=== PATIENT | female | born 1970 | race African-American/Black ===

== ENCOUNTER 2018-07-16 10:35 | Inpatient (IN) | payer BC, OTHER ==
--- NOTE | 2018-07-16 11:25 | PDOC ---
History of Present Illness - History of Present Illness Initial Comments: 07/16/18 12:31 The patient is a 48 year old female, with a significant past medical history of hypothyroidism, hypertension, hyperlipidemia, DM, asthma, neuropathy, Charcot foot, chronic cellulitis/rt diabetic foot ulcer/wound, venous stasis, sent in by Dr Olvera for evaluation of right lower extremity wound. The patient states she was evaluated at the wound care clinic today with Dr Olvera for the RLE wound /ulcer prior to arrival and advised to come to the emergency department for admission and consultations. The patient states she has had drainage from the RLE and loss of sensation at baseline, previously evaluated at [facility] and clinics and advised for amputation but pt has declined and looking for second opinions.. The patient had a prior rt foot wound culture which was positive for strep agalactiae. Of note, the patient had a previous admission 2017 for similar presentation, for rt foot wound/cellulitis. Denies fever, chills, chest pain, SOB, palpitation, dizziness, weakness, N, V, D , abdominal pain, bladder and bowel problems, Allergies: piperacillin sodium, tazobactam sodium Past Medical History: hypothyroidism, hypertension, hyperlipidemia, DM, asthma, neuropathy, chronic cellulitis/rt diabetic foot ulcer/wound, venous stasis Social history: No smoking. No alcohol. No illicit drugs. Surgical history: 2 prior right lower extremity wound surgeries. PMD: Dr Bledsoe Podiatry: Dr Olvera <Edinson Guerrero - Last Filed: 07/16/18 12:33> - General History Source: Patient Exam Limitations: No Limitations <Laila Moralez - Last Filed: 07/16/18 15:49> - General Chief Complaint: Wound Stated Complaint: WOUND CARE Time Seen by Provider: 07/16/18 11:06 Past History <Edinson Guerrero - Last Filed: 07/16/18 12:33> - Past Medical History Anemia: No Asthma: Yes Cardiac Disorders: No CVA: No COPD: No CHF: No Dementia: No Diabetes: Yes GI Disorders: No Disorders: No HTN: Yes Hypercholesterolemia: No (PT RECEIVING LIPITOR FOR PREVENTATIVE MEASURES) Liver Disease: No Seizures: No Thyroid Disease: Yes (HYPOTHYROIDISM) - Immunization History Immunization Up to Date: No - Suicide/Smoking/Psychosocial Hx Smoking History: Never smoked Have you smoked in the past 12 months: No Information on smoking cessation initiated: No Hx Alcohol Use: No Drug/Substance Use Hx: No Substance Use Type: None Hx Substance Use Treatment: No <Laila Moralez - Last Filed: 07/16/18 15:49> - Past Medical History Allergies/Adverse Reactions: Allergies Allergy/AdvReac Type Severity Reaction Status Date / Time piperacillin sodium AdvReac Verified 10/22/17 21:24 [From Zosyn] tazobactam sodium AdvReac Verified 10/22/17 21:24 [From Zosyn] Home Medications: Ambulatory Orders Furosemide 40 mg PO DAILY 04/03/16 metFORMIN HCL [Metformin ER Osmotic] 1,000 mg PO BID 04/03/16 Insulin (Novolog) [Novolog -] See Protocol SQ ACHS 10/23/17 Lantus 14 units SQ ASDIR 10/23/17 Atorvastatin Ca [Lipitor] 10 mg PO HS 07/16/18 Gabapentin 100 mg PO TID 07/16/18 Glipizide [Glucotrol] 10 mg PO DAILY 07/16/18 Insulin Detemir [Levemir Flextouch] 100 unit SQ ASDIR 07/16/18 Lisinopril 20 mg PO DAILY 07/16/18 Pantoprazole Sodium [Protonix] 40 mg PO DAILY 07/16/18 Pregabalin [Lyrica] 25 mg PO DAILY 07/16/18 Review of Systems - Review of Systems Comments:: 07/16/18 12:32 Constitutional: no fevers or chills. HEENT: no headache or dizziness. CVS: no cp or syncope. Resp: no sob. No cough. Gastrointestinal: no abdominal pain, nausea or vomiting. Genitourinary: no urinary sx, hematuria. MUSCULOSKELETAL: No joint pain and swelling. No neck or back pain. SKIN: (+) Right lower extremity wound. +purulence/drainage, +foot pain. no malodor Hematologic: no easy bruising/bleeding. No anemia. NEUROLOGIC: No headache, dizziness, LOC or altered mental status. No weakness, + chronic numbness to feet Allergic/Immunologic: drug allergy to pcn (rash) All other systems reviewed and negative, or as documented in HPI. <Edinson Guerrero - Last Filed: 07/16/18 12:33> *Physical Exam - Vital Signs Last Vital Signs Temp Pulse Resp BP Pulse Ox 98.0 F 84 16 118/70 98 07/16/18 10:49 07/16/18 10:49 07/16/18 10:49 07/16/18 10:49 07/16/18 10:49 - Physical Exam Comments: 07/16/18 12:32 General: Well appearing, awake and alert, NAD. HEENT: NCAT, PERRL, EOMI, clear conjunctiva, anicteric, moist mucus membranes, clear oropharynx, no oral lesions.. Neck: neck supple, FROM Resp: CTAB, normal and even respirations, no respiratory distress CVS: RRR, no murmurs, 2+ peripheral pulses throughout, +Right peripheral edema Abdomen: soft, NTND, no peritoneal signs. +obese Back: nontender, normal inspection and ROM MSK: (+) Pitting edema of the right lower extremity involving the foot and ankle. SHELL x4, ROM intact. No clubbing or cyanosis. normal bulk and tone. Neuro: alert, no focal neuro deficits. +sensation diminished to bilateral plantar feet. Skin: (+) Large plantar ulcer to rt foot, (+) 4.3cm x 4.0cm x 1.5cm deep. (+) Mild warmth to palpation, worse in RLE and herzog.. No active drainage, or malodor , packing in place. (+) Venous stasis changes to the right lower extremity. 2+ DP pulses on left versus 1+ DP pulse on right, limited due to profound swelling. (+) Diminished sensation on plantar surface of right lower extremity. <Edinson Guerrero - Last Filed: 07/16/18 12:33> - Vital Signs Last Vital Signs Temp Pulse Resp BP Pulse Ox 98.0 F 84 16 118/70 98 07/16/18 10:49 07/16/18 10:49 07/16/18 10:49 07/16/18 10:49 07/16/18 10:49 <Laila Moralez - Last Filed: 07/16/18 15:49> Heart Score/ECG Review #1 ECG reviewed & interpreted by me at: 11:20 General ECG Interpretation: Sinus Rhythm, Normal Rate 07/16/18 11:33 EKG normal sinus rhythm 85 bpm, no interval abnormalities, narrow QRS, ST and T wave segments and morphology normal. Nonspecific T wave abnormalities <Laila Moralez - Last Filed: 07/16/18 15:49> ED Treatment Course - LABORATORY CBC & Chemistry Diagram: 07/16/18 11:56 07/16/18 11:56 - ADDITIONAL ORDERS Additional order review: 07/16/18 11:56 RBC 3.85 MCV 80.7 MCHC 32.6 RDW 17.6 H MPV 7.1 L D Neutrophils % 81.7 D Lymphocytes % 10.7 D Monocytes % 5.6 Eosinophils % 1.0 Basophils % 1.0 - Medications Given in the ED: ED Medications Discontinued Medications Generic Name Dose Route Start Last Admin Trade Name Freq PRN Reason Stop Dose Admin Cefepime HCl 1 gm in 50 mls @ 100 mls/hr 07/16/18 11:34 07/16/18 12:05 Maxipime 1 Gm Premix Ivpb IVPB 07/16/18 12:03 100 mls/hr ONCE ONE Administration Cefepime HCl 1 gm/ Dextrose 100 mls @ 200 mls/hr 07/16/18 12:00 07/16/18 12: 08 IVPB 07/16/18 12:29 Not Given ONCE ONE <Edinson Guerrero - Last Filed: 07/16/18 12:33> - LABORATORY CBC & Chemistry Diagram: 07/16/18 11:56 07/16/18 11:56 <Laila Moralez - Last Filed: 07/16/18 15:49> Medical Decision Making - Medical Decision Making 07/16/18 11:30 I, Laila Moralez MD, attest that this document has been prepared under my direction and personally reviewed by me in its entirety. I further attest, that it accurately reflects all work, treatment, procedures and medical decision -making performed by me. See HPI for details Vital signs reviewed, wnl. no fever ddx cellulitis, foot wound, abscess, osteomyelitis, electrolyte derangements, bacteremia. Prior notes reviewed, including admissions, discharges and consultations. laboratory results and imaging reviewed, basic labs and lytes wnl, notable for + leukocytosis. blood cultures pending. wound cultures by podiatry earlier, pending. EKG normal sinus rhythm 85 bpm, no interval abnormalities, narrow QRS, ST and T wave segments and morphology normal. Nonspecific T wave abnormalities duplex to eval for DVT, negative Xray eval for osteomyelitis, ED course - IV abx - based on prior, pcn allergy, give broad spec cefepime and vancomycin IV (prior strep agalactiae), has tolerated cephalosporins previously Admit for acute on chronic rt foot wound/ulcer requiring abx, med/surg management. Discussed results and management plan with pt and family member at bedside, agree with impression and plan admit to Dr Aranda ID and podiatry/vascular consultants inpatient. 07/16/18 13:09 07/16/18 15:49 <Laila Moralez - Last Filed: 07/16/18 15:49> *DC/Admit/Observation/Transfer - Attestations Scribe Attestion: 07/16/18 12:33 Documentation prepared by Edinson Guerrero, acting as medical records director for Laila Moralez MD. <Edinson Guerrero - Last Filed: 07/16/18 12:33> - Discharge Dispostion Decision to Admit order: Yes Decision to Admit order Date/Time: 07/16/18 13:09 Decision to Admit Order Category Date Time Status Decision to Admit to Hospital Routine Admission 07/16/18 12:41 Active <Laila Moralez - Last Filed: 07/16/18 15:49> Diagnosis at time of Disposition: Diabetes mellitus Qualifiers: Diabetes mellitus type: type 2 Diabetes mellitus exterminator helper termite insulin use: with exterminator helper termite use Diabetes mellitus complication status: with unspecified complications Qualified Code(s): E11.8 - Type 2 diabetes mellitus with unspecified complications Foot ulcer, right Qualifiers: Non-pressure ulcer stage: unspecified non-pressure ulcer stage Qualified Code(s ): L97.519 - Non-pressure chronic ulcer of other part of right foot with unspecified severity - Discharge Dispostion Condition at time of disposition: Stable
[2018-07-16] MEDS ORDERED: CEFEPIME HCL/D5W 1 GM/50 ML BAG IVPB ONE (11:34)
[2018-07-16] MEDS ORDERED: VANCOMYCIN 2,000 MG in DEXTROSE 5%-WATER - 250 ML IVPB ONE ×2 (11:34→11:38)
[2018-07-16] MEDS ORDERED: VANCOMYCIN 2,000 MG in DEXTROSE 5%-WATER - 500 ML IVPB ONE (11:40)
[2018-07-16] MEDS ORDERED: CEFEPIME 1 GM in DEXTROSE 5%-WATER 100 ML IVPB ONE (12:00)
[2018-07-16] MEDS ORDERED: CEFEPIME 1 GM/100 ML BAG IVPB ONE (12:03)
[2018-07-16 12:17] LABS: HEMATOCRIT 31.1 % (32.4-45.2); HEMOGLOBIN 10.1 GM/dL (10.7-15.3); LYMPH % 10.7 % (8-40); MCH 26.3 pg (25.7-33.7); MCHC 32.6 g/dl (32.0-36.0); MEAN CELL VOLUME 80.7 fl (80-96); MEAN PLT VOLUME 7.1 fl (7.5-11.1); MONO % 5.6 % (3.8-10.2); NEUT % 81.7 % (42.8-82.8); PLATELET COUNT 585 K/MM3 (134-434); RBC 3.85 M/mm3 (3.60-5.2); RDW 17.6 % (11.6-15.6); WHITE BLOOD COUNT 13.8 K/mm3 (4.0-10.0)
[2018-07-16 13:20] LABS: ALBUMIN 2.9 g/dl (3.4-5.0); ALK PHOS 81 U/L (45-117); ANION GAP 8 MMOL/L (8-16); BILIRUBIN,TOTAL 0.2 mg/dL (0.2-1); BLOOD UREA NITROGEN 12 mg/dL (7-18); CHLORIDE 99 mmol/L (98-107); CO2 28 mmol/L (21-32); CREATININE 0.8 mg/dL (0.55-1.3); GLUCOSE,RANDOM 173 mg/dL (74-106); POTASSIUM 3.9 mmol/L (3.5-5.1); SGOT/AST 9 U/L (15-37); SGPT/ALT 13 U/L (13-61); SODIUM 135 mmol/L (136-145)
[2018-07-16 13:23] LABS: ERYTHROCYTE SEDIMENTATION RATE 107 mm/hr (0-30)
--- NOTE | 2018-07-16 14:04 | HP ---
Admitting History and Physical - Primary Care Physician PCP: Harvinder Bledsoe - Admission Chief Complaint: chronic foot ulcer History of Present Illness: long history of right foot ulcer, was treated with 6 weeks iv abx at [facility] from January to March 2018, while in [place] wound became worse with foul discharge and was readmitted and again treated with multiple iv abx for MRSA finished iv treatment at the end of May, has had wound vac and debridement twice and was recommended amputation she thought second opinion and came to see dr Olvera for the first time today , she was sent to er for eval and treatment of presumptive osteomyelitis long history of poorly controlled DM History Source: Patient Limitations to Obtaining History: No Limitations - Past Medical History Cardiovascular: Yes: HTN, Hyperlipdemia Endocrine: Yes: Diabetes Mellitus (uncontrolled), Hypothyroidism, Other (Obesity ) Dermatology: Yes: Cellulitis - Smoking History Smoking history: Never smoked Have you smoked in the past 12 months: No - Alcohol/Substance Use Hx Alcohol Use: No - Social History ADL: Independent History of Recent Travel: No Home Medications - Allergies Allergies/Adverse Reactions: Allergies Allergy/AdvReac Type Severity Reaction Status Date / Time piperacillin sodium AdvReac Verified 10/22/17 21:24 [From Zosyn] tazobactam sodium AdvReac Verified 10/22/17 21:24 [From Zosyn] - Home Medications Home Medications: Ambulatory Orders Furosemide 40 mg PO DAILY 04/03/16 Insulin Glargine,Hum.rec.anlog [Lantus Solostar PEN -] 14 units SQ HS 04/03/16 metFORMIN HCL [Metformin ER Osmotic] 1,000 mg PO BID 04/03/16 Insulin (Novolog) [Novolog -] See Protocol SQ ACHS 10/23/17 Lantus 14 units SQ HS 10/23/17 Lisinopril [Prinivil] 10 mg PO HS 10/23/17 Pregabalin [Lyrica -] 75 mg PO BID #60 capsule MDD 2 10/27/17 Family Disease History - Family Disease History Family Disease History: Diabetes: Father (CVA), Mother, Other: Father Review of Systems - Review of Systems Constitutional: reports: No Symptoms Neck: reports: No Symptoms Cardiovascular: reports: No Symptoms Respiratory: reports: No Symptoms Gastrointestinal: reports: No Symptoms Genitourinary: reports: No Symptoms Musculoskeletal: reports: No Symptoms Integumentary: reports: Other (leg wound as noted) Neurological: reports: No Symptoms Endocrine: reports: Other (uncontrolled sugars) Physical Examination Vital Signs: Vital Signs Temperature 98.0 F 07/16/18 10:49 Pulse Rate 84 07/16/18 10:49 Respiratory Rate 16 07/16/18 10:49 Blood Pressure 118/70 07/16/18 10:49 O2 Sat by Pulse Oximetry (%) 98 07/16/18 10:49 Constitutional: Yes: Well Nourished, No Distress, Obese Eyes: Yes: Conjunctiva Clear HENT: Yes: Atraumatic, Normocephalic Neck: Yes: Trachea Midline Cardiovascular: Yes: Regular Rate and Rhythm Respiratory: Yes: CTA Bilaterally Gastrointestinal: Yes: Normal Bowel Sounds, Soft, Abdomen, Obese Extremities: Yes: WNL Edema: Yes Edema: LLE: 1+, RLE: 2+ Peripheral Pulses WNL: Yes Integumentary: Yes: Other (center of plantar surface of right foot witd dependent swelling and bloody discharge from ~3x4 cm opening) Neurological: Yes: WNL ...Motor Strength: WNL Psychiatric: Yes: WNL Labs: CBC, BMP 07/16/18 11:56 07/16/18 11:56 ESR 107 Imaging - Results Ultrasound: Pending (negative for DVT) Problem List - Problems (1) Osteomyelitis Code(s): M86.9 - OSTEOMYELITIS, UNSPECIFIED Qualifiers: Osteomyelitis location: foot Laterality: right (2) Diabetes mellitus Code(s): E11.9 - TYPE 2 DIABETES MELLITUS WITHOUT COMPLICATIONS Qualifiers: Diabetes mellitus type: type 2 Diabetes mellitus prison insulin use: with superintendent container terminal use Diabetes mellitus complication status: with unspecified complications Qualified Code(s): E11.8 - Type 2 diabetes mellitus with unspecified complications; Z79.4 - shelter (current) use of insulin (3) Foot ulcer, right Code(s): L97.519 - NON-PRS CHRONIC ULCER OTH PRT RIGHT FOOT W UNSP SEVERITY Qualifiers: Non-pressure ulcer stage: unspecified non-pressure ulcer stage Qualified Code(s): L97.519 - Non-pressure chronic ulcer of other part of right foot with unspecified severity (4) Asthma Code(s): J45.909 - UNSPECIFIED ASTHMA, UNCOMPLICATED Qualifiers: Asthma severity: mild Asthma persistence: intermittent (5) Hypertension Code(s): I10 - ESSENTIAL (PRIMARY) HYPERTENSION Qualifiers: Hypertension type: essential hypertension Qualified Code(s): I10 - Essential (primary) hypertension (6) Hypothyroidism Code(s): E03.9 - HYPOTHYROIDISM, UNSPECIFIED Qualifiers: Hypothyroidism type: unspecified Qualified Code(s): E03.9 - Hypothyroidism , unspecified (7) Morbid obesity Code(s): E66.01 - MORBID (SEVERE) OBESITY DUE TO EXCESS CALORIES Assessment/Plan presumptive osteo based on clinical presentation podiatry f/up MRI right foot ID requested for abx choice sugar control continue other medications
--- NOTE | 2018-07-16 14:14 | EKG ---
Test Reason : Blood Pressure : / mmHG Vent. Rate : 085 BPM Atrial Rate : 085 BPM P-R Int : 144 ms QRS Dur : 100 ms QT Int : 368 ms P-R-T Axes : 057 023 030 degrees QTc Int : 437 ms NORMAL SINUS RHYTHM NONSPECIFIC ST ABNORMALITY ABNORMAL ECG WHEN COMPARED WITH ECG OF 23-OCT-2017 06:57, NO SIGNIFICANT CHANGE WAS FOUND Confirmed by GILA BULLOCK MD ([id number]) on 07/16/2018 2:14:06 PM Referred By: DR OJEDA Confirmed By:GILA BULLOCK MD
--- NOTE | 2018-07-16 16:00 | CONSULT ---
Consult Consult Specialty:: Endocrinology Referred by:: Dr Lee Reason for Consultation:: Hyperglycemia - History of Present Illness Chief Complaint: Rt foot infection History of Present Illness: This is a 48 year old female, with h/o hypothyroidism, hypertension, hyperlipidemia, T2DM on Insulin, asthma, neuropathy, Charcot foot, chronic cellulitis/rt diabetic foot ulcer/wound, venous stasis, sent in by Dr Olvera for evaluation of right lower extremity wound. . The patient states she has had drainage from the RLE and loss of sensation at baseline, previously evaluated at [facility] and clinics and advised for amputation but pt has declined and looking for second opinions.. The patient had a prior rt foot wound culture which was positive for strep agalactiae. Of note, the patient had a previous admission 2017 for similar presentation, for rt foot wound/cellulitis. Pt saw Endo a [facility] recently who decreased her Lantus to 14 BID and Novlog SS. FS at home has been in the 200s and the last A1c is in the 7s as per pt. - History Source History Provided By: Patient, Medical Record - Past Medical History Cardio/Vascular: Yes: HTN, Hyperlipdemia Endocrine: Yes: Diabetes Mellitus (uncontrolled), Hypothyroidism, Other (Obesity ) Dermatology: Yes: Cellulitis - Alcohol/Substance Use Hx Alcohol Use: No - Smoking History Smoking history: Never smoked Have you smoked in the past 12 months: No - Social History ADL: Independent History of Recent Travel: No Home Medications - Allergies Allergies/Adverse Reactions: Allergies Allergy/AdvReac Type Severity Reaction Status Date / Time piperacillin sodium AdvReac Verified 10/22/17 21:24 [From Zosyn] tazobactam sodium AdvReac Verified 10/22/17 21:24 [From Zosyn] - Home Medications Home Medications: Ambulatory Orders Furosemide 40 mg PO DAILY 04/03/16 metFORMIN HCL [Metformin ER Osmotic] 1,000 mg PO BID 04/03/16 Insulin (Novolog) [Novolog -] See Protocol SQ ACHS 10/23/17 Lantus 14 units SQ ASDIR 10/23/17 Atorvastatin Ca [Lipitor] 10 mg PO HS 07/16/18 Gabapentin 100 mg PO TID 07/16/18 Glipizide [Glucotrol] 10 mg PO DAILY 07/16/18 Insulin Detemir [Levemir Flextouch] 100 unit SQ ASDIR 07/16/18 Lisinopril 20 mg PO DAILY 07/16/18 Pantoprazole Sodium [Protonix] 40 mg PO DAILY 07/16/18 Pregabalin [Lyrica] 25 mg PO DAILY 07/16/18 Family Disease History - Family Disease History Family Disease History: Diabetes: Father (CVA), Mother, Other: Father Review of Systems - Review of Systems Constitutional: reports: No Symptoms Eyes: reports: No Symptoms HENT: reports: No Symptoms Neck: reports: No Symptoms Cardiovascular: reports: No Symptoms Respiratory: reports: No Symptoms Gastrointestinal: reports: No Symptoms Genitourinary: reports: No Symptoms Endocrine: reports: No Symptoms Physical Exam Vital Signs: Vital Signs Temperature 98.0 F 07/16/18 10:49 Pulse Rate 84 07/16/18 10:49 Respiratory Rate 16 07/16/18 10:49 Blood Pressure 118/70 07/16/18 10:49 O2 Sat by Pulse Oximetry (%) 98 07/16/18 10:49 Constitutional: Yes: No Distress, Calm Eyes: Yes: Conjunctiva Clear, EOM Intact HENT: Yes: Atraumatic, Normocephalic Neck: Yes: Supple, Trachea Midline Cardiovascular: Yes: Regular Rate and Rhythm Respiratory: Yes: Regular, CTA Bilaterally Gastrointestinal: Yes: Normal Bowel Sounds, Soft Musculoskeletal: Yes: WNL Extremities: Yes: Other (Dressing Rt foot) Edema: Yes Edema: RLE: 2+ Neurological: Yes: Alert, Oriented Labs: CBC, BMP 07/16/18 11:56 07/16/18 11:56 Problem List - Problems (1) Diabetes mellitus Code(s): E11.9 - TYPE 2 DIABETES MELLITUS WITHOUT COMPLICATIONS Qualifiers: Diabetes mellitus type: type 2 Diabetes mellitus termite exterminator helper insulin use: with group home use Diabetes mellitus complication status: with unspecified complications Qualified Code(s): E11.8 - Type 2 diabetes mellitus with unspecified complications; Z79.4 - longterm (current) use of insulin (2) Foot ulcer, right Code(s): L97.519 - NON-PRS CHRONIC ULCER OTH PRT RIGHT FOOT W UNSP SEVERITY Qualifiers: Non-pressure ulcer stage: unspecified non-pressure ulcer stage Qualified Code(s): L97.519 - Non-pressure chronic ulcer of other part of right foot with unspecified severity (3) Hypertension Code(s): I10 - ESSENTIAL (PRIMARY) HYPERTENSION Qualifiers: Hypertension type: essential hypertension Qualified Code(s): I10 - Essential (primary) hypertension Assessment/Plan AP: Rt foot Infection T2DM HLD HTN Hypothyroidism Levemir 14 units BID Novolog SS coverage Start LT4 50mcg QD Diet discussed NUtrition consult Abx as per ID Local wound care Check TSH Will F/U
--- NOTE | 2018-07-16 16:16 | PN ---
Progress Note (short form) - Note Progress Note: ID consult dictated imp/reccd 48 yo female with diabetes since age 30 has had chronic infection of the right foot since January she has had a chronic plantar ulcer that has been debrided multiple times and has been on iv antibiotics twice for snf treatment of osteomyelitis she reports vancomycin for the whole time and rocephin/flagyl during her second course of treatment she finally came home June 17 and went back for f/u June 26 was offered amputation and came to Wound care today for a second opinion no fevers or chills suspect chronic osteo complicating diabetic foot/charcot joint suspect this is a chronic process she reports leg has been darkened since 2017 received vanco/cefepime in the ED would hold further antibiotics await xrays and MRI ?bone biopsy history of MRSA-contact isolation d/w patient d/w podiatry Problem List - Problems (1) Diabetic foot ulcer Code(s): E11.621 - TYPE 2 DIABETES MELLITUS WITH FOOT ULCER; L97.509 - NON- PRESSURE CHRONIC ULCER OTH PRT UNSP FOOT W UNSP SEVERITY (2) Osteomyelitis Code(s): M86.9 - OSTEOMYELITIS, UNSPECIFIED Qualifiers: Osteomyelitis location: foot Laterality: right (3) Charcot foot due to diabetes mellitus Code(s): E11.610 - TYPE 2 DIABETES MELLITUS W DIABETIC NEUROPATHIC ARTHROPATHY (4) Morbid obesity Code(s): E66.01 - MORBID (SEVERE) OBESITY DUE TO EXCESS CALORIES (5) MRSA (methicillin resistant staph aureus) culture positive Code(s): Z22.322 - CARRIER OR SUSPECTED CARRIER OF METHICILLIN RESIS STAPH
[2018-07-16] MEDS ORDERED: metFORMIN HCL 500 MG TABLET (FP) ONE (16:54)
[2018-07-16] MEDS ORDERED: glipiZIDE 5 MG TABLET (FP) ONE (16:54)
[2018-07-16] MEDS ORDERED: INSULIN (NOVOLOG) ASPART 100 UNITS/ML 10ML VIAL ONE ×3 (16:55→21:22)
[2018-07-16] MEDS: glipiZIDE 5 MG TABLET (FP) PO SCH (16:56)
[2018-07-16] MEDS: INSULIN (NOVOLOG) ASPART 100 UNITS/ML 10ML VIAL SQ SCH ×2 (16:56→16:59)
--- NOTE | 2018-07-16 19:52 | CONS ---
DATE OF CONSULTATION: 07/16/2018 DATE OF DICTATION: 07/16/2018 INFECTIOUS DISEASE CONSULTATION REQUESTING PHYSICIAN: Uma Lopez M.D. CONSULTING PHYSICIAN: Anup Kauffman M.D. HISTORY OF PRESENT ILLNESS: This is a 48-year-old woman with a history of longstanding diabetes since her early 30s. She most recently in January developed an ulcer on her right foot. She was seen at [facility], where the ulcer was debrided. She was then sent to a intermediate on IV antibiotics. She reports she was treated with vancomycin. She was readmitted from that intermediate back to [facility], and she underwent more debridement. She was then sent to a different intermediate, where she was treated she says with vancomycin, ceftriaxone and oral Flagyl. She was then discharged home and she says from January it was not until June 17 that she got home. She is currently not taking any antibiotics. She followed up in mid June with her surgeon, who recommended amputation, and she came today to the wound center for a 2nd opinion. She was admitted by the manager information to the hospital. She denies any fevers or chills. She notes she has had discoloration of the right lower leg since 2017. PAST MEDICAL HISTORY: Notable for hypertension, hyperlipidemia, diabetes, hypothyroidism, obesity, and she has had cellulitis in the past. She notes she had an ulcer that healed in 2015 on the same foot. SOCIAL HISTORY: She is independent. There is no history of any cigarette or substance use. ALLERGIES: She is allergic to PIPERACILLIN, TAZOBACTAM, but tolerates cephalosporins. MEDICATION: At home include Lasix, insulin, metformin, Prinivil, and Lyrica. FAMILY HISTORY: Notable for diabetes and CVA. REVIEW OF SYSTEMS: Unremarkable. PHYSICAL EXAMINATION: GENERAL: She is awake and alert. VITAL SIGNS: Temperature 98, pulse 89, blood pressure 105/58, respiratory rate 18, she weighs 123 kg, she is saturating 99% on room air. HEENT: Normocephalic. Eyes are anicteric. NECK: Supple. LUNGS: Clear to auscultation. HEART: Regular rate and rhythm. ABDOMEN: Soft, nontender. EXTREMITIES: Notable for some discoloration of the leg. She has an open ulcer on the plantar surface that is quite clean. White count is 13.8, hemoglobin 10.1, platelets of 585, sedimentation rate is 107, BUN and creatinine are 12 and 0.8, CRP is 15.4. IMPRESSION: In summary, this is a 48-year-old woman with diabetes who has probable chronic osteo complicating a diabetic foot with a Charcot joint. I suspect this is a chronic process. She has no signs to suggest an acute infection. She received vancomycin and cefepime in the emergency room. I would hold further antibiotics and await x-rays and an MRI with the possible need for bone biopsy, given the fact that she has had multiple prior courses of antibiotics. History of methicillin- resistant Staphylococcus aureus, she will require contact isolation. Patient's case discussed with the patient as well as podiatry and the primary care doctor. ANUP KAUFFMAN M.D. [id number] MTDD
[2018-07-16] MEDS: INSULIN SLIDING SCALE (NOVOLOG) 1 VIAL SQ SCH (21:52)
[2018-07-16] MEDS: INSULIN (LEVEMIR) 100 UNITS/ML UNITS SQ SCH (21:54)
[2018-07-16 22:13] VITALS: BMI 43.2
[2018-07-17] MEDS: ACETAMINOPHEN 325 MG TABLET (FP) PO PRN ×3 (01:19→22:06)
[2018-07-17] MEDS: glipiZIDE 5 MG TABLET (FP) PO SCH ×2 (06:28→16:15)
[2018-07-17] MEDS: INSULIN (LEVEMIR) 100 UNITS/ML UNITS SQ SCH ×2 (06:29→21:24)
[2018-07-17] MEDS ORDERED: INSULIN SLIDING SCALE (NOVOLOG) 1 VIAL SQ SCH (07:00)
--- NOTE | 2018-07-17 09:02 | PN ---
Progress Note (short form) - Note Progress Note: no new events Vital Signs Period Temp Pulse Resp BP Sys/Arthur Pulse Ox Last 24 Hr 98.0 F-98.7 F 81-96 16-18 105-131/55-77 98-100 s1s2 rrr lungs cta right lower extr non pitting edema up to knee, slightly warmer than left marked edema over entire foot dressing soaked with serosanguinous material since early am-pt is sitting at bedside wound is approx 2 cm deep, no significant ganulation, necrotic skin edges,no odour Diabetic foot ulcer, possibly chronic osteo non-controlled IDDM Obesity HTN high cholesterol consults greatly appreciated awaiting MRI and culture results podiatry f/up for possible bone biopsy Problem List - Problems (1) Osteomyelitis Code(s): M86.9 - OSTEOMYELITIS, UNSPECIFIED Qualifiers: Osteomyelitis location: foot Laterality: right (2) Diabetes mellitus Code(s): E11.9 - TYPE 2 DIABETES MELLITUS WITHOUT COMPLICATIONS Qualifiers: Diabetes mellitus type: type 2 Diabetes mellitus termite technician insulin use: with retirement use Diabetes mellitus complication status: with unspecified complications Qualified Code(s): E11.8 - Type 2 diabetes mellitus with unspecified complications; Z79.4 - truck terminal manager (current) use of insulin (3) Foot ulcer, right Code(s): L97.519 - NON-PRS CHRONIC ULCER OTH PRT RIGHT FOOT W UNSP SEVERITY Qualifiers: Non-pressure ulcer stage: unspecified non-pressure ulcer stage Qualified Code(s): L97.519 - Non-pressure chronic ulcer of other part of right foot with unspecified severity (4) Asthma Code(s): J45.909 - UNSPECIFIED ASTHMA, UNCOMPLICATED Qualifiers: Asthma severity: mild Asthma persistence: intermittent (5) Hypertension Code(s): I10 - ESSENTIAL (PRIMARY) HYPERTENSION Qualifiers: Hypertension type: essential hypertension Qualified Code(s): I10 - Essential (primary) hypertension (6) Hypothyroidism Code(s): E03.9 - HYPOTHYROIDISM, UNSPECIFIED Qualifiers: Hypothyroidism type: unspecified Qualified Code(s): E03.9 - Hypothyroidism , unspecified (7) Morbid obesity Code(s): E66.01 - MORBID (SEVERE) OBESITY DUE TO EXCESS CALORIES
--- NOTE | 2018-07-17 09:22 | PN ---
Progress Note (short form) - Note Progress Note: Awaiting bone biopsy at bedside FS 70 last night Vital Signs Period Temp Pulse Resp BP Sys/Arthur Pulse Ox Last 24 Hr 98.0 F-98.7 F 81-96 16-18 105-131/55-77 98-100 PE: AOx3 Neck Supple HEENT: PEERLEOMI Lungs: CTA CVS: S1S2 Abd: Benign Ext: Rt foot deep plantar ulcer Neuro: No focal deficit Current Medications Generic Name Dose Route Start Last Admin Trade Name Freq PRN Reason Stop Dose Admin Acetaminophen 650 mg 07/16/18 13:56 07/17/18 01:19 Tylenol - PO 650 mg Q6H PRN Administration PAIN OR FEVER Enoxaparin Sodium 40 mg 07/17/18 10:00 Lovenox - SQ DAILY [facility] Furosemide 40 mg 07/17/18 10:00 Lasix - PO DAILY [facility] Glipizide 5 mg 07/16/18 16:30 07/17/18 06:28 Glucotrol - PO 5 mg BID@0700,1630 [facility] Administration Insulin Aspart 1 vial 07/17/18 07:00 07/17/18 06:28 Novolog Vial Sliding Scale - SQ Not Given TIDAC [facility] Protocol Insulin Aspart 1 vial 07/16/18 22:00 07/16/18 21:52 Novolog Vial Sliding Scale - SQ Not Given HS [facility] Protocol Insulin Detemir 14 units 07/16/18 22:00 07/17/18 06:29 Levemir Vial SQ 14 units BID@0700,2200 [facility] Administration Lisinopril 20 mg 07/17/18 10:00 Prinivil PO DAILY [facility] Metformin HCl 1,000 mg 07/16/18 16:30 07/17/18 06:29 Glucophage Xr - PO 1,000 mg BIDAC [facility] Administration CMP Sodium 135 mmol/L (136-145) L 07/16/18 11:56 Potassium 3.9 mmol/L (3.5-5.1) 07/16/18 11:56 Chloride 99 mmol/L (98-107) 07/16/18 11:56 Carbon Dioxide 28 mmol/L (21-32) 07/16/18 11:56 Anion Gap 8 MMOL/L (8-16) 07/16/18 11:56 BUN 12 mg/dL (7-18) 07/16/18 11:56 Creatinine 0.8 mg/dL (0.55-1.3) 07/16/18 11:56 Creat Clearance w eGFR 75.93 (>60) 07/16/18 11:56 POC Glucometer 146 UNITS (80-120) 07/17/18 06:13 Random Glucose 173 mg/dL (74-106) H 07/16/18 11:56 Hemoglobin A1c % 8.9 % (4.2-6.3) H 07/17/18 06:30 Calcium 9.0 mg/dL (8.5-10.1) 07/16/18 11:56 Total Bilirubin 0.2 mg/dL (0.2-1) 07/16/18 11:56 AST 9 U/L (15-37) L 07/16/18 11:56 ALT 13 U/L (13-61) 07/16/18 11:56 Alkaline Phosphatase 81 U/L (45-117) 07/16/18 11:56 C-Reactive Protein 15.4 MG/DL (0.00-0.3) H 07/16/18 11:56 Total Protein 8.0 g/dl (6.4-8.2) 07/16/18 11:56 Albumin 2.9 g/dl (3.4-5.0) L 07/16/18 11:56 AP: Rt foot Infection T2DM HTN HLD HYpothyroidism Levemir 14 units BID Decrease Novolog SS coverage LT4 50mcg QD Diet discussed NUtrition consult Abx as per ID Local wound care Will F/U Problem List - Problems (1) Diabetes mellitus Code(s): E11.9 - TYPE 2 DIABETES MELLITUS WITHOUT COMPLICATIONS Qualifiers: Diabetes mellitus type: type 2 Diabetes mellitus detention insulin use: with detention use Diabetes mellitus complication status: with unspecified complications Qualified Code(s): E11.8 - Type 2 diabetes mellitus with unspecified complications; Z79.4 - terminal gauger supervisor (current) use of insulin (2) Foot ulcer, right Code(s): L97.519 - NON-PRS CHRONIC ULCER OTH PRT RIGHT FOOT W UNSP SEVERITY Qualifiers: Non-pressure ulcer stage: unspecified non-pressure ulcer stage Qualified Code(s): L97.519 - Non-pressure chronic ulcer of other part of right foot with unspecified severity (3) Hypertension Code(s): I10 - ESSENTIAL (PRIMARY) HYPERTENSION Qualifiers: Hypertension type: essential hypertension Qualified Code(s): I10 - Essential (primary) hypertension
--- NOTE | 2018-07-17 09:47 | OP ---
Operative Note - Note: Operative Date: 07/17/18 Pre-Operative Diagnosis: osteomyelitis Operation: bedside bone biopsy right foot under sterile technique Findings: bone Post-Operative Diagnosis: Same as Pre-op Surgeon: Sylvia Olvera Steward/Stewardess Smoke Room: Vasiliy Burns Estimated Blood Loss (mls): 5 Instrument used (Debridements only): rehman bone marrow aspiration kit Operative Report Dictated: No
--- NOTE | 2018-07-17 09:57 | CONSULT ---
Consult Consult Specialty:: Podiatry Reason for Consultation:: Chronic wound right foot since 01/16/18 - History of Present Illness History of Present Illness: Multiple admisions and procedures on right foot. - History Source History Provided By: Patient - Past Medical History Cardio/Vascular: Yes: HTN, Hyperlipdemia ...LMP: 06/13/18 ...: No Endocrine: Yes: Diabetes Mellitus (uncontrolled), Hypothyroidism, Other (Obesity ) Dermatology: Yes: Cellulitis - Alcohol/Substance Use Hx Alcohol Use: No - Smoking History Smoking history: Never smoked Have you smoked in the past 12 months: No - Social History ADL: Independent History of Recent Travel: No Home Medications - Allergies Allergies/Adverse Reactions: Allergies Allergy/AdvReac Type Severity Reaction Status Date / Time piperacillin sodium AdvReac Verified 10/22/17 21:24 [From Zosyn] tazobactam sodium AdvReac Verified 10/22/17 21:24 [From Zosyn] - Home Medications Home Medications: Ambulatory Orders Furosemide 40 mg PO DAILY 04/03/16 metFORMIN HCL [Metformin ER Osmotic] 1,000 mg PO BID 04/03/16 Insulin (Novolog) [Novolog -] See Protocol SQ ACHS 10/23/17 Lantus 14 units SQ ASDIR 10/23/17 Atorvastatin Ca [Lipitor] 10 mg PO HS 07/16/18 Gabapentin 100 mg PO TID 07/16/18 Glipizide [Glucotrol] 10 mg PO DAILY 07/16/18 Insulin Detemir [Levemir Flextouch] 100 unit SQ ASDIR 07/16/18 Lisinopril 20 mg PO DAILY 07/16/18 Pantoprazole Sodium [Protonix] 40 mg PO DAILY 07/16/18 Pregabalin [Lyrica] 25 mg PO DAILY 07/16/18 Family Disease History - Family Disease History Family Disease History: Diabetes: Father (CVA), Mother, Other: Father Physical Exam Vital Signs: Vital Signs Temperature 98.5 F 07/17/18 05:55 Pulse Rate 81 07/17/18 05:55 Respiratory Rate 18 07/17/18 05:55 Blood Pressure 131/69 07/17/18 05:55 O2 Sat by Pulse Oximetry (%) 100 07/16/18 21:00 Extremities: Yes: Other (vsgi, +completely neuropathic ankle down right, + charcot changes, +grade 3-4 wound right foot with tunneling, -drainage, -odor,) Labs: CBC, BMP 07/16/18 11:56 07/16/18 11:56 Imaging - Results X-ray: Other (ordered) MRI: Pending Assessment/Plan om charcot grade 3-4 wound right Discussed with ID, Dr. Borrero. Recommends no abx until biopsy of bone done. Patient to have biopsy today bedside under sterile technique. MRI done. Xray oredered. Patient consented to bone biopsy and was witnessed by Nursing. Will try to salvage limb. Vascular consult ordered. Will decide on further treatment once MRI read and xray available to review. No guarantees were given to patient due to chronicity of wound and previous treatment. HBO consult to be done. Betadine dressing change daily.
--- NOTE | 2018-07-17 11:47 | PN ---
Progress Note (short form) - Note Progress Note: s/p bone biopsy at bedside by podiatry this am Vital Signs Period Temp Pulse Resp BP Sys/Arthur Pulse Ox Last 24 Hr 98.2 F-98.7 F 81-96 18-18 105-131/55-77 99-100 cor-rrr lungs clear abd soft,nt ext dressing left foot, +swelling LLE with darkening of skin CBC, BMP 07/16/18 11:56 07/16/18 11:56 Laboratory Tests 07/17/18 06:30 Hemoglobin A1c % 8.9 H a/p s/p bone biopsy suspect this is a chronic process she reports leg has been darkened since 2017 f/u MRI and xrays f/u bone biopsy resume vancomycin and cefepime poorly controlled dm -hgbaic 8.9 history of MRSA-contact isolation d/w patient d/w podiatry
[2018-07-17] MEDS: ENOXAPARIN NA (PORCINE) 40 MG/0.4 ML DISP.SYRIN SQ SCH (12:01)
[2018-07-17] MEDS: LISINOPRIL 20 MG TABLET (FP) PO SCH (12:01)
[2018-07-17] MEDS: FUROSEMIDE 40 MG TABLET (FP) PO SCH (12:01)
[2018-07-17] MEDS: INSULIN SLIDING SCALE (NOVOLOG) 1 VIAL SQ SCH ×3 (12:04→21:23)
[2018-07-17] MEDS ORDERED: DEXTROSE 5%-WATER 100 ML IVPB ONE ×2 (13:03→16:08)
[2018-07-17] MEDS ORDERED: CEFEPIME HCL 2 GM VIAL (RESTRICTED TO ID) ONE ×2 (13:03→16:08)
[2018-07-17] MEDS: CEFEPIME 2 GM in DEXTROSE 5%-WATER 100 ML IVPB SCH ×2 (13:30→19:02)
[2018-07-17] MEDS ORDERED: PT OWN MED DRAWER 7, Y5N ONE (16:07)
[2018-07-17] MEDS: VANCOMYCIN HCL 1,500 MG in DEXTROSE 5%-WATER - 500 ML IVPB SCH (16:11)
--- NOTE | 2018-07-17 16:23 | PN ---
Progress Note (short form) - Note Progress Note: 48yo F h/o Right diabetic foot wound and charcot foot. Pt was biopsied this AM by Dr. Olvera. Pt states that she has seen a Vascular surgeon at [facility] who ablated some veins in her Rt leg. Pt denies any history of arterial disease. Last Vital Signs Temp Pulse Resp BP Pulse Ox 97.4 F L 77 18 138/69 100 07/17/18 13:31 07/17/18 13:31 07/17/18 13:31 07/17/18 13:31 07/16/18 21:00 CBC, BMP 07/16/18 11:56 07/16/18 11:56 PE: Gen: A&O x3 Resp: breathing comfortably RLE: +2 pedal and PT pulses, wound is approx 2 cm deep, no significant ganulation, necrotic skin edges,no odour, serous drainage. +2 edema LLE: +2 pulses Problem List - Problems (1) Foot ulcer, right Assessment/Plan: Plan -No vascular surgical intervention need at this time -wound care as per Podiatry Please contact if any changes to vascular exam, case discussed with Rodney who agrees with plan Code(s): L97.519 - NON-PRS CHRONIC ULCER OTH PRT RIGHT FOOT W UNSP SEVERITY Qualifiers: Non-pressure ulcer stage: unspecified non-pressure ulcer stage Qualified Code(s): L97.519 - Non-pressure chronic ulcer of other part of right foot with unspecified severity
--- NOTE | 2018-07-17 16:46 | PN ---
Progress Note (short form) - Note Progress Note: Vascular Surgery Pt seen and examined. Extensive story of her treatment at [facility]. She has been treated with a picc line in a rehab setting. DRessing changed, - wound with palpable bone. Bone biopsy done today by podiatry. Pt has palpable pulses. Will await bone biopsy results. Pt should heal wound if the foot is offloaded via cast therapy. Pt also will benefit from HBO, and pt claims she was going to do it at [facility]. Santyl daily to wound. Might also benefit from VAC therapy. However with her charcot foot, best therapy is to offload the foot. Will cont to follow Grover Stevens DO
[2018-07-18] MEDS ORDERED: DEXTROSE 5%-WATER 100 ML IVPB ONE ×3 (01:19→16:41)
[2018-07-18] MEDS ORDERED: CEFEPIME HCL 2 GM VIAL (RESTRICTED TO ID) ONE ×3 (01:19→16:42)
[2018-07-18] MEDS ORDERED: PT OWN MED DRAWER 7, Y5N ONE (01:20)
[2018-07-18] MEDS: CEFEPIME 2 GM in DEXTROSE 5%-WATER 100 ML IVPB SCH ×3 (01:27→17:09)
[2018-07-18] MEDS: VANCOMYCIN HCL 1,500 MG in DEXTROSE 5%-WATER - 500 ML IVPB SCH ×2 (02:12→12:20)
[2018-07-18] MEDS: LEVOTHYROXINE NA 50 MCG TABLET (FP) PO SCH (06:17)
[2018-07-18] MEDS: glipiZIDE 5 MG TABLET (FP) PO SCH ×2 (06:17→17:09)
[2018-07-18] MEDS: INSULIN SLIDING SCALE (NOVOLOG) 1 VIAL SQ SCH ×4 (06:17→22:10)
[2018-07-18] MEDS: INSULIN (LEVEMIR) 100 UNITS/ML UNITS SQ SCH ×2 (06:17→22:09)
[2018-07-18 07:39] LABS: BASO % 0.7 % (0-2.0); EOS % 3.6 % (0-4.5); HEMATOCRIT 28.5 % (32.4-45.2); HEMOGLOBIN 9.3 GM/dL (10.7-15.3); LYMPH % 17.8 % (8-40); MCH 26.3 pg (25.7-33.7); MCHC 32.7 g/dl (32.0-36.0); MEAN CELL VOLUME 80.7 fl (80-96); MEAN PLT VOLUME 7.2 fl (7.5-11.1); NEUT % 70.9 % (42.8-82.8); PLATELET COUNT 592 K/MM3 (134-434); RBC 3.54 M/mm3 (3.60-5.2); RDW 17.6 % (11.6-15.6); WHITE BLOOD COUNT 7.2 K/mm3 (4.0-10.0)
[2018-07-18 08:00] LABS: ALBUMIN 2.2 g/dl (3.4-5.0); ALK PHOS 68 U/L (45-117); ANION GAP 7 MMOL/L (8-16); BILIRUBIN,TOTAL 0.1 mg/dL (0.2-1); BLOOD UREA NITROGEN 12 mg/dL (7-18); CALCIUM 8.3 mg/dL (8.5-10.1); CHLORIDE 100 mmol/L (98-107); CO2 28 mmol/L (21-32); CREATININE 0.8 mg/dL (0.55-1.3); GLUCOSE,RANDOM 234 mg/dL (74-106); POTASSIUM 4.7 mmol/L (3.5-5.1); SGOT/AST 5 U/L (15-37); SGPT/ALT 16 U/L (13-61); SODIUM 135 mmol/L (136-145); TOT PROT 6.5 g/dl (6.4-8.2)
--- NOTE | 2018-07-18 08:45 | PN ---
Progress Note (short form) - Note Progress Note: no new events CBC, BMP 07/18/18 05:00 07/18/18 05:00 Vital Signs Period Temp Pulse Resp BP Sys/Arthur Pulse Ox Last 24 Hr 97.4 F-98.1 F 69-81 18-18 108-139/67-77 100-100 s1s2 rrr lungs cta right lower extr non pitting edema up to knee, slightly warmer than left marked edema over entire foot dressing clean Diabetic foot ulcer, possibly chronic osteo non-controlled IDDM Obesity HTN high cholesterol consults greatly appreciated awaiting MRI and culture results bedside bone biopsy done cont iv abx sugars are better Problem List - Problems (1) Osteomyelitis Code(s): M86.9 - OSTEOMYELITIS, UNSPECIFIED Qualifiers: Osteomyelitis location: foot Laterality: right (2) Diabetes mellitus Code(s): E11.9 - TYPE 2 DIABETES MELLITUS WITHOUT COMPLICATIONS Qualifiers: Diabetes mellitus type: type 2 Diabetes mellitus alf insulin use: with alf use Diabetes mellitus complication status: with unspecified complications Qualified Code(s): E11.8 - Type 2 diabetes mellitus with unspecified complications; Z79.4 - alf (current) use of insulin (3) Foot ulcer, right Code(s): L97.519 - NON-PRS CHRONIC ULCER OTH PRT RIGHT FOOT W UNSP SEVERITY Qualifiers: Non-pressure ulcer stage: unspecified non-pressure ulcer stage Qualified Code(s): L97.519 - Non-pressure chronic ulcer of other part of right foot with unspecified severity (4) Asthma Code(s): J45.909 - UNSPECIFIED ASTHMA, UNCOMPLICATED Qualifiers: Asthma severity: mild Asthma persistence: intermittent (5) Hypertension Code(s): I10 - ESSENTIAL (PRIMARY) HYPERTENSION Qualifiers: Hypertension type: essential hypertension Qualified Code(s): I10 - Essential (primary) hypertension (6) Hypothyroidism Code(s): E03.9 - HYPOTHYROIDISM, UNSPECIFIED Qualifiers: Hypothyroidism type: unspecified Qualified Code(s): E03.9 - Hypothyroidism , unspecified (7) Morbid obesity Code(s): E66.01 - MORBID (SEVERE) OBESITY DUE TO EXCESS CALORIES
--- NOTE | 2018-07-18 08:54 | PN ---
Progress Note, Physician Chief Complaint: right foot wound History of Present Illness: Multiple admisions and procedures on right foot. - Current Medication List Current Medications: Active Medications Acetaminophen (Tylenol -) 650 mg PO Q6H PRN PRN Reason: PAIN OR FEVER Last Admin: 07/17/18 22:06 Dose: 650 mg Enoxaparin Sodium (Lovenox -) 40 mg SQ DAILY [facility] Last Admin: 07/17/18 12:01 Dose: 40 mg Furosemide (Lasix -) 40 mg PO DAILY [facility] Last Admin: 07/17/18 12:01 Dose: 40 mg Glipizide (Glucotrol -) 5 mg PO BID@0700,1630 [facility] Last Admin: 07/18/18 06:17 Dose: 5 mg Cefepime HCl 2 gm/ Dextrose 100 mls @ 200 mls/hr IVPB Q8H-IV [facility]; Protocol Last Admin: 07/18/18 01:27 Dose: 200 mls/hr Vancomycin HCl 1,500 mg/ (Dextrose) 500 mls @ 250 mls/hr IVPB Q12H [facility]; Protocol Last Admin: 07/18/18 02:12 Dose: 250 mls/hr Insulin Aspart (Novolog Vial Sliding Scale -) 1 vial SQ HS [facility]; Protocol Last Admin: 07/17/18 21:23 Dose: Not Given Insulin Aspart (Novolog Vial Sliding Scale -) 1 vial SQ TIDAC [facility]; Protocol Last Admin: 07/18/18 06:17 Dose: 8 units Insulin Detemir (Levemir Vial) 14 units SQ BID@0700,2200 [facility] Last Admin: 07/18/18 06:17 Dose: 14 units Levothyroxine Sodium (Synthroid -) 50 mcg PO DAILY@0700 [facility] Last Admin: 07/18/18 06:17 Dose: 50 mcg Lisinopril (Prinivil) 20 mg PO DAILY [facility] Last Admin: 07/17/18 12:01 Dose: 20 mg Magnesium Hydroxide (Milk Of Magnesia -) 30 ml PO DAILY PRN PRN Reason: CONSTIPATION Metformin HCl (Glucophage Xr -) 1,000 mg PO BIDAC [facility] Last Admin: 07/18/18 06:17 Dose: 1,000 mg Polyethylene Glycol (Miralax (For Daily Use) -) 17 gm PO DAILY PRN PRN Reason: CONSTIPATION - Objective Vital Signs: Vital Signs Temperature 98.1 F 07/18/18 06:00 Pulse Rate 69 07/18/18 06:00 Respiratory Rate 18 07/18/18 06:00 Blood Pressure 130/75 07/18/18 06:00 O2 Sat by Pulse Oximetry (%) 100 07/17/18 21:00 Labs: CBC, BMP 07/18/18 05:00 07/18/18 05:00 Assessment/Plan om charcot grade 3-4 wound right xray reviewed. mri report read. dressing intact. waiting for culture results from bone and path results from bone. once again no guarantees were given to patient due to chronicity of wound and previous treatment. Pt wants to do all that is possible to save foot and leg. Read and appreciated vascular note. HBO consult to be done. Betadine dressing change daily. Will follow.
[2018-07-18] MEDS ORDERED: POLYETHYLENE GLYCOL 3350 119 GM BTL PO PRN (10:00)
[2018-07-18] MEDS ORDERED: INSULIN (NOVOLOG) ASPART 100 UNITS/ML 10ML VIAL ONE (10:55)
[2018-07-18] MEDS: ENOXAPARIN NA (PORCINE) 40 MG/0.4 ML DISP.SYRIN SQ SCH (11:16)
[2018-07-18] MEDS: FUROSEMIDE 40 MG TABLET (FP) PO SCH (11:16)
[2018-07-18] MEDS: MAGNESIUM HYDROX 2400MG/30ML ORAL SUSPENSION 30 ML CUP PO PRN (11:16)
[2018-07-18] MEDS: LISINOPRIL 20 MG TABLET (FP) PO SCH (11:16)
--- NOTE | 2018-07-18 17:43 | PN ---
Progress Note (short form) - Note Progress Note: Denies any complaints Vital Signs Period Temp Pulse Resp BP Sys/Arthur Pulse Ox Last 24 Hr 98 F-98.6 F 69-86 18-20 108-130/67-85 100-100 PE: AOx3 Neck Supple HEENT: PEERLEOMI Lungs: CTA CVS: S1S2 Abd: Benign Ext: Rt foot dressing +Rt leg edema Neuro: No focal deficit CMP Sodium 135 mmol/L (136-145) L 07/18/18 05:00 Potassium 4.7 mmol/L (3.5-5.1) 07/18/18 05:00 Chloride 100 mmol/L (98-107) 07/18/18 05:00 Carbon Dioxide 28 mmol/L (21-32) 07/18/18 05:00 Anion Gap 7 MMOL/L (8-16) L 07/18/18 05:00 BUN 12 mg/dL (7-18) 07/18/18 05:00 Creatinine 0.8 mg/dL (0.55-1.3) 07/18/18 05:00 Creat Clearance w eGFR 75.93 (>60) 07/18/18 05:00 POC Glucometer 140 UNITS (80-120) 07/18/18 17:06 Random Glucose 234 mg/dL (74-106) H 07/18/18 05:00 Hemoglobin A1c % 8.9 % (4.2-6.3) H 07/17/18 06:30 Calcium 8.3 mg/dL (8.5-10.1) L 07/18/18 05:00 Total Bilirubin 0.1 mg/dL (0.2-1) L 07/18/18 05:00 AST 5 U/L (15-37) L 07/18/18 05:00 ALT 16 U/L (13-61) 07/18/18 05:00 Alkaline Phosphatase 68 U/L (45-117) 07/18/18 05:00 C-Reactive Protein 15.4 MG/DL (0.00-0.3) H 07/16/18 11:56 Total Protein 6.5 g/dl (6.4-8.2) 07/18/18 05:00 Albumin 2.2 g/dl (3.4-5.0) L 07/18/18 05:00 Current Medications Generic Name Dose Route Start Last Admin Trade Name Freq PRN Reason Stop Dose Admin Acetaminophen 650 mg 07/16/18 13:56 07/17/18 22:06 Tylenol - PO 650 mg Q6H PRN Administration PAIN OR FEVER Enoxaparin Sodium 40 mg 07/17/18 10:00 07/18/18 11:16 Lovenox - SQ 40 mg DAILY [facility] Administration Furosemide 40 mg 07/17/18 10:00 07/18/18 11:16 Lasix - PO 40 mg DAILY [facility] Administration Glipizide 5 mg 07/16/18 16:30 07/18/18 17:09 Glucotrol - PO 5 mg BID@0700,1630 [facility] Administration Cefepime HCl 2 gm/ Dextrose 100 mls @ 200 mls/hr 07/17/18 12:15 07/18/18 17: 09 IVPB 200 mls/hr Q8H-IV [facility] Administration Protocol Vancomycin HCl 1,500 mg/ 500 mls @ 250 mls/hr 07/17/18 13:00 07/18/18 12:20 Dextrose IVPB 250 mls/hr Q12H [facility] Administration Protocol Insulin Aspart 1 vial 07/16/18 22:00 07/17/18 21:23 Novolog Vial Sliding Scale - SQ Not Given HS [facility] Protocol Insulin Aspart 1 vial 07/17/18 09:22 07/18/18 17:08 Novolog Vial Sliding Scale - SQ Not Given TIDAC [facility] Protocol Insulin Detemir 14 units 07/16/18 22:00 07/18/18 06:17 Levemir Vial SQ 14 units BID@0700,2200 [facility] Administration Levothyroxine Sodium 50 mcg 07/18/18 07:00 07/18/18 06:17 Synthroid - PO 50 mcg DAILY@0700 [facility] Administration Lisinopril 20 mg 07/17/18 10:00 07/18/18 11:16 Prinivil PO 20 mg DAILY [facility] Administration Magnesium Hydroxide 30 ml 07/18/18 08:45 07/18/18 11:16 Milk Of Magnesia - PO 30 ml DAILY PRN Administration CONSTIPATION Metformin HCl 1,000 mg 07/16/18 16:30 07/18/18 17:09 Glucophage Xr - PO 1,000 mg BIDAC [facility] Administration Polyethylene Glycol 17 gm 07/18/18 10:00 Miralax (For Daily Use) - PO DAILY PRN CONSTIPATION AP: Rt foot Infection T2DM HTN HLD Hypothyroidism Increase Levemir 16 units BID Novolog SS coverage LT4 50mcg QD Pt says she was not getting LT4 in the snf and was not taking it at home from early June. Check TSH Diet discussed NUtrition consult Abx as per ID Local wound care Will F/U Problem List - Problems (1) Diabetes mellitus Code(s): E11.9 - TYPE 2 DIABETES MELLITUS WITHOUT COMPLICATIONS Qualifiers: Diabetes mellitus type: type 2 Diabetes mellitus half-way insulin use: with termite control representative use Diabetes mellitus complication status: with unspecified complications Qualified Code(s): E11.8 - Type 2 diabetes mellitus with unspecified complications; Z79.4 - retirement (current) use of insulin (2) Foot ulcer, right Code(s): L97.519 - NON-PRS CHRONIC ULCER OTH PRT RIGHT FOOT W UNSP SEVERITY Qualifiers: Non-pressure ulcer stage: unspecified non-pressure ulcer stage Qualified Code(s): L97.519 - Non-pressure chronic ulcer of other part of right foot with unspecified severity (3) Hypertension Code(s): I10 - ESSENTIAL (PRIMARY) HYPERTENSION Qualifiers: Hypertension type: essential hypertension Qualified Code(s): I10 - Essential (primary) hypertension
[2018-07-19] MEDS ORDERED: DEXTROSE 5%-WATER 100 ML IVPB ONE ×4 (01:25→21:23)
[2018-07-19] MEDS ORDERED: CEFEPIME HCL 2 GM VIAL (RESTRICTED TO ID) ONE ×4 (01:25→21:24)
[2018-07-19] MEDS: CEFEPIME 2 GM in DEXTROSE 5%-WATER 100 ML IVPB SCH ×3 (01:28→17:19)
[2018-07-19] MEDS: VANCOMYCIN HCL 1,500 MG in DEXTROSE 5%-WATER - 500 ML IVPB SCH (01:31)
[2018-07-19] MEDS: LEVOTHYROXINE NA 50 MCG TABLET (FP) PO SCH (06:02)
[2018-07-19] MEDS: glipiZIDE 5 MG TABLET (FP) PO SCH ×2 (06:02→16:44)
[2018-07-19] MEDS: INSULIN (LEVEMIR) 100 UNITS/ML UNITS SQ SCH ×2 (06:02→21:34)
[2018-07-19] MEDS: INSULIN SLIDING SCALE (NOVOLOG) 1 VIAL SQ SCH ×4 (06:07→21:44)
--- NOTE | 2018-07-19 09:57 | PN ---
Progress Note (short form) - Note Progress Note: no new events Vital Signs Period Temp Pulse Resp BP Sys/Arthur Pulse Ox Last 24 Hr 97.8 F-98.9 F 74-86 18-20 107-122/52-85 100 s1s2 rrr lungs cta right lower extr decrease in non pitting edema up to knee, slightly warmer than left dressing soaked with seriosanginous discharge Diabetic foot ulcer, possibly chronic osteo non-controlled IDDM Obesity HTN high cholesterol consults greatly appreciated culture staph coag pos, +another organism bedside bone biopsy done cont iv abx sugars are better add lyrica Problem List - Problems (1) Osteomyelitis Code(s): M86.9 - OSTEOMYELITIS, UNSPECIFIED Qualifiers: Osteomyelitis location: foot Laterality: right (2) Diabetes mellitus Code(s): E11.9 - TYPE 2 DIABETES MELLITUS WITHOUT COMPLICATIONS Qualifiers: Diabetes mellitus type: type 2 Diabetes mellitus intermodal dispatcher insulin use: with fdc use Diabetes mellitus complication status: with unspecified complications Qualified Code(s): E11.8 - Type 2 diabetes mellitus with unspecified complications; Z79.4 - intermediate frame tender (current) use of insulin (3) Foot ulcer, right Code(s): L97.519 - NON-PRS CHRONIC ULCER OTH PRT RIGHT FOOT W UNSP SEVERITY Qualifiers: Non-pressure ulcer stage: unspecified non-pressure ulcer stage Qualified Code(s): L97.519 - Non-pressure chronic ulcer of other part of right foot with unspecified severity (4) Asthma Code(s): J45.909 - UNSPECIFIED ASTHMA, UNCOMPLICATED Qualifiers: Asthma severity: mild Asthma persistence: intermittent (5) Hypertension Code(s): I10 - ESSENTIAL (PRIMARY) HYPERTENSION Qualifiers: Hypertension type: essential hypertension Qualified Code(s): I10 - Essential (primary) hypertension (6) Hypothyroidism Code(s): E03.9 - HYPOTHYROIDISM, UNSPECIFIED Qualifiers: Hypothyroidism type: unspecified Qualified Code(s): E03.9 - Hypothyroidism , unspecified (7) Morbid obesity Code(s): E66.01 - MORBID (SEVERE) OBESITY DUE TO EXCESS CALORIES
[2018-07-19] MEDS ORDERED: INSULIN (NOVOLOG) ASPART 100 UNITS/ML 10ML VIAL ONE (10:47)
[2018-07-19] MEDS: LISINOPRIL 20 MG TABLET (FP) PO SCH (11:01)
[2018-07-19] MEDS: ENOXAPARIN NA (PORCINE) 40 MG/0.4 ML DISP.SYRIN SQ SCH (11:01)
[2018-07-19] MEDS: PREGABALIN 50 MG CAPSULE PO SCH ×2 (11:01→21:34)
[2018-07-19] MEDS: FUROSEMIDE 40 MG TABLET (FP) PO SCH (11:01)
[2018-07-19] MEDS: ACETAMINOPHEN 325 MG TABLET (FP) PO PRN (21:34)
[2018-07-20] MEDS: CEFEPIME 2 GM in DEXTROSE 5%-WATER 100 ML IVPB SCH ×2 (01:26→10:00)
[2018-07-20] MEDS: LEVOTHYROXINE NA 50 MCG TABLET (FP) PO SCH (06:09)
[2018-07-20] MEDS: INSULIN (LEVEMIR) 100 UNITS/ML UNITS SQ SCH ×2 (06:10→22:30)
[2018-07-20] MEDS: INSULIN SLIDING SCALE (NOVOLOG) 1 VIAL SQ SCH ×4 (06:10→22:33)
[2018-07-20] MEDS: glipiZIDE 5 MG TABLET (FP) PO SCH ×2 (06:10→16:48)
[2018-07-20 06:55] LABS: EOS % 2.9 % (0-4.5); HEMATOCRIT 33.8 % (32.4-45.2); LYMPH % 16.8 % (8-40); MCH 26.3 pg (25.7-33.7); MCHC 32.6 g/dl (32.0-36.0); MEAN CELL VOLUME 80.8 fl (80-96); MONO % 4.3 % (3.8-10.2); PLATELET COUNT 618 K/MM3 (134-434); RBC 4.19 M/mm3 (3.60-5.2); RDW 17.4 % (11.6-15.6); WHITE BLOOD COUNT 9.2 K/mm3 (4.0-10.0)
[2018-07-20 07:33] LABS: ALBUMIN 2.8 g/dl (3.4-5.0); ALK PHOS 83 U/L (45-117); ANION GAP 7 MMOL/L (8-16); BILIRUBIN,TOTAL 0.1 mg/dL (0.2-1); BLOOD UREA NITROGEN 15 mg/dL (7-18); CALCIUM 8.9 mg/dL (8.5-10.1); CHLORIDE 100 mmol/L (98-107); CO2 28 mmol/L (21-32); CREATININE 0.8 mg/dL (0.55-1.3); GLUCOSE,RANDOM 157 mg/dL (74-106); SGOT/AST 11 U/L (15-37); SGPT/ALT 15 U/L (13-61); SODIUM 135 mmol/L (136-145); TOT PROT 7.8 g/dl (6.4-8.2)
--- NOTE | 2018-07-20 08:50 | PN ---
Progress Note, Physician Chief Complaint: right foot wound History of Present Illness: Multiple admisions and procedures on right foot. - Current Medication List Current Medications: Active Medications Acetaminophen (Tylenol -) 650 mg PO Q6H PRN PRN Reason: PAIN OR FEVER Last Admin: 07/19/18 21:34 Dose: 650 mg Enoxaparin Sodium (Lovenox -) 40 mg SQ DAILY [facility] Last Admin: 07/19/18 11:01 Dose: 40 mg Furosemide (Lasix -) 40 mg PO DAILY [facility] Last Admin: 07/19/18 11:01 Dose: 40 mg Glipizide (Glucotrol -) 5 mg PO BID@0700,1630 [facility] Last Admin: 07/20/18 06:10 Dose: 5 mg Cefepime HCl 2 gm/ Dextrose 100 mls @ 200 mls/hr IVPB Q8H-IV [facility]; Protocol Last Admin: 07/20/18 01:26 Dose: 200 mls/hr Insulin Aspart (Novolog Vial Sliding Scale -) 1 vial SQ HS [facility]; Protocol Last Admin: 07/19/18 21:44 Dose: Not Given Insulin Aspart (Novolog Vial Sliding Scale -) 1 vial SQ TIDAC [facility]; Protocol Last Admin: 07/20/18 06:10 Dose: 6 units Insulin Detemir (Levemir Vial) 16 units SQ BID@0700,2200 [facility] Last Admin: 07/20/18 06:10 Dose: 16 units Levothyroxine Sodium (Synthroid -) 50 mcg PO DAILY@0700 [facility] Last Admin: 07/20/18 06:09 Dose: 50 mcg Lisinopril (Prinivil) 20 mg PO DAILY [facility] Last Admin: 07/19/18 11:01 Dose: 20 mg Magnesium Hydroxide (Milk Of Magnesia -) 30 ml PO DAILY PRN PRN Reason: CONSTIPATION Last Admin: 07/18/18 11:16 Dose: 30 ml Metformin HCl (Glucophage Xr -) 1,000 mg PO BIDAC [facility] Last Admin: 07/20/18 06:10 Dose: 1,000 mg Polyethylene Glycol (Miralax (For Daily Use) -) 17 gm PO DAILY PRN PRN Reason: CONSTIPATION Pregabalin (Lyrica -) 50 mg PO BID [facility] Last Admin: 07/19/18 21:34 Dose: 50 mg - Objective Vital Signs: Vital Signs Temperature 97.6 F 07/20/18 05:49 Pulse Rate 77 07/20/18 05:49 Respiratory Rate 20 07/20/18 05:49 Blood Pressure 107/64 07/20/18 05:49 O2 Sat by Pulse Oximetry (%) 100 07/19/18 21:00 Extremities: Yes: Other (chronic wound right foot, +growth on bine culture, + granulation of wound) Labs: CBC, BMP 07/20/18 05:10 07/20/18 05:10 Assessment/Plan om grade 3 wound Discussed with ID will tx with vancomycin. Wound vac ordered. Will follow. No surgery at this time. HBO consult.
--- NOTE | 2018-07-20 09:12 | PN ---
Progress Note (short form) - Note Progress Note: no new events CBC, BMP 07/20/18 05:10 07/20/18 05:10 Vital Signs Period Temp Pulse Resp BP Sys/Arthur Pulse Ox Last 24 Hr 97.5 F-98.4 F 74-80 18-20 107-132/64-78 100-100 Microbiology 07/17/18 09:30 Foot - Right Lateral Gram Stain - Final 07/17/18 09:30 Foot - Right Lateral Wound Culture - Preliminary S Aureus Corynebacterium Minutissumum Pending Organism 07/16/18 11:56 Blood - Peripheral Venous Blood Culture - Preliminary NO GROWTH OBTAINED AFTER 72 HOURS, INCUBATION TO CONTINUE FOR 2 DAYS. 07/16/18 11:30 Blood - Peripheral Venous Blood Culture - Preliminary NO GROWTH OBTAINED AFTER 72 HOURS, INCUBATION TO CONTINUE FOR 2 DAYS. s1s2 rrr lungs cta right lower extr decrease in non pitting edema wound with necrotis edges, deep with exposed bone, serosanguinous discharge Diabetic foot ulcer, chronic osteomyelitis non-controlled IDDM Obesity HTN high cholesterol consults greatly appreciated awaiting wound vac cont iv abx sugars are better dc planning on wound vac, bariatric O2 and iv abx Problem List - Problems (1) Osteomyelitis Code(s): M86.9 - OSTEOMYELITIS, UNSPECIFIED Qualifiers: Osteomyelitis location: foot Laterality: right (2) Diabetes mellitus Code(s): E11.9 - TYPE 2 DIABETES MELLITUS WITHOUT COMPLICATIONS Qualifiers: Diabetes mellitus type: type 2 Diabetes mellitus custodial insulin use: with intermediate manager use Diabetes mellitus complication status: with unspecified complications Qualified Code(s): E11.8 - Type 2 diabetes mellitus with unspecified complications; Z79.4 - terminal operator (current) use of insulin (3) Foot ulcer, right Code(s): L97.519 - NON-PRS CHRONIC ULCER OTH PRT RIGHT FOOT W UNSP SEVERITY Qualifiers: Non-pressure ulcer stage: unspecified non-pressure ulcer stage Qualified Code(s): L97.519 - Non-pressure chronic ulcer of other part of right foot with unspecified severity (4) Asthma Code(s): J45.909 - UNSPECIFIED ASTHMA, UNCOMPLICATED Qualifiers: Asthma severity: mild Asthma persistence: intermittent (5) Hypertension Code(s): I10 - ESSENTIAL (PRIMARY) HYPERTENSION Qualifiers: Hypertension type: essential hypertension Qualified Code(s): I10 - Essential (primary) hypertension (6) Hypothyroidism Code(s): E03.9 - HYPOTHYROIDISM, UNSPECIFIED Qualifiers: Hypothyroidism type: unspecified Qualified Code(s): E03.9 - Hypothyroidism , unspecified (7) Morbid obesity Code(s): E66.01 - MORBID (SEVERE) OBESITY DUE TO EXCESS CALORIES
[2018-07-20] MEDS ORDERED: CEFEPIME HCL 2 GM VIAL (RESTRICTED TO ID) ONE (09:32)
[2018-07-20] MEDS ORDERED: DEXTROSE 5%-WATER 100 ML IVPB ONE (09:32)
[2018-07-20] MEDS: FUROSEMIDE 40 MG TABLET (FP) PO SCH (10:00)
[2018-07-20] MEDS: LISINOPRIL 20 MG TABLET (FP) PO SCH (10:00)
[2018-07-20] MEDS: ENOXAPARIN NA (PORCINE) 40 MG/0.4 ML DISP.SYRIN SQ SCH (10:00)
[2018-07-20] MEDS: PREGABALIN 50 MG CAPSULE PO SCH ×2 (10:00→22:33)
--- NOTE | 2018-07-20 13:55 | PN ---
Progress Note (short form) - Note Progress Note: s/p bone biopsy no complaints Vital Signs Period Temp Pulse Resp BP Sys/Arthur Pulse Ox Last 24 Hr 97.5 F-98.3 F 74-79 20-20 107-132/64-78 100 cor-rrr lungs clear abd soft,nt ext dressing intact RLE CBC, BMP 07/20/18 05:10 07/20/18 05:10 07/17/18 06:30 Hemoglobin A1c % 8.9 H Microbiology 07/16/18 11:56 Blood - Peripheral Venous Blood Culture - Preliminary NO GROWTH OBTAINED AFTER 96 HOURS, INCUBATION TO CONTINUE FOR 1 DAYS. 07/16/18 11:30 Blood - Peripheral Venous Blood Culture - Preliminary NO GROWTH OBTAINED AFTER 96 HOURS, INCUBATION TO CONTINUE FOR 1 DAYS. 07/17/18 09:30 Foot - Right Lateral Gram Stain - Final 07/17/18 09:30 Foot - Right Lateral Wound Culture - Preliminary Mr S Aureus Corynebacterium Minutissumum Strep Agalactiae Group B a/p s/p bone biopsy -chronic osteomyelitis-MRSA resume vancomycin-can do picc line for skilled nursing iv antibiotics check pathology poorly controlled dm -hgbaic 8.9 history of MRSA-contact isolation d/w patient d/w podiatry
[2018-07-20] MEDS: VANCOMYCIN HCL 1,500 MG in DEXTROSE 5%-WATER - 500 ML IVPB SCH (15:18)
--- NOTE | 2018-07-20 15:26 | PATH ---
Surgical Pathology Report Patient Name: CHEN BARKSDALE Med. Rec. #: [id number] /Age/Gender: 1970 (Age: 48) / F Account: [id number] Location: [facility] Taken: 07/17/2018 Received: 07/17/2018 Reported: 07/20/2018 Physicians: Sylvia Olvera DPM PHYSICIAN EMERGENCY DEPT Specimen(s) Received BONE BIOPSY Clinical History Bone biopsy rule out osteomyelitis recurrent Final Diagnosis BONE, LATERAL FOOT, RIGHT, BIOPSY: MODERATE ACUTE AND CHRONIC OSTEOMYELITIS (CHRONIC FLORID/ACTIVE OSTEOMYELITIS). Comment: Suggest clinical, radiologic, and microbiology studies correlation. Electronically Signed Jeana Saldana M.D. Gross Description Received in formalin labeled "right lateral foot bone," is a 0.6 cm in length x 0.1 cm in diameter de la torre, cylindrical portion of bone. The specimen is submitted in toto in one cassette, following decalcification. /07/17/2018 . lbade07/17/2018
[2018-07-21] MEDS: glipiZIDE 5 MG TABLET (FP) PO SCH ×2 (06:21→16:42)
[2018-07-21] MEDS: LEVOTHYROXINE NA 50 MCG TABLET (FP) PO SCH (06:21)
[2018-07-21] MEDS: INSULIN SLIDING SCALE (NOVOLOG) 1 VIAL SQ SCH ×4 (06:22→21:49)
[2018-07-21] MEDS: INSULIN (LEVEMIR) 100 UNITS/ML UNITS SQ SCH ×2 (06:22→21:47)
[2018-07-21] MEDS ORDERED: INSULIN (LEVEMIR) 100 UNITS/ML UNITS SQ ONE (06:31)
[2018-07-21] MEDS ORDERED: INSULIN (NOVOLOG) ASPART 100 UNITS/ML 10ML VIAL ONE ×3 (06:31→17:08)
--- NOTE | 2018-07-21 09:29 | PN ---
Progress Note (short form) - Note Progress Note: Blood suagar 76 last night Vital Signs Period Temp Pulse Resp BP Sys/Arthur Pulse Ox Last 24 Hr 97.3 F-98.4 F 76-96 20-20 100-147/65-78 96 PE: AOx3 Neck Supple HEENT: PEERLEOMI Lungs: CTA CVS: S1S2 Abd: Benign Ext: Rt foot vac dressing +Rt leg edema Neuro: No focal deficit CMP Sodium 135 mmol/L (136-145) L 07/20/18 05:10 Potassium 4.0 mmol/L (3.5-5.1) 07/20/18 05:10 Chloride 100 mmol/L (98-107) 07/20/18 05:10 Carbon Dioxide 28 mmol/L (21-32) 07/20/18 05:10 Anion Gap 7 MMOL/L (8-16) L 07/20/18 05:10 BUN 15 mg/dL (7-18) 07/20/18 05:10 Creatinine 0.8 mg/dL (0.55-1.3) 07/20/18 05:10 Creat Clearance w eGFR 75.93 (>60) 07/20/18 05:10 POC Glucometer 145 UNITS (80-120) 07/21/18 06:20 Random Glucose 157 mg/dL (74-106) H 07/20/18 05:10 Hemoglobin A1c % 8.9 % (4.2-6.3) H 07/17/18 06:30 Calcium 8.9 mg/dL (8.5-10.1) 07/20/18 05:10 Total Bilirubin 0.1 mg/dL (0.2-1) L 07/20/18 05:10 AST 11 U/L (15-37) L 07/20/18 05:10 ALT 15 U/L (13-61) 07/20/18 05:10 Alkaline Phosphatase 83 U/L (45-117) 07/20/18 05:10 C-Reactive Protein 15.4 MG/DL (0.00-0.3) H 07/16/18 11:56 Total Protein 7.8 g/dl (6.4-8.2) 07/20/18 05:10 Albumin 2.8 g/dl (3.4-5.0) L 07/20/18 05:10 TSH 4.87 uIU/ml (0.358-3.74) H 07/19/18 06:10 Current Medications Generic Name Dose Route Start Last Admin Trade Name Rosa PRN Reason Stop Dose Admin Acetaminophen 650 mg 07/16/18 13:56 07/19/18 21:34 Tylenol - PO 650 mg Q6H PRN Administration PAIN OR FEVER Enoxaparin Sodium 40 mg 07/17/18 10:00 07/20/18 10:00 Lovenox - SQ 40 mg DAILY [facility] Administration Furosemide 40 mg 07/17/18 10:00 07/20/18 10:00 Lasix - PO 40 mg DAILY [facility] Administration Glipizide 5 mg 07/16/18 16:30 07/21/18 06:21 Glucotrol - PO 5 mg BID@0700,1630 [facility] Administration Vancomycin HCl 1,500 mg/ 500 mls @ 250 mls/hr 07/20/18 14:15 07/20/18 15:18 Dextrose IVPB 250 mls/hr Q24H [facility] Administration Protocol Insulin Aspart 1 vial 07/16/18 22:00 07/20/18 22:33 Novolog Vial Sliding Scale - SQ Not Given HS [facility] Protocol Insulin Aspart 1 vial 07/17/18 09:22 07/21/18 06:22 Novolog Vial Sliding Scale - SQ Not Given TIDAC [facility] Protocol Insulin Detemir 16 units 07/18/18 22:00 07/21/18 06:22 Levemir Vial SQ 16 units BID@0700,2200 [facility] Administration Levothyroxine Sodium 50 mcg 07/18/18 07:00 07/21/18 06:21 Synthroid - PO 50 mcg DAILY@0700 [facility] Administration Lisinopril 20 mg 07/17/18 10:00 07/20/18 10:00 Prinivil PO 20 mg DAILY [facility] Administration Magnesium Hydroxide 30 ml 07/18/18 08:45 07/18/18 11:16 Milk Of Magnesia - PO 30 ml DAILY PRN Administration CONSTIPATION Metformin HCl 1,000 mg 07/16/18 16:30 07/21/18 06:21 Glucophage Xr - PO 1,000 mg BIDAC [facility] Administration Polyethylene Glycol 17 gm 07/18/18 10:00 Miralax (For Daily Use) - PO DAILY PRN CONSTIPATION Pregabalin 50 mg 07/19/18 10:00 07/20/18 22:33 Lyrica - PO 50 mg BID [facility] Administration AP: Rt foot Infection: with vac dressing T2DM HTN HLD Hypothyroidism Levemir 16 units BID Decrease Novolog SS coverage LT4 50mcg QD Pt says she was not getting LT4 in the senior care and was not taking it at home from early June. TSH 4.87. Will Rpt TFT in 3 weeks. Diet discussed NUtrition consult Abx as per ID Local wound care Will F/U Problem List - Problems (1) Diabetes mellitus Code(s): E11.9 - TYPE 2 DIABETES MELLITUS WITHOUT COMPLICATIONS Qualifiers: Diabetes mellitus type: type 2 Diabetes mellitus custodial insulin use: with custodial use Diabetes mellitus complication status: with unspecified complications Qualified Code(s): E11.8 - Type 2 diabetes mellitus with unspecified complications; Z79.4 - correction (current) use of insulin (2) Foot ulcer, right Code(s): L97.519 - NON-PRS CHRONIC ULCER OTH PRT RIGHT FOOT W UNSP SEVERITY Qualifiers: Non-pressure ulcer stage: unspecified non-pressure ulcer stage Qualified Code(s): L97.519 - Non-pressure chronic ulcer of other part of right foot with unspecified severity (3) Hypertension Code(s): I10 - ESSENTIAL (PRIMARY) HYPERTENSION Qualifiers: Hypertension type: essential hypertension Qualified Code(s): I10 - Essential (primary) hypertension
--- NOTE | 2018-07-21 09:52 | PN ---
Progress Note (short form) - Note Progress Note: no new events Vital Signs Period Temp Pulse Resp BP Sys/Arthur Pulse Ox Last 24 Hr 97.3 F-98.4 F 76-96 20-20 100-147/65-78 96 07/17/18 09:30 Foot - Right Lateral Gram Stain - Final 07/17/18 09:30 Foot - Right Lateral Wound Culture - Preliminary S Aureus Corynebacterium Minutissumum Pending Organism 07/16/18 11:56 Blood - Peripheral Venous Blood Culture - Preliminary NO GROWTH OBTAINED AFTER 72 HOURS, INCUBATION TO CONTINUE FOR 2 DAYS. 07/16/18 11:30 Blood - Peripheral Venous Blood Culture - Preliminary NO GROWTH OBTAINED AFTER 72 HOURS, INCUBATION TO CONTINUE FOR 2 DAYS. s1s2 rrr lungs cta right lower extr decrease in non pitting edema, wound vac in place Diabetic foot ulcer, chronic osteomyelitis non-controlled IDDM Obesity HTN high cholesterol consults greatly appreciated wound vac cont iv abx sugars are better dc planning on wound vac, bariatric O2 and iv abx with PICC in am Problem List - Problems (1) Osteomyelitis Code(s): M86.9 - OSTEOMYELITIS, UNSPECIFIED Qualifiers: Osteomyelitis location: foot Laterality: right (2) Diabetes mellitus Code(s): E11.9 - TYPE 2 DIABETES MELLITUS WITHOUT COMPLICATIONS Qualifiers: Diabetes mellitus type: type 2 Diabetes mellitus [facility] insulin use: with [facility] use Diabetes mellitus complication status: with unspecified complications Qualified Code(s): E11.8 - Type 2 diabetes mellitus with unspecified complications; Z79.4 - [facility] (current) use of insulin (3) Foot ulcer, right Code(s): L97.519 - NON-PRS CHRONIC ULCER OTH PRT RIGHT FOOT W UNSP SEVERITY Qualifiers: Non-pressure ulcer stage: unspecified non-pressure ulcer stage Qualified Code(s): L97.519 - Non-pressure chronic ulcer of other part of right foot with unspecified severity (4) Asthma Code(s): J45.909 - UNSPECIFIED ASTHMA, UNCOMPLICATED Qualifiers: Asthma severity: mild Asthma persistence: intermittent (5) Hypertension Code(s): I10 - ESSENTIAL (PRIMARY) HYPERTENSION Qualifiers: Hypertension type: essential hypertension Qualified Code(s): I10 - Essential (primary) hypertension (6) Hypothyroidism Code(s): E03.9 - HYPOTHYROIDISM, UNSPECIFIED Qualifiers: Hypothyroidism type: unspecified Qualified Code(s): E03.9 - Hypothyroidism , unspecified (7) Morbid obesity Code(s): E66.01 - MORBID (SEVERE) OBESITY DUE TO EXCESS CALORIES
[2018-07-21] MEDS: FUROSEMIDE 40 MG TABLET (FP) PO SCH (10:40)
[2018-07-21] MEDS: LISINOPRIL 20 MG TABLET (FP) PO SCH (10:40)
[2018-07-21] MEDS: ENOXAPARIN NA (PORCINE) 40 MG/0.4 ML DISP.SYRIN SQ SCH (10:41)
[2018-07-21] MEDS: PREGABALIN 50 MG CAPSULE PO SCH ×2 (10:41→21:49)
[2018-07-21] MEDS: VANCOMYCIN HCL 1,500 MG in DEXTROSE 5%-WATER - 500 ML IVPB SCH (13:16)
[2018-07-21] MEDS ORDERED: MAG HYDROX/AL HYDROX/SIMETH 30 ML UNIT-DOSE CUP PO ONE (22:15)
[2018-07-22] MEDS: INSULIN (LEVEMIR) 100 UNITS/ML UNITS SQ SCH ×2 (06:26→21:44)
[2018-07-22] MEDS: glipiZIDE 5 MG TABLET (FP) PO SCH ×2 (06:27→16:42)
[2018-07-22] MEDS: INSULIN SLIDING SCALE (NOVOLOG) 1 VIAL SQ SCH ×4 (06:28→21:43)
[2018-07-22] MEDS: LEVOTHYROXINE NA 50 MCG TABLET (FP) PO SCH (06:28)
[2018-07-22] MEDS ORDERED: INSULIN (LEVEMIR) 100 UNITS/ML UNITS SQ ONE (06:51)
[2018-07-22 08:10] LABS: BASO % 0.5 % (0-2.0); EOS % 2.7 % (0-4.5); HEMATOCRIT 29.8 % (32.4-45.2); HEMOGLOBIN 9.7 GM/dL (10.7-15.3); LYMPH % 18.9 % (8-40); MCH 25.9 pg (25.7-33.7); MCHC 32.6 g/dl (32.0-36.0); MEAN CELL VOLUME 79.5 fl (80-96); MEAN PLT VOLUME 6.8 fl (7.5-11.1); MONO % 7.4 % (3.8-10.2); NEUT % 70.5 % (42.8-82.8); PLATELET COUNT 584 K/MM3 (134-434); RBC 3.74 M/mm3 (3.60-5.2); RDW 17.6 % (11.6-15.6); WHITE BLOOD COUNT 8.6 K/mm3 (4.0-10.0)
[2018-07-22 08:21] LABS: ACTIVATED PTT 36.9 SECONDS (25.2-36.5)
[2018-07-22 08:42] LABS: ALBUMIN 2.5 g/dl (3.4-5.0); ALK PHOS 78 U/L (45-117); ANION GAP 6 MMOL/L (8-16); BILIRUBIN,TOTAL 0.2 mg/dL (0.2-1); BLOOD UREA NITROGEN 20 mg/dL (7-18); CHLORIDE 100 mmol/L (98-107); CO2 27 mmol/L (21-32); CREATININE 0.7 mg/dL (0.55-1.3); GLUCOSE,RANDOM 109 mg/dL (74-106); POTASSIUM 4.4 mmol/L (3.5-5.1); SGOT/AST 11 U/L (15-37); SGPT/ALT 19 U/L (13-61); SODIUM 132 mmol/L (136-145); TOT PROT 6.9 g/dl (6.4-8.2)
--- NOTE | 2018-07-22 08:46 | PN ---
Progress Note (short form) - Note Progress Note: Feels good Denies any complaints Vital Signs Period Temp Pulse Resp BP Sys/Arthur Pulse Ox Last 24 Hr 97.5 F-98.7 F 77-94 18-20 107-149/48-71 96-96 PE: AOx3 Neck Supple HEENT: PEERLEOMI Lungs: CTA CVS: S1S2 Abd: Benign Ext: Rt foot vac dressing +Rt leg edema Neuro: No focal deficit CMP Sodium 132 mmol/L (136-145) L 07/22/18 07:00 Potassium 4.4 mmol/L (3.5-5.1) 07/22/18 07:00 Chloride 100 mmol/L (98-107) 07/22/18 07:00 Carbon Dioxide 27 mmol/L (21-32) 07/22/18 07:00 Anion Gap 6 MMOL/L (8-16) L 07/22/18 07:00 BUN 20 mg/dL (7-18) H 07/22/18 07:00 Creatinine 0.7 mg/dL (0.55-1.3) 07/22/18 07:00 Creat Clearance w eGFR 88.57 (>60) 07/22/18 07:00 POC Glucometer 130 UNITS (80-120) 07/22/18 06:25 Random Glucose 109 mg/dL (74-106) H 07/22/18 07:00 Hemoglobin A1c % 8.9 % (4.2-6.3) H 07/17/18 06:30 Calcium 9.0 mg/dL (8.5-10.1) 07/22/18 07:00 Total Bilirubin 0.2 mg/dL (0.2-1) 07/22/18 07:00 AST 11 U/L (15-37) L 07/22/18 07:00 ALT 19 U/L (13-61) 07/22/18 07:00 Alkaline Phosphatase 78 U/L (45-117) 07/22/18 07:00 C-Reactive Protein 15.4 MG/DL (0.00-0.3) H 07/16/18 11:56 Total Protein 6.9 g/dl (6.4-8.2) 07/22/18 07:00 Albumin 2.5 g/dl (3.4-5.0) L 07/22/18 07:00 TSH 4.87 uIU/ml (0.358-3.74) H 07/19/18 06:10 Current Medications Generic Name Dose Route Start Last Admin Trade Name Freloli PRN Reason Stop Dose Admin Acetaminophen 650 mg 07/16/18 13:56 07/19/18 21:34 Tylenol - PO 650 mg Q6H PRN Administration PAIN OR FEVER Enoxaparin Sodium 40 mg 07/17/18 10:00 07/21/18 10:41 Lovenox - SQ 40 mg DAILY [facility] Administration Furosemide 40 mg 07/17/18 10:00 07/21/18 10:40 Lasix - PO 40 mg DAILY [facility] Administration Glipizide 5 mg 07/16/18 16:30 07/22/18 06:27 Glucotrol - PO 5 mg BID@0700,1630 [facility] Administration Vancomycin HCl 1,500 mg/ 500 mls @ 250 mls/hr 07/20/18 14:15 07/21/18 13:16 Dextrose IVPB 250 mls/hr Q24H [facility] Administration Protocol Insulin Aspart 1 vial 07/16/18 22:00 07/21/18 21:49 Novolog Vial Sliding Scale - SQ Not Given HS [facility] Protocol Insulin Aspart 1 vial 07/21/18 09:28 07/22/18 06:28 Novolog Vial Sliding Scale - SQ Not Given TIDAC [facility] Protocol Insulin Detemir 16 units 07/18/18 22:00 07/22/18 06:26 Levemir Vial SQ 16 units BID@0700,2200 [facility] Administration Levothyroxine Sodium 50 mcg 07/18/18 07:00 07/22/18 06:28 Synthroid - PO 50 mcg DAILY@0700 [facility] Administration Lisinopril 20 mg 07/17/18 10:00 07/21/18 10:40 Prinivil PO 20 mg DAILY [facility] Administration Magnesium Hydroxide 30 ml 07/18/18 08:45 07/18/18 11:16 Milk Of Magnesia - PO 30 ml DAILY PRN Administration CONSTIPATION Metformin HCl 1,000 mg 07/16/18 16:30 07/22/18 06:27 Glucophage Xr - PO 1,000 mg BIDAC [facility] Administration Polyethylene Glycol 17 gm 07/18/18 10:00 Miralax (For Daily Use) - PO DAILY PRN CONSTIPATION Pregabalin 50 mg 07/19/18 10:00 07/21/18 21:49 Lyrica - PO 50 mg BID [facility] Administration AP: Rt foot Infection: with vac dressing T2DM HTN HLD Hypothyroidism Blood sugar acceptable on current Insulin regimen Levemir 16 units BID Decrease Novolog SS coverage LT4 50mcg QD Pt says she was not getting LT4 in the [facility] and was not taking it at home from early June. TSH 4.87. Will Rpt TFT in 3 weeks. Diet discussed NUtrition consult Abx as per ID Local wound care I will be away until August [address] Archer is covering. Problem List - Problems (1) Diabetes mellitus Code(s): E11.9 - TYPE 2 DIABETES MELLITUS WITHOUT COMPLICATIONS Qualifiers: Diabetes mellitus type: type 2 Diabetes mellitus extermination supervisor insulin use: with extermination supervisor use Diabetes mellitus complication status: with unspecified complications Qualified Code(s): E11.8 - Type 2 diabetes mellitus with unspecified complications; Z79.4 - alf (current) use of insulin (2) Foot ulcer, right Code(s): L97.519 - NON-PRS CHRONIC ULCER OTH PRT RIGHT FOOT W UNSP SEVERITY Qualifiers: Non-pressure ulcer stage: unspecified non-pressure ulcer stage Qualified Code(s): L97.519 - Non-pressure chronic ulcer of other part of right foot with unspecified severity (3) Hypertension Code(s): I10 - ESSENTIAL (PRIMARY) HYPERTENSION Qualifiers: Hypertension type: essential hypertension Qualified Code(s): I10 - Essential (primary) hypertension
--- NOTE | 2018-07-22 08:51 | PN ---
Progress Note (short form) - Note Progress Note: Patient seen in bed. vss, tmax 97.6 +wound vac in place with drainage in tube, om chronic wound charcot foot Continue vac. HBO would be beneficial. IVABX as per ID. will follow. Will tx outpatient with HBO and skin substitutes and wound care.
[2018-07-22 09:37] LABS: INR 1.05 (0.83-1.09); PROTHROMBIN TIME (PATIENT) 12.4 SEC (9.7-13.0)
[2018-07-22] MEDS: ENOXAPARIN NA (PORCINE) 40 MG/0.4 ML DISP.SYRIN SQ SCH (10:24)
[2018-07-22] MEDS: PREGABALIN 50 MG CAPSULE PO SCH ×2 (10:26→21:42)
[2018-07-22] MEDS: FUROSEMIDE 40 MG TABLET (FP) PO SCH (10:26)
[2018-07-22] MEDS: LISINOPRIL 20 MG TABLET (FP) PO SCH (10:26)
[2018-07-22] MEDS ORDERED: INSULIN (NOVOLOG) ASPART 100 UNITS/ML 10ML VIAL ONE ×2 (11:04→17:00)
[2018-07-22] MEDS: ACETAMINOPHEN 325 MG TABLET (FP) PO PRN ×2 (13:03→22:13)
--- NOTE | 2018-07-22 13:25 | PN ---
Progress Note (short form) - Note Progress Note: no new events Vital Signs Period Temp Pulse Resp BP Sys/Arthur Pulse Ox Last 24 Hr 97.6 F-98.7 F 77-94 18-20 107-149/48-67 96 Microbiology 07/17/18 09:30 Gram Stain - Final Foot - Right Lateral Wound Culture - Preliminary Mr Dulce Witt Corynebacterium Minutissumum Strep Agalactiae Group B 07/16/18 11:56 Blood Culture - Final Blood - Peripheral Venous NO GROWTH AFTER 5 DAYS INCUBATION 07/16/18 11:30 Blood Culture - Final Blood - Peripheral Venous NO GROWTH AFTER 5 DAYS INCUBATION s1s2 rrr lungs cta right lower extr decrease in non pitting edema, wound vac in place Diabetic foot ulcer, chronic osteomyelitis non-controlled IDDM Obesity HTN high cholesterol consults greatly appreciated wound vac with hyperbaric treatment cont iv abx for total of 6 weeks sugars are better dc planning on wound vac, bariatric O2 and iv abx with PICC in am Problem List - Problems (1) Osteomyelitis Code(s): M86.9 - OSTEOMYELITIS, UNSPECIFIED Qualifiers: Osteomyelitis location: foot Laterality: right (2) Diabetes mellitus Code(s): E11.9 - TYPE 2 DIABETES MELLITUS WITHOUT COMPLICATIONS Qualifiers: Diabetes mellitus type: type 2 Diabetes mellitus half-way insulin use: with half-way use Diabetes mellitus complication status: with unspecified complications Qualified Code(s): E11.8 - Type 2 diabetes mellitus with unspecified complications; Z79.4 - [facility] (current) use of insulin (3) Foot ulcer, right Code(s): L97.519 - NON-PRS CHRONIC ULCER OTH PRT RIGHT FOOT W UNSP SEVERITY Qualifiers: Non-pressure ulcer stage: unspecified non-pressure ulcer stage Qualified Code(s): L97.519 - Non-pressure chronic ulcer of other part of right foot with unspecified severity (4) Asthma Code(s): J45.909 - UNSPECIFIED ASTHMA, UNCOMPLICATED Qualifiers: Asthma severity: mild Asthma persistence: intermittent (5) Hypertension Code(s): I10 - ESSENTIAL (PRIMARY) HYPERTENSION Qualifiers: Hypertension type: essential hypertension Qualified Code(s): I10 - Essential (primary) hypertension (6) Hypothyroidism Code(s): E03.9 - HYPOTHYROIDISM, UNSPECIFIED Qualifiers: Hypothyroidism type: unspecified Qualified Code(s): E03.9 - Hypothyroidism , unspecified (7) Morbid obesity Code(s): E66.01 - MORBID (SEVERE) OBESITY DUE TO EXCESS CALORIES
[2018-07-22] MEDS ORDERED: PT OWN MED DRAWER 7, Y5N ONE (14:18)
[2018-07-22] MEDS: VANCOMYCIN HCL 1,500 MG in DEXTROSE 5%-WATER - 500 ML IVPB SCH (14:30)
[2018-07-23] MEDS: glipiZIDE 5 MG TABLET (FP) PO SCH ×2 (06:13→17:44)
[2018-07-23] MEDS: INSULIN (LEVEMIR) 100 UNITS/ML UNITS SQ SCH ×2 (06:13→21:25)
[2018-07-23] MEDS: LEVOTHYROXINE NA 50 MCG TABLET (FP) PO SCH (06:13)
[2018-07-23] MEDS ORDERED: INSULIN (LEVEMIR) 100 UNITS/ML UNITS SQ ONE (06:19)
[2018-07-23] MEDS ORDERED: INSULIN (NOVOLOG) ASPART 100 UNITS/ML 10ML VIAL ONE ×3 (06:19→17:50)
[2018-07-23] MEDS: INSULIN SLIDING SCALE (NOVOLOG) 1 VIAL SQ SCH ×4 (06:21→21:26)
--- NOTE | 2018-07-23 08:25 | DS ---
Physical Examination Vital Signs: Vital Signs Temperature 98.9 F 07/23/18 06:08 Pulse Rate 93 H 07/23/18 06:08 Respiratory Rate 20 07/23/18 06:08 Blood Pressure 103/64 07/23/18 06:08 O2 Sat by Pulse Oximetry (%) 97 07/22/18 21:00 Constitutional: Yes: Calm, Obese Eyes: Yes: EOM Intact HENT: Yes: Normocephalic Neck: Yes: Trachea Midline Cardiovascular: Yes: Regular Rate and Rhythm Respiratory: Yes: CTA Bilaterally Gastrointestinal: Yes: Normal Bowel Sounds, Soft, Abdomen, Obese Extremities: Yes: Other (right foot ankle swelling, non-pitting wound vac on right foot) Edema: Yes Edema: LLE: 1+ Peripheral Pulses WNL: Yes Integumentary: Yes: Other (as above) Neurological: Yes: WNL ...Motor Strength: WNL Labs: CBC, BMP 07/22/18 07:00 07/22/18 07:00 Discharge Summary Reason For Visit: DIABETES MELLITUS ULCER OF RIGHT FOOT Current Active Problems Diabetes mellitus (Acute) Foot ulcer, right (Acute) Osteomyelitis (Acute) Hospital Course: admitted for care of Diabetic foot ulcer, MRI showed acute on chronic osteomyelitis and Charcot's foot bedside bone biopsy taken, cultures show MRSA Microbiology 07/17/18 09:30 Foot - Right Lateral Gram Stain - Final 07/17/18 09:30 Foot - Right Lateral Wound Culture - Final Mr S Aureus Corynebacterium Minutissumum Strep Agalactiae Group B non-controlled IDDM Obesity HTN high cholesterol plan for wound vac with hyperbaric treatment cont iv vancomycin for total of 6 weeks until 08.29.18 sugars are better dc planning on wound vac, bariatric O2 and iv abx with PICC Condition: Stable - Instructions Diet, Activity, Other Instructions: diabetic diet wound vac and hyperbaric oxygen treatment as per podiatry iv vancomycin until 08.29.18 check cbc, cmp, vanco level in 1 week Disposition: HALF-WAY FACILITY - Home Medications Comprehensive Discharge Medication List: Ambulatory Orders Furosemide 40 mg PO DAILY 04/03/16 metFORMIN HCL [Metformin ER Osmotic] 1,000 mg PO BID 04/03/16 Atorvastatin Ca [Lipitor] 10 mg PO HS 07/16/18 Lisinopril 20 mg PO DAILY 07/16/18 Pantoprazole Sodium [Protonix] 40 mg PO DAILY 07/16/18 Acetaminophen [Tylenol .Regular Strength -] 650 mg PO Q6H PRN tablet 07/23/18 Enoxaparin [Lovenox -] 40 mg SQ DAILY disp.syrin 07/23/18 Glipizide [Glucotrol -] 5 mg PO BID@0700,1630 tablet 07/23/18 Insulin (Levemir) [Levemir Vial] 16 units SQ BID@0700,2200 units 07/23/18 Insulin Sliding Scale [Novolog Vial Sliding Scale -] 1 vial SQ TIDAC units 03/02 Levothyroxine [Synthroid -] 50 mcg PO DAILY@0700 tablet 07/23/18 Magnesium Hydrox 2400MG/30Ml [Milk of Magnesia -] 30 ml PO DAILY PRN cup Polyethylene Glycol 3350 [Miralax 119 gm Btl -] 17 gm PO DAILY PRN bottle 07/23 Pregabalin [Lyrica -] 50 mg PO BID capsule MDD 2 07/23/18 Vancomycin HCl 1,500 mg IVPB Q24H vial 07/23/18
--- NOTE | 2018-07-23 08:59 | PN ---
Progress Note (short form) - Note Progress Note: Poor appetite yesterday with chills had a fever 102 at night no respiratory/abd or urinary complaints Microbiology 07/17/18 09:30 Gram Stain - Final Foot - Right Lateral Wound Culture - Preliminary S Aureus Corynebacterium Minutissumum Strep Agalactiae Group B 07/16/18 11:56 Blood Culture - Final Blood - Peripheral Venous NO GROWTH AFTER 5 DAYS INCUBATION 07/16/18 11:30 Blood Culture - Final Blood - Peripheral Venous NO GROWTH AFTER 5 DAYS INCUBATION HEENT wnl neck supple, no jvd s1s2 rrr lungs cta abd soft non tender +bs right lower extr decrease in non pitting edema, wound vac in place iv site on hand infi;trated yesterday, + swelling, but not red, hot nor tender fever Diabetic foot ulcer, chronic osteomyelitis non-controlled IDDM Obesity HTN high cholesterol re-culture cancel picc for now cont vanco consults greatly appreciated wound vac with hyperbaric treatment cont iv abx for total of 6 weeks sugars are better Problem List - Problems (1) Osteomyelitis Code(s): M86.9 - OSTEOMYELITIS, UNSPECIFIED Qualifiers: Osteomyelitis location: foot Laterality: right (2) Diabetes mellitus Code(s): E11.9 - TYPE 2 DIABETES MELLITUS WITHOUT COMPLICATIONS Qualifiers: Diabetes mellitus type: type 2 Diabetes mellitus termination clerk insulin use: with fci use Diabetes mellitus complication status: with unspecified complications Qualified Code(s): E11.8 - Type 2 diabetes mellitus with unspecified complications; Z79.4 - [facility] (current) use of insulin (3) Foot ulcer, right Code(s): L97.519 - NON-PRS CHRONIC ULCER OTH PRT RIGHT FOOT W UNSP SEVERITY Qualifiers: Non-pressure ulcer stage: unspecified non-pressure ulcer stage Qualified Code(s): L97.519 - Non-pressure chronic ulcer of other part of right foot with unspecified severity (4) Asthma Code(s): J45.909 - UNSPECIFIED ASTHMA, UNCOMPLICATED Qualifiers: Asthma severity: mild Asthma persistence: intermittent (5) Hypertension Code(s): I10 - ESSENTIAL (PRIMARY) HYPERTENSION Qualifiers: Hypertension type: essential hypertension Qualified Code(s): I10 - Essential (primary) hypertension (6) Hypothyroidism Code(s): E03.9 - HYPOTHYROIDISM, UNSPECIFIED Qualifiers: Hypothyroidism type: unspecified Qualified Code(s): E03.9 - Hypothyroidism , unspecified (7) Morbid obesity Code(s): E66.01 - MORBID (SEVERE) OBESITY DUE TO EXCESS CALORIES
[2018-07-23] MEDS ORDERED: PT OWN MED DRAWER 7, Y5N ONE (09:31)
[2018-07-23] MEDS: PREGABALIN 50 MG CAPSULE PO SCH ×2 (09:48→21:25)
[2018-07-23] MEDS: ENOXAPARIN NA (PORCINE) 40 MG/0.4 ML DISP.SYRIN SQ SCH (09:48)
[2018-07-23] MEDS: FUROSEMIDE 40 MG TABLET (FP) PO SCH (09:49)
[2018-07-23] MEDS: LISINOPRIL 20 MG TABLET (FP) PO SCH (09:49)
--- NOTE | 2018-07-23 10:15 | PN ---
Progress Note (short form) - Note Progress Note: Patient seen in bed. vss, tmax 98.9 +wound vac in place with drainage in tube,wound vac removed, +maceration, + granulation om chronic wound charcot foot DC vac today. Betadine dressing. Re-apply in am. ID working up for FUO. HBO would be beneficial. IVABX as per ID. will follow. Will tx outpatient with HBO and skin substitutes and wound care.
[2018-07-23 10:56] LABS: BASO % 0.6 % (0-2.0); EOS % 1.4 % (0-4.5); HEMATOCRIT 29.7 % (32.4-45.2); HEMOGLOBIN 9.9 GM/dL (10.7-15.3); LYMPH % 9.2 % (8-40); MCH 26.7 pg (25.7-33.7); MCHC 33.4 g/dl (32.0-36.0); MEAN PLT VOLUME 7.2 fl (7.5-11.1); MONO % 4.7 % (3.8-10.2); NEUT % 84.1 % (42.8-82.8); PLATELET COUNT 501 K/MM3 (134-434); RBC 3.72 M/mm3 (3.60-5.2); RDW 17.2 % (11.6-15.6)
[2018-07-23 11:27] LABS: ALBUMIN 2.6 g/dl (3.4-5.0); ALK PHOS 86 U/L (45-117); ANION GAP 7 MMOL/L (8-16); BILIRUBIN,TOTAL 0.3 mg/dL (0.2-1); BLOOD UREA NITROGEN 21 mg/dL (7-18); CALCIUM 9.1 mg/dL (8.5-10.1); CHLORIDE 100 mmol/L (98-107); CO2 25 mmol/L (21-32); CREATININE 0.8 mg/dL (0.55-1.3); GLUCOSE,RANDOM 152 mg/dL (74-106); POTASSIUM 4.4 mmol/L (3.5-5.1); SGOT/AST 14 U/L (15-37); SGPT/ALT 19 U/L (13-61); SODIUM 131 mmol/L (136-145); TOT PROT 7.4 g/dl (6.4-8.2)
[2018-07-23] MEDS: VANCOMYCIN HCL 1,500 MG in DEXTROSE 5%-WATER - 500 ML IVPB SCH (15:03)
--- NOTE | 2018-07-23 17:11 | PN ---
Progress Note (short form) - Note Progress Note: chills and fever to 102 last night no cough, no diarrhea no abdominal pain Vital Signs Period Temp Pulse Resp BP Sys/Arthur Pulse Ox Last 24 Hr 97.6 F-102.2 F 84-112 18-20 99-131/62-70 97-97 cor-rrr lungs decreased bs at bases abd soft,nt ext no phleibitis foot wound is clean, no purulence CBC, BMP 07/23/18 10:20 07/23/18 10:20 Microbiology 07/17/18 09:30 Foot - Right Lateral Gram Stain - Final 07/17/18 09:30 Foot - Right Lateral Wound Culture - Final Mr S Aureus Corynebacterium Minutissumum Strep Agalactiae Group B 07/16/18 11:56 Blood - Peripheral Venous Blood Culture - Final NO GROWTH AFTER 5 DAYS INCUBATION 07/16/18 11:30 Blood - Peripheral Venous Blood Culture - Final NO GROWTH AFTER 5 DAYS INCUBATION a/p fever- cultures sent, no fever today s/p bone biopsy -chronic osteomyelitis-MRSA continue vancomycin-can do picc line for usp iv antibiotics check pathology poorly controlled dm -hgbaic 8.9 history of MRSA-contact isolation d/w patient d/w podiatry d/w PMD
[2018-07-23 19:55] LABS: URINE APPEARANCE Clear; URINE BILIRUBIN Negative (NEGATIVE); URINE COLOR Yellow; URINE GLUCOSE (UA) Negative (NEGATIVE); URINE KETONE Negative (NEGATIVE); URINE LEUK ESTERASE Trace (NEGATIVE); URINE NITRITE Negative (NEGATIVE); URINE PROTEIN Negative (NEGATIVE); URINE UROBILINOGEN 0.2 mg/dL (0.2-1.0)
[2018-07-23 20:33] LABS: URINE BACTERIA MODERATE /hpf (NEGATIVE); URINE RBC 0 /hpf (0-4); URINE WBC 0-3 /hpf (0-5)
[2018-07-23] MEDS: ACETAMINOPHEN 325 MG TABLET (FP) PO PRN (20:34)
[2018-07-24] MEDS: LEVOTHYROXINE NA 50 MCG TABLET (FP) PO SCH (06:10)
[2018-07-24] MEDS: glipiZIDE 5 MG TABLET (FP) PO SCH ×2 (06:10→17:17)
[2018-07-24] MEDS: INSULIN (LEVEMIR) 100 UNITS/ML UNITS SQ SCH ×2 (06:10→21:42)
[2018-07-24] MEDS: INSULIN SLIDING SCALE (NOVOLOG) 1 VIAL SQ SCH ×4 (06:10→21:43)
[2018-07-24 07:51] LABS: BASO % 0.7 % (0-2.0); EOS % 2.9 % (0-4.5); HEMATOCRIT 30.3 % (32.4-45.2); HEMOGLOBIN 9.8 GM/dL (10.7-15.3); MCH 25.8 pg (25.7-33.7); MCHC 32.4 g/dl (32.0-36.0); MEAN CELL VOLUME 79.5 fl (80-96); MEAN PLT VOLUME 6.9 fl (7.5-11.1); MONO % 12.6 % (3.8-10.2); NEUT % 61.8 % (42.8-82.8); PLATELET COUNT 476 K/MM3 (134-434); RBC 3.81 M/mm3 (3.60-5.2); RDW 17.2 % (11.6-15.6); WHITE BLOOD COUNT 6.5 K/mm3 (4.0-10.0)
[2018-07-24 08:14] LABS: ALBUMIN 2.7 g/dl (3.4-5.0); ALK PHOS 77 U/L (45-117); ANION GAP 6 MMOL/L (8-16); BILIRUBIN,TOTAL 0.5 mg/dL (0.2-1); BLOOD UREA NITROGEN 16 mg/dL (7-18); CALCIUM 8.9 mg/dL (8.5-10.1); CHLORIDE 101 mmol/L (98-107); CO2 29 mmol/L (21-32); CREATININE 0.8 mg/dL (0.55-1.3); GLUCOSE,RANDOM 112 mg/dL (74-106); POTASSIUM 4.7 mmol/L (3.5-5.1); SGOT/AST 11 U/L (15-37); SGPT/ALT 19 U/L (13-61); SODIUM 136 mmol/L (136-145); TOT PROT 7.4 g/dl (6.4-8.2)
--- NOTE | 2018-07-24 09:09 | PN ---
Progress Note (short form) - Note Progress Note: no further fever VAC was removed since pt had increased skin erosion with it offers no complaints CBC, BMP 07/24/18 07:00 07/24/18 07:00 Vital Signs Period Temp Pulse Resp BP Sys/Arthur Pulse Ox Last 24 Hr 97.4 F-99.8 F 18-112 18-20 97-139/61-67 97 HEENT wnl neck supple, no jvd s1s2 rrr lungs cta abd soft non tender +bs right lower extr decrease in non pitting edema, wound clean based, slight odour fever-resolved, white count is normal now again, ucx and cxr were normal Diabetic foot ulcer, chronic osteomyelitis non-controlled IDDM Obesity HTN high cholesterol will d/w IR to if she can get PICC today cont vanco consults greatly appreciated hyperbaric treatment cont iv abx for total of 6 weeks sugars are better Problem List - Problems (1) Osteomyelitis Code(s): M86.9 - OSTEOMYELITIS, UNSPECIFIED Qualifiers: Osteomyelitis location: foot Laterality: right (2) Diabetes mellitus Code(s): E11.9 - TYPE 2 DIABETES MELLITUS WITHOUT COMPLICATIONS Qualifiers: Diabetes mellitus type: type 2 Diabetes mellitus half-way insulin use: with half-way use Diabetes mellitus complication status: with unspecified complications Qualified Code(s): E11.8 - Type 2 diabetes mellitus with unspecified complications; Z79.4 - [facility] (current) use of insulin (3) Foot ulcer, right Code(s): L97.519 - NON-PRS CHRONIC ULCER OTH PRT RIGHT FOOT W UNSP SEVERITY Qualifiers: Non-pressure ulcer stage: unspecified non-pressure ulcer stage Qualified Code(s): L97.519 - Non-pressure chronic ulcer of other part of right foot with unspecified severity (4) Asthma Code(s): J45.909 - UNSPECIFIED ASTHMA, UNCOMPLICATED Qualifiers: Asthma severity: mild Asthma persistence: intermittent (5) Hypertension Code(s): I10 - ESSENTIAL (PRIMARY) HYPERTENSION Qualifiers: Hypertension type: essential hypertension Qualified Code(s): I10 - Essential (primary) hypertension (6) Hypothyroidism Code(s): E03.9 - HYPOTHYROIDISM, UNSPECIFIED Qualifiers: Hypothyroidism type: unspecified Qualified Code(s): E03.9 - Hypothyroidism , unspecified (7) Morbid obesity Code(s): E66.01 - MORBID (SEVERE) OBESITY DUE TO EXCESS CALORIES
[2018-07-24] MEDS: ENOXAPARIN NA (PORCINE) 40 MG/0.4 ML DISP.SYRIN SQ SCH (11:23)
[2018-07-24] MEDS: LISINOPRIL 20 MG TABLET (FP) PO SCH (11:24)
[2018-07-24] MEDS: FUROSEMIDE 40 MG TABLET (FP) PO SCH (11:24)
[2018-07-24] MEDS: PREGABALIN 50 MG CAPSULE PO SCH ×2 (11:24→21:42)
--- NOTE | 2018-07-24 14:37 | PN ---
Progress Note (short form) - Note Progress Note: Patient seen in bed. vss, tmax 97.9 +wound vac in place with drainage in tube om chronic wound charcot foot VAC re-applied. HBO would be beneficial. IVABX as per ID. will follow. Will tx outpatient with HBO and skin substitutes and wound care.
--- NOTE | 2018-07-24 15:18 | PN ---
Progress Note (short form) - Note Progress Note: feeling better temps down Vital Signs Period Temp Pulse Resp BP Sys/Arthur Pulse Ox Last 24 Hr 97.1 F-99.8 F 18-112 18-18 97-139/48-67 97 cor-rrr lungs decreased bs at bases abd soft,nt ext vac in place CBC, BMP 07/24/18 07:00 07/24/18 07:00 Microbiology 07/23/18 10:20 Blood - Peripheral Venous Blood Culture - Preliminary NO GROWTH OBTAINED AFTER 24 HOURS, INCUBATION TO CONTINUE FOR 4 DAYS. 07/23/18 10:40 Blood - Peripheral Venous Blood Culture - Preliminary NO GROWTH OBTAINED AFTER 24 HOURS, INCUBATION TO CONTINUE FOR 4 DAYS. 07/17/18 09:30 Foot - Right Lateral Gram Stain - Final 07/17/18 09:30 Foot - Right Lateral Wound Culture - Final Mr S Aureus Corynebacterium Minutissumum Strep Agalactiae Group B 07/16/18 11:56 Blood - Peripheral Venous Blood Culture - Final NO GROWTH AFTER 5 DAYS INCUBATION 07/16/18 11:30 Blood - Peripheral Venous Blood Culture - Final NO GROWTH AFTER 5 DAYS INCUBATION cxray alejandra; vanco trough pending a/p fever- cultures sent, picc line friday if possible s/p bone biopsy -chronic osteomyelitis-MRSA continue vancomycin- picc line for detention iv antibiotics check pathology poorly controlled dm -hgbaic 8.9 vancomycin trough pending history of MRSA-contact isolation d/w patient d/w podiatry d/w PMD
[2018-07-24] MEDS: VANCOMYCIN HCL 1,500 MG in DEXTROSE 5%-WATER - 500 ML IVPB SCH (18:48)
[2018-07-24] MEDS: VANCOMYCIN 1 GM PREMIX - 1 GM/200 ML BAG IVPB SCH (21:42)
[2018-07-25] MEDS: glipiZIDE 5 MG TABLET (FP) PO SCH ×2 (06:01→16:02)
[2018-07-25] MEDS: LEVOTHYROXINE NA 50 MCG TABLET (FP) PO SCH (06:01)
[2018-07-25] MEDS: INSULIN (LEVEMIR) 100 UNITS/ML UNITS SQ SCH ×2 (06:10→21:39)
[2018-07-25] MEDS: INSULIN SLIDING SCALE (NOVOLOG) 1 VIAL SQ SCH ×4 (06:10→21:40)
[2018-07-25] MEDS: VANCOMYCIN 1 GM PREMIX - 1 GM/200 ML BAG IVPB SCH ×2 (09:02→21:39)
[2018-07-25] MEDS: FUROSEMIDE 40 MG TABLET (FP) PO SCH (10:15)
[2018-07-25] MEDS: PREGABALIN 50 MG CAPSULE PO SCH ×2 (10:15→21:40)
[2018-07-25] MEDS: LISINOPRIL 20 MG TABLET (FP) PO SCH (10:15)
[2018-07-25] MEDS: ENOXAPARIN NA (PORCINE) 40 MG/0.4 ML DISP.SYRIN SQ SCH (10:15)
[2018-07-25] MEDS ORDERED: MAG HYDROX/AL HYDROX/SIMETH -MYLANTA- ORAL SUSPENSION PO ONE (19:45)
--- NOTE | 2018-07-25 23:06 | PN ---
Progress Note, Physician Chief Complaint: c/o heartburn and reflux - Current Medication List Current Medications: Active Medications Acetaminophen (Tylenol -) 650 mg PO Q6H PRN PRN Reason: PAIN OR FEVER Last Admin: 07/23/18 20:34 Dose: 650 mg Enoxaparin Sodium (Lovenox -) 40 mg SQ DAILY [facility] Last Admin: 07/25/18 10:15 Dose: 40 mg Furosemide (Lasix -) 40 mg PO DAILY [facility] Last Admin: 07/25/18 10:15 Dose: 40 mg Glipizide (Glucotrol -) 5 mg PO BID@0700,1630 [facility] Last Admin: 07/25/18 16:02 Dose: 5 mg Vancomycin HCl (Vancomycin 1 Gm Premix -) 1 gm in 200 mls @ 133.333 mls/hr IVPB BID@0900,2100 [facility] Last Admin: 07/25/18 21:39 Dose: 133.333 mls/hr Insulin Aspart (Novolog Vial Sliding Scale -) 1 vial SQ HS [facility]; Protocol Last Admin: 07/25/18 21:40 Dose: Not Given Insulin Aspart (Novolog Vial Sliding Scale -) 1 vial SQ TIDAC [facility]; Protocol Last Admin: 07/25/18 16:11 Dose: Not Given Insulin Detemir (Levemir Vial) 16 units SQ BID@0700,2200 [facility] Last Admin: 07/25/18 21:39 Dose: 16 units Levothyroxine Sodium (Synthroid -) 50 mcg PO DAILY@0700 [facility] Last Admin: 07/25/18 06:01 Dose: 50 mcg Lisinopril (Prinivil) 20 mg PO DAILY [facility] Last Admin: 07/25/18 10:15 Dose: 20 mg Magnesium Hydroxide (Milk Of Magnesia -) 30 ml PO DAILY PRN PRN Reason: CONSTIPATION Last Admin: 07/18/18 11:16 Dose: 30 ml Metformin HCl (Glucophage Xr -) 1,000 mg PO BIDAC [facility] Last Admin: 07/25/18 16:02 Dose: 1,000 mg Polyethylene Glycol (Miralax (For Daily Use) -) 17 gm PO DAILY PRN PRN Reason: CONSTIPATION Pregabalin (Lyrica -) 50 mg PO BID [facility] Last Admin: 07/25/18 21:40 Dose: 50 mg - Objective Vital Signs: Vital Signs Temperature 97.3 F L 07/25/18 14:50 Pulse Rate 97 H 07/25/18 14:50 Respiratory Rate 18 07/25/18 14:50 Blood Pressure 101/55 L 07/25/18 14:50 O2 Sat by Pulse Oximetry (%) 98 07/25/18 09:00 Constitutional: Yes: No Distress Neck: Yes: Supple Cardiovascular: Yes: Regular Rate and Rhythm, S1, S2 Respiratory: Yes: Regular, CTA Bilaterally Gastrointestinal: Yes: Normal Bowel Sounds, Soft Neurological: Yes: Alert, Oriented. No: Loss of Sensation ...Motor Strength: WNL Labs: CBC, BMP 07/24/18 07:00 07/24/18 07:00 INR, PTT INR 1.05 (0.83-1.09) 07/22/18 07:00 Problem List - Problems (1) Osteomyelitis Assessment/Plan: Vancomycin. Code(s): M86.9 - OSTEOMYELITIS, UNSPECIFIED Qualifiers: Osteomyelitis location: foot Laterality: right (2) GERD (gastroesophageal reflux disease) Assessment/Plan: Will start Protonix, Mylanta PRN Code(s): K21.9 - GASTRO-ESOPHAGEAL REFLUX DISEASE WITHOUT ESOPHAGITIS
[2018-07-25] MEDS ORDERED: MAG HYDROX/AL HYDROX/SIMETH -MYLANTA- ORAL SUSPENSION PO PRN (23:33)
[2018-07-25] MEDS ORDERED: MAG HYDROX/AL HYDROX/SIMETH 30 ML UNIT-DOSE CUP PO PRN (23:36)
[2018-07-26] MEDS: LEVOTHYROXINE NA 50 MCG TABLET (FP) PO SCH (06:14)
[2018-07-26] MEDS: INSULIN (LEVEMIR) 100 UNITS/ML UNITS SQ SCH ×2 (06:14→22:35)
[2018-07-26] MEDS: glipiZIDE 5 MG TABLET (FP) PO SCH ×2 (06:14→18:40)
[2018-07-26] MEDS: MAGNESIUM HYDROX 2400MG/30ML ORAL SUSPENSION 30 ML CUP PO PRN (06:14)
[2018-07-26] MEDS: INSULIN SLIDING SCALE (NOVOLOG) 1 VIAL SQ SCH ×4 (06:14→22:35)
--- NOTE | 2018-07-26 09:18 | PN ---
Progress Note (short form) - Note Progress Note: Patient seen in bed. vss, tmax 98.3 +wound vac in place with drainage in tube,wound vac removed, +maceration, + granulation, wbc=6.5 om chronic wound charcot foot DC vac today. Betadine dressing. Re-apply in am. IVABX as per ID. will follow. Will tx outpatient with HBO and skin substitutes and wound care. Anticipate dc tomorrow. esr & crp in am.
[2018-07-26] MEDS: ENOXAPARIN NA (PORCINE) 40 MG/0.4 ML DISP.SYRIN SQ SCH (11:13)
[2018-07-26] MEDS: PANTOPRAZOLE 40 MG TABLET (FP) PO SCH (11:17)
[2018-07-26] MEDS: LISINOPRIL 20 MG TABLET (FP) PO SCH (11:17)
[2018-07-26] MEDS: PREGABALIN 50 MG CAPSULE PO SCH ×2 (11:17→22:32)
[2018-07-26] MEDS: VANCOMYCIN 1 GM PREMIX - 1 GM/200 ML BAG IVPB SCH ×2 (11:17→20:32)
[2018-07-26] MEDS: FUROSEMIDE 40 MG TABLET (FP) PO SCH (11:17)
--- NOTE | 2018-07-26 12:26 | PN ---
Progress Note, Physician Chief Complaint: Dyspepsia resolved - Current Medication List Current Medications: Active Medications Acetaminophen (Tylenol -) 650 mg PO Q6H PRN PRN Reason: PAIN OR FEVER Last Admin: 07/23/18 20:34 Dose: 650 mg Al Hydroxide/Mg Hydroxide (Mylanta Oral Suspension -) 30 ml PO Q6HPO PRN PRN Reason: DYSPEPSIA Enoxaparin Sodium (Lovenox -) 40 mg SQ DAILY [facility] Last Admin: 07/26/18 11:13 Dose: 40 mg Furosemide (Lasix -) 40 mg PO DAILY [facility] Last Admin: 07/26/18 11:17 Dose: 40 mg Glipizide (Glucotrol -) 5 mg PO BID@0700,1630 [facility] Last Admin: 07/26/18 06:14 Dose: 5 mg Vancomycin HCl (Vancomycin 1 Gm Premix -) 1 gm in 200 mls @ 133.333 mls/hr IVPB BID@0900,2100 [facility] Last Admin: 07/26/18 11:17 Dose: 133.333 mls/hr Insulin Aspart (Novolog Vial Sliding Scale -) 1 vial SQ HS [facility]; Protocol Last Admin: 07/25/18 21:40 Dose: Not Given Insulin Aspart (Novolog Vial Sliding Scale -) 1 vial SQ TIDAC [facility]; Protocol Last Admin: 07/26/18 06:14 Dose: Not Given Insulin Detemir (Levemir Vial) 16 units SQ BID@0700,2200 [facility] Last Admin: 07/26/18 06:14 Dose: Not Given Levothyroxine Sodium (Synthroid -) 50 mcg PO DAILY@0700 [facility] Last Admin: 07/26/18 06:14 Dose: 50 mcg Lisinopril (Prinivil) 20 mg PO DAILY [facility] Last Admin: 07/26/18 11:17 Dose: 20 mg Magnesium Hydroxide (Milk Of Magnesia -) 30 ml PO DAILY PRN PRN Reason: CONSTIPATION Last Admin: 07/26/18 06:14 Dose: 30 ml Metformin HCl (Glucophage Xr -) 1,000 mg PO BIDAC [facility] Last Admin: 07/26/18 06:14 Dose: 1,000 mg Pantoprazole Sodium (Protonix -) 40 mg PO DAILY [facility] Last Admin: 07/26/18 11:17 Dose: 40 mg Polyethylene Glycol (Miralax (For Daily Use) -) 17 gm PO DAILY PRN PRN Reason: CONSTIPATION Pregabalin (Lyrica -) 50 mg PO BID [facility] Last Admin: 07/26/18 11:17 Dose: 50 mg - Objective Vital Signs: Vital Signs Temperature 98.3 F 07/26/18 06:00 Pulse Rate 87 07/26/18 06:00 Respiratory Rate 20 07/26/18 06:00 Blood Pressure 131/64 07/26/18 06:00 O2 Sat by Pulse Oximetry (%) 98 07/25/18 21:00 Constitutional: Yes: No Distress Neck: Yes: Supple Cardiovascular: Yes: Regular Rate and Rhythm, S1, S2 Respiratory: Yes: CTA Bilaterally Gastrointestinal: Yes: Normal Bowel Sounds, Soft Neurological: Yes: Alert, Oriented. No: Loss of Sensation Labs: CBC, BMP 07/24/18 07:00 07/24/18 07:00 INR, PTT INR 1.05 (0.83-1.09) 07/22/18 07:00 Problem List - Problems (1) Osteomyelitis Assessment/Plan: Vancomycin. Code(s): M86.9 - OSTEOMYELITIS, UNSPECIFIED Qualifiers: Osteomyelitis location: foot Laterality: right (2) GERD (gastroesophageal reflux disease) Assessment/Plan: Improved with Protonix Code(s): K21.9 - GASTRO-ESOPHAGEAL REFLUX DISEASE WITHOUT ESOPHAGITIS
[2018-07-26] MEDS ORDERED: PT OWN MED DRAWER 7, Y5N ONE (21:01)
[2018-07-26] MEDS ORDERED: INSULIN (NOVOLOG) ASPART 100 UNITS/ML 10ML VIAL ONE (21:02)
[2018-07-27] MEDS: glipiZIDE 5 MG TABLET (FP) PO SCH ×2 (06:33→18:00)
[2018-07-27] MEDS: LEVOTHYROXINE NA 50 MCG TABLET (FP) PO SCH (06:33)
[2018-07-27] MEDS: INSULIN (LEVEMIR) 100 UNITS/ML UNITS SQ SCH ×2 (06:34→22:07)
[2018-07-27] MEDS: INSULIN SLIDING SCALE (NOVOLOG) 1 VIAL SQ SCH ×4 (06:34→22:07)
--- NOTE | 2018-07-27 09:24 | DS ---
Physical Examination Vital Signs: Vital Signs Temperature 98.7 F 07/27/18 06:00 Pulse Rate 78 07/27/18 06:00 Respiratory Rate 20 07/27/18 06:00 Blood Pressure 115/67 07/27/18 06:00 O2 Sat by Pulse Oximetry (%) 98 07/25/18 21:00 Constitutional: Yes: No Distress, Calm, Obese Neck: Yes: Trachea Midline Cardiovascular: Yes: Regular Rate and Rhythm Respiratory: Yes: CTA Bilaterally Wound/Incision: Yes: Other (dressing with serous discharged, soaked through- keeps walking on foot) Neurological: Yes: WNL Labs: CBC, BMP 07/24/18 07:00 07/24/18 07:00 Discharge Summary Reason For Visit: DIABETES MELLITUS ULCER OF RIGHT FOOT Current Active Problems Diabetes mellitus (Acute) Foot ulcer, right (Acute) GERD (gastroesophageal reflux disease) (Acute) Osteomyelitis (Acute) Hospital Course: Hospital Course: admitted for care of Diabetic foot ulcer, MRI showed acute on chronic osteomyelitis and Charcot's foot bedside bone biopsy taken, cultures show MRSA Microbiology 07/17/18 09:30 Foot - Right Lateral Gram Stain - Final 07/17/18 09:30 Foot - Right Lateral Wound Culture - Final Mr S Aureus Corynebacterium Minutissumum Strep Agalactiae Group B non-controlled IDDM Obesity HTN high cholesterol dischegre was delayed due to fever-BCx x2 UA, Ucx and CXR were negative plan for wound vac with hyperbaric treatment cont iv vancomycin for total of 6 weeks until 08.29.18 sugars are better dc planning on wound vac, bariatric O2 and iv abx with PICC Condition: Stable - Instructions Diet, Activity, Other Instructions: diabetic diet wound vac and hyperbaric oxygen treatment as per podiatry iv vancomycin until 08.29.18 check cbc, cmp, vanco level in 1 week Disposition: [facility] - Home Medications Comprehensive Discharge Medication List: Ambulatory Orders Furosemide 40 mg PO DAILY 04/03/16 metFORMIN HCL [Metformin ER Osmotic] 1,000 mg PO BID 04/03/16 Atorvastatin Ca [Lipitor] 10 mg PO HS 07/16/18 Lisinopril 20 mg PO DAILY 07/16/18 Pantoprazole Sodium [Protonix] 40 mg PO DAILY 07/16/18 Acetaminophen [Tylenol .Regular Strength -] 650 mg PO Q6H PRN tablet 07/23/18 Enoxaparin [Lovenox -] 40 mg SQ DAILY disp.syrin 07/23/18 Glipizide [Glucotrol -] 5 mg PO BID@0700,1630 tablet 07/23/18 Insulin (Levemir) [Levemir Vial] 16 units SQ BID@0700,2200 units 07/23/18 Insulin Sliding Scale [Novolog Vial Sliding Scale -] 1 vial SQ TIDAC units 03/02 Levothyroxine [Synthroid -] 50 mcg PO DAILY@0700 tablet 07/23/18 Magnesium Hydrox 2400MG/30Ml [Milk of Magnesia -] 30 ml PO DAILY PRN cup Polyethylene Glycol 3350 [Miralax 119 gm Btl -] 17 gm PO DAILY PRN bottle 07/23 Pregabalin [Lyrica -] 50 mg PO BID capsule MDD 2 07/23/18 Vancomycin HCl 1,500 mg IVPB Q24H vial 07/23/18
[2018-07-27] MEDS: PREGABALIN 50 MG CAPSULE PO SCH ×2 (09:27→22:07)
[2018-07-27] MEDS: FUROSEMIDE 40 MG TABLET (FP) PO SCH (09:28)
[2018-07-27] MEDS: ENOXAPARIN NA (PORCINE) 40 MG/0.4 ML DISP.SYRIN SQ SCH (09:28)
[2018-07-27] MEDS: LISINOPRIL 20 MG TABLET (FP) PO SCH (09:28)
[2018-07-27] MEDS: PANTOPRAZOLE 40 MG TABLET (FP) PO SCH (09:28)
--- NOTE | 2018-07-27 11:20 | PN ---
Progress Note (short form) - Note Progress Note: feeling better vac removed by podiatry for picc linne today Vital Signs Period Temp Pulse Resp BP Sys/Arthur Pulse Ox Last 24 Hr 98.4 F-98.7 F 78-94 20-20 101-115/65-67 cor-rrr lungs clear abd soft,nt ext serous drainage from the right foot ulcer no erythema +charcot joint CBC, BMP 07/24/18 07:00 07/24/18 07:00 cxray normal Microbiology 07/23/18 10:20 Blood - Peripheral Venous Blood Culture - Preliminary NO GROWTH OBTAINED AFTER 96 HOURS, INCUBATION TO CONTINUE FOR 1 DAYS. 07/23/18 10:40 Blood - Peripheral Venous Blood Culture - Preliminary NO GROWTH OBTAINED AFTER 96 HOURS, INCUBATION TO CONTINUE FOR 1 DAYS. Laboratory Tests 07/16/18 07/17/18 07/25/18 11:56 06:30 05:45 ESR Hemoglobin A1c % 8.9 H C-Reactive Protein 15.4 H 9.5 H Vancomycin Pre-Dose 07/26/18 07/27/18 07/27/18 20:27 06:45 08:01 ESR 109 H Hemoglobin A1c % C-Reactive Protein 6.4 H Vancomycin Pre-Dose 14.4 L a/p fever- blood cultures negative for picc line today s/p bone biopsy -chronic osteomyelitis-MRSA continue vancomycin- picc line for [facility] iv antibiotics check pathology poorly controlled dm -hgbaic 8.9 history of MRSA-contact isolation d/w PMD
[2018-07-27] MEDS: VANCOMYCIN 1 GM PREMIX - 1 GM/200 ML BAG IVPB SCH (13:32)
[2018-07-27] MEDS ORDERED: INSULIN (NOVOLOG) ASPART 100 UNITS/ML 10ML VIAL ONE (20:56)
[2018-07-27] MEDS ORDERED: PT OWN MED DRAWER 7, Y5N ONE (20:57)
[2018-07-28] MEDS: VANCOMYCIN 1 GM PREMIX - 1 GM/200 ML BAG IVPB SCH ×2 (01:22→11:18)
[2018-07-28] MEDS: glipiZIDE 5 MG TABLET (FP) PO SCH (06:24)
[2018-07-28] MEDS: INSULIN SLIDING SCALE (NOVOLOG) 1 VIAL SQ SCH ×2 (06:24→12:46)
[2018-07-28] MEDS: LEVOTHYROXINE NA 50 MCG TABLET (FP) PO SCH (06:24)
[2018-07-28] MEDS: INSULIN (LEVEMIR) 100 UNITS/ML UNITS SQ SCH (06:25)
[2018-07-28] MEDS: PANTOPRAZOLE 40 MG TABLET (FP) PO SCH (11:17)
[2018-07-28] MEDS: LISINOPRIL 20 MG TABLET (FP) PO SCH (11:17)
[2018-07-28] MEDS: FUROSEMIDE 40 MG TABLET (FP) PO SCH (11:17)
[2018-07-28] MEDS: PREGABALIN 50 MG CAPSULE PO SCH (11:17)
[2018-07-28] MEDS: ENOXAPARIN NA (PORCINE) 40 MG/0.4 ML DISP.SYRIN SQ SCH (11:18)
[2018-07-28 12:32] VITALS: BP 121/58; PULSE 91; TEMP 98
--- NOTE | 2018-07-28 14:06 | PN ---
Progress Note (short form) - Note Progress Note: Patient seen in bed. Leaving for alf today. vss, tmax 98.0 +granulation, -mal odor, -drainage om chronic wound charcot foot Betadine dressing. Genadyne Vac ordered in alf. IVABX as per ID. will follow. Will tx outpatient with HBO and skin substitutes and wound care.
== END 2018-07-28 15:19 | DRG 638 ==
LOC: JER 10:35 → JERBED 12:41 → J7W 20:59
PROVIDERS: ADMIT Internal Medicine; ATTEND Internal Medicine
PROC: 0SBF0ZX Excision of Right Ankle Joint, Open Approach, Diagnostic (ICD-10-PCS; principal; 2018-07-17)
PROC: 02HV33Z Insertion of Infusion Device into Superior Vena Cava, Percutaneous Approach (ICD-10-PCS; 2018-07-27)
DX: E11.69 Type 2 diabetes mellitus with other specified complication (principal); M86.171 Other acute osteomyelitis, right ankle and foot; M86.671 Other chronic osteomyelitis, right ankle and foot; Z68.41 Body mass index [BMI] 40.0-44.9, adult; E11.621 Type 2 diabetes mellitus with foot ulcer; K21.9 Gastro-esophageal reflux disease without esophagitis; I10 Essential (primary) hypertension; J45.909 Unspecified asthma, uncomplicated; E03.9 Hypothyroidism, unspecified; E66.01 Morbid (severe) obesity due to excess calories; E11.65 Type 2 diabetes mellitus with hyperglycemia
CPT/HCPCS: 36415; 36569; 71046-TC-FY; 73630-TC-RT-FY; 73721-RT-TC; 77001-TC-FY; 80053; 81003; 82962; 83036; 84443; 85025; 85610; 85651; 85730; 86140; 86850; 86900; 86901; 87040; 87070; 87077; 87086; 87186; 87205; 88305-TC; 88311-TC; 93005; 93010; 93971-TC; 97116-GP; 97161-GP; 99284-25; C1751; G0463-25; G0480

== ENCOUNTER → 2018-08-17 | Day surgery (SDC) | payer BC, OTHER | END | disposition home or self-care (01) | LOC: JRADIR 11:56 | PROVIDERS: ATTEND Internal Medicine Geriatric Medicine | PROC: 05HB33Z Insertion of Infusion Device into Right Basilic Vein, Percutaneous Approach (ICD-10-PCS; principal; 2018-08-17) | PROC: B54MZZA Ultrasonography of Right Upper Extremity Veins, Guidance (ICD-10-PCS; 2018-08-17) | DX: Z45.2 Encounter for adjustment and management of vascular access device (principal) | CPT/HCPCS: 36569; 82962; G0277 ==

== ENCOUNTER 2018-08-24 10:54 | Observation (INO) | payer BC, OTHER ==
[2018-08-24 13:00] LABS: PH,URINE 5.5 (5.0-8.0); URINE APPEARANCE CLEAR; URINE BILIRUBIN NEGATIVE (NEGATIVE); URINE COLOR YELLOW; URINE GLUCOSE (UA) NEGATIVE (NEGATIVE); URINE KETONE NEGATIVE (NEGATIVE); URINE LEUK ESTERASE NEGATIVE (NEGATIVE); URINE NITRITE NEGATIVE (NEGATIVE); URINE PROTEIN NEGATIVE (NEGATIVE); URINE UROBILINOGEN 0.2 mg/dL (0.2-1.0)
[2018-08-24 13:04] LABS: EOS % 2.4 % (0-4.5); HEMATOCRIT 31.9 % (32.4-45.2); HEMOGLOBIN 10.5 GM/dL (10.7-15.3); MCHC 32.8 g/dl (32.0-36.0); MEAN CELL VOLUME 79.2 fl (80-96); MEAN PLT VOLUME 7.2 fl (7.5-11.1); MONO % 4.3 % (3.8-10.2); NEUT % 73.3 % (42.8-82.8); PLATELET COUNT 385 K/MM3 (134-434); RBC 4.03 M/mm3 (3.60-5.2); RDW 18.2 % (11.6-15.6); WHITE BLOOD COUNT 8.7 K/mm3 (4.0-10.0)
[2018-08-24 13:26] LABS: ALBUMIN 3.3 g/dl (3.4-5.0); ALK PHOS 89 U/L (45-117); ANION GAP 7 MMOL/L (8-16); BILIRUBIN,TOTAL 0.2 mg/dL (0.2-1); BLOOD UREA NITROGEN 17 mg/dL (7-18); CALCIUM 9.2 mg/dL (8.5-10.1); CHLORIDE 100 mmol/L (98-107); CO2 27 mmol/L (21-32); CREATININE 0.8 mg/dL (0.55-1.3); GLUCOSE,RANDOM 153 mg/dL (74-106); POTASSIUM 3.9 mmol/L (3.5-5.1); SGOT/AST 10 U/L (15-37); SGPT/ALT 23 U/L (13-61); SODIUM 133 mmol/L (136-145); TOT PROT 7.8 g/dl (6.4-8.2)
--- NOTE | 2018-08-24 13:32 | PDOC ---
Documentation entered by Milana Mckeon SCRIBE, acting as scribe for Ta Lopez MD. Ta Lopez MD: This documentation has been prepared by the abrileMike Victoria, SCRIBE, under my direction and personally reviewed by me in its entirety. I confirm that the documentation accurately reflects all work, treatment, procedures, and medical decision making performed by me. History of Present Illness - General Chief Complaint: Lightheaded Stated Complaint: Lightheaded Time Seen by Provider: 08/24/18 11:06 History Source: Patient Exam Limitations: No Limitations - History of Present Illness Initial Comments: 08/24/18 15:12 The patient is a 48 year old female with hypertension, hyperlipidemia, diabetes , diabetic retinopathy, hypothyroidism, Charcots foot (right upper extremity PICC line, on Vancomycin) who presents with several month history of worsening blurry vision bilaterally. She reports this symptom is similar to an episode she had last year for her retinopathy that was treated with intraocular injections and laser. She also complains of new onset of vertigo for the past few days that occur while standing or moving her head. In the ED she is asymptomatic and denies any headache, focal neurological deficits, nausea, or vomiting. Denies any recent fevers or chills. PCP: Dr. Bledsoe Past History - Past Medical History Allergies/Adverse Reactions: Allergies Allergy/AdvReac Type Severity Reaction Status Date / Time piperacillin sodium AdvReac Verified 08/24/18 11:25 [From Zosyn] tazobactam sodium AdvReac Verified 08/24/18 11:25 [From Zosyn] Home Medications: Ambulatory Orders Furosemide 40 mg PO DAILY 04/03/16 metFORMIN HCL [Metformin ER Osmotic] 1,000 mg PO BID 04/03/16 Atorvastatin Ca [Lipitor] 10 mg PO HS 07/16/18 Lisinopril 20 mg PO DAILY 07/16/18 Pantoprazole Sodium [Protonix] 40 mg PO DAILY 07/16/18 Acetaminophen [Tylenol .Regular Strength -] 650 mg PO Q6H PRN tablet 07/23/18 Glipizide [Glucotrol -] 5 mg PO BID@0700,1630 tablet 07/23/18 Insulin Sliding Scale [Novolog Vial Sliding Scale -] 1 vial SQ TIDAC units 03/02 Levothyroxine [Synthroid -] 50 mcg PO DAILY@0700 tablet 07/23/18 Magnesium Hydrox 2400MG/30Ml [Milk of Magnesia -] 30 ml PO DAILY PRN cup Polyethylene Glycol 3350 [Miralax 119 gm Btl -] 17 gm PO DAILY PRN bottle 07/23 Pregabalin [Lyrica -] 50 mg PO BID capsule MDD 2 07/23/18 Ferrous Sulfate 325 mg PO DAILY 08/13/18 Heparin - 5,000 units SCJ DAILY 08/13/18 Insulin (Levemir) [Levemir Vial] 12 units SQ BID@0700,2200 08/13/18 Vancomycin HCl 2 gm IVPB Q24H 08/13/18 Vitamin C - 500 mg PO DAILY 08/13/18 Anemia: No Asthma: Yes Cardiac Disorders: No CVA: No COPD: No CHF: No Dementia: No Diabetes: Yes GI Disorders: No Disorders: No HTN: Yes Hypercholesterolemia: (PT RECEIVING LIPITOR FOR PREVENTATIVE MEASURES) Liver Disease: No Seizures: No Thyroid Disease: Yes (HYPOTHYROIDISM) - Immunization History Immunization Up to Date: No - Suicide/Smoking/Psychosocial Hx Smoking History: Never smoked Have you smoked in the past 12 months: No Information on smoking cessation initiated: No Hx Alcohol Use: No Drug/Substance Use Hx: No Substance Use Type: None Hx Substance Use Treatment: No *Physical Exam - Vital Signs Last Vital Signs Temp Pulse Resp BP Pulse Ox 97.7 F 70 17 108/77 100 08/24/18 11:22 08/24/18 11:22 08/24/18 11:22 08/24/18 11:22 08/24/18 11:22 - Physical Exam Comments: 08/24/18 15:03 GENERAL: Awake, alert, and fully oriented, in no acute distress HEAD: No signs of trauma EYES: PERRLA, EOMI, sclera anicteric, conjunctiva clear. No discharge or drainage or leakage. OD: 20/100 OS: 20/40 ENT: Auricles normal inspection, hearing grossly normal, nares patent, Moist mucosa NECK: Normal ROM, supple, LUNGS: Breath sounds equal, clear to auscultation bilaterally. No wheezes, and no crackles HEART: Regular rate and rhythm, normal S1 and S2, no murmurs, rubs or gallops ABDOMEN: Soft, nontender, No guarding, no rebound. No masses EXTREMITIES: Normal range of motion, no edema. No clubbing or cyanosis. No cords, erythema, or tenderness NEUROLOGICAL: Cranial nerves II through XII intact. Normal speech, 5/5 strength upper and lower extremities. Sensation intact throughout. No pronator drift. Finger to normal normal. Rapid alternating normal. Heel to herzog normal. SKIN: Warm, Dry, normal turgor, no rashes or lesions noted. Heart Score/ECG Review #1 ECG reviewed & interpreted by me at: 12:40 08/24/18 13:39 NSR 70, nonspecific ST and T wave abnormality, QTC 432 msec, normal axis, normal intervals ED Treatment Course - LABORATORY CBC & Chemistry Diagram: 08/24/18 12:54 08/24/18 12:54 Medical Decision Making - Medical Decision Making 08/24/18 13:38 A portion of this note was documented by scribe services under my direction. I have reviewed the details of the note, within reason, and agree with the documentation with the following case summary and management plan written by me. Patient treated in the ED. Nursing notes are reviewed and incorporated into the medical decision-making. Vital signs reviewed. Peripheral IV access obtained by the nurse, laboratory studies are drawn and sent, reviewed and interpreted by myself. Vital Signs Temp Pulse Resp BP Pulse Ox 97.7 F 70 17 108/77 100 08/24/18 11:22 08/24/18 11:22 08/24/18 11:22 08/24/18 11:22 08/24/18 11:22 48-year-old female history of asthma, diabetes, hypertension, diabetic retinopathy, hyperlipidemia, hypothyroidism, Charcot's foot with chronic infection currently with right upper extremity PICC line on vancomycin presents with 2 complaints. Patient reports for several months of bilateral blurry vision worsen the right left eye that has somewhat worsened over time. She reports that this is separate complaint from her vertiginous-like symptoms that she's been receiving for last several days. Patient reports that she has had blurry vision but does not wear contacts or glasses. Does not have any itchiness or discharge or redness of the eyes. States that one year ago which she had a procedure performed using lasers and injections for diabetic retinopathy. She states that if this feels like a similar situation. She also reports intermittent right sided vertiginous-like symptoms particularly when standing or moving her head. She denies any headache, or neck stiffness. Patient currently denies any symptoms now but wanted to get checked so came to the ER. The patient's neurological exam is completely normal. I suspect that this is likely vertiginous peripheral. At this time, patient declines any medications. We'll obtain a head CT or other labs and EKG to rule out other acute pathologies. I suspect the patient's blurry vision is secondary to diabetic retinopathy. I do not see any evidence of infection, conjunctivitis, other acute eye pathology at this time. I will refer patient to her recreation therapy aides teacher. 08/24/18 15:05 CBC, BMP 08/24/18 12:54 08/24/18 12:54 CMP Sodium 133 mmol/L (136-145) L 08/24/18 12:54 Potassium 3.9 mmol/L (3.5-5.1) 08/24/18 12:54 Chloride 100 mmol/L (98-107) 08/24/18 12:54 Carbon Dioxide 27 mmol/L (21-32) 08/24/18 12:54 Anion Gap 7 MMOL/L (8-16) L 08/24/18 12:54 BUN 17 mg/dL (7-18) 08/24/18 12:54 Creatinine 0.8 mg/dL (0.55-1.3) 08/24/18 12:54 Est GFR (CKD-EPI)AfAm 99.63 08/24/18 12:54 Est GFR (CKD-EPI)NonAf 85.96 08/24/18 12:54 Random Glucose 153 mg/dL (74-106) H 08/24/18 12:54 Calcium 9.2 mg/dL (8.5-10.1) 08/24/18 12:54 Magnesium 2.0 mg/dL (1.8-2.4) 08/24/18 12:54 Total Bilirubin 0.2 mg/dL (0.2-1) 08/24/18 12:54 AST 10 U/L (15-37) L 08/24/18 12:54 ALT 23 U/L (13-61) 08/24/18 12:54 Alkaline Phosphatase 89 U/L (45-117) 08/24/18 12:54 Creatine Kinase 39 U/L (26-192) 08/24/18 12:54 Troponin I < 0.02 ng/ml (0.00-0.05) 08/24/18 12:54 Total Protein 7.8 g/dl (6.4-8.2) 08/24/18 12:54 Albumin 3.3 g/dl (3.4-5.0) L 08/24/18 12:54 Urine Test Results Urine Color Yellow 08/24/18 12:54 Urine Appearance Clear 08/24/18 12:54 Urine pH 5.5 (5.0-8.0) 08/24/18 12:54 Ur Specific [place] 1.014 (1.010-1.035) 08/24/18 12:54 Urine Protein Negative (NEGATIVE) 08/24/18 12:54 Urine Glucose (UA) Negative (NEGATIVE) 08/24/18 12:54 Urine Ketones Negative (NEGATIVE) 08/24/18 12:54 Urine Blood Negative (NEGATIVE) 08/24/18 12:54 Urine Nitrite Negative (NEGATIVE) 08/24/18 12:54 Urine Bilirubin Negative (NEGATIVE) 08/24/18 12:54 Ur Leukocyte Esterase Negative (NEGATIVE) 08/24/18 12:54 08/24/18 15:[address] shows moderate ventriculomegaly. Annot rule out communicating hydrocephalus. Will consult neuro. 08/24/18 15:29 I have spoken to Dr. Rodney. Recommends MRI for further evaluation. He will consult on case. Will admit patient to the hospital. 08/24/18 16:03 Case discussed with hospitalist. Admit under Dr. Rakan Blanton 08/24/18 16:03 Pt also reports to me that she has an appointment with Dr. Oneal tomorrow. Will place a consult in. *DC/Admit/Observation/Transfer Diagnosis at time of Disposition: Dizziness - Discharge Dispostion Condition at time of disposition: Stable Decision to Admit order: Yes - Referrals Referrals: Harvinder Bledsoe MD [Primary Care Provider] - - Patient Instructions - Post Discharge Activity
[2018-08-24 14:49] LABS: ANISOCYTOSIS 0; MACROCYTOSIS 0; PLATELET ESTIMATE NORMAL
[2018-08-24] MEDS ORDERED: MAGNESIUM HYDROX 2400MG/30ML ORAL SUSPENSION 30 ML CUP PO PRN (17:11)
[2018-08-24] MEDS ORDERED: POLYETHYLENE GLYCOL 3350 119 GM BTL PO PRN (17:11)
[2018-08-24] MEDS ORDERED: ACETAMINOPHEN 325 MG TABLET (FP) PO PRN (17:11)
[2018-08-24] MEDS ORDERED: VANCOMYCIN HCL IVPB SCH (17:15)
--- NOTE | 2018-08-24 17:39 | HP ---
Admitting History and Physical - Primary Care Physician PCP: Harvinder Bledsoe - Admission Chief Complaint: Visual disturbance and dizziness History of Present Illness: 48 y/o F with h/o of HTN, T2DM, hypothyroidism, HLD, HTN, diabetic neuropathy asthma and 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, chronic MRSA with osteomyelitis on intermittent IV vanco over the last 1month presents to ED for evaluation of blurry vision and one episode of dizziness two days ago. Pt has no other complaints and endorses similar episode of visual disturbance 1 yr ago which was attributed to diabetic retinopathy and treated with intraocular injections and laser. With regards to her dizziness, she reports only one episode on 08/22, lasting approximately 1min, associated with right ear fullness and "feeling unbalanced" resulting in her favoring her right side. She denies LOC, speech impairment or loss of motor function. Of note: patient was initially diagnosed w/ Charcot foot in Jan [address] [facility] and was advised to have amputation done but declined and decided to seek a second opinion at [facility]. Workup in July 2018 included MRI which showed acute on chronic osteomyelitis and Charcot's foot and bedside bone biopsy taken, wound culture grew MRSA, Corynebacterium Minutissumum and strep Agalactiae Group B. Pt was referred for hyperbaric treatment and 6 weeks of IV vancomycin via PICC access. In ED: Vitals were: T 97.7, HR 70, RR 17, BP 108/77, O2 sat 100% EKG: NSR 70bpm without acute findings labs were unremarkable. Head CT: moderate ventriculomegaly. Cannot rule out communicating hydrocephalus. Neuro consulted and MRI brain recommended Decision made to admit for observation with plans to d/c with outpt follow up if no acute pathology noted. History Source: Patient, Medical Record Limitations to Obtaining History: No Limitations - Past Medical History Cardiovascular: Yes: HTN, Hyperlipdemia Reproductive: Yes: Postmenopausal ...LMP: 06/13/18 ...: No Endocrine: Yes: Diabetes Mellitus (uncontrolled), Hypothyroidism, Other (Obesity ) Dermatology: Yes: Cellulitis - Past Surgical History Additional Past Surgical History: Right foot abscess drainage Right foot biopsy right foot debridment and skin grafting - Advance Directives Advance Directives: Yes: Health Care Proxy (Cousin: Estela London [phone]) - Smoking History Smoking history: Never smoked Have you smoked in the past 12 months: No - Alcohol/Substance Use Hx Alcohol Use: No History of Substance Use: reports: None - Social History Usual Living Arrangement: Yes: Care Home ADL: Support Services History of Recent Travel: No Home Medications - Allergies Allergies/Adverse Reactions: Allergies Allergy/AdvReac Type Severity Reaction Status Date / Time piperacillin sodium AdvReac Verified 08/24/18 11:25 [From Zosyn] tazobactam sodium AdvReac Verified 08/24/18 11:25 [From Zosyn] - Home Medications Home Medications: Ambulatory Orders RX: Furosemide 40 mg PO DAILY 04/03/16 RX: metFORMIN HCL [Metformin ER Osmotic] 1,000 mg PO BID 04/03/16 RX: Atorvastatin Ca [Lipitor] 10 mg PO HS 07/16/18 RX: Lisinopril 20 mg PO DAILY 07/16/18 RX: Pantoprazole Sodium [Protonix] 40 mg PO DAILY 07/16/18 RX: Acetaminophen [Tylenol .Regular Strength -] 650 mg PO Q6H PRN tablet RX: Glipizide [Glucotrol -] 5 mg PO BID@0700,1630 tablet 07/23/18 RX: Insulin Sliding Scale [Novolog Vial Sliding Scale -] 1 vial SQ TIDAC units 07/23/18 RX: Levothyroxine [Synthroid -] 50 mcg PO DAILY@0700 tablet 07/23/18 RX: Magnesium Hydrox 2400MG/30Ml [Milk of Magnesia -] 30 ml PO DAILY PRN cup RX: Polyethylene Glycol 3350 [Miralax 119 gm Btl -] 17 gm PO DAILY PRN bottle 07/23/18 RX: Pregabalin [Lyrica -] 50 mg PO BID capsule MDD 2 07/23/18 Ferrous Sulfate 325 mg PO DAILY 08/13/18 RX: Insulin (Levemir) [Levemir Vial] 12 units SQ BID@0700,2200 08/13/18 Vitamin C - 500 mg PO DAILY 08/13/18 RX: Heparin - 5,000 unit SQ BID vial 08/25/18 RX: Meclizine HCl [Antivert -] 12.5 mg PO Q6H PRN tablet 08/25/18 Family Disease History - Family Disease History Family Disease History: Other: Father (alive (84) HTN, s/p CVA, s/p CABG, DMII) , Mother (alive (88) DMII, HTN, glaucoma), Brother (alive (52) DMII), Sister ( alive (50) DMII) Other Family History: Brother alive (62) DMII Review of Systems - Review of Systems Constitutional: reports: No Symptoms Eyes: reports: Blurred Vision HENT: reports: No Symptoms Neck: reports: No Symptoms Cardiovascular: reports: No Symptoms Respiratory: reports: No Symptoms Gastrointestinal: reports: No Symptoms Genitourinary: reports: No Symptoms Breasts: reports: No Symptoms Reported Musculoskeletal: reports: No Symptoms Integumentary: reports: Wound (right foot) Endocrine: reports: No Symptoms Hematology/Lymphatic: reports: No Symptoms Psychiatric: reports: No Symptoms Physical Examination Vital Signs: Vital Signs Temperature 97.7 F 08/24/18 11:22 Pulse Rate 70 08/24/18 11:22 Respiratory Rate 17 08/24/18 11:22 Blood Pressure 108/77 08/24/18 11:22 O2 Sat by Pulse Oximetry (%) 100 08/24/18 11:22 Constitutional: Yes: Well Nourished, No Distress, Calm, Obese Eyes: Yes: Conjunctiva Clear, PERRL HENT: Yes: Atraumatic, Normocephalic Neck: Yes: Supple Cardiovascular: Yes: Regular Rate and Rhythm Respiratory: Yes: Regular, CTA Bilaterally Gastrointestinal: Yes: Normal Bowel Sounds, Soft, Abdomen, Obese ...Rectal Exam: Yes: Deferred Musculoskeletal: Yes: WNL Extremities: Yes: Other (RLE trace edema, hyperpigmented extremity) Edema: Yes Edema: RLE: 1+ Peripheral Pulses: Left Radial: 2+, Right Radial: 2+, Left Doralis Pedis: 1+, Right Dorsalis Pedis: 1+ Integumentary: Yes: Venous Stasis Changes Wound/Incision: Yes: Clean/Dry, Other (covered with dry dsg, boot in place) Neurological: Yes: Alert, Oriented Labs: CBC, BMP 08/24/18 12:54 08/24/18 12:54 Imaging - Results Cat Scan: Report Reviewed (Head CT 08/24/2018 Impression: mild volume loss. Moderate ventriculomegaly that is more than expected for the degree of cortical atrophy. Cannot rule out communicating hydrocephalus. Correlate clinically and neurology consult is suggested. Read by Dr. Samantha Cook) MRI: Pending (MRI brain 08/24/2018 pending) Problem List - Problems (1) Diabetic neuropathy, type II diabetes mellitus Assessment/Plan: continue lyrica 50mg BID APAP PRN pain Code(s): E11.40 - TYPE 2 DIABETES MELLITUS WITH DIABETIC NEUROPATHY, UNSP (2) DM (diabetes mellitus) type II uncontrolled with eye manifestation Assessment/Plan: continue metformin and glipzide BID Levemir 12units BID Insulin SS Fingerstick ACHS Code(s): E11.39 - TYPE 2 DIABETES W OTH DIABETIC OPHTHALMIC COMPLICATION; E11.65 - TYPE 2 DIABETES MELLITUS WITH HYPERGLYCEMIA (3) Hypertension Assessment/Plan: Lisinopril 20mg daily lasix 40mg daily cardiac diet Code(s): I10 - ESSENTIAL (PRIMARY) HYPERTENSION Qualifiers: Hypertension type: essential hypertension Qualified Code(s): I10 - Essential (primary) hypertension (4) Hypothyroidism Assessment/Plan: synthroid 50mcg daily Code(s): E03.9 - HYPOTHYROIDISM, UNSPECIFIED Qualifiers: Hypothyroidism type: unspecified Qualified Code(s): E03.9 - Hypothyroidism , unspecified (5) Morbid obesity Assessment/Plan: weight loss encouraged lipitor 10mg daily Code(s): E66.01 - MORBID (SEVERE) OBESITY DUE TO EXCESS CALORIES (6) Osteomyelitis Assessment/Plan: pt followed by vasc and wound care clinic daily vitamin C and iron tabs continue IV vanco 2g daily ID consult Code(s): M86.9 - OSTEOMYELITIS, UNSPECIFIED Qualifiers: Osteomyelitis location: foot Laterality: right (7) Dizziness Assessment/Plan: MRI brain pending Neuro following, recs appreciated Meclizine PRN Code(s): R42 - DIZZINESS AND GIDDINESS Assessment/Plan DVT PPX: SC heparin Bowel regimen: miralax daily GI PPX: protonix daily Visit type - Emergency Visit Emergency Visit: Yes ED Registration Date: 08/24/18 Care time: The patient presented to the Emergency Department on the above date and was hospitalized for further evaluation of their emergent condition. - New Patient This patient is new to me today: Yes Date on this admission: 08/25/18 - Critical Care Critical Care patient: No
--- NOTE | 2018-08-24 18:03 | CON.NEURO ---
Consult - Past Medical History Cardio/Vascular: Yes: HTN, Hyperlipdemia ...LMP: 06/13/18 Endocrine: Yes: Diabetes Mellitus (uncontrolled), Hypothyroidism, Other (Obesity ) Dermatology: Yes: Cellulitis - Alcohol/Substance Use Hx Alcohol Use: No History of Substance Use: reports: None - Smoking History Smoking history: Never smoked Have you smoked in the past 12 months: No - Social History ADL: Independent History of Recent Travel: No Home Medications - Allergies Allergies/Adverse Reactions: Allergies Allergy/AdvReac Type Severity Reaction Status Date / Time piperacillin sodium AdvReac Verified 08/24/18 11:25 [From Zosyn] tazobactam sodium AdvReac Verified 08/24/18 11:25 [From Zosyn] - Home Medications Home Medications: Ambulatory Orders Furosemide 40 mg PO DAILY 04/03/16 metFORMIN HCL [Metformin ER Osmotic] 1,000 mg PO BID 04/03/16 Atorvastatin Ca [Lipitor] 10 mg PO HS 07/16/18 Lisinopril 20 mg PO DAILY 07/16/18 Pantoprazole Sodium [Protonix] 40 mg PO DAILY 07/16/18 Acetaminophen [Tylenol .Regular Strength -] 650 mg PO Q6H PRN tablet 07/23/18 Glipizide [Glucotrol -] 5 mg PO BID@0700,1630 tablet 07/23/18 Insulin Sliding Scale [Novolog Vial Sliding Scale -] 1 vial SQ TIDAC units 03/02 Levothyroxine [Synthroid -] 50 mcg PO DAILY@0700 tablet 07/23/18 Magnesium Hydrox 2400MG/30Ml [Milk of Magnesia -] 30 ml PO DAILY PRN cup Polyethylene Glycol 3350 [Miralax 119 gm Btl -] 17 gm PO DAILY PRN bottle 07/23 Pregabalin [Lyrica -] 50 mg PO BID capsule MDD 2 07/23/18 Ferrous Sulfate 325 mg PO DAILY 08/13/18 Heparin - 5,000 units SCJ DAILY 08/13/18 Insulin (Levemir) [Levemir Vial] 12 units SQ BID@0700,2200 08/13/18 Vancomycin HCl 2 gm IVPB Q24H 08/13/18 Vitamin C - 500 mg PO DAILY 08/13/18 Family Disease History - Family Disease History Family Disease History: Other: Father (alive (84) HTN, s/p CVA, s/p CABG, DMII) , Mother (alive (88) DMII, HTN, glaucoma), Brother (alive (52) DMII), Sister ( alive (50) DMII) Other Family History: Brother alive (62) DMII Physical Exam-Neuro Vital Signs: Vital Signs Temperature 97.7 F 08/24/18 11:22 Pulse Rate 70 08/24/18 11:22 Respiratory Rate 17 08/24/18 11:22 Blood Pressure 108/77 08/24/18 11:22 O2 Sat by Pulse Oximetry (%) 100 08/24/18 11:22 Labs: CBC, BMP 08/24/18 12:54 08/24/18 12:54 Assessment/Plan cc : Vertigo feeling for two days HPI 48 year old female history of htn,hld,dm,Diabetic Retinopathy, Hypothyroidism, Osteomyelitis of left foot on abx and PICC line. Patient has blurring of visoin for long time and was thought to be due to retinopathy. Patient has been complaining of spinning sensaiton and feeling of fullness of right ear and falling to right side. Patient has not been walking is in [place] due to her osteomyelitis of left foot and on abx . Patient has similar episode in past and it was self resolved. She denie sny other focal neurological syptoms, her ct head showed there is large ventricles. She denies any incontinence, cognitive difficulty or gait disturbance Allergies/Adverse Reactions: Allergies Allergy/AdvReac Type Severity Reaction Status Date / Time piperacillin sodium AdvReac Verified 08/24/18 11:25 [From Zosyn] tazobactam sodium AdvReac Verified 08/24/18 11:25 [From Zosyn] Home Medications: Furosemide 40 mg PO DAILY 04/03/16 metFORMIN HCL [Metformin ER Osmotic] 1,000 mg PO BID 04/03/16 Atorvastatin Ca [Lipitor] 10 mg PO HS 07/16/18 Lisinopril 20 mg PO DAILY 07/16/18 Pantoprazole Sodium [Protonix] 40 mg PO DAILY 07/16/18 Acetaminophen [Tylenol .Regular Strength -] 650 mg PO Q6H PRN tablet 07/23/18 Glipizide [Glucotrol -] 5 mg PO BID@0700,1630 tablet 07/23/18 Insulin Sliding Scale [Novolog Vial Sliding Scale -] 1 vial SQ TIDAC units 03/02 Levothyroxine [Synthroid -] 50 mcg PO DAILY@0700 tablet 07/23/18 Magnesium Hydrox 2400MG/30Ml [Milk of Magnesia -] 30 ml PO DAILY PRN cup Polyethylene Glycol 3350 [Miralax 119 gm Btl -] 17 gm PO DAILY PRN bottle 07/23 Pregabalin [Lyrica -] 50 mg PO BID capsule MDD 2 07/23/18 Ferrous Sulfate 325 mg PO DAILY 08/13/18 Heparin - 5,000 units SCJ DAILY 08/13/18 Insulin (Levemir) [Levemir Vial] 12 units SQ BID@0700,2200 08/13/18 Vancomycin HCl 2 gm IVPB Q24H 08/13/18 Vitamin C - 500 mg PO DAILY 08/13/18 PMH as above SH,ROS,FH reviewed in chart NEUROLOGICAL EXAMIANTION Alert oriented x 3, speech is normal and no neck stiffness CN all intact eomi and there is mild right sided nystagmus Motor 5/5 all ext FTH is noraml gait not tested sensation is normal reflex are generalized diminished ct head showed ?NPH Assessment 1. Most likley BPPV , with ear fullness and right sided nystagmus, suggest to try meclizine prn 2. Large ventricles could be incidental findings, suggest to do mri of brain and neurosurgery consult, in absence of cognitive difficulty, gait disturbance or incontinence, unlikley to be of any significance Thanking you so much Luigi Rodney MD
[2018-08-24] MEDS ORDERED: MECLIZINE HCL 12.5 MG TABLET PO PRN (18:05)
[2018-08-24 18:27] VITALS: BMI 41.9
[2018-08-24] MEDS ORDERED: VANCOMYCIN 2,000 MG in DEXTROSE 5%-WATER - 500 ML IVPB SCH (19:00)
[2018-08-24] MEDS: HEPARIN NA (PORCINE) 5,000 UNITS/ML 1ML VIAL SQ SCH (21:37)
[2018-08-24] MEDS: INSULIN (LEVEMIR) 100 UNITS/ML UNITS SQ SCH (21:37)
[2018-08-24] MEDS: PREGABALIN 50 MG CAPSULE PO SCH (21:37)
[2018-08-24] MEDS ORDERED: ATORVASTATIN CA 10 MG TABLET (FP) PO SCH (22:00)
[2018-08-24] MEDS ORDERED: PATIENT'S OWN MEDICATION (NON-FORMULARY) (Metformin Hcl [Metformin Er Osmotic] 1,000 MG) PO SCH (22:00)
[2018-08-25] MEDS: metFORMIN HCL 500 MG TABLET (FP) PO SCH ×2 (06:10→16:45)
[2018-08-25] MEDS: glipiZIDE 5 MG TABLET (FP) PO SCH ×2 (06:10→16:45)
[2018-08-25] MEDS: INSULIN (LEVEMIR) 100 UNITS/ML UNITS SQ SCH (06:11)
[2018-08-25] MEDS ORDERED: INSULIN (NOVOLOG) ASPART 100 UNITS/ML 10ML VIAL ONE ×2 (06:34→11:19)
[2018-08-25] MEDS: INSULIN SLIDING SCALE (NOVOLOG) 1 VIAL SQ SCH ×2 (06:35→11:49)
[2018-08-25] MEDS ORDERED: LEVOTHYROXINE NA 50 MCG TABLET (FP) PO SCH (07:00)
[2018-08-25] MEDS ORDERED: INSULIN (LEVEMIR) 100 UNITS/ML UNITS SQ ONE (07:20)
--- NOTE | 2018-08-25 08:49 | PN ---
Progress Note (short form) - Note Progress Note: NEUROSURGERY CONSULT DICTATED Pt examined History obtained H/o HTN, DM II, hypothyroidism, HLD, diabetic neuropathy/retinopathy, asthma and right foot charcot disease from diabetic foot cellulitis/ulcer/abscess, chronic R foot MRSA with osteomyelitis on 3 courses of IV vanco c/o blurry vision and one episode of dizziness 3 days ago, leaning to the right. Similar episode of visual disturbance 1 yr ago attributed to diabetic retinopathy and treated with intraocular injections and laser. No H/A, n/V, memory difficulty, B /B incontinence. H/o L ear infection, feels some R ear fullness recently. 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
[2018-08-25 09:18] LABS: BASO % 0.7 % (0-2.0); EOS % 3.4 % (0-4.5); HEMATOCRIT 31.2 % (32.4-45.2); LYMPH % 19.3 % (8-40); MCH 25.7 pg (25.7-33.7); MEAN CELL VOLUME 80.5 fl (80-96); MEAN PLT VOLUME 7.5 fl (7.5-11.1); MONO % 5.1 % (3.8-10.2); NEUT % 71.5 % (42.8-82.8); PLATELET COUNT 363 K/MM3 (134-434); RBC 3.88 M/mm3 (3.60-5.2); RDW 18.8 % (11.6-15.6); WHITE BLOOD COUNT 7.9 K/mm3 (4.0-10.0)
--- NOTE | 2018-08-25 09:34 | PN ---
Progress Note (short form) - Note Progress Note: 48 year old female history of htn,hld,dm,Diabetic Retinopathy, Hypothyroidism, Osteomyelitis of left foot on abx and PICC line. Patient has blurring of visoin for long time and was thought to be due to retinopathy. Patient has been complaining of spinning sensaiton and feeling of fullness of right ear and falling to right side. Patient has not been walking is in [place] due to her osteomyelitis of left foot and on abx . Patient has similar episode in past and it was self resolved. She denie sny other focal neurological syptoms, her ct head showed there is large ventricles. She denies any incontinence, cognitive difficulty or gait disturbance SHe is feeling much better and almost back to normal. Saw neurosurgery and had mri of brain done. NEUROLOGICAL EXAMIANTION Alert oriented x 3, speech is normal and no neck stiffness CN all intact eomi and there is mild right sided nystagmus Motor 5/5 all ext FTH is noraml gait not tested sensation is normal reflex are generalized diminished ct head showed ?NPH mri showed ventromegaly Neurosurgery note appreciated Assessment 1. Most likley BPPV , with ear fullness and right sided nystagmus, suggest to try meclizine prn. Her symptoms resolved. 2. Large ventricles could be incidental findings, mri of brain and neurosurgery consult appreciated. Concur with assessment, in absence of symptoms watch for now. Thanking you so much Luigi Rodney MD
[2018-08-25] MEDS ORDERED: LISINOPRIL 20 MG TABLET (FP) PO SCH (10:00)
[2018-08-25] MEDS ORDERED: FERROUS SO4 325 MG TABLET (FP) PO SCH (10:00)
[2018-08-25] MEDS ORDERED: FUROSEMIDE 40 MG TABLET (FP) PO SCH (10:00)
[2018-08-25] MEDS ORDERED: PANTOPRAZOLE 40 MG TABLET (FP) PO SCH (10:00)
[2018-08-25] MEDS ORDERED: ASCORBIC ACID 500 MG TABLET (FP) PO SCH (10:00)
[2018-08-25 10:05] LABS: BILIRUBIN,TOTAL 0.3 mg/dL (0.2-1); CREATININE 0.8 mg/dL (0.55-1.3); N-TERMINAL BNP 63.6 pg/ml (5-125); PHOSPHOROUS 3.7 mg/dL (2.5-4.9); TOT PROT 6.9 g/dl (6.4-8.2)
[2018-08-25] MEDS: PREGABALIN 50 MG CAPSULE PO SCH (10:14)
[2018-08-25] MEDS: HEPARIN NA (PORCINE) 5,000 UNITS/ML 1ML VIAL SQ SCH (10:15)
[2018-08-25 10:49] LABS: ERYTHROCYTE SEDIMENTATION RATE 89 mm/hr (0-30)
[2018-08-25 11:09] LABS: INR 1.03 (0.83-1.09); PROTHROMBIN TIME (PATIENT) 12.1 SEC (9.7-13.0)
[2018-08-25 11:11] LABS: ACTIVATED PTT 36.5 SECONDS (25.2-36.5)
--- NOTE | 2018-08-25 12:10 | EKG ---
Test Reason : Blood Pressure : / mmHG Vent. Rate : 070 BPM Atrial Rate : 070 BPM P-R Int : 150 ms QRS Dur : 104 ms QT Int : 400 ms P-R-T Axes : 021 022 021 degrees QTc Int : 432 ms NORMAL SINUS RHYTHM NONSPECIFIC ST AND T WAVE ABNORMALITY ABNORMAL ECG WHEN COMPARED WITH ECG OF 16-JUL-2018 11:19, NO SIGNIFICANT CHANGE WAS FOUND Confirmed by MD Kate Daniel ([id number]) on 08/25/2018 12:09:54 PM Referred By: Confirmed By:Ike Kate MD
--- NOTE | 2018-08-25 12:48 | DS ---
Physical Examination Vital Signs: Vital Signs Temperature 98.0 F 08/25/18 05:59 Pulse Rate 69 08/25/18 05:59 Respiratory Rate 18 08/25/18 05:59 Blood Pressure 115/67 08/25/18 05:59 O2 Sat by Pulse Oximetry (%) 100 08/24/18 11:22 Constitutional: Yes: Calm, Obese Eyes: Yes: EOM Intact HENT: Yes: Normocephalic Neck: Yes: Trachea Midline Cardiovascular: Yes: Regular Rate and Rhythm Respiratory: Yes: CTA Bilaterally Edema: Yes Peripheral Pulses WNL: Yes Integumentary: Yes: Other (left foot ulcer smaller but still deep, pedal edema without calf edema present minimal serous discharge present) ...Motor Strength: WNL Labs: CBC, BMP 08/25/18 07:10 08/25/18 07:10 Discharge Summary Reason For Visit: DIZZINESS Current Active Problems DM (diabetes mellitus) type II uncontrolled with eye manifestation (Acute) Diabetic neuropathy, type II diabetes mellitus (Acute) Dizziness (Acute) Dizziness (Acute) Hospital Course: admitted for observation for vertigo and poor vision,head CT noted incidental enlarged ventricles symptoms resolved spontaneously in the hospital, was seen and evaluated by neurology and neurosurgery. She is medically stable to discharge back to SNF to complete iv abx course for right foot osteomyelitis wound care and podiatry follow up is regular. Condition: Stable - Instructions Disposition: [facility] - Home Medications Comprehensive Discharge Medication List: Ambulatory Orders Furosemide 40 mg PO DAILY 04/03/16 metFORMIN HCL [Metformin ER Osmotic] 1,000 mg PO BID 04/03/16 Atorvastatin Ca [Lipitor] 10 mg PO HS 07/16/18 Lisinopril 20 mg PO DAILY 07/16/18 Pantoprazole Sodium [Protonix] 40 mg PO DAILY 07/16/18 Acetaminophen [Tylenol .Regular Strength -] 650 mg PO Q6H PRN tablet 07/23/18 Glipizide [Glucotrol -] 5 mg PO BID@0700,1630 tablet 07/23/18 Insulin Sliding Scale [Novolog Vial Sliding Scale -] 1 vial SQ TIDAC units 03/02 Levothyroxine [Synthroid -] 50 mcg PO DAILY@0700 tablet 07/23/18 Magnesium Hydrox 2400MG/30Ml [Milk of Magnesia -] 30 ml PO DAILY PRN cup Polyethylene Glycol 3350 [Miralax 119 gm Btl -] 17 gm PO DAILY PRN bottle 07/23 Pregabalin [Lyrica -] 50 mg PO BID capsule MDD 2 07/23/18 Ferrous Sulfate 325 mg PO DAILY 08/13/18 Insulin (Levemir) [Levemir Vial] 12 units SQ BID@0700,2200 08/13/18 Vancomycin HCl 2 gm IVPB Q24H 08/13/18 Vitamin C - 500 mg PO DAILY 08/13/18 Heparin - 5,000 unit SQ BID vial 08/25/18 Meclizine HCl [Antivert -] 12.5 mg PO Q6H PRN tablet 08/25/18
[2018-08-25 13:09] VITALS: BP 125/70; PULSE 83; TEMP 97.6
--- NOTE | 2018-08-25 14:35 | PN ---
Progress Note (short form) - Note Progress Note: ID CONSULT DICTATED D/C VANCOMYCIN CONTINUE LOCAL WOUND CARE F/U WOUND CARE CENTER DISCUSSED WITH PMD
--- NOTE | 2018-08-25 14:59 | CONS ---
INFECTIOUS DISEASE CONSULTATION DATE OF CONSULTATION: DATE OF DICTATION: 08/25/2018 HISTORY OF PRESENT ILLNESS: The patient is a 48-year-old female with long-standing history of diabetic foot infection, now seen in followup. She was admitted to [facility] in July of this year, from July 16 through July 28. She was evaluated for a non-healing plantar ulcer. At that time, a bone biopsy was performed and cultures of the bone biopsy grew MRSA and group B strep. A PICC line was inserted and she was transferred to a [facility] facility to complete a 6-week course of IV vancomycin. She is now readmitted with complaint of several-month history of blurry vision, as well as ataxia. She reports that the blurry vision is chronic in nature and had been present for several months. It was similar to symptoms she had last year secondary to diabetic retinopathy treated with injections and laser. The ataxia, however, is new and has been present for several days. She was admitted to the hospital. She was seen in consultation by Neurology and Neurosurgery. An MRI was performed and showed possible normal-pressure hydrocephalus. Her symptoms have now resolved. She denies any blurry vision. No complaints of dizziness or ataxia. She denies any tinnitus or hearing loss. She has been receiving vancomycin at the group home once a day. A vancomycin level was performed; however, was done at the wrong time. She received a dose at approximately 9 p.m. last evening, and a vancomycin trough was performed early this morning less than 12 hours later. PAST MEDICAL HISTORY: Positive for diabetes mellitus, hypertension, hyperlipidemia, chronic diabetic foot ulcer, hypothyroidism. ALLERGIES: ZOSYN. Patient has tolerated cephalosporins. LABORATORY DATA: White count 7.9, hematocrit 31.2, platelet count 363. Creatinine 0.8. PHYSICAL EXAMINATION: General: She is awake and alert. She is in no acute distress. No complaints of ataxia or blurry vision at the present time. Vital Signs: Afebrile. Eyes: Sclerae are anicteric. Heart: Heart sounds S1, S2. Lungs: Clear. Abdomen: Obese. Soft. Nontender. Examination of the foot: There is a plantar ulcer approximately 3 cm in diameter in the midportion of the foot plantar aspect. There is granulation tissue. There is no purulence or foul odor. No drainage is noted. IMPRESSION: 1. Chronic osteomyelitis/infected diabetic foot ulcer. 2. Positive bone culture, methicillin-resistant Staphylococcus aureus. 3. Status post blurry vision and ataxia. Etiology of patient's blurry vision and ataxia not clear. Cannot rule out a component of adverse reaction secondary to vancomycin. Her vancomycin trough is not reliable, as this was not done at the appropriate time, and is likely lower than the stated value. In any event, the patient is completing a 6-week course of vancomycin for osteomyelitis; would discontinue and observe off. Continue local wound care and followup at the wound care center. ISAIAS KOHLI M.D. [id number]
--- NOTE | 2018-08-25 15:11 | CONS ---
DATE OF CONSULTATION: 08/25/2018 REQUESTING PHYSICIAN: Luigi Rodney MD, Neurology CONSULTING: Juliocesar Pat MD, Neurosurgery CHIEF COMPLAINT: Abnormal head CT scan. HISTORY OF PRESENT ILLNESS: The patient is a 48-year-old right-handed female with history of diabetes with diabetic retinopathy and diabetic peripheral neuropathy, obesity, hypothyroidism, hypercholesterolemia, asthma, and right foot cellulitis/ulcer with MRSA, who comes in complaining of blurry vision and 1 episode of dizziness 3 days ago. She felt some right-sided ear fullness and was leaning towards the right when she walked. She denies any headache, nausea, vomiting, memory difficulties, bowel or bladder incontinence. She does have a history of left ear infection previously. She has no fever or chill or any recent infection by report other than her right foot problem. PAST MEDICAL HISTORY: Significant for diabetes, diabetic retinopathy and neuropathy, hypertension, hypercholesterolemia, asthma, right foot infection, hypothyroidism. CURRENT MEDICATIONS: Include vancomycin, Tylenol, Prinivil, subcutaneous heparin, Lyrica, Antivert, Glucophage, Milk of Magnesia, MiraLAX, Lipitor, insulin Levemir, Lasix, Protonix, Glucotrol, levothyroxine, vitamin C. ALLERGIES: PIPERACILLIN and ATAZOBACTAM. SOCIAL HISTORY: She does not smoke or drink. She lives at home, but had been in a long term for IV antibiotic for many months. She does not use recreational drugs. FAMILY HISTORY: Significant for diabetes. REVIEW OF SYSTEMS: Otherwise, negative for major constitutional, head and neck, cardiovascular, pulmonary, gastrointestinal, genitourinary, endocrinological, neurological or psychological problems except for the above. PHYSICAL EXAMINATION: Vital Signs: Temperature is 98. Blood pressure is 115/67 with pulse rate of 69. O2 saturation is 100% on room air. HEENT: Shows her to be normocephalic, atraumatic, anicteric. Neck: Supple with no carotid bruit. Coronary: Examination demonstrated a regular rhythm. Lungs: Clear bilaterally. Abdomen: Benign, but obese. Extremities: Examination shows right foot to be wrapped for a right foot wound. Her extremities are warm. There are no other signs of DVT except for trace right lower extremity edema. Neurologic: She is awake and alert and oriented x4. Cranial nerve examination is intact II through XII. Motor examination shows 5/5 strength except right foot which is 4/5 limited by right foot wound. Sensory examination shows decreased distal vibratory sensation in the lower extremity. Deep tendon reflexes are hyporeflexive throughout. Gait shows her to favor the left lower extremity as she has a right foot wound. LABORATORY EXAMINATION: Shows a white blood cell count of 7.9, hemoglobin of 10. The platelet count is 363,000. INR is 1.03. APTT is 36.5. BUN is 16 and creatinine . Sodium is 134. Potassium is 4.0. Vancomycin level is 24.7. A CT scan of the head demonstrated mild to moderate ventriculomegaly with mild cerebral atrophy. There is no significant ischemic disease or fracture or bleed. MRI of the brain demonstrated moderate ventricular dilatation of the 3rd and lateral ventricle. There is no transependymal CSF flow. There is likely a component of aqueductal stenosis. There are minimal temporal horns. IMPRESSION: 1. 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 2. There are no clinical signs or symptoms of hydrocephalus. 3. Type 2 diabetes with diabetic retinopathy and diabetic peripheral neuropathy. 4. Right foot methicillin-resistant Staphylococcus aureus wound infection. 5. Hypothyroidism. 6. Asthma. RECOMMENDATION: The patient presents with an episode of dizziness and right ear fullness with balance issues. Her symptoms have since improved. Presently, her neurological examination is nonfocal. CT scan and MRI of the brain demonstrated mild to moderate dilatation of the lateral and 3rd ventricle without transependymal CSF flow. 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 As the patient does not have clinical signs or symptoms of hydrocephalus, no neurosurgical intervention is indicated nor recommended. The patient is advised to observe for a clinical triad of urinary incontinence, gait difficulty, and memory difficulties. The patient does not have any of the above problems at this time. She was also asked to observe for any increasing headache or nausea and vomiting. She likely has labyrinthitis from her right inner ear which caused her balance problem a couple of days ago. All questions were answered. The above was also discussed with the patient's primary care physician, Dr. Uma Lopez. JULIOCESAR PAT M.D. [id number]
--- NOTE | 2018-08-25 15:30 | CONSULT ---
Consult - text type - Consultation Consultation Note: Podiatry Consultation: 48 year old diabetic female, well known to the wound healing center under service of Dr. Olvera, presented to hospital for admission with dizziness/ bluriness. Patient has history of Charcot deformity right foot for which she is managed in [facility] [place]. She denies F/V/N/C/SOB/CP. Currently afebrile. PMHx: HTN, T2DM, hypothyroidism, HLD, HTN, h/o MRSA, h/o osteomyelitis right foot Meds: noted ALL: zosyn PHI: R foot: pedal pulses 1/4, TG wnl, CFT brisk to all toes. There is a plantar midfoot diabetic Charcot ulcer with underlying fibrogranular base, hyperkeratotic borders, central area of ulcer probes to capsule, no purulence, no fluctuance, no soft tissue crepitus, no streaking cellulitis, no signs of active infection. Imp: 48 year old diabetic female with right foot Charcot diabetic ulcer 1. Continue with local wound care 2. DSD R foot 3. Patient is podiatric stable for discharge. She can return back to SNF. Patient is scheduled for vascular studies tomorrow 1[facility] She is to f/u with Dr. Olvera in 1 week. Yoan Oneal DPM
[2018-08-25] MEDS ORDERED: PT OWN MED DRAWER 7, Y5N ONE (16:34)
== END 2018-08-25 17:21 ==
LOC: JER 10:54 → JERBED 16:07 → J6S 17:42
PROVIDERS: ADMIT Internal Medicine; ATTEND Internal Medicine
PROC: 3E03329 Introduction of Other Anti-infective into Peripheral Vein, Percutaneous Approach (ICD-10-PCS; principal; 2018-08-24)
PROC: 3E013VG Introduction of Insulin into Subcutaneous Tissue, Percutaneous Approach (ICD-10-PCS; 2018-08-24)
DX: R42 Dizziness and giddiness (principal); E11.40 Type 2 diabetes mellitus with diabetic neuropathy, unspecified; E11.39 Type 2 diabetes mellitus with other diabetic ophthalmic complication; E11.65 Type 2 diabetes mellitus with hyperglycemia; E11.621 Type 2 diabetes mellitus with foot ulcer; L97.519 Non-pressure chronic ulcer of other part of right foot with unspecified severity; I10 Essential (primary) hypertension; E78.5 Hyperlipidemia, unspecified; E03.9 Hypothyroidism, unspecified; M14.671 Charcot's joint, right ankle and foot; J45.909 Unspecified asthma, uncomplicated; G93.89 Other specified disorders of brain; M86.171 Other acute osteomyelitis, right ankle and foot; B95.62 Methicillin resistant Staphylococcus aureus infection as the cause of diseases classified elsewhere; M86.671 Other chronic osteomyelitis, right ankle and foot; E66.01 Morbid (severe) obesity due to excess calories; Z68.41 Body mass index [BMI] 40.0-44.9, adult; Z95.9 Presence of cardiac and vascular implant and graft, unspecified; Z88.8 Allergy status to other drugs, medicaments and biological substances; Z79.84 Long term (current) use of oral hypoglycemic drugs; Z79.4 Long term (current) use of insulin
CPT/HCPCS: 36415; 70450-TC; 70551-TC; 80053; 81003; 82308; 82550; 82962; 83735; 83880; 84100; 84443; 84484; 85025; 85610; 85651; 85730; 87040; 87086; 93005; 93010; 97116-GP; 97161-GP; 99285-25; G0378; G0480; J1644

== ENCOUNTER 2019-01-07 04:58 | Day surgery (SDC) | payer BC, OTHER ==
[2019-01-06 09:09] VITALS: BMI 43.2
[2019-01-07] MEDS ORDERED: BUPIVACAINE HCL/PF 0.5% (5 MG/ML) 30 ML VIAL IJ ONE (08:43)
[2019-01-07] MEDS ORDERED: LIDOCAINE HCL 1%, 10 MG/ML (20ML VIAL) ONE (08:43)
[2019-01-07] MEDS ORDERED: SUCCINYLCHOLINE CHLORIDE 200 MG/10 ML SYRINGE ONE (09:29)
[2019-01-07] MEDS ORDERED: MIDAZOLAM HCL 2 MG/2 ML SINGLE DOSE VIAL ONE ×3 (09:29→09:53)
[2019-01-07] MEDS ORDERED: ceFAZolin SODIUM 1 GM VIAL IVPB ONE (09:40)
[2019-01-07] MEDS ORDERED: VANCOMYCIN 1,000 MG VIAL (RESTRICTED TO ID ONLY) ONE (09:43)
[2019-01-07] MEDS ORDERED: BUPIVACAINE HCL/PF 0.5% (5MG/ML) 10 ML VIAL IJ ONE (09:59)
[2019-01-07] MEDS ORDERED: LIDOCAINE HCL 1%, 10 MG/ML (20ML VIAL) PNB ONE (09:59)
[2019-01-07] MEDS ORDERED: BACITRACIN 50,000 UNITS VIAL TP ONE (10:34)
--- NOTE | 2019-01-07 10:50 | OP ---
Operative Note - Note: Operative Date: 01/07/19 Pre-Operative Diagnosis: chronic diabetic non/poorly healing wound right foot Operation: debridement bone and soft tissue right foot cuboid bone plantar surface. application of osteoset vancomycin beads. application of primatrix 8x8 graft. pulse lavage with bacitracin irrigation. Findings: hypertrophic bone, granulation tissue Implants: osteoset antibiotic beads, primatrix 8x8 graft Post-Operative Diagnosis: Same as Pre-op Surgeon: Sylvia Olvear Workforce Staffing Advisor: Vasiliy Burns Anesthesia: Local, MAC Specimens Removed: bone soft tissue Estimated Blood Loss (mls): 10 Instrument used (Debridements only): blade #15 Operative Report Dictated: No
[2019-01-07 12:43] VITALS: BP 124/67; PULSE 76; TEMP 97.5
--- NOTE | 2019-01-11 13:25 | PATH ---
Surgical Pathology Report Patient Name: CHEN BARKSDALE [facility]. Rec. #: [id number] /Age/Gender: 1970 (Age: 48) / F Account: [id number] Location: [facility] SURGICAL Taken: 01/07/2019 Received: 01/07/2019 Reported: 01/11/2019 Physicians: Sylvia Olvera DPM Specimen(s) Received BX RIGHT PLANTAR BONE Clinical History Right plantar foot ulcer Final Diagnosis RIGHT PLANTAR BONE, BIOPSY: FRAGMENTS OF BONE WITH REACTIVE CHANGE. ADJACENT FIBROCONNECTIVE TISSUE SHOWING CHRONIC INFLAMMATION, FIBRINOUS EXUDATE, HYPER VASCULARITY AND FIBROSIS. NO HISTOLOGIC EVIDENCE OF OSTEOMYELITIS. Electronically Signed Ang Campuzano M.D. Gross Description Received in formalin, labeled "right plantar bone biopsy" are multiple portions of bone measuring 0.9 x 0.8 x 0.2 cm in aggregate. Entirely submitted one cassette for decalcification. DEMARCO/01/07/2019 aly/01/07/2019
--- NOTE | 2019-02-22 17:16 | OP ---
DATE OF OPERATION: 01/07/2019 SURGEON: Sylvia Olvera DPM DATABASES SOFTWARE CONSULTANT: Vasiliy Burns DPM PREOPERATIVE DIAGNOSIS: Chronic diabetic wound, right foot with osteomyelitis and exostosis. POSTOPERATIVE DIAGNOSIS: same OPERATION: Debridement of bone and soft tissue, right foot, application of Osteoset vancomycin beads, application of PriMatrix 8 x 8 graft, bone biopsy/exostectomy , right foot. PROCEDURE: After noting all preoperative vital signs were within normal limits and surgical consent was signed and witnessed, the patient was brought to the OR and placed on a table in a supine position. Once the patient was on the table, a well-padded ankle tourniquet was applied to the right ankle of the patient's right leg. Once this was done, the patient's foot was then prepped and draped in the usual sterile fashion. Once this was done, the wound on the plantar aspect of the right foot was examined using sharp and blunt dissection the wound was deepened to the level of the prominence of bone. Once the bone was identified, utilizing a bone rongeur the bone was resected, and a specimen was sent to Pathology as well as Microbiology. The area was palpated. Any remaining hypertrophic bone was resected using a bone rongeur. All the neurovascular structures were retracted out of the surgical site. At this time, the area was smoothed using a bur. The wound was examined. There was noted to be a spatial defect. Utilizing Osteoset beads that had been impregnated with vancomycin antibiotic, the Osteoset beads were prepared. Once the Osteoset beads were prepared, they were put into place into the deepest area of the wound including over the bony prominence area. Once this was done, the wound was debrided aggressively to bleeding in the surrounding tissue. Once the bleeding was noted, the PriMatrix 8 x 8 graft was prepared. Once the graft was prepared, it was passed through a mesher. Once passed through the mesher, it was cut to size of the wound and sutured into place. A nonadhered dressing was applied over the PriMatrix graft. The patient tolerated the anesthesia and the procedure well. Patient returned to recovery room vital signs stable and vascular status intact. LUIS Zapata/[id number] [facility]
== END 2019-01-07 12:50 | disposition home or self-care (01) ==
LOC: JASU-SURG 04:58
PROVIDERS: ATTEND Podiatrist Foot Surgery
PROC: 0YHM0YZ Insertion of Other Device into Right Foot, Open Approach (ICD-10-PCS; 2019-01-07)
PROC: 0HRMXK3 Replacement of Right Foot Skin with Nonautologous Tissue Substitute, Full Thickness, External Approach (ICD-10-PCS; 2019-01-07)
PROC: 0HRMXK3 Replacement of Right Foot Skin with Nonautologous Tissue Substitute, Full Thickness, External Approach (ICD-10-PCS; 2019-01-07)
PROC: 0QBL0ZX Excision of Right Tarsal, Open Approach, Diagnostic (ICD-10-PCS; 2019-01-07)
PROC: 0QBL0ZZ Excision of Right Tarsal, Open Approach (ICD-10-PCS; principal; 2019-01-07 09:00)
DX: E11.621 Type 2 diabetes mellitus with foot ulcer (principal); L97.414 Non-pressure chronic ulcer of right heel and midfoot with necrosis of bone; I10 Essential (primary) hypertension; E78.5 Hyperlipidemia, unspecified; E11.42 Type 2 diabetes mellitus with diabetic polyneuropathy; Z79.4 Long term (current) use of insulin; Z79.84 Long term (current) use of oral hypoglycemic drugs
CPT/HCPCS: 73630-TC-RT-FY; 82962; 87070; 87075; 87077; 87186; 87205; 88305-TC

== ENCOUNTER → 2019-01-21 | Day surgery (SDC) | payer BC, OTHER | END | disposition home or self-care (01) | LOC: JRADIR 09:23 | PROVIDERS: ATTEND Internal Medicine | PROC: 02HV33Z Insertion of Infusion Device into Superior Vena Cava, Percutaneous Approach (ICD-10-PCS; principal; 2019-01-21) | PROC: B518ZZA Fluoroscopy of Superior Vena Cava, Guidance (ICD-10-PCS; 2019-01-21) | DX: M86.9 Osteomyelitis, unspecified (principal) | CPT/HCPCS: 36569; C1751 ==

== ENCOUNTER 2019-03-17 21:45 | Inpatient (IN) | payer BC, OTHER ==
[2019-03-17 22:04] VITALS: BMI 44.4
--- NOTE | 2019-03-17 22:23 | PDOC ---
Attending Attestation - Resident Resident Name: Edinson Garcia - ED Attending Attestation I have performed the following: I have examined & evaluated the patient, The case was reviewed & discussed with the resident, I agree w/resident's findings & plan - HPI HPI: 03/17/19 23:42 see resident hpi - Physicial Exam PE: 03/17/19 23:43 agree with resident exam - Medical Decision Making 03/17/19 23:43 49-year-old female with history of Charcot foot secondary to diabetes with nonhealing plantar ulcer currently undergoing wound care now with redness and swelling to the right leg Exam consistent with cellulitis Plan for sepsis evaluation and admission to medical service
--- NOTE | 2019-03-17 22:26 | PDOC ---
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 er because she has been experiencing 3 days of a fever, vomiting, diarrhea, and right leg pain, swelling and erythema. The patient tried taking aspirin at home without relief. She then tried taking tylenol which lowered her fever but she was still in a significant amount of leg pain and the swelling and erythema are getting worse. Of note: patient was initially diagnosed w/ Charcot foot in Jan 2018 at [facility] and was advised to have amputation done but declined and decided to seek a second opinion at [facility]. Workup in July 2018 included MRI which showed acute on chronic osteomyelitis and Charcot's foot and bedside bone biopsy taken, wound culture grew MRSA, Corynebacterium Minutissumum and strep Agalactiae Group B. Pt was referred for hyperbaric treatment and 6 weeks of IV vancomycin + cefepime via PICC access. PCP: Harvinder Bledsoe PSH: None reported Social Hx: Independent in her ADL. Denies smoking, drinking, or other substance usage Allergies: Piperacillin/tazobactam Past History - Past Medical History Allergies/Adverse Reactions: Allergies Allergy/AdvReac Type Severity Reaction Status Date / Time piperacillin sodium AdvReac "itchiness,rash Verified 01/06/19 09:10 [From Zosyn] on face" tazobactam sodium AdvReac "itchiness,rash Verified 01/06/19 09:10 [From Zosyn] on face" Home Medications: Ambulatory Orders Furosemide 40 mg PO DAILY 04/03/16 Atorvastatin Ca [Lipitor] 10 mg PO HS 07/16/18 Lisinopril 20 mg PO DAILY 07/16/18 Pantoprazole Sodium [Protonix] 40 mg PO DAILY 07/16/18 Levothyroxine [Synthroid -] 50 mcg PO DAILY@0700 tablet 07/23/18 Ascorbic Acid [Vitamin C] 500 mg PO BID 01/06/19 Glucatrol 10 mg PO BID 01/06/19 Insulin Glargine,Hum.rec.anlog [Lantus] 16 unit SQ BID 01/06/19 Insulin Sliding Scale [Novolog Vial Sliding Scale -] 0 units SQ TIDAC 01/06/19 Metformin HCl [Glucophage] 1,000 mg PO BID 01/06/19 Zinc 50 mg PO DAILY 01/06/19 Anemia: No Asthma: Yes Cancer: No Cardiac Disorders: No CVA: No COPD: No CHF: No Dementia: No Diabetes: Yes GI Disorders: No Disorders: No HTN: Yes Hypercholesterolemia: Yes Liver Disease: No Seizures: No Thyroid Disease: Yes (HYPOTHYROIDISM) Other medical history: osteomyelitis - Immunization History Immunization Up to Date: No - Psycho Social/Smoking Cessation Hx Smoking History: Never smoked Have you smoked in the past 12 months: No Hx Alcohol Use: No Drug/Substance Use Hx: No Substance Use Type: None Hx Substance Use Treatment: No Review of Systems - Review of Systems Able to Perform ROS?: Yes Comments:: CONSTITUTIONAL: Present: Fevers, chills, fatigue EYES: Absent: visual changes ENT: Absent: ear pain, no sore throat CARDIOVASCULAR: Absent: chest pain, no palpitations RESPIRATORY: Absent: cough, no SOB GI: Present: nausea, vomiting, diarrhea Absent: abdominal pain, no constipation GENITOURINARY: Absent: dysuria, no frequency, no hematuria MUSKULOSKELETAL: Absent: back pain, no arthralgia, no myalgia SKIN: Present: rash NEURO: Absent: headache *Physical Exam - Vital Signs Last Vital Signs Temp Pulse Resp BP Pulse Ox 98.9 F 132 H 19 173/72 H 97 03/17/19 21:58 03/17/19 21:58 03/17/19 21:58 03/17/19 21:58 03/17/19 21:58 - Physical Exam GENERAL: Well-appearing, well-nourished. No apparent distress. HEENT: Normocephalic, atraumatic. PERRL, EOM intact. CARDIOVASCULAR: Tachycardic rate. Normal S1, S2. Regular rhythm. PULMONARY: No evidence of respiratory distress. Lungs clear to auscultation bilaterally. No wheezing, rales or rhonchi. ABDOMEN: Soft, non-distended, non-tender. EXTREMITIES: Limited ROM in lower extremities. Right leg deformity. Right leg is swollen, erythematous, edematous, TTP. SKIN: Warm, dry. Right leg cellulitis NEUROLOGICAL: No focal neurological deficits. 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 er because she has been experiencing 3 days of a fever, vomiting, diarrhea, and right leg pain, swelling and erythema. The patient tried taking aspirin at home without relief. She then tried taking tylenol which lowered her fever but she was still in a significant amount of leg pain and the swelling and erythema are getting worse. Of note: patient was initially diagnosed w/ Charcot foot in Jan 2018 at [facility] and was advised to have amputation done but declined and decided to seek a second opinion at [facility]. Workup in July 2018 included MRI which showed acute on chronic osteomyelitis and Charcot's foot and bedside bone biopsy taken, wound culture grew MRSA, Corynebacterium Minutissumum and strep Agalactiae Group B. Pt was referred for hyperbaric treatment and 6 weeks of IV vancomycin + cefepime via PICC access. Vital Signs Temp Pulse Resp BP Pulse Ox 98.9 F 132 H 19 173/72 H 97 03/17/19 21:58 03/17/19 21:58 03/17/19 21:58 03/17/19 21:58 03/17/19 21:58 DDx IBNLT: Sepsis most likely from right leg, also possible for UTI, pylo, PNA, electrolyte/metabolic disturbance, anemia, DVT Extremely hard IV stick: IV access obtained by me using US guidance Plan: Labs, Urine, CXR, IV hydration, Duplex, Abx, ID consult, Admit Labs: Leukocytosis w left shift, MIRNA, mildly elevated trop, hyperglycemia Urine: bloody CXR: Unremarkable Dispo: Med/Surg for cellulitis Discharge - Discharge Information Problems reviewed: Yes Clinical Impression/Diagnosis: Cellulitis Qualifiers: Site of cellulitis: extremity Site of cellulitis of extremity: lower extremity Laterality: right Qualified Code(s): L03.115 - Cellulitis of right lower limb Sepsis Qualifiers: Sepsis type: sepsis due to unspecified organism Sepsis acute organ dysfunction status: unspecified Qualified Code(s): A41.9 - Sepsis, unspecified organism Condition: Stable - Admission Yes - Follow up/Referral - Patient Discharge Instructions - Post Discharge Activity
[2019-03-17] MEDS ORDERED: SODIUM CHLORIDE IV ONE (22:35)
[2019-03-17] MEDS ORDERED: CEFEPIME HCL/D5W 1 GM/50 ML BAG IVPB ONE (23:44)
[2019-03-17] MEDS ORDERED: VANCOMYCIN 1 GM in D5W (PRE-DOCKED) 1,000 MG/250 ML IVPB ONE (23:44)
[2019-03-17] MEDS ORDERED: CEFEPIME 1 GM in DEXTROSE 5%-WATER - 50 ML IVPB ONE (23:47)
[2019-03-18] LABS: BASO % 0.7 % (0-2.0); HEMATOCRIT 30.1 % (32.4-45.2); HEMOGLOBIN 9.6 GM/dL (10.7-15.3); LYMPH % 1.7 % (8-40); MCHC 31.8 g/dl (32.0-36.0); MEAN CELL VOLUME 72.2 fl (80-96); MEAN PLT VOLUME 7.8 fl (7.5-11.1); MONO % 2.7 % (3.8-10.2); NEUT % 94.9 % (42.8-82.8); PLATELET COUNT 273 K/MM3 (134-434); RBC 4.17 M/mm3 (3.60-5.2); RDW 19.1 % (11.6-15.6); WHITE BLOOD COUNT 20.8 K/mm3 (4.0-10.0)
[2019-03-18 00:35] LABS: INR 1.22 (0.83-1.09); PROTHROMBIN TIME (PATIENT) 14.4 SEC (9.7-13.0)
[2019-03-18 00:37] LABS: ACTIVATED PTT 33.2 SECONDS (25.2-36.5)
[2019-03-18] MEDS ORDERED: VANCOMYCIN 1 GRAM (PRE-DOCKED) 1,000 MG/250 ML BAG IVPB ONE ×2 (00:54→08:23)
[2019-03-18 01:03] LABS: ALK PHOS 83 U/L (45-117); ANION GAP 13 MMOL/L (8-16); BILIRUBIN,TOTAL 0.4 mg/dL (0.2-1); BLOOD UREA NITROGEN 13.7 mg/dL (7-18); CHLORIDE 99 mmol/L (98-107); CO2 22 mmol/L (21-32); CREATININE 1.4 mg/dL (0.55-1.3); GLUCOSE,RANDOM 367 mg/dL (74-106); POTASSIUM 3.8 mmol/L (3.5-5.1); SGOT/AST 22 U/L (15-37); SGPT/ALT 23 U/L (13-61); SODIUM 134 mmol/L (136-145); TOT PROT 7.9 g/dl (6.4-8.2)
[2019-03-18 02:29] LABS: EPI CELLS 10.9 /HPF (0-5/HPF); HYALINE CASTS 21 /lpf (0-8); PH,URINE 5.5 (5.0-8.0); URINE APPEARANCE CLOUDY; URINE BACTERIA 1.7 /hpf (NEGATIVE); URINE BILIRUBIN NEGATIVE (NEGATIVE); URINE COLOR YELLOW; URINE GLUCOSE (UA) 3+ (NEGATIVE); URINE KETONE 1+ (NEGATIVE); URINE LEUK ESTERASE NEGATIVE (NEGATIVE); URINE NITRITE NEGATIVE (NEGATIVE); URINE PROTEIN 3+ (NEGATIVE); URINE RBC 2 /hpf (0-4); URINE UROBILINOGEN 0.2 mg/dL (0.2-1.0)
--- NOTE | 2019-03-18 03:10 | HP ---
Admitting History and Physical - Primary Care Physician PCP: Dr. 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 Patient tired ASA without relief, took Tylenol which lowered her fever however still had worsening leg pain, swelling and erythema. Patient was initially diagnosed w/ Charcot foot in Jan 2018 at [facility] and was advised to have amputation done but declined and decided to seek a second opinion at [facility]. Workup in July 2018 included MRI which showed acute on chronic osteomyelitis and Charcot's foot and bedside bone biopsy taken, wound culture grew MRSA, Corynebacterium Minutissumum and strep Agalactiae Group B. Pt was referred for hyperbaric treatment and 6 weeks of IV vancomycin + cefepime via PICC access. History Source: Patient Limitations to Obtaining History: No Limitations - Past Medical History Cardiovascular: Yes: HTN, Hyperlipdemia Pulmonary: Yes: Asthma ...LMP: 01/26/19 Infectious Disease: Yes: Other (Right foot charcot disease c/b diabetic ulcer/ abscess, chronic MRSA with osteomyelitis) Musculoskeletal: Yes: Other Rheumatology: Yes: Other (right foot charcot disease) Endocrine: Yes: Diabetes Mellitus (uncontrolled), Hypothyroidism, Other (Obesity , DM neuropathy) Dermatology: Yes: Cellulitis - Past Surgical History Past Surgical History: Yes: None - Smoking History Smoking history: Never smoked Have you smoked in the past 12 months: No - Alcohol/Substance Use Hx Alcohol Use: No History of Substance Use: reports: None - Social History Usual Living Arrangement: Yes: Alone ADL: Independent 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 History of Recent Travel: No Home Medications - Allergies Allergies/Adverse Reactions: Allergies Allergy/AdvReac Type Severity Reaction Status Date / Time piperacillin sodium AdvReac "itchiness,rash Verified 01/06/19 09:10 [From Zosyn] on face" tazobactam sodium AdvReac "itchiness,rash Verified 01/06/19 09:10 [From Zosyn] on face" - Home Medications Home Medications: Ambulatory Orders Furosemide 40 mg PO DAILY 04/03/16 Atorvastatin Ca [Lipitor] 10 mg PO HS 07/16/18 Lisinopril 20 mg PO DAILY 07/16/18 Pantoprazole Sodium [Protonix] 40 mg PO DAILY 07/16/18 Levothyroxine [Synthroid -] 50 mcg PO DAILY@0700 tablet 07/23/18 Ascorbic Acid [Vitamin C] 500 mg PO BID 01/06/19 Glucatrol 10 mg PO BID 01/06/19 Insulin Glargine,Hum.rec.anlog [Lantus] 14 unit SQ BID 01/06/19 Insulin Sliding Scale [Novolog Vial Sliding Scale -] 0 units SQ TIDAC 01/06/19 Metformin HCl [Glucophage] 500 mg PO BID 01/06/19 Zinc 50 mg PO DAILY 01/06/19 Cefepime 2 gm Injection 2 gm IV Q12H 01/28/19 Vancomycin HCl in Water [Vancomycin 1,250 mg/12.5 ml Vl] 1,250 mg IV Q12H Family Medical History Family History: Denies Review of Systems - Review of Systems Constitutional: reports: Chills, Fever, Weakness Eyes: reports: No Symptoms HENT: reports: No Symptoms Neck: reports: No Symptoms Cardiovascular: reports: No Symptoms Respiratory: reports: No Symptoms Gastrointestinal: reports: Diarrhea, Nausea, Vomiting Genitourinary: reports: No Symptoms Musculoskeletal: reports: No Symptoms Integumentary: reports: Erythema, Rash (right lower leg) Neurological: reports: No Symptoms Endocrine: reports: No Symptoms Hematology/Lymphatic: reports: No Symptoms Psychiatric: reports: No Symptoms Physical Examination Vital Signs: Vital Signs Temperature 97.9 F 03/17/19 23:15 Pulse Rate 123 H 03/17/19 23:15 Respiratory Rate 16 03/17/19 23:15 Blood Pressure 158/74 03/17/19 23:15 O2 Sat by Pulse Oximetry (%) 97 03/17/19 23:15 Constitutional: Yes: No Distress, Obese Eyes: Yes: Conjunctiva Clear, EOM Intact HENT: Yes: Atraumatic, Normocephalic Neck: Yes: Supple, Trachea Midline Cardiovascular: Yes: Regular Rate and Rhythm Respiratory: Yes: Regular, CTA Bilaterally Gastrointestinal: Yes: Normal Bowel Sounds, Soft Musculoskeletal: Yes: Joint Stiffness (Limited ROM in lower extremities. Right leg deformity. Right leg is swollen, erythematous, edematous, TTP.), Joint Swelling Extremities: Yes: Erythema (Limited ROM in lower extremities. Right leg deformity. Right leg is swollen, erythematous, edematous, TTP.) Edema: Yes Edema: RUE: 2+ Peripheral Pulses WNL: Yes Wound/Incision: Yes: Dressing Dry and Intact Neurological: Yes: Alert, Oriented Labs: CBC, BMP 03/17/19 23:50 03/17/19 23:50 Imaging - Results Other: Report Reviewed (wbc: 20.8, lactic: 2.1) Problem List - Problems (1) Sepsis Code(s): A41.9 - SEPSIS, UNSPECIFIED ORGANISM Qualifiers: Sepsis type: sepsis due to unspecified organism Sepsis acute organ dysfunction status: unspecified Qualified Code(s): A41.9 - Sepsis, unspecified organism (2) Cellulitis Code(s): L03.90 - CELLULITIS, UNSPECIFIED Qualifiers: Site of cellulitis: extremity Site of cellulitis of extremity: lower extremity Laterality: right Qualified Code(s): L03.115 - Cellulitis of right lower limb (3) HLD (hyperlipidemia) Code(s): E78.5 - HYPERLIPIDEMIA, UNSPECIFIED (4) Charcot foot due to diabetes mellitus Code(s): E11.610 - TYPE 2 DIABETES MELLITUS W DIABETIC NEUROPATHIC ARTHROPATHY (5) Chronic osteomyelitis Code(s): M86.60 - OTHER CHRONIC OSTEOMYELITIS, UNSPECIFIED SITE (6) Chronic ulcer of plantar surface of right midfoot Code(s): L97.419 - NON-PRS CHR ULCER OF RIGHT HEEL AND MIDFOOT W UNSP SEVERT (7) Diabetes mellitus Code(s): E11.9 - TYPE 2 DIABETES MELLITUS WITHOUT COMPLICATIONS Qualifiers: Diabetes mellitus type: type 2 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 insulin use: with senior care use Diabetes mellitus complication status: with unspecified complications (8) GERD (gastroesophageal reflux disease) Code(s): K21.9 - GASTRO-ESOPHAGEAL REFLUX DISEASE WITHOUT ESOPHAGITIS (9) Hypertension Code(s): I10 - ESSENTIAL (PRIMARY) HYPERTENSION Qualifiers: Hypertension type: essential hypertension Qualified Code(s): I10 - Essential (primary) hypertension (10) Hypothyroidism Code(s): E03.9 - HYPOTHYROIDISM, UNSPECIFIED Qualifiers: Hypothyroidism type: unspecified Qualified Code(s): E03.9 - Hypothyroidism , unspecified (11) Morbid obesity Code(s): E66.01 - MORBID (SEVERE) OBESITY DUE TO EXCESS CALORIES (12) Anemia Code(s): D64.9 - ANEMIA, UNSPECIFIED (13) Elevated troponin Code(s): R79.89 - OTHER SPECIFIED ABNORMAL FINDINGS OF BLOOD CHEMISTRY (14) Elevated CK Code(s): R74.8 - ABNORMAL LEVELS OF OTHER SERUM ENZYMES Assessment/Plan 49 year old obese female with HTN, T2-IDDM, HLD, hypothyroidism, diabetic neuropathy, asthma, history of Charcot foot secondary to diabetes with nonhealing plantar ulcer currently undergoing wound care, recently finished course Vanco + cefepime, presents with redness and swelling to the right leg. # sepsis # Right lower leg cellulitis # Right foot charcot disease- diabetic ulcer # chronic MRSA with osteomyelitis -wbc: 20.8, lactic acid: 2.1 - CXR: no acute infiltrate - Doppler US: compressibility with phasic follow, no mass/lesion in popliteal fossa - given in ED: cefepime and vancomycin, 1L NS - trend labs, follow up ESR, CRP - continue with IV fluids - continue with Vancomycin BID - local wound - pain management - follow up podiatry, ID - consider MRI ? Osteo #Elevated trop likely due to demand # Elevated creatine kinase - denies CP/SOB - trop: 0.07, trend - CK: 699, trend - CK- MB <1.0 - if needed repeat EKG - in ED given 1 L NS, continue with IV fluids - follow up cardiology #MIRNA - in ED given 1 L NS - continue with IV fluids - monitor renal function - avoid nephro toxins #DM - Random glucose: 367 - UA: +3 protein/ glucose/ketones - Glucatrol 10 mg PO BID - Lantus 14 unit SQ BID - Insulin Sliding Scale Novolog SQ TIDAC - Follow up Endo - follow up hgbA1c # Anemia - hgb: 9.6 at baseline - monitor H/H #HTN/HLD -Furosemide 40 mg PO DAILY -Atorvastatin Ca 10 mg PO HS -Lisinopril 20 mg PO DAILY #Hypothyroidism -Levothyroxine 50 mcg PO DAILY - follow TSH # GERD -Pantoprazole Sodium 40 mg PO DAILY FEN: IV fluids, monitor lytes, WM/NCS diet VTE: heparin SQ DISPO: inpatient MED-surg Visit type - Emergency Visit Emergency Visit: Yes ED Registration Date: 03/18/19 Care time: The patient presented to the Emergency Department on the above date and was hospitalized for further evaluation of their emergent condition. - New Patient This patient is new to me today: Yes Date on this admission: 03/18/19 - Critical Care Critical Care patient: No
[2019-03-18] MEDS ORDERED: VANCOMYCIN 1,000 MG in DEXTROSE 5%-WATER - 250 ML IVPB SCH (04:15)
[2019-03-18 04:17] LABS: ANISOCYTOSIS 1+; MACROCYTOSIS 0; PLATELET ESTIMATE NORMAL
[2019-03-18] MEDS ORDERED: ACETAMINOPHEN 325 MG TABLET (FP) PO PRN (04:18)
[2019-03-18] MEDS: SODIUM CHLORIDE 1,000 ML IV SCH (04:43)
[2019-03-18 07:13] LABS: HEMATOCRIT 27.4 % (32.4-45.2); HEMOGLOBIN 8.7 GM/dL (10.7-15.3); MCH 23.1 pg (25.7-33.7); MCHC 31.9 g/dl (32.0-36.0); MEAN CELL VOLUME 72.3 fl (80-96); MEAN PLT VOLUME 8.2 fl (7.5-11.1); PLATELET COUNT 251 K/MM3 (134-434); RBC 3.79 M/mm3 (3.60-5.2); RDW 19.2 % (11.6-15.6); WHITE BLOOD COUNT 20.6 K/mm3 (4.0-10.0)
[2019-03-18] MEDS ORDERED: glipiZIDE 5 MG TABLET (FP) ONE (07:16)
[2019-03-18] MEDS ORDERED: LEVOTHYROXINE NA 25 MCG TABLET (FP) ONE (07:16)
[2019-03-18] MEDS: INSULIN SLIDING SCALE (NOVOLOG) 1 VIAL SQ SCH ×4 (07:20→22:48)
[2019-03-18] MEDS: glipiZIDE 10 MG TABLET (FP) PO SCH ×2 (07:21→21:28)
[2019-03-18] MEDS: LEVOTHYROXINE NA 50 MCG TABLET (FP) PO SCH (07:21)
[2019-03-18 07:43] LABS: BLOOD UREA NITROGEN 10.8 mg/dL (7-18); CALCIUM 8.4 mg/dL (8.5-10.1); CREATININE 1.3 mg/dL (0.55-1.3); POTASSIUM 3.9 mmol/L (3.5-5.1)
[2019-03-18] MEDS ORDERED: PANTOPRAZOLE 40 MG TABLET (FP) ONE (08:22)
[2019-03-18] MEDS ORDERED: LISINOPRIL 20 MG TABLET (FP) ONE (08:22)
[2019-03-18] MEDS ORDERED: FUROSEMIDE 40 MG TABLET (FP) ONE (08:22)
[2019-03-18] MEDS ORDERED: HEPARIN NA (PORCINE) 5,000 UNITS/ML 1ML VIAL ONE (08:23)
[2019-03-18] MEDS: FUROSEMIDE 40 MG TABLET (FP) PO SCH (09:11)
[2019-03-18] MEDS: HEPARIN NA (PORCINE) 5,000 UNITS/ML 1ML VIAL SQ SCH ×2 (09:11→22:07)
[2019-03-18] MEDS: LISINOPRIL 20 MG TABLET (FP) PO SCH (09:12)
[2019-03-18] MEDS: INSULIN (LEVEMIR) 100 UNITS/ML UNITS SQ SCH ×2 (09:12→22:07)
[2019-03-18] MEDS: PANTOPRAZOLE 40 MG TABLET (FP) PO SCH (09:12)
[2019-03-18] MEDS: ASCORBIC ACID 500 MG TABLET (FP) PO SCH ×2 (09:13→22:08)
[2019-03-18 09:34] LABS: URINE WBC 12 /hpf (0-5)
[2019-03-18 09:35] LABS: YEAST FEW (NEGATIVE)
[2019-03-18] MEDS ORDERED: [UNRECOGNIZED DRUG - OTHER] SQ SCH (10:00)
[2019-03-18] MEDS ORDERED: PATIENT'S OWN MEDICATION (NON-FORMULARY) (Zinc [Zinc] 50 MG) PO SCH (10:00)
[2019-03-18] MEDS ORDERED: INSULIN GLARGINE HUM REC ANLOG 14 UNIT SQ SCH (10:00)
[2019-03-18] MEDS ORDERED: GLIPIZIDE PO SCH (10:00)
[2019-03-18] MEDS ORDERED: PATIENT'S OWN MEDICATION (NON-FORMULARY) (Ascorbic Acid [Vitamin C] 500 MG) PO SCH (10:00)
[2019-03-18] MEDS ORDERED: VANCOMYCIN 1 GRAM (PRE-DOCKED) 1,000 MG/250 ML BAG IVPB SCH (10:00)
--- NOTE | 2019-03-18 10:15 | PN ---
Progress Note (short form) - Note Progress Note: 49 yo lady with morbid obesity, uncontrolled dm, h/o right footr osteomyelitis, non heeling wound for over 14 months came for fever, chills, malaise for 3 days, had diarrhea 3 days ago, no bm since finished 6 week course of iv cefepime and vanco 2 weeks ago denies cough, dyspnea, abd pain CBC, BMP 03/18/19 06:15 03/18/19 06:15 Vital Signs Period Temp Pulse Resp BP Sys/Arthur Pulse Ox Last 24 Hr 97.9 F-98.9 F 110-132 16-20 145-173/71-76 95-97 S1S2 RRR lungs cta abd soft non tender morbidly obese right leg erythema/ warmth almost entire lateral apect of herzog, foot is preserved base of right sole with beefy ulcer, no purulent discharge [id number] right leg cellulitis ? osteomyelitis of foot sepsis increased cardiac enzymes likely demand ischemia HTN IDDM morbid obesity cultures taken iv abx sugar control echo
--- NOTE | 2019-03-18 10:43 | EKG ---
Test Reason : Blood Pressure : / mmHG Vent. Rate : 121 BPM Atrial Rate : 121 BPM P-R Int : 142 ms QRS Dur : 094 ms QT Int : 274 ms P-R-T Axes : 058 062 068 degrees QTc Int : 389 ms SINUS TACHYCARDIA POSSIBLE LEFT ATRIAL ENLARGEMENT SEPTAL INFARCT , AGE UNDETERMINED ABNORMAL ECG WHEN COMPARED WITH ECG OF 24-AUG-2018 12:39, VENT. RATE HAS INCREASED BY 51 BPM SEPTAL INFARCT IS NOW PRESENT ST NO LONGER ELEVATED IN LATERAL LEADS T WAVE AMPLITUDE HAS DECREASED IN LATERAL LEADS Confirmed by GILA BULLOCK MD ([id number]) on 03/18/2019 10:42:48 AM Referred By: Confirmed By:GILA BULLOCK MD
--- NOTE | 2019-03-18 12:17 | ECHO ---
Name: BARKSDALE, CHEN Exam:Adult Echocardiogram Study Date: 03/18/2019 10:43 AM Age: 49 yrs Height: 67 in Weight: 284 lb BSA: 2.3 m2 MMode/2D Measurements & Calculations IVSd: 1.1 cm Ao root diam: 2.8 cm LVIDd: 3.9 cm LA dimension: 4.2 cm LVIDs: 2.6 cm LVPWd: 1.3 cm LVPWs: 1.4 cm EDV(Teich): 66.0 ml ESV(Teich): 24.7 ml LVOT diam: 1.9 cm Doppler Measurements & Calculations MV E max mook: 62.0 cm/sec Ao V2 max: 229.8 cm/sec MV A max mook: 80.2 cm/sec Ao max P.2 mmHg MV E/A: 0.77 MV dec time: 0.09 sec ALEK(V,D): 2.4 cm2 LV V1 max P.1 mmHg PA V2 max: 132.3 cm/sec LV V1 max: 194.4 cm/sec PA max P.0 mmHg Med Peak E' Mook: 9.3 cm/sec Med E/e': 6.6 Lat Peak E' Mook: 10.3 cm/sec Lat E/e': 6.0 Procedure A complete two-dimensional transthoracic echocardiogram was performed (2D, M-mode, Doppler and color flow Doppler). Left Ventricle The left ventricular size, thickness and function are normal. The left ventricular ejection fraction is normal. Ejection Fraction = 60-65%. The left ventricular wall motion is normal. Right Ventricle The right ventricle is normal in size and function. Atria Normal left and right atrial size and function. Mitral Valve There is no mitral regurgitation noted. Tricuspid Valve There is trace tricuspid regurgitation. There was insufficient TR detected to calculate RV systolic p ressure. Aortic Valve No hemodynamically significant valvular aortic stenosis. No aortic regurgitation is present. Pulmonic Valve There is no pulmonic valvular regurgitation. Great Vessels The aortic root is normal size. Pericardium/Pleura There is no pericardial effusion. Interpretation Summary The left ventricular size, thickness and function are normal The right ventricle is normal in size and function. There is trace tricuspid regurgitation. MD Chuy Damon 03/18/2019 12:16 PM
--- NOTE | 2019-03-18 13:24 | CONSULT ---
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 Patient was initially diagnosed w/ Charcot foot in Jan 2018 at [facility] and was advised to have amputation done but declined and decided to seek a second opinion at [facility]. Workup in July 2018 included MRI which showed acute on chronic osteomyelitis and Charcot's foot and bedside bone biopsy taken, wound culture grew MRSA, Corynebacterium Minutissumum and strep Agalactiae Group B. Pt was referred for hyperbaric treatment and 6 weeks of IV vancomycin + cefepime via PICC access. Pt referred for management of hyperglycemia. FS at home fluctuates depending on what she eats. No hypos. Says she has been taking [id number] BID and novolog SS coverage as prescribed. Didn't come for f/u in the office in January. - History Source History Provided By: Patient, Medical Record - Past Medical History Cardio/Vascular: Yes: HTN, Hyperlipdemia Pulmonary: Yes: Asthma ...LMP: 01/26/19 Infectious Disease: Yes: Other (Right foot charcot disease c/b diabetic ulcer/ abscess, chronic MRSA with osteomyelitis) Musculoskeletal: Yes: Other Rheumatology: Yes: Other (right foot charcot disease) Endocrine: Yes: Diabetes Mellitus (uncontrolled), Hypothyroidism, Other (Obesity , DM neuropathy) Dermatology: Yes: Cellulitis - Past Surgical History Past Surgical History: Yes: None - Alcohol/Substance Use Hx Alcohol Use: No History of Substance Use: reports: None - Smoking History Smoking history: Never smoked Have you smoked in the past 12 months: No - Social History Usual Living Arrangement: With Spouse ADL: Independent 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 History of Recent Travel: No Home Medications - Allergies Allergies/Adverse Reactions: Allergies Allergy/AdvReac Type Severity Reaction Status Date / Time piperacillin sodium AdvReac "itchiness,rash Verified 01/06/19 09:10 [From Zosyn] on face" tazobactam sodium AdvReac "itchiness,rash Verified 01/06/19 09:10 [From Zosyn] on face" - Home Medications Home Medications: Ambulatory Orders Furosemide 40 mg PO DAILY 04/03/16 Atorvastatin Ca [Lipitor] 10 mg PO HS 07/16/18 Lisinopril 20 mg PO DAILY 07/16/18 Pantoprazole Sodium [Protonix] 40 mg PO DAILY 07/16/18 Levothyroxine [Synthroid -] 50 mcg PO DAILY@0700 tablet 07/23/18 Ascorbic Acid [Vitamin C] 500 mg PO BID 01/06/19 Glucatrol 10 mg PO BID 01/06/19 Insulin Glargine,Hum.rec.anlog [Lantus] 16 unit SQ BID 01/06/19 Insulin Sliding Scale [Novolog Vial Sliding Scale -] 0 units SQ TIDAC 01/06/19 Metformin HCl [Glucophage] 1,000 mg PO BID 01/06/19 Zinc 50 mg PO DAILY 01/06/19 Review of Systems - Review of Systems Constitutional: reports: Fever, Malaise Eyes: reports: No Symptoms HENT: reports: No Symptoms Neck: reports: No Symptoms Cardiovascular: reports: No Symptoms Respiratory: reports: No Symptoms Gastrointestinal: reports: Diarrhea Genitourinary: reports: No Symptoms Neurological: reports: No Symptoms Endocrine: reports: No Symptoms Physical Exam Vital Signs: Vital Signs Temperature 98.8 F 03/18/19 13:13 Pulse Rate 110 H 03/18/19 13:13 Respiratory Rate 20 03/18/19 13:13 Blood Pressure 145/78 03/18/19 13:13 O2 Sat by Pulse Oximetry (%) 99 03/18/19 13:13 Constitutional: Yes: No Distress, Calm Eyes: Yes: Conjunctiva Clear, EOM Intact HENT: Yes: Atraumatic, Normocephalic Neck: Yes: Supple, Trachea Midline Cardiovascular: Yes: Regular Rate and Rhythm Respiratory: Yes: Regular, CTA Bilaterally Gastrointestinal: Yes: Normal Bowel Sounds, Soft Musculoskeletal: Yes: WNL Extremities: Yes: Other (Rt foot dressing) Edema: Yes Edema: RLE: 2+ Labs: CBC, BMP 03/18/19 06:15 03/18/19 06:15 Assessment/Plan AP: Rt foot infection/ulcer Rt leg cellulitis Diarrhoea T2DM: Last A1c 9.0 HLD: Hypothyroidism: LT4 50 mcg QD Retinopathy: s/p Laser RX left eye on 01/04/17, Injection to Rt eye on 12/10/16 HTN. Abx as per ID Local wound care Levemir 14 units BID Change Novolog SS coverage Glip 10 BID Nutrition consult Will f/u
--- NOTE | 2019-03-18 14:05 | CON.CARD ---
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 Presents to the [facility] ER with 3 days of a fever , vomiting, diarrhea, and right leg pain, swelling and erythema. In Jan 2018 at [facility] and was advised to have amputation done but declined. July 2018 MRI which showed acute on chronic osteomyelitis and Charcot's foot . There is no known ho CAD. She denies dyspnea or chest pain. ECG showes sinus tachycardia withot ST T changes. An echocardiogram today showed normal LV and RV systolic function without valvular pathology. - History Source History Provided By: Patient Limitations to Obtaining History: No Limitations - Past Medical History Cardio/Vascular: Yes: HTN, Hyperlipdemia Pulmonary: Yes: Asthma ...LMP: 01/26/19 Infectious Disease: Yes: Other (Right foot charcot disease c/b diabetic ulcer/ abscess, chronic MRSA with osteomyelitis) Musculoskeletal: Yes: Other Rheumatology: Yes: Other (right foot charcot disease) Endocrine: Yes: Diabetes Mellitus (uncontrolled), Hypothyroidism, Other (Obesity , DM neuropathy) Dermatology: Yes: Cellulitis - Past Surgical History Past Surgical History: Yes: None - Alcohol/Substance Use Hx Alcohol Use: No History of Substance Use: reports: None - Smoking History Smoking history: Never smoked Have you smoked in the past 12 months: No - Social History Usual Living Arrangement: With Spouse ADL: Independent 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 History of Recent Travel: No Home Medications - Allergies Allergies/Adverse Reactions: Allergies Allergy/AdvReac Type Severity Reaction Status Date / Time piperacillin sodium AdvReac "itchiness,rash Verified 01/06/19 09:10 [From Zosyn] on face" tazobactam sodium AdvReac "itchiness,rash Verified 01/06/19 09:10 [From Zosyn] on face" - Home Medications Home Medications: Ambulatory Orders Furosemide 40 mg PO DAILY 04/03/16 Atorvastatin Ca [Lipitor] 10 mg PO HS 07/16/18 Lisinopril 20 mg PO DAILY 07/16/18 Pantoprazole Sodium [Protonix] 40 mg PO DAILY 07/16/18 Levothyroxine [Synthroid -] 50 mcg PO DAILY@0700 tablet 07/23/18 Ascorbic Acid [Vitamin C] 500 mg PO BID 01/06/19 Glucatrol 10 mg PO BID 01/06/19 Insulin Glargine,Hum.rec.anlog [Lantus] 16 unit SQ BID 01/06/19 Insulin Sliding Scale [Novolog Vial Sliding Scale -] 0 units SQ TIDAC 01/06/19 Metformin HCl [Glucophage] 1,000 mg PO BID 01/06/19 Zinc 50 mg PO DAILY 01/06/19 Review of Systems - Review of Systems Constitutional: reports: No Symptoms Eyes: reports: No Symptoms HENT: reports: No Symptoms Neck: reports: No Symptoms Cardiovascular: denies: Chest Pain, Edema, Palpitations, Shortness of Breath Respiratory: denies: Cough, SOB, SOB on Exertion Gastrointestinal: denies: Abdominal Pain Genitourinary: reports: No Symptoms Integumentary: reports: No Symptoms Neurological: reports: No Symptoms Vital Signs: Vital Signs Temperature 98.8 F 03/18/19 13:13 Pulse Rate 110 H 03/18/19 13:13 Respiratory Rate 20 03/18/19 13:13 Blood Pressure 145/78 03/18/19 13:13 O2 Sat by Pulse Oximetry (%) 99 03/18/19 13:13 Constitutional: Yes: Well Nourished, No Distress Eyes: Yes: Conjunctiva Clear, EOM Intact HENT: Yes: Atraumatic, Normocephalic Neck: Yes: Supple, Trachea Midline Respiratory: Yes: Regular, CTA Bilaterally Gastrointestinal: Yes: Normal Bowel Sounds Renal/: Yes: WNL Cardiovascular: Yes: Regular Rate and Rhythm JVD: No Carotid Bruit: No PMI: Non-Displaced Heart Sounds: Yes: S1, S2 Murmur: No: Systolic Murmur, Diastolic Murmur Edema: Yes Edema: RLE: 1+ - Other Data Labs, Other Data: CBC, BMP 03/18/19 06:15 03/18/19 06:15 INR, PTT INR 1.22 (0.83-1.09) H 03/17/19 00:00 Troponin, BNP 03/17/19 03/18/19 23:50 06:15 Troponin I 0.07 H 0.16 H Troponin, BNP 12/04/19 12/05/19 23:50 06:15 Troponin I 0.07 H 0.16 H Sinus tachycardia. No ST T changes. 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 Presents to the [facility] ER with 3 days of a fever , vomiting, diarrhea, and right leg pain, swelling and erythema. There is no known ho CAD. She denies dyspnea or chest pain. ECG showes sinus tachycardia withot ST T changes. An echocardiogram today showed normal LV and RV systolic function without valvular pathology. LV function is preserved and there are no ischemic ECG changes. Given evidence for infection and possibly sepsis, demand mediated myocardial injury is likely. COntinue medical therapy for infection, IV hydration if needed and antibiotic therapy. Consider ASA and statin therapy. Please contact us with any questions We will see her as needed.
--- NOTE | 2019-03-18 16:33 | CONSULT ---
Consult Consult Specialty:: Podiatry Reason for Consultation:: chronic wound right - History of Present Illness History of Present Illness: chronic wound right with charcot foot - Past Medical History Cardio/Vascular: Yes: HTN, Hyperlipdemia Pulmonary: Yes: Asthma ...LMP: 01/26/19 Infectious Disease: Yes: Other (Right foot charcot disease c/b diabetic ulcer/ abscess, chronic MRSA with osteomyelitis) Musculoskeletal: Yes: Other Rheumatology: Yes: Other (right foot charcot disease) Endocrine: Yes: Diabetes Mellitus (uncontrolled), Hypothyroidism, Other (Obesity , DM neuropathy) Dermatology: Yes: Cellulitis - Past Surgical History Past Surgical History: Yes: None - Alcohol/Substance Use Hx Alcohol Use: No History of Substance Use: reports: None - Smoking History Smoking history: Never smoked Have you smoked in the past 12 months: No - Social History Usual Living Arrangement: With Spouse ADL: Independent 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 History of Recent Travel: No Home Medications - Allergies Allergies/Adverse Reactions: Allergies Allergy/AdvReac Type Severity Reaction Status Date / Time piperacillin sodium AdvReac "itchiness,rash Verified 01/06/19 09:10 [From Zosyn] on face" tazobactam sodium AdvReac "itchiness,rash Verified 01/06/19 09:10 [From Zosyn] on face" - Home Medications Home Medications: Ambulatory Orders Furosemide 40 mg PO DAILY 04/03/16 Atorvastatin Ca [Lipitor] 10 mg PO HS 07/16/18 Lisinopril 20 mg PO DAILY 07/16/18 Pantoprazole Sodium [Protonix] 40 mg PO DAILY 07/16/18 Levothyroxine [Synthroid -] 50 mcg PO DAILY@0700 tablet 07/23/18 Ascorbic Acid [Vitamin C] 500 mg PO BID 01/06/19 Glucatrol 10 mg PO BID 01/06/19 Insulin Glargine,Hum.rec.anlog [Lantus] 16 unit SQ BID 01/06/19 Insulin Sliding Scale [Novolog Vial Sliding Scale -] 0 units SQ TIDAC 01/06/19 Metformin HCl [Glucophage] 1,000 mg PO BID 01/06/19 Zinc 50 mg PO DAILY 01/06/19 Physical Exam Vital Signs: Vital Signs Temperature 100.9 F H 03/18/19 14:49 Pulse Rate 120 H 03/18/19 14:49 Respiratory Rate 26 H 12/05/19 14:49 Blood Pressure 144/55 L 03/18/19 14:49 O2 Sat by Pulse Oximetry (%) 98 03/18/19 14:49 Extremities: Yes: Other (+ascending cellulitis right leg from ankle to knee) Wound/Incision: Yes: Other (wound appears to be improving plantar right foot as depth has improved, -drainage, -mal odor) Labs: CBC, BMP 03/18/19 06:15 03/18/19 06:15 Assessment/Plan chronic wound right cellulitis Wound culture ordered. Santyl dressing after that daily. Offloading right foot. IVABX as per ID. Will follow.
--- NOTE | 2019-03-18 16:44 | PN ---
Progress Note (short form) - Note Progress Note: ID CONSULT DICTATED CELLULITIS R LE STREPTOCOCCAL BACTEREMIA, LIKELY SKIN SOURCE NON HEALING R PLANTAR ULCER ZOSYN ALLERGY MARKED LEUKOCYTOSIS PENDING C/S EMPIRIC VANCOMYCIN/ CEFEPIME
[2019-03-18] MEDS ORDERED: CEFEPIME HCL 1 GM VIAL (RESTRICTED TO ID) ONE ×2 (17:34→21:41)
[2019-03-18] MEDS ORDERED: DEXTROSE 5%-WATER - 50 ML IVPB ONE ×2 (17:34→21:42)
[2019-03-18] MEDS: COLLAGENASE CLOSTRIDIUM HIST. 30 GRAMS TUBE TP SCH (17:45)
[2019-03-18] MEDS: CEFEPIME 1 GM in DEXTROSE 5%-WATER - 50 ML IVPB SCH (17:50)
--- NOTE | 2019-03-18 18:04 | CONS ---
DATE OF CONSULTATION: 03/18/2019 HISTORY OF PRESENT ILLNESS: The patient is a 49-year-old diabetic female with a history of diabetic foot infections and osteomyelitis evaluated for cellulitis of the right lower extremity and for sepsis. The patient had recently completed a six-week course of IV vancomycin and cefepime for a chronically infected right plantar ulcer and osteomyelitis. She now presents with a three-day history of worsening right lower extremity erythema, swelling, fever, nausea and vomiting. She was evaluated at [facility] where she was noted to have a swollen and red right lower extremity. A Doppler exam was performed and was negative for DVT. The patient denies any traumatic injury. Her course has been complicated by high-grade fever and elevated white blood cell count. Blood cultures are now positive for gram-positive cocci in chains. PAST MEDICAL HISTORY: Positive for diabetes mellitus, history of diabetic foot infections and osteomyelitis, hypertension, hyperlipidemia, hypothyroidism, right foot Charcot joint. PAST SURGICAL HISTORY: Status post right total hip replacement. ALLERGIES: ZOSYN (rash). MEDICATIONS: Tylenol, Lipitor, Lasix, Glucotrol, insulin, lisinopril, Synthroid. SOCIAL HISTORY: She resides at home. 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 Nonsmoker, nondrinker. REVIEW OF SYSTEMS: Neurologic: No loss of consciousness, seizure activity, focal weakness. Cardiac: Negative for chest pain or palpitations. Respiratory: Negative for cough or sputum production. Gastrointestinal: Negative for vomiting or diarrhea. Genitourinary: Negative for urinary tract infections. LABORATORY DATA: White count 20.6 with a left shift, hematocrit 27.4, platelets 251, creatinine 1.3. Urinalysis showed 12 white cells. C-reactive protein 39.7, ESR 108. Blood cultures positive for gram-positive cocci in chains. PHYSICAL EXAMINATION: General: The patient is in no acute distress. Vital Signs: T-max is 103, blood pressure 142/65, pulse 112 and regular, respiratory rate 14 per minute. HEENT: Sclerae anicteric. Heart: Heart sounds S1, S2. Lungs: Clear. Abdomen: Obese, soft and nontender. Extremities: On examination of the right lower extremity, there is an approximately 3- to 4-cm plantar ulcer with serous drainage. The right lower extremity is diffusely swollen from the thigh to the foot with confluent erythema and warmth. There is no crepitus or fluctuance. IMPRESSION: 1. Cellulitis of the right lower extremity. 2. Staphylococcus bacteremia, likely skin source. 3. Non-healing right plantar ulcer. 4. ALLERGY TO ZOSYN. 5. Marked leukocytosis. PLAN: 1. Await cultures. 2. Empiric antibiotic coverage with vancomycin and cefepime. 3. Podiatry evaluation, local wound care. 4. Further recommendations pending cultures. Will follow. Thank you for the kind referral. ISAIAS KOHLI M.D. [id number]
[2019-03-18] MEDS: VANCOMYCIN 1 GRAM (PRE-DOCKED) 1,000 MG/250 ML BAG IVPB SCH (22:07)
[2019-03-18] MEDS: ATORVASTATIN CA 10 MG TABLET (FP) PO SCH (22:08)
[2019-03-19] MEDS: CEFEPIME 1 GM in DEXTROSE 5%-WATER - 50 ML IVPB SCH ×2 (02:00→09:24)
[2019-03-19] MEDS: SODIUM CHLORIDE 1,000 ML IV SCH (04:30)
[2019-03-19] MEDS: VANCOMYCIN 1 GRAM (PRE-DOCKED) 1,000 MG/250 ML BAG IVPB SCH (05:15)
[2019-03-19] MEDS: INSULIN SLIDING SCALE (NOVOLOG) 1 VIAL SQ SCH ×4 (06:26→22:00)
[2019-03-19] MEDS: LEVOTHYROXINE NA 50 MCG TABLET (FP) PO SCH (06:26)
[2019-03-19 06:59] LABS: BASO % 0.4 % (0-2.0); HEMATOCRIT 26.4 % (32.4-45.2); HEMOGLOBIN 8.5 GM/dL (10.7-15.3); LYMPH % 5.2 % (8-40); MCH 23.1 pg (25.7-33.7); MCHC 32.3 g/dl (32.0-36.0); MEAN CELL VOLUME 71.6 fl (80-96); MEAN PLT VOLUME 8.3 fl (7.5-11.1); MONO % 6.4 % (3.8-10.2); PLATELET COUNT 227 K/MM3 (134-434); RBC 3.69 M/mm3 (3.60-5.2); RDW 19.1 % (11.6-15.6); WHITE BLOOD COUNT 17.2 K/mm3 (4.0-10.0)
[2019-03-19 07:38] LABS: ALBUMIN 2.2 g/dl (3.4-5.0); BILIRUBIN,TOTAL 0.4 mg/dL (0.2-1); BLOOD UREA NITROGEN 13.9 mg/dL (7-18); CALCIUM 7.9 mg/dL (8.5-10.1); CREATININE 1.3 mg/dL (0.55-1.3); TOT PROT 6.2 g/dl (6.4-8.2)
[2019-03-19] MEDS ORDERED: CEFEPIME HCL 1 GM VIAL (RESTRICTED TO ID) ONE (08:38)
[2019-03-19] MEDS ORDERED: DEXTROSE 5%-WATER - 50 ML IVPB ONE (08:38)
--- NOTE | 2019-03-19 09:03 | PN ---
Progress Note (short form) - Note Progress Note: Feels better Still with diarrhoea Vital Signs Period Temp Pulse Resp BP Sys/Arthur Pulse Ox Last 24 Hr 98.8 F-103 F 98-120 14-26 98-149/55-78 98-99 PE: AOx3 Neck: Supple, No JVD HEENT: EOMI Lungs:CTA CVS: S1S2 Abd: Benign Ext: Rt foot dressing, Rt leg edema Neuro: No focal deficit CMP Sodium 135 mmol/L (136-145) L 03/19/19 05:45 Potassium 3.0 mmol/L (3.5-5.1) L 03/19/19 05:45 Chloride 103 mmol/L (98-107) 03/19/19 05:45 Carbon Dioxide 24 mmol/L (21-32) 03/19/19 05:45 Anion Gap 8 MMOL/L (8-16) 03/19/19 05:45 BUN 13.9 mg/dL (7-18) 03/19/19 05:45 Creatinine 1.3 mg/dL (0.55-1.3) 03/19/19 05:45 Est GFR (CKD-EPI)AfAm 55.01 03/19/19 05:45 Est GFR (CKD-EPI)NonAf 47.46 03/19/19 05:45 POC Glucometer 139 UNITS (80-120) 03/19/19 06:04 Random Glucose 133 mg/dL (74-106) H 03/19/19 05:45 Hemoglobin A1c % 9.6 % (4.2-6.3) H 03/19/19 05:45 Lactic Acid 1.8 mmol/L (0.4-2.0) 03/18/19 06:15 Calcium 7.9 mg/dL (8.5-10.1) L 03/19/19 05:45 Total Bilirubin 0.4 mg/dL (0.2-1) 03/19/19 05:45 AST 34 U/L (15-37) 03/19/19 05:45 ALT 25 U/L (13-61) 03/19/19 05:45 Alkaline Phosphatase 60 U/L (45-117) 03/19/19 05:45 Creatine Kinase > 1000 U/L (26-192) H 03/19/19 05:45 Creatine Kinase Index No Result Required. 03/19/19 05:45 CK-MB (CK-2) < 1.0 ng/mL (0.5-3.6) 03/19/19 05:45 Troponin I 0.07 ng/ml (0.00-0.05) H 03/19/19 05:45 C-Reactive Protein 39.7 MG/DL (0.00-0.3) H 03/18/19 06:15 Total Protein 6.2 g/dl (6.4-8.2) L 03/19/19 05:45 Albumin 2.2 g/dl (3.4-5.0) L 03/19/19 05:45 TSH 2.47 uIU/ml (0.358-3.74) 03/19/19 05:45 Current Medications Generic Name Dose Route Start Last Admin Trade Name Freq PRN Reason Stop Dose Admin Acetaminophen 650 mg 03/18/19 04:18 Tylenol - PO Q6H PRN PAIN LEVEL 1-5 Ascorbic Acid 500 mg 03/18/19 10:00 03/18/19 22:08 Vitamin C - PO 500 mg BID [facility] Administration Atorvastatin Calcium 10 mg 03/18/19 22:00 03/18/19 22:08 Lipitor - PO 10 mg HS [facility] Administration Collagenase 1 applic 03/18/19 16:45 03/18/19 17:45 Santyl - TP 1 applic DAILY [facility] Administration Protocol Furosemide 40 mg 03/18/19 10:00 03/18/19 09:11 Lasix - PO 40 mg DAILY [facility] Administration Glipizide 10 mg 03/18/19 07:00 03/18/19 21:28 Glucotrol - PO Not Given BIDAC [facility]MI Heparin Sodium (Porcine) 5,000 unit 03/18/19 10:00 03/18/19 22:07 Heparin - SQ 5,000 unit BID [facility] Administration Sodium Chloride 1,000 mls @ 75 mls/hr 03/18/19 04:30 03/19/19 04:30 Normal Saline - IV 75 mls/hr ASDIR [facility] Administration Vancomycin HCl 1,000 mg in 250 mls @ 166.667 mls/hr 03/18/19 17:15 03/19/19 05:15 Vancomycin (Pre-Docked) IVPB 166.667 mls/hr Q12H [facility] Administration Protocol Cefepime HCl 1 gm/ Dextrose 50 mls @ 100 mls/hr 03/18/19 18:00 03/19/19 02:00 IVPB 100 mls/hr Q8H-IV [facility] Administration Protocol Insulin Aspart 1 vial 03/18/19 17:14 03/19/19 06:26 Novolog Vial Sliding Scale - SQ Not Given TIDAC [facility] Protocol Insulin Aspart 1 vial 03/18/19 22:00 03/18/19 22:48 Novolog Vial Sliding Scale - SQ 4 units HS [facility] Administration Protocol Insulin Detemir 14 units 03/18/19 10:00 03/18/19 22:07 Levemir Vial SQ 14 unit BID [facility] Administration Levothyroxine Sodium 50 mcg 03/18/19 07:00 03/19/19 06:26 Synthroid - PO 50 mcg DAILY@0700 [facility] Administration Lisinopril 20 mg 03/18/19 10:00 03/18/19 09:12 Prinivil PO 20 mg DAILY [facility] Administration Pantoprazole Sodium 40 mg 03/18/19 10:00 03/18/19 09:12 Protonix - PO 40 mg DAILY [facility] Administration Potassium Chloride 40 meq 03/19/19 10:00 K-Dur - PO DAILY [facility] Zinc Sulfate 220 mg 03/19/19 10:00 Orazinc - PO DAILY [facility] AP: Rt foot infection/ulcer Rt leg cellulitis Sepsis Diarrhoea T2DM: Last A1c 9.0 in office, 9.6 now HLD: Hypothyroidism: LT4 50 mcg QD Retinopathy: s/p Laser RX left eye on 01/04/17, Injection to Rt eye on 12/10/16 HTN. Abx as per ID Local wound care Levemir 14 units BID Continue Novolog SS coverage Glip 10 BID Nutrition consult Will f/u
--- NOTE | 2019-03-19 09:21 | PN ---
Progress Note (short form) - Note Progress Note: 49 yo lady with morbid obesity, uncontrolled dm, h/o right footr osteomyelitis, non heeling wound for over 14 months 03/17/19 23:50 Blood - Peripheral Venous Blood Culture - Preliminary Streptococcus Pyogenes Grp A 03/17/19 00:00 Blood - Peripheral Venous Blood Culture - Preliminary NO GROWTH OBTAINED AFTER 24 HOURS, INCUBATION TO CONTINUE FOR 4 DAYS. Vital Signs Period Temp Pulse Resp BP Sys/Arthur Pulse Ox Last 24 Hr 98.8 F-103 F 98-120 14-26 98-149/55-78 98-99 Abnormal Lab Results 03/19/19 03/19/19 03/19/19 05:45 05:45 05:45 WBC 17.2 H Hgb 8.5 L Hct 26.4 L MCV 71.6 L MCH 23.1 L RDW 19.1 H Absolute Neuts (auto) 15.1 H Neutrophils % 88.0 H Lymphocytes % 5.2 L D Sodium 135 L Potassium 3.0 L Random Glucose 133 H Hemoglobin A1c % 9.6 H Calcium 7.9 L Creatine Kinase Troponin I Total Protein 6.2 L Albumin 2.2 L 03/19/19 05:45 WBC Hgb Hct MCV MCH RDW Absolute Neuts (auto) Neutrophils % Lymphocytes % Sodium Potassium Random Glucose Hemoglobin A1c % Calcium Creatine Kinase > 1000 H Troponin I 0.07 H Total Protein Albumin S1S2 RRR lungs cta abd soft non tender morbidly obese right leg erythema/ warmth almost entire lateral apect of herzog, foot is swollen , no necrosis noted base of right sole with beefy ulcer, no purulent discharge aaox3 echo ok no DVT on RLE US Strep.Pyogenes bacteremia right leg cellulitis ? osteomyelitis of foot sepsis increased cardiac enzymes likely demand ischemia HTN IDDM morbid obesity iv abx sugar control wound care follow up
[2019-03-19] MEDS: HEPARIN NA (PORCINE) 5,000 UNITS/ML 1ML VIAL SQ SCH ×2 (09:24→21:58)
[2019-03-19] MEDS: POTASSIUM CHLORIDE TABS 20 MEQ TABLET.ER (FP) PO SCH (09:24)
[2019-03-19] MEDS: ASCORBIC ACID 500 MG TABLET (FP) PO SCH ×2 (09:25→21:59)
[2019-03-19] MEDS: FUROSEMIDE 40 MG TABLET (FP) PO SCH (09:25)
[2019-03-19] MEDS: LISINOPRIL 20 MG TABLET (FP) PO SCH (09:25)
[2019-03-19] MEDS: PANTOPRAZOLE 40 MG TABLET (FP) PO SCH (09:25)
[2019-03-19] MEDS ORDERED: PT OWN MED DRAWER 7, Y5N ONE ×2 (09:28→17:01)
[2019-03-19] MEDS: glipiZIDE 10 MG TABLET (FP) PO SCH ×2 (09:28→17:01)
[2019-03-19] MEDS: INSULIN (LEVEMIR) 100 UNITS/ML UNITS SQ SCH ×2 (09:32→21:58)
[2019-03-19 10:08] LABS: ANISOCYTOSIS 1+; PLATELET ESTIMATE NORMAL
[2019-03-19] MEDS ORDERED: DEXTROSE 5%-WATER 100 ML IVPB ONE (10:25)
[2019-03-19] MEDS: CEFTRIAXONE 2 GM in DEXTROSE 5%-WATER 100 ML IVPB SCH (10:34)
[2019-03-19] MEDS: CLINDAMYCIN 900 MG PREMIX IVPB 900 MG/50 ML BAG IVPB SCH ×2 (10:35→17:01)
[2019-03-19] MEDS: COLLAGENASE CLOSTRIDIUM HIST. 30 GRAMS TUBE TP SCH (13:27)
[2019-03-19] MEDS: ZINC SULFATE 220 MG CAPSULE (FP) PO SCH (13:27)
--- NOTE | 2019-03-19 13:52 | PN ---
Progress Note, Physician History of Present Illness: chronic wound right with charcot foot - Current Medication List Current Medications: Active Medications Acetaminophen (Tylenol -) 650 mg PO Q6H PRN PRN Reason: PAIN LEVEL 1-5 Ascorbic Acid (Vitamin C -) 500 mg PO BID [facility] Last Admin: 03/19/19 09:25 Dose: 500 mg Atorvastatin Calcium (Lipitor -) 10 mg PO HS [facility] Last Admin: 03/18/19 22:08 Dose: 10 mg Collagenase (Santyl -) 1 applic TP DAILY [facility]; Protocol Last Admin: 03/19/19 13:27 Dose: 1 applic Furosemide (Lasix -) 40 mg PO DAILY [facility] Last Admin: 03/19/19 09:25 Dose: 40 mg Glipizide (Glucotrol -) 10 mg PO BIDAC [facility] Last Admin: 03/19/19 09:28 Dose: 10 mg Heparin Sodium (Porcine) (Heparin -) 5,000 unit SQ BID [facility] Last Admin: 03/19/19 09:24 Dose: 5,000 unit Sodium Chloride (Normal Saline -) 1,000 mls @ 75 mls/hr IV ASDIR [facility] Last Admin: 03/19/19 04:30 Dose: 75 mls/hr Ceftriaxone Sodium 2 gm/ (Dextrose) 100 mls @ 100 mls/hr IVPB DAILY [facility]; Protocol Last Admin: 03/19/19 10:34 Dose: 100 mls/hr Clindamycin Phosphate (Cleocin 900 Mg Premix Ivpb -) 900 mg in 50 mls @ 100 mls /hr IVPB Q8H-IV [facility]; Protocol Last Admin: 03/19/19 10:35 Dose: 100 mls/hr Insulin Aspart (Novolog Vial Sliding Scale -) 1 vial SQ TIDAC [facility]; Protocol Last Admin: 03/19/19 10:52 Dose: Not Given Insulin Aspart (Novolog Vial Sliding Scale -) 1 vial SQ HS [facility]; Protocol Last Admin: 03/18/19 22:48 Dose: 4 units Insulin Detemir (Levemir Vial) 14 units SQ BID [facility] Last Admin: 03/19/19 09:32 Dose: 14 unit Levothyroxine Sodium (Synthroid -) 50 mcg PO DAILY@0700 [facility] Last Admin: 03/19/19 06:26 Dose: 50 mcg Lisinopril (Prinivil) 20 mg PO DAILY [facility] Last Admin: 03/19/19 09:25 Dose: 20 mg Pantoprazole Sodium (Protonix -) 40 mg PO DAILY [facility] Last Admin: 03/19/19 09:25 Dose: 40 mg Potassium Chloride (K-Dur -) 40 meq PO DAILY [facility] Last Admin: 03/19/19 09:24 Dose: 40 meq Zinc Sulfate (Orazinc -) 220 mg PO DAILY [facility] Last Admin: 03/19/19 13:27 Dose: 220 mg - Objective Vital Signs: Vital Signs Temperature 98.8 F 03/19/19 11:00 Pulse Rate 90 03/19/19 11:00 Respiratory Rate 18 03/19/19 11:00 Blood Pressure 98/61 03/19/19 07:56 O2 Sat by Pulse Oximetry (%) 98 03/18/19 20:00 Extremities: Yes: Other (improved cellulitis right leg, +granulating wound right foot,) Labs: CBC, BMP 03/19/19 05:45 03/19/19 05:45 INR, PTT INR 1.22 (0.83-1.09) H 03/17/19 00:00 Assessment/Plan chronic wound right cellulitis Wound culture pending. Santyl dressing daily. Offloading right foot. IVABX as per ID. Will follow.
--- NOTE | 2019-03-19 16:00 | PN ---
Progress Note, Physician History of Present Illness: C/O GENERALIZED BODY PAIN, LOOSE BMS BLOOD C/S GRP A STREP - Current Medication List Current Medications: Active Medications Acetaminophen (Tylenol -) 650 mg PO Q6H PRN PRN Reason: PAIN LEVEL 1-5 Ascorbic Acid (Vitamin C -) 500 mg PO BID [facility] Last Admin: 03/19/19 09:25 Dose: 500 mg Atorvastatin Calcium (Lipitor -) 10 mg PO HS [facility] Last Admin: 03/18/19 22:08 Dose: 10 mg Collagenase (Santyl -) 1 applic TP DAILY [facility]; Protocol Last Admin: 03/19/19 13:27 Dose: 1 applic Furosemide (Lasix -) 40 mg PO DAILY [facility] Last Admin: 03/19/19 09:25 Dose: 40 mg Glipizide (Glucotrol -) 10 mg PO BIDAC [facility] Last Admin: 03/19/19 09:28 Dose: 10 mg Heparin Sodium (Porcine) (Heparin -) 5,000 unit SQ BID [facility] Last Admin: 03/19/19 09:24 Dose: 5,000 unit Sodium Chloride (Normal Saline -) 1,000 mls @ 75 mls/hr IV ASDIR [facility] Last Admin: 03/19/19 04:30 Dose: 75 mls/hr Ceftriaxone Sodium 2 gm/ (Dextrose) 100 mls @ 100 mls/hr IVPB DAILY [facility]; Protocol Last Admin: 03/19/19 10:34 Dose: 100 mls/hr Clindamycin Phosphate (Cleocin 900 Mg Premix Ivpb -) 900 mg in 50 mls @ 100 mls /hr IVPB Q8H-IV [facility]; Protocol Last Admin: 03/19/19 10:35 Dose: 100 mls/hr Insulin Aspart (Novolog Vial Sliding Scale -) 1 vial SQ TIDAC [facility]; Protocol Last Admin: 03/19/19 10:52 Dose: Not Given Insulin Aspart (Novolog Vial Sliding Scale -) 1 vial SQ HS [facility]; Protocol Last Admin: 03/18/19 22:48 Dose: 4 units Insulin Detemir (Levemir Vial) 14 units SQ BID [facility] Last Admin: 03/19/19 09:32 Dose: 14 unit Levothyroxine Sodium (Synthroid -) 50 mcg PO DAILY@0700 [facility] Last Admin: 03/19/19 06:26 Dose: 50 mcg Lisinopril (Prinivil) 20 mg PO DAILY [facility] Last Admin: 03/19/19 09:25 Dose: 20 mg Pantoprazole Sodium (Protonix -) 40 mg PO DAILY [facility] Last Admin: 03/19/19 09:25 Dose: 40 mg Potassium Chloride (K-Dur -) 40 meq PO DAILY [facility] Last Admin: 03/19/19 09:24 Dose: 40 meq Zinc Sulfate (Orazinc -) 220 mg PO DAILY [facility] Last Admin: 03/19/19 13:27 Dose: 220 mg - Objective Vital Signs: Vital Signs Temperature 98.8 F 03/19/19 11:00 Pulse Rate 90 03/19/19 11:00 Respiratory Rate 18 03/19/19 11:00 Blood Pressure 98/61 03/19/19 07:56 O2 Sat by Pulse Oximetry (%) 98 03/18/19 20:00 Constitutional: Yes: No Distress, Obese Cardiovascular: Yes: Regular Rate and Rhythm, S1, S2 Respiratory: Yes: Diminished Gastrointestinal: Yes: Normal Bowel Sounds, Soft. No: Tenderness Extremities: Yes: Other (SL DECREASE R LE ERYTHEMA/ SWELLING NO CREPITIS PLANTAR ULCER PACKED) Labs: CBC, BMP 03/19/19 05:45 03/19/19 05:45 INR, PTT INR 1.22 (0.83-1.09) H 03/17/19 00:00 Assessment/Plan GRP A STREP BACTEREMIA/ SEPSIS SECONDARY TO SKIN SOURCE CELLULITIS R LE NON HEALING PLANTAR ULCER ZOSYN ALLERGY CONTINUE CEFTRIAXONE/ CLINDAMYCIN
[2019-03-19] MEDS: ATORVASTATIN CA 10 MG TABLET (FP) PO SCH (21:59)
[2019-03-20] MEDS: CLINDAMYCIN 900 MG PREMIX IVPB 900 MG/50 ML BAG IVPB SCH ×3 (01:50→17:36)
[2019-03-20] MEDS ORDERED: PT OWN MED DRAWER 7, Y5N ONE ×2 (01:57→09:30)
[2019-03-20] MEDS: SODIUM CHLORIDE 1,000 ML IV SCH (06:50)
[2019-03-20] MEDS: LEVOTHYROXINE NA 50 MCG TABLET (FP) PO SCH (06:56)
[2019-03-20] MEDS: INSULIN SLIDING SCALE (NOVOLOG) 1 VIAL SQ SCH ×4 (06:56→21:40)
[2019-03-20] MEDS: glipiZIDE 10 MG TABLET (FP) PO SCH ×2 (06:57→17:36)
[2019-03-20] MEDS ORDERED: DEXTROSE 5%-WATER 100 ML IVPB ONE (09:30)
[2019-03-20] MEDS: POTASSIUM CHLORIDE TABS 20 MEQ TABLET.ER (FP) PO SCH (09:34)
[2019-03-20] MEDS: ZINC SULFATE 220 MG CAPSULE (FP) PO SCH (09:34)
[2019-03-20] MEDS: LISINOPRIL 20 MG TABLET (FP) PO SCH (09:34)
[2019-03-20] MEDS: ASCORBIC ACID 500 MG TABLET (FP) PO SCH ×2 (09:34→21:40)
[2019-03-20] MEDS: FUROSEMIDE 40 MG TABLET (FP) PO SCH (09:34)
[2019-03-20] MEDS: PANTOPRAZOLE 40 MG TABLET (FP) PO SCH (09:34)
[2019-03-20] MEDS: CEFTRIAXONE 2 GM in DEXTROSE 5%-WATER 100 ML IVPB SCH (09:34)
[2019-03-20] MEDS: COLLAGENASE CLOSTRIDIUM HIST. 30 GRAMS TUBE TP SCH (09:35)
[2019-03-20] MEDS: INSULIN (LEVEMIR) 100 UNITS/ML UNITS SQ SCH ×2 (09:35→21:39)
[2019-03-20] MEDS: HEPARIN NA (PORCINE) 5,000 UNITS/ML 1ML VIAL SQ SCH ×2 (09:36→21:39)
--- NOTE | 2019-03-20 10:37 | PN ---
Progress Note, Physician History of Present Illness: MORE AWAKE AND ALERT STILL C/O GENERALIZED BODY PAIN, NO LOOSE STOOL TODAY BLOOD C/S GRP A STREP URINE C/S GRP D STREP C/W CONTAMINATION - Current Medication List Current Medications: Active Medications Acetaminophen (Tylenol -) 650 mg PO Q6H PRN PRN Reason: PAIN LEVEL 1-5 Ascorbic Acid (Vitamin C -) 500 mg PO BID [facility] Last Admin: 03/20/19 09:34 Dose: 500 mg Atorvastatin Calcium (Lipitor -) 10 mg PO HS [facility] Last Admin: 03/19/19 21:59 Dose: 10 mg Collagenase (Santyl -) 1 applic TP DAILY [facility]; Protocol Last Admin: 03/20/19 09:35 Dose: 1 applic Furosemide (Lasix -) 40 mg PO DAILY [facility] Last Admin: 03/20/19 09:34 Dose: 40 mg Glipizide (Glucotrol -) 10 mg PO BIDAC [facility] Last Admin: 03/20/19 06:57 Dose: 10 mg Heparin Sodium (Porcine) (Heparin -) 5,000 unit SQ BID [facility] Last Admin: 03/20/19 09:36 Dose: 5,000 unit Sodium Chloride (Normal Saline -) 1,000 mls @ 75 mls/hr IV ASDIR [facility] Last Admin: 03/20/19 06:50 Dose: 75 mls/hr Ceftriaxone Sodium 2 gm/ (Dextrose) 100 mls @ 100 mls/hr IVPB DAILY [facility]; Protocol Last Admin: 03/20/19 09:34 Dose: 100 mls/hr Clindamycin Phosphate (Cleocin 900 Mg Premix Ivpb -) 900 mg in 50 mls @ 100 mls /hr IVPB Q8H-IV [facility]; Protocol Last Admin: 03/20/19 09:34 Dose: 100 mls/hr Insulin Aspart (Novolog Vial Sliding Scale -) 1 vial SQ TIDAC [facility]; Protocol Last Admin: 03/20/19 06:56 Dose: Not Given Insulin Aspart (Novolog Vial Sliding Scale -) 1 vial SQ HS [facility]; Protocol Last Admin: 03/19/19 22:00 Dose: Not Given Insulin Detemir (Levemir Vial) 14 units SQ BID [facility] Last Admin: 03/20/19 09:35 Dose: 14 unit Levothyroxine Sodium (Synthroid -) 50 mcg PO DAILY@0700 [facility] Last Admin: 03/20/19 06:56 Dose: 50 mcg Lisinopril (Prinivil) 20 mg PO DAILY [facility] Last Admin: 03/20/19 09:34 Dose: 20 mg Pantoprazole Sodium (Protonix -) 40 mg PO DAILY [facility] Last Admin: 03/20/19 09:34 Dose: 40 mg Potassium Chloride (K-Dur -) 40 meq PO DAILY [facility] Last Admin: 03/20/19 09:34 Dose: 40 meq Zinc Sulfate (Orazinc -) 220 mg PO DAILY [facility] Last Admin: 03/20/19 09:34 Dose: 220 mg - Objective Vital Signs: Vital Signs Temperature 99.4 F 03/20/19 02:00 Pulse Rate 96 H 03/20/19 09:49 Respiratory Rate 20 03/20/19 09:49 Blood Pressure 116/59 L 03/20/19 09:49 O2 Sat by Pulse Oximetry (%) 98 03/20/19 09:00 Constitutional: Yes: No Distress, Obese Eyes: Yes: Conjunctiva Clear Cardiovascular: Yes: Regular Rate and Rhythm, S1, S2 Respiratory: Yes: CTA Bilaterally Gastrointestinal: Yes: Normal Bowel Sounds, Soft. No: Tenderness Extremities: Yes: Other (DECREASED R LE EDEMA/ ERYTHEMA/ WARMTH + R FOOT PLANTAR ULCER NO DRAINAGE/ FOUL ODOR) Labs: CBC, BMP 03/19/19 05:45 03/19/19 05:45 INR, PTT INR 1.22 (0.83-1.09) H 03/17/19 00:00 Assessment/Plan GRP A STREP BACTEREMIA/ SEPSIS SECONDARY TO SKIN SOURCE CELLULITIS R LE IMPROVED NON HEALING PLANTAR ULCER ZOSYN ALLERGY CONTINUE CEFTRIAXONE/ CLINDAMYCIN
--- NOTE | 2019-03-20 12:53 | PN ---
Progress Note (short form) - Note Progress Note: 49 yo lady with morbid obesity, uncontrolled dm, h/o right footr osteomyelitis, non heeling wound for over 14 months Microbiology 03/19/19 00:00 Foot - Right Heel Gram Stain - Final 03/19/19 00:00 Foot - Right Heel Wound Culture - Preliminary 03/17/19 23:50 Blood - Peripheral Venous Blood Culture - Final Streptococcus Pyogenes Grp A 03/17/19 00:00 Blood - Peripheral Venous Blood Culture - Preliminary NO GROWTH OBTAINED AFTER 48 HOURS, INCUBATION TO CONTINUE FOR 3 DAYS. 03/18/19 02:15 Urine - Urine Clean Catch Urine Culture - Preliminary Group D Strep Or Entero Coccus Active Medications Acetaminophen (Tylenol -) 650 mg PO Q6H PRN PRN Reason: PAIN LEVEL 1-5 Ascorbic Acid (Vitamin C -) 500 mg PO BID [facility] Last Admin: 03/20/19 09:34 Dose: 500 mg Atorvastatin Calcium (Lipitor -) 10 mg PO HS [facility] Last Admin: 03/19/19 21:59 Dose: 10 mg Collagenase (Santyl -) 1 applic TP DAILY [facility]; Protocol Last Admin: 03/20/19 09:35 Dose: 1 applic Furosemide (Lasix -) 40 mg PO DAILY [facility] Last Admin: 03/20/19 09:34 Dose: 40 mg Glipizide (Glucotrol -) 10 mg PO BIDAC [facility] Last Admin: 03/20/19 06:57 Dose: 10 mg Heparin Sodium (Porcine) (Heparin -) 5,000 unit SQ BID [facility] Last Admin: 03/20/19 09:36 Dose: 5,000 unit Sodium Chloride (Normal Saline -) 1,000 mls @ 75 mls/hr IV ASDIR [facility] Last Admin: 03/20/19 06:50 Dose: 75 mls/hr Ceftriaxone Sodium 2 gm/ (Dextrose) 100 mls @ 100 mls/hr IVPB DAILY [facility]; Protocol Last Admin: 03/20/19 09:34 Dose: 100 mls/hr Clindamycin Phosphate (Cleocin 900 Mg Premix Ivpb -) 900 mg in 50 mls @ 100 mls /hr IVPB Q8H-IV [facility]; Protocol Last Admin: 03/20/19 09:34 Dose: 100 mls/hr Insulin Aspart (Novolog Vial Sliding Scale -) 1 vial SQ TIDAC [facility]; Protocol Last Admin: 03/20/19 11:51 Dose: Not Given Insulin Aspart (Novolog Vial Sliding Scale -) 1 vial SQ HS [facility]; Protocol Last Admin: 03/19/19 22:00 Dose: Not Given Insulin Detemir (Levemir Vial) 14 units SQ BID [facility] Last Admin: 03/20/19 09:35 Dose: 14 unit Levothyroxine Sodium (Synthroid -) 50 mcg PO DAILY@0700 [facility] Last Admin: 03/20/19 06:56 Dose: 50 mcg Lisinopril (Prinivil) 20 mg PO DAILY [facility] Last Admin: 03/20/19 09:34 Dose: 20 mg Pantoprazole Sodium (Protonix -) 40 mg PO DAILY [facility] Last Admin: 03/20/19 09:34 Dose: 40 mg Potassium Chloride (K-Dur -) 40 meq PO DAILY [facility] Last Admin: 03/20/19 09:34 Dose: 40 meq Zinc Sulfate (Orazinc -) 220 mg PO DAILY [facility] Last Admin: 03/20/19 09:34 Dose: 220 mg S1S2 RRR lungs cta abd soft non tender morbidly obese right leg erythema/ warmth better, foot is swollen, no necrosis noted base of right sole with beefy ulcer, no purulent discharge aaox3 echo ok no DVT on RLE US Strep.Pyogenes bacteremia right leg cellulitis ? osteomyelitis of foot sepsis increased cardiac enzymes likely demand ischemia HTN IDDM morbid obesity iv abx sugar control consults appreciated check labs can transfer to medical floor
[2019-03-20 13:43] LABS: BASO % 0.5 % (0-2.0); EOS % 1.1 % (0-4.5); HEMATOCRIT 24.1 % (32.4-45.2); HEMOGLOBIN 7.8 GM/dL (10.7-15.3); LYMPH % 6.5 % (8-40); MCH 22.9 pg (25.7-33.7); MCHC 32.2 g/dl (32.0-36.0); MEAN PLT VOLUME 8.1 fl (7.5-11.1); NEUT % 83.9 % (42.8-82.8); PLATELET COUNT 267 K/MM3 (134-434); RBC 3.39 M/mm3 (3.60-5.2); RDW 19.3 % (11.6-15.6); WHITE BLOOD COUNT 12.4 K/mm3 (4.0-10.0)
[2019-03-20 14:05] LABS: BILIRUBIN,TOTAL 0.2 mg/dL (0.2-1); CALCIUM 7.8 mg/dL (8.5-10.1); CREATININE 1.2 mg/dL (0.55-1.3); POTASSIUM 3.2 mmol/L (3.5-5.1); TOT PROT 6.2 g/dl (6.4-8.2)
--- NOTE | 2019-03-20 14:49 | PN ---
Progress Note (short form) - Note Progress Note: FUV right foot. vss +improved appearance of right leg, -drainage right foot, -mal odor, + granulating well, cellulitis improving Will follow, Santyl to wound on right foot. No tape on skin. IVABX as per ID.
[2019-03-20 16:01] LABS: ANISOCYTOSIS 1+; MACROCYTOSIS 0; PLATELET ESTIMATE NORMAL; TARGET CELLS 1+
--- NOTE | 2019-03-20 17:22 | PN ---
Progress Note (short form) - Note Progress Note: Feels better Vital Signs Period Temp Pulse Resp BP Sys/Arthur Pulse Ox Last 24 Hr 99.4 F 93-99 18-25 94-116/46-59 98-98 PE: AOx3 Neck: Supple, No JVD HEENT: EOMI Lungs:CTA CVS: S1S2 Abd: Benign Ext: Rt foot dressing, Rt leg edema Neuro: No focal deficit CMP Sodium 137 mmol/L (136-145) 03/20/19 13:00 Potassium 3.2 mmol/L (3.5-5.1) L 03/20/19 13:00 Chloride 104 mmol/L (98-107) 03/20/19 13:00 Carbon Dioxide 24 mmol/L (21-32) 03/20/19 13:00 Anion Gap 10 MMOL/L (8-16) 03/20/19 13:00 BUN 13.0 mg/dL (7-18) 03/20/19 13:00 Creatinine 1.2 mg/dL (0.55-1.3) 03/20/19 13:00 Est GFR (CKD-EPI)AfAm 60.60 03/20/19 13:00 Est GFR (CKD-EPI)NonAf 52.28 03/20/19 13:00 POC Glucometer 168 UNITS (80-120) 03/20/19 17:15 Random Glucose 144 mg/dL (74-106) H 03/20/19 13:00 Hemoglobin A1c % 9.6 % (4.2-6.3) H 03/19/19 05:45 Lactic Acid 1.8 mmol/L (0.4-2.0) 03/18/19 06:15 Calcium 7.8 mg/dL (8.5-10.1) L 03/20/19 13:00 Total Bilirubin 0.2 mg/dL (0.2-1) 03/20/19 13:00 AST 36 U/L (15-37) 03/20/19 13:00 ALT 30 U/L (13-61) 03/20/19 13:00 Alkaline Phosphatase 77 U/L (45-117) 03/20/19 13:00 Creatine Kinase > 1000 U/L (26-192) H 03/19/19 05:45 Creatine Kinase Index No Result Required. 03/19/19 05:45 CK-MB (CK-2) < 1.0 ng/mL (0.5-3.6) 03/19/19 05:45 Troponin I 0.07 ng/ml (0.00-0.05) H 03/19/19 05:45 C-Reactive Protein 39.7 MG/DL (0.00-0.3) H 03/18/19 06:15 Total Protein 6.2 g/dl (6.4-8.2) L 03/20/19 13:00 Albumin 2.0 g/dl (3.4-5.0) L 03/20/19 13:00 TSH 2.47 uIU/ml (0.358-3.74) 03/19/19 05:45 Current Medications Generic Name Dose Route Start Last Admin Trade Name Freq PRN Reason Stop Dose Admin Acetaminophen 650 mg 03/18/19 04:18 Tylenol - PO Q6H PRN PAIN LEVEL 1-5 Ascorbic Acid 500 mg 03/18/19 10:00 03/20/19 09:34 Vitamin C - PO 500 mg BID [facility] Administration Atorvastatin Calcium 10 mg 03/18/19 22:00 03/19/19 21:59 Lipitor - PO 10 mg HS [facility] Administration Collagenase 1 applic 03/18/19 16:45 03/20/19 09:35 Santyl - TP 1 applic DAILY [facility] Administration Protocol Furosemide 40 mg 03/18/19 10:00 03/20/19 09:34 Lasix - PO 40 mg DAILY [facility] Administration Glipizide 10 mg 03/18/19 07:00 03/20/19 06:57 Glucotrol - PO 10 mg BIDAC [facility] Administration Heparin Sodium (Porcine) 5,000 unit 03/18/19 10:00 03/20/19 09:36 Heparin - SQ 5,000 unit BID [facility] Administration Sodium Chloride 1,000 mls @ 75 mls/hr 03/18/19 04:30 03/20/19 06:50 Normal Saline - IV 75 mls/hr ASDIR [facility] Administration Ceftriaxone Sodium 2 gm/ 100 mls @ 100 mls/hr 03/19/19 11:00 03/20/19 09:34 Dextrose IVPB 100 mls/hr DAILY [facility] Administration Protocol Clindamycin Phosphate 900 mg in 50 mls @ 100 mls/hr 03/19/19 10:00 03/20/19 09:34 Cleocin 900 Mg Premix Ivpb - IVPB 100 mls/hr Q8H-IV [facility] Administration Protocol Insulin Aspart 1 vial 03/18/19 17:14 03/20/19 11:51 Novolog Vial Sliding Scale - SQ Not Given TIDAC [facility] Protocol Insulin Aspart 1 vial 03/18/19 22:00 03/19/19 22:00 Novolog Vial Sliding Scale - SQ Not Given HS [facility] Protocol Insulin Detemir 12 units 03/20/19 22:00 Levemir Vial SQ BID [facility] Levothyroxine Sodium 50 mcg 03/18/19 07:00 03/20/19 06:56 Synthroid - PO 50 mcg DAILY@0700 [facility] Administration Lisinopril 20 mg 03/18/19 10:00 03/20/19 09:34 Prinivil PO 20 mg DAILY [facility] Administration Pantoprazole Sodium 40 mg 03/18/19 10:00 03/20/19 09:34 Protonix - PO 40 mg DAILY [facility] Administration Potassium Chloride 40 meq 03/19/19 10:00 03/20/19 09:34 K-Dur - PO 40 meq DAILY [facility] Administration Zinc Sulfate 220 mg 03/19/19 10:00 03/20/19 09:34 Orazinc - PO 220 mg DAILY [facility] Administration AP: Rt foot infection/ulcer Rt leg cellulitis Sepsis Diarrhoea T2DM: Last A1c 9.0 in office, 9.6 now HLD: Hypothyroidism: LT4 50 mcg QD Retinopathy: s/p Laser RX left eye on 01/04/17, Injection to Rt eye on 12/10/16 HTN. Abx as per ID Local wound care Decrease Levemir 12 units BID Continue Novolog SS coverage Glip 10 BID Nutrition consult Will f/u
[2019-03-20] MEDS: ATORVASTATIN CA 10 MG TABLET (FP) PO SCH (21:40)
[2019-03-21] MEDS: CLINDAMYCIN 900 MG PREMIX IVPB 900 MG/50 ML BAG IVPB SCH ×3 (02:53→17:25)
[2019-03-21] MEDS ORDERED: PT OWN MED DRAWER 7, Y5N ONE (04:57)
[2019-03-21] MEDS: INSULIN SLIDING SCALE (NOVOLOG) 1 VIAL SQ SCH ×4 (06:29→21:03)
[2019-03-21] MEDS: INSULIN (LEVEMIR) 100 UNITS/ML UNITS SQ SCH ×2 (06:29→21:03)
[2019-03-21] MEDS: SODIUM CHLORIDE 1,000 ML IV SCH (06:30)
[2019-03-21] MEDS: LEVOTHYROXINE NA 50 MCG TABLET (FP) PO SCH (06:30)
[2019-03-21 07:11] LABS: HEMATOCRIT 21.2 % (32.4-45.2); MCH 23.3 pg (25.7-33.7); MCHC 32.8 g/dl (32.0-36.0); MEAN CELL VOLUME 70.9 fl (80-96); MEAN PLT VOLUME 8.1 fl (7.5-11.1); PLATELET COUNT 311 K/MM3 (134-434); RBC 2.99 M/mm3 (3.60-5.2); RDW 18.8 % (11.6-15.6); WHITE BLOOD COUNT 11.4 K/mm3 (4.0-10.0)
[2019-03-21 08:06] LABS: HEMOGLOBIN 6.9 GM/dL (10.7-15.3)
[2019-03-21 08:20] LABS: ALBUMIN 1.9 g/dl (3.4-5.0); BILIRUBIN,TOTAL 0.3 mg/dL (0.2-1); BLOOD UREA NITROGEN 13.9 mg/dL (7-18); CALCIUM 7.7 mg/dL (8.5-10.1); CREATININE 1.2 mg/dL (0.55-1.3); POTASSIUM 3.4 mmol/L (3.5-5.1)
[2019-03-21] MEDS ORDERED: DEXTROSE 5%-WATER 100 ML IVPB ONE (08:39)
[2019-03-21] MEDS: HEPARIN NA (PORCINE) 5,000 UNITS/ML 1ML VIAL SQ SCH ×2 (09:35→21:03)
[2019-03-21] MEDS: CEFTRIAXONE 2 GM in DEXTROSE 5%-WATER 100 ML IVPB SCH (09:35)
[2019-03-21] MEDS: POTASSIUM CHLORIDE TABS 20 MEQ TABLET.ER (FP) PO SCH (09:35)
[2019-03-21] MEDS: FUROSEMIDE 40 MG TABLET (FP) PO SCH (09:35)
[2019-03-21] MEDS: PANTOPRAZOLE 40 MG TABLET (FP) PO SCH (09:36)
[2019-03-21] MEDS: ASCORBIC ACID 500 MG TABLET (FP) PO SCH ×2 (09:36→21:03)
[2019-03-21] MEDS: LISINOPRIL 20 MG TABLET (FP) PO SCH (09:36)
--- NOTE | 2019-03-21 10:46 | PN ---
Progress Note (short form) - Note Progress Note: 49 yo lady with morbid obesity, uncontrolled dm, h/o right foot osteomyelitis, non heeling wound for over 14 months CBC, BMP 03/21/19 05:55 03/21/19 05:55 Vital Signs Period Temp Pulse Resp BP Sys/Arthur Pulse Ox Last 24 Hr 98.3 F-98.6 F 88-96 17-20 94-138/53-79 98 S1S2 RRR lungs cta abd soft non tender morbidly obese right leg erythema/ warmth better, foot is swollen, dressed aaox3 echo ok no DVT on RLE US Strep.Pyogenes bacteremia right leg cellulitis ? osteomyelitis of foot sepsis increased cardiac enzymes likely demand ischemia HTN IDDM morbid obesity anemia-likely, chr ds, iv fluids, abx related iv abx sugar control consults appreciated check labs can transfer to medical floor type+cross, repeat cbc in am, pt is reluctant to receive transfusion, has never had one, hemodinamically well, can reevaluate in am again
--- NOTE | 2019-03-21 12:06 | PN ---
Progress Note, Physician History of Present Illness: AWAKE AND ALERT IN BED LESS GENERALIZED BODY PAIN, NO LOOSE STOOL TODAY BLOOD C/S GRP A STREP URINE C/S VRE C/W CONTAMINATION TEMPS DOWN AFEBRILE WBC IMPROVED - Current Medication List Current Medications: Active Medications Acetaminophen (Tylenol -) 650 mg PO Q6H PRN PRN Reason: PAIN LEVEL 1-5 Ascorbic Acid (Vitamin C -) 500 mg PO BID [facility] Last Admin: 03/21/19 09:36 Dose: 500 mg Atorvastatin Calcium (Lipitor -) 10 mg PO HS [facility] Last Admin: 03/20/19 21:40 Dose: 10 mg Collagenase (Santyl -) 1 applic TP DAILY [facility]; Protocol Last Admin: 03/20/19 09:35 Dose: 1 applic Furosemide (Lasix -) 40 mg PO DAILY [facility] Last Admin: 03/21/19 09:35 Dose: 40 mg Glipizide (Glucotrol -) 10 mg PO BIDAC [facility] Last Admin: 03/20/19 17:36 Dose: 10 mg Heparin Sodium (Porcine) (Heparin -) 5,000 unit SQ BID [facility] Last Admin: 03/21/19 09:35 Dose: 5,000 unit Ceftriaxone Sodium 2 gm/ (Dextrose) 100 mls @ 100 mls/hr IVPB DAILY [facility]; Protocol Last Admin: 03/21/19 09:35 Dose: 100 mls/hr Clindamycin Phosphate (Cleocin 900 Mg Premix Ivpb -) 900 mg in 50 mls @ 100 mls /hr IVPB Q8H-IV [facility]; Protocol Last Admin: 03/21/19 09:35 Dose: 100 mls/hr Insulin Aspart (Novolog Vial Sliding Scale -) 1 vial SQ TIDAC [facility]; Protocol Last Admin: 03/21/19 06:29 Dose: 6 units Insulin Aspart (Novolog Vial Sliding Scale -) 1 vial SQ HS [facility]; Protocol Last Admin: 03/20/19 21:40 Dose: 4 units Insulin Detemir (Levemir Vial) 12 units SQ BID@0700,2200 [facility] Last Admin: 03/21/19 06:29 Dose: 12 units Levothyroxine Sodium (Synthroid -) 50 mcg PO DAILY@0700 [facility] Last Admin: 03/21/19 06:30 Dose: 50 mcg Lisinopril (Prinivil) 20 mg PO DAILY [facility] Last Admin: 03/21/19 09:36 Dose: 20 mg Pantoprazole Sodium (Protonix -) 40 mg PO DAILY [facility] Last Admin: 03/21/19 09:36 Dose: 40 mg Potassium Chloride (K-Dur -) 40 meq PO DAILY [facility] Last Admin: 03/21/19 09:35 Dose: 40 meq Zinc Sulfate (Orazinc -) 220 mg PO DAILY [facility] Last Admin: 03/20/19 09:34 Dose: 220 mg - Objective Vital Signs: Vital Signs Temperature 98.3 F 03/21/19 05:00 Pulse Rate 88 03/21/19 09:00 Respiratory Rate 18 03/21/19 09:00 Blood Pressure 138/66 03/21/19 09:00 O2 Sat by Pulse Oximetry (%) 93 L 03/21/19 09:00 Constitutional: Yes: No Distress Eyes: Yes: Conjunctiva Clear Cardiovascular: Yes: Regular Rate and Rhythm, S1, S2 Respiratory: Yes: CTA Bilaterally Gastrointestinal: Yes: Normal Bowel Sounds, Soft. No: Tenderness Extremities: Yes: Other (R LE SWELLING/ ERYTHEMA/ WARMTH IMPROVED. + R PLANTAR ULCER) Labs: CBC, BMP 03/21/19 05:55 03/21/19 05:55 INR, PTT INR 1.22 (0.83-1.09) H 03/17/19 00:00 Assessment/Plan GRP A STREP BACTEREMIA/ SEPSIS SECONDARY TO SKIN SOURCE CELLULITIS R LE IMPROVED NON HEALING PLANTAR ULCER ZOSYN ALLERGY CONTINUE CEFTRIAXONE/ CLINDAMYCIN
[2019-03-21] MEDS: ZINC SULFATE 220 MG CAPSULE (FP) PO SCH (12:30)
[2019-03-21] MEDS: glipiZIDE 10 MG TABLET (FP) PO SCH ×2 (12:30→17:24)
[2019-03-21] MEDS: COLLAGENASE CLOSTRIDIUM HIST. 30 GRAMS TUBE TP SCH (12:32)
[2019-03-21] MEDS ORDERED: ACETAMINOPHEN 325 MG TABLET (FP) PO PRN (14:54)
[2019-03-21] MEDS ORDERED: glipiZIDE 5 MG TABLET (FP) ONE (16:52)
[2019-03-21] MEDS: ATORVASTATIN CA 10 MG TABLET (FP) PO SCH (21:03)
[2019-03-22] MEDS ORDERED: POLYETHYLENE GLYCOL 3350 119 GM BTL PO ONE (00:38)
[2019-03-22] MEDS: CLINDAMYCIN 900 MG PREMIX IVPB 900 MG/50 ML BAG IVPB SCH ×3 (01:40→17:06)
[2019-03-22] MEDS ORDERED: glipiZIDE 5 MG TABLET (FP) ONE ×2 (06:36→16:31)
[2019-03-22] MEDS: INSULIN (LEVEMIR) 100 UNITS/ML UNITS SQ SCH ×2 (06:40→22:24)
[2019-03-22] MEDS: LEVOTHYROXINE NA 50 MCG TABLET (FP) PO SCH (06:40)
[2019-03-22] MEDS: glipiZIDE 10 MG TABLET (FP) PO SCH ×2 (06:40→17:06)
[2019-03-22] MEDS: INSULIN SLIDING SCALE (NOVOLOG) 1 VIAL SQ SCH ×4 (06:41→22:35)
[2019-03-22] MEDS ORDERED: DEXTROSE 5%-WATER 100 ML IVPB ONE (08:06)
[2019-03-22 08:23] LABS: BASO % 0.5 % (0-2.0); EOS % 1.6 % (0-4.5); HEMATOCRIT 24.4 % (32.4-45.2); HEMOGLOBIN 7.8 GM/dL (10.7-15.3); LYMPH % 10.5 % (8-40); MCH 23.2 pg (25.7-33.7); MCHC 31.8 g/dl (32.0-36.0); MEAN PLT VOLUME 8.6 fl (7.5-11.1); MONO % 7.2 % (3.8-10.2); NEUT % 80.2 % (42.8-82.8); PLATELET COUNT 424 K/MM3 (134-434); RBC 3.34 M/mm3 (3.60-5.2); RDW 19.6 % (11.6-15.6); WHITE BLOOD COUNT 15.3 K/mm3 (4.0-10.0)
--- NOTE | 2019-03-22 09:16 | PN ---
Progress Note (short form) - Note Progress Note: 49 yo lady with morbid obesity, uncontrolled dm, h/o right foot osteomyelitis, non heeling wound for over 14 months CBC, BMP 03/22/19 07:14 03/22/19 07:14 Vital Signs Period Temp Pulse Resp BP Sys/Arthur Pulse Ox Last 24 Hr 97.6 F-98.5 F 89-94 16-20 110-158/59-86 96-98 S1S2 RRR lungs cta abd soft non tender morbidly obese right leg erythema/ warmth better, foot is swollen, dressed aaox3 echo ok no DVT on RLE US Strep.Pyogenes bacteremia right leg cellulitis ? osteomyelitis of foot sepsis increased cardiac enzymes likely demand ischemia HTN IDDM morbid obesity anemia-likely, chr ds, iv fluids, abx related, better today, no need to transfuse iv abx sugar control consults appreciated check labs dc planning with PICC awaiting id and podiatry input regarding discharge physical therapy
[2019-03-22 10:36] LABS: ANISOCYTOSIS 1+; MACROCYTOSIS 0; PLATELET ESTIMATE NORMAL; TARGET CELLS 1+
[2019-03-22] MEDS: HEPARIN NA (PORCINE) 5,000 UNITS/ML 1ML VIAL SQ SCH ×2 (10:49→22:24)
[2019-03-22] MEDS: POTASSIUM CHLORIDE TABS 20 MEQ TABLET.ER (FP) PO SCH (10:49)
[2019-03-22] MEDS: PANTOPRAZOLE 40 MG TABLET (FP) PO SCH (10:50)
[2019-03-22] MEDS: ZINC SULFATE 220 MG CAPSULE (FP) PO SCH (10:50)
[2019-03-22] MEDS: CEFTRIAXONE 2 GM in DEXTROSE 5%-WATER 100 ML IVPB SCH (10:50)
[2019-03-22] MEDS: ASCORBIC ACID 500 MG TABLET (FP) PO SCH ×2 (10:50→22:26)
[2019-03-22] MEDS: FUROSEMIDE 40 MG TABLET (FP) PO SCH (10:50)
[2019-03-22] MEDS: COLLAGENASE CLOSTRIDIUM HIST. 30 GRAMS TUBE TP SCH (10:51)
[2019-03-22] MEDS: LISINOPRIL 20 MG TABLET (FP) PO SCH (10:56)
--- NOTE | 2019-03-22 11:09 | CONSULT ---
- Consultation REQUESTING PROVIDER: VASCULAR SURGERY - Grover Stevens CONSULT REQUEST: We have been asked to surgically evaluate this patient for vasc eval PCP: Harvinder Bledsoe Patient with Charcot foot. Being followed and managed by DPM. Afeb. AMANDA Olvera. INR 1.22 Gen: nad RLE: foot banadaged by Podiatry. Foot is warm. Dopplerable AT/DP/PT Problem List - Problems (1) Charcot foot due to diabetes mellitus Assessment/Plan: NO vascular surgery intervention or further imaging needed. Cont wound care as per Podiatry. Re-consult PRN Code(s): E11.610 - TYPE 2 DIABETES MELLITUS W DIABETIC NEUROPATHIC ARTHROPATHY (2) Anemia Code(s): D64.9 - ANEMIA, UNSPECIFIED (3) Asthma Code(s): J45.909 - UNSPECIFIED ASTHMA, UNCOMPLICATED Qualifiers: Asthma severity: mild Asthma persistence: intermittent (4) Foot ulcer, right Code(s): L97.519 - NON-PRS CHRONIC ULCER OTH PRT RIGHT FOOT W UNSP SEVERITY Qualifiers: Non-pressure ulcer stage: unspecified non-pressure ulcer stage Qualified Code(s): L97.519 - Non-pressure chronic ulcer of other part of right foot with unspecified severity (5) Hypertension Code(s): I10 - ESSENTIAL (PRIMARY) HYPERTENSION Qualifiers: Hypertension type: essential hypertension Qualified Code(s): I10 - Essential (primary) hypertension (6) Morbid obesity Code(s): E66.01 - MORBID (SEVERE) OBESITY DUE TO EXCESS CALORIES Visit type - Case Type Case Type: ED Admission - Emergency Emergency Visit: Yes ED Registration Date: 03/18/19 Care time: The patient presented to the Emergency Department on the above date and was hospitalized for further evaluation of their emergent condition. - New patient This patient is new to me today: Yes Date on this admission: 03/22/19
--- NOTE | 2019-03-22 13:03 | PN ---
Progress Note, Physician History of Present Illness: AWAKE, MORE ALERT APPEARING NO C/O BODY PAIN REPORTS FORMED STOOL BLOOD C/S GRP A STREP URINE C/S VRE C/W CONTAMINATION TEMPS DOWN AFEBRILE WBC SL ELEVATED - Current Medication List Current Medications: Active Medications Acetaminophen (Tylenol -) 650 mg PO Q6H PRN PRN Reason: PAIN LEVEL 1-5 Ascorbic Acid (Vitamin C -) 500 mg PO BID [facility] Last Admin: 03/22/19 10:50 Dose: 500 mg Atorvastatin Calcium (Lipitor -) 10 mg PO HS [facility] Last Admin: 03/21/19 21:03 Dose: 10 mg Collagenase (Santyl -) 1 applic TP DAILY [facility]; Protocol Last Admin: 03/22/19 10:51 Dose: 1 applic Furosemide (Lasix -) 40 mg PO DAILY [facility] Last Admin: 03/22/19 10:50 Dose: 40 mg Glipizide (Glucotrol -) 10 mg PO BIDAC [facility] Last Admin: 03/22/19 06:40 Dose: 10 mg Heparin Sodium (Porcine) (Heparin -) 5,000 unit SQ BID [facility] Last Admin: 03/22/19 10:49 Dose: 5,000 unit Ceftriaxone Sodium 2 gm/ (Dextrose) 100 mls @ 100 mls/hr IVPB DAILY [facility]; Protocol Last Admin: 03/22/19 10:50 Dose: 100 mls/hr Clindamycin Phosphate (Cleocin 900 Mg Premix Ivpb -) 900 mg in 50 mls @ 100 mls /hr IVPB Q8H-IV [facility]; Protocol Last Admin: 03/22/19 10:49 Dose: 100 mls/hr Insulin Aspart (Novolog Vial Sliding Scale -) 1 vial SQ TIDAC [facility]; Protocol Last Admin: 03/22/19 11:10 Dose: 10 units Insulin Aspart (Novolog Vial Sliding Scale -) 1 vial SQ HS [facility]; Protocol Last Admin: 03/21/19 21:03 Dose: 4 units Insulin Detemir (Levemir Vial) 12 units SQ BID@0700,2200 [facility] Last Admin: 03/22/19 06:40 Dose: 12 units Levothyroxine Sodium (Synthroid -) 50 mcg PO DAILY@0700 [facility] Last Admin: 03/22/19 06:40 Dose: 50 mcg Lisinopril (Prinivil) 20 mg PO DAILY [facility] Last Admin: 03/22/19 10:56 Dose: 20 mg Pantoprazole Sodium (Protonix -) 40 mg PO DAILY [facility] Last Admin: 03/22/19 10:50 Dose: 40 mg Potassium Chloride (K-Dur -) 40 meq PO DAILY [facility] Last Admin: 03/22/19 10:49 Dose: 40 meq Zinc Sulfate (Orazinc -) 220 mg PO DAILY [facility] Last Admin: 03/22/19 10:50 Dose: 220 mg - Objective Vital Signs: Vital Signs Temperature 97.6 F 03/22/19 05:00 Pulse Rate 94 H 03/22/19 05:00 Respiratory Rate 20 03/22/19 05:00 Blood Pressure 158/86 03/22/19 05:00 O2 Sat by Pulse Oximetry (%) 96 03/21/19 21:00 Constitutional: Yes: No Distress, Obese Cardiovascular: Yes: Regular Rate and Rhythm, S1, S2 Respiratory: Yes: CTA Bilaterally Gastrointestinal: Yes: Normal Bowel Sounds, Soft. No: Tenderness Extremities: Yes: Other (DECREASED R LE EDEMA. ERYTHEMA/ WARMTH RESOLVED. + PLANTAR ULCER) Labs: CBC, BMP 03/22/19 07:14 03/22/19 07:14 INR, PTT INR 1.22 (0.83-1.09) H 03/17/19 00:00 Assessment/Plan GRP A STREP BACTEREMIA/ SEPSIS SECONDARY TO SKIN SOURCE CELLULITIS R LE IMPROVED NON HEALING PLANTAR ULCER ZOSYN ALLERGY CONTINUE CEFTRIAXONE D/C CLINDAMYCIN PICC FOR OUTPATIENT ANTIBIOTIC THERAPY
--- NOTE | 2019-03-22 13:05 | PN ---
Progress Note (short form) - Note Progress Note: Blood sugar 200s No hypos Vital Signs Period Temp Pulse Resp BP Sys/Arthur Pulse Ox Last 24 Hr 97.6 F-98.5 F 89-94 16-20 110-158/59-86 96-98 PE: AOx3 Neck: Supple, No JVD HEENT: EOMI Lungs:CTA CVS: S1S2 Abd: Benign Ext: Rt foot dressing, Rt leg edema Neuro: No focal deficit CMP Sodium 137 mmol/L (136-145) 03/21/19 05:55 Potassium 3.4 mmol/L (3.5-5.1) L 03/21/19 05:55 Chloride 104 mmol/L (98-107) 03/21/19 05:55 Carbon Dioxide 25 mmol/L (21-32) 03/21/19 05:55 Anion Gap 9 MMOL/L (8-16) 03/21/19 05:55 BUN 13.9 mg/dL (7-18) 03/21/19 05:55 Creatinine 1.2 mg/dL (0.55-1.3) 03/21/19 05:55 Est GFR (CKD-EPI)AfAm 60.60 03/21/19 05:55 Est GFR (CKD-EPI)NonAf 52.28 03/21/19 05:55 POC Glucometer 276 UNITS (80-120) 03/22/19 11:05 Random Glucose 191 mg/dL (74-106) H 03/21/19 05:55 Hemoglobin A1c % 9.6 % (4.2-6.3) H 03/19/19 05:45 Lactic Acid 1.8 mmol/L (0.4-2.0) 03/18/19 06:15 Calcium 7.7 mg/dL (8.5-10.1) L 03/21/19 05:55 Iron Cancelled 03/22/19 07:14 Ferritin Cancelled 03/22/19 07:14 Total Bilirubin 0.3 mg/dL (0.2-1) 03/21/19 05:55 AST 30 U/L (15-37) 03/21/19 05:55 ALT 34 U/L (13-61) 03/21/19 05:55 Alkaline Phosphatase 82 U/L (45-117) 03/21/19 05:55 Creatine Kinase > 1000 U/L (26-192) H 03/19/19 05:45 Creatine Kinase Index No Result Required. 03/19/19 05:45 CK-MB (CK-2) < 1.0 ng/mL (0.5-3.6) 03/19/19 05:45 Troponin I 0.07 ng/ml (0.00-0.05) H 03/19/19 05:45 C-Reactive Protein 39.7 MG/DL (0.00-0.3) H 03/18/19 06:15 Total Protein 6.0 g/dl (6.4-8.2) L 03/21/19 05:55 Albumin 1.9 g/dl (3.4-5.0) L 03/21/19 05:55 TSH 2.47 uIU/ml (0.358-3.74) 03/19/19 05:45 Current Medications Generic Name Dose Route Start Last Admin Trade Name Freq PRN Reason Stop Dose Admin Acetaminophen 650 mg 03/21/19 14:54 Tylenol - PO Q6H PRN PAIN LEVEL 1-5 Ascorbic Acid 500 mg 03/21/19 22:00 03/22/19 10:50 Vitamin C - PO 500 mg BID SAMMI Administration Atorvastatin Calcium 10 mg 03/21/19 22:00 03/21/19 21:03 Lipitor - PO 10 mg HS SAMMI Administration Collagenase 1 applic 03/22/19 10:00 03/22/19 10:51 Santyl - TP 1 applic DAILY SAMMI Administration Protocol Furosemide 40 mg 03/22/19 10:00 03/22/19 10:50 Lasix - PO 40 mg DAILY SAMMI Administration Glipizide 10 mg 03/21/19 16:30 03/22/19 06:40 Glucotrol - PO 10 mg BIDAC SAMMI Administration Heparin Sodium (Porcine) 5,000 unit 03/21/19 22:00 03/22/19 10:49 Heparin - SQ 5,000 unit BID SAMMI Administration Ceftriaxone Sodium 2 gm/ 100 mls @ 100 mls/hr 03/22/19 10:00 03/22/19 10:50 Dextrose IVPB 100 mls/hr DAILY SAMMI Administration Protocol Clindamycin Phosphate 900 mg in 50 mls @ 100 mls/hr 03/21/19 18:00 03/22/19 10:49 Cleocin 900 Mg Premix Ivpb - IVPB 100 mls/hr Q8H-IV SAMMI Administration Protocol Insulin Aspart 1 vial 03/21/19 16:30 03/22/19 11:10 Novolog Vial Sliding Scale - SQ 10 units TIDAC SAMMI Administration Protocol Insulin Aspart 1 vial 03/21/19 22:00 03/21/19 21:03 Novolog Vial Sliding Scale - SQ 4 units HS SAMMI Administration Protocol Insulin Detemir 12 units 03/20/19 22:00 03/22/19 06:40 Levemir Vial SQ 12 units BID@0700,2200 SAMMI Administration Levothyroxine Sodium 50 mcg 03/22/19 07:00 03/22/19 06:40 Synthroid - PO 50 mcg DAILY@0700 SAMMI Administration Lisinopril 20 mg 03/22/19 10:00 03/22/19 10:56 Prinivil PO 20 mg DAILY SAMMI Administration Pantoprazole Sodium 40 mg 03/22/19 10:00 03/22/19 10:50 Protonix - PO 40 mg DAILY SAMMI Administration Potassium Chloride 40 meq 03/22/19 10:00 03/22/19 10:49 K-Dur - PO 40 meq DAILY SAMMI Administration Zinc Sulfate 220 mg 03/22/19 10:00 03/22/19 10:50 Orazinc - PO 220 mg DAILY SAMMI Administration AP: Rt foot infection/ulcer Rt leg cellulitis Sepsis Diarrhoea T2DM: Last A1c 9.0 in office, 9.6 now HLD: Hypothyroidism: LT4 50 mcg QD Retinopathy: s/p Laser RX left eye on 01/04/17, Injection to Rt eye on 12/10/16 HTN. Abx as per ID Local wound care Increase Levemir 15 units BID Increase Novolog SS coverage Glip 10 BID Nutrition consult Will f/u
--- NOTE | 2019-03-22 17:00 | PN ---
Progress Note (short form) - Note Progress Note: FUV right foot. vss +improved appearance of right leg, -drainage right foot, -mal odor, +macerated wound cellulitis improving Will follow. DC Santyl to wound on right foot. No tape on skin. Betadine dressing daily. IVABX as per ID.
[2019-03-22] MEDS ORDERED: INSULIN (NOVOLOG) ASPART 100 UNITS/ML 10ML VIAL ONE (20:51)
[2019-03-22] MEDS: ATORVASTATIN CA 10 MG TABLET (FP) PO SCH (22:26)
[2019-03-23] MEDS: CLINDAMYCIN 900 MG PREMIX IVPB 900 MG/50 ML BAG IVPB SCH ×2 (01:42→11:15)
[2019-03-23] MEDS ORDERED: glipiZIDE 5 MG TABLET (FP) ONE ×2 (06:46→16:34)
[2019-03-23] MEDS: LEVOTHYROXINE NA 50 MCG TABLET (FP) PO SCH (07:05)
[2019-03-23] MEDS: glipiZIDE 10 MG TABLET (FP) PO SCH ×2 (07:06→19:11)
[2019-03-23] MEDS: INSULIN (LEVEMIR) 100 UNITS/ML UNITS SQ SCH ×2 (07:07→22:02)
[2019-03-23] MEDS: INSULIN SLIDING SCALE (NOVOLOG) 1 VIAL SQ SCH ×4 (07:09→22:02)
[2019-03-23 07:28] LABS: BASO % 0.7 % (0-2.0); EOS % 2.1 % (0-4.5); HEMATOCRIT 23.9 % (32.4-45.2); HEMOGLOBIN 7.6 GM/dL (10.7-15.3); MCHC 31.9 g/dl (32.0-36.0); MEAN CELL VOLUME 71.9 fl (80-96); NEUT % 82.2 % (42.8-82.8); PLATELET COUNT 498 K/MM3 (134-434); RBC 3.32 M/mm3 (3.60-5.2); RDW 19.4 % (11.6-15.6); WHITE BLOOD COUNT 15.5 K/mm3 (4.0-10.0)
[2019-03-23 07:56] LABS: ALBUMIN 2.5 g/dl (3.4-5.0); BILIRUBIN,TOTAL 0.3 mg/dL (0.2-1); BLOOD UREA NITROGEN 14.6 mg/dL (7-18); CALCIUM 8.8 mg/dL (8.5-10.1); CREATININE 1.1 mg/dL (0.55-1.3); POTASSIUM 4.2 mmol/L (3.5-5.1); TOT PROT 7.6 g/dl (6.4-8.2)
--- NOTE | 2019-03-23 08:37 | PN ---
Progress Note (short form) - Note Progress Note: no complaints participating in PT CBC, BMP 03/23/19 07:00 03/23/19 07:00 Vital Signs Period Temp Pulse Resp BP Sys/Arthur Pulse Ox Last 24 Hr 97.6 F-99.1 F 84-94 18-20 119-1149/65-76 96-96 S1S2 RRR lungs cta abd soft non tender morbidly obese right leg erythema/ warmth better, foot is swollen, dressed aaox3 echo ok no DVT on RLE US Strep.Pyogenes bacteremia right leg cellulitis ? osteomyelitis of foot sepsis increased cardiac enzymes likely demand ischemia HTN IDDM morbid obesity anemia-likely, chr ds, iv fluids, abx related, better today, no need to transfuse iv abx sugar control consults appreciated leukocytosis increasing again-recheck blood culture dc planning with PICC awaiting id and podiatry input regarding discharge physical therapy
[2019-03-23] MEDS ORDERED: PT OWN MED DRAWER 7, Y5N ONE ×2 (09:00→19:49)
[2019-03-23 09:32] LABS: ANISOCYTOSIS 2+; MACROCYTOSIS 0; PLATELET ESTIMATE NORMAL; TARGET CELLS 2+
[2019-03-23] MEDS ORDERED: DEXTROSE 5%-WATER 100 ML IVPB ONE (10:07)
--- NOTE | 2019-03-23 10:38 | PN ---
Progress Note (short form) - Note Progress Note: Blood sugar 200s No hypos c/o Rt foot pain Vital Signs Period Temp Pulse Resp BP Sys/Arthur Pulse Ox Last 24 Hr 97.7 F-99.1 F 85-94 18-20 119-1149/65-73 96 PE: AOx3 Neck: Supple, No JVD HEENT: EOMI Lungs:CTA CVS: S1S2 Abd: Benign Ext: Rt foot dressing, Rt leg edema Neuro: No focal deficit CMP Sodium 137 mmol/L (136-145) 03/23/19 07:00 Potassium 4.2 mmol/L (3.5-5.1) 03/23/19 07:00 Chloride 102 mmol/L (98-107) 03/23/19 07:00 Carbon Dioxide 25 mmol/L (21-32) 03/23/19 07:00 Anion Gap 10 MMOL/L (8-16) 03/23/19 07:00 BUN 14.6 mg/dL (7-18) 03/23/19 07:00 Creatinine 1.1 mg/dL (0.55-1.3) 03/23/19 07:00 Est GFR (CKD-EPI)AfAm 67.32 03/23/19 07:00 Est GFR (CKD-EPI)NonAf 58.08 03/23/19 07:00 POC Glucometer 218 UNITS (80-120) 03/23/19 07:04 Random Glucose 220 mg/dL (74-106) H 03/23/19 07:00 Hemoglobin A1c % 9.6 % (4.2-6.3) H 03/19/19 05:45 Lactic Acid 1.8 mmol/L (0.4-2.0) 03/18/19 06:15 Calcium 8.8 mg/dL (8.5-10.1) 03/23/19 07:00 Iron Cancelled 03/22/19 07:14 Ferritin Cancelled 03/22/19 07:14 Total Bilirubin 0.3 mg/dL (0.2-1) 03/23/19 07:00 AST 23 U/L (15-37) 03/23/19 07:00 ALT 42 U/L (13-61) 03/23/19 07:00 Alkaline Phosphatase 103 U/L (45-117) 03/23/19 07:00 Creatine Kinase > 1000 U/L (26-192) H 03/19/19 05:45 Creatine Kinase Index No Result Required. 03/19/19 05:45 CK-MB (CK-2) < 1.0 ng/mL (0.5-3.6) 03/19/19 05:45 Troponin I 0.07 ng/ml (0.00-0.05) H 03/19/19 05:45 C-Reactive Protein 39.7 MG/DL (0.00-0.3) H 03/18/19 06:15 Total Protein 7.6 g/dl (6.4-8.2) 03/23/19 07:00 Albumin 2.5 g/dl (3.4-5.0) L 03/23/19 07:00 TSH 2.47 uIU/ml (0.358-3.74) 03/19/19 05:45 Current Medications Generic Name Dose Route Start Last Admin Trade Name Freq PRN Reason Stop Dose Admin Acetaminophen 650 mg 03/21/19 14:54 Tylenol - PO Q6H PRN PAIN LEVEL 1-5 Ascorbic Acid 500 mg 03/21/19 22:00 03/22/19 22:26 Vitamin C - PO 500 mg BID SAMMI Administration Atorvastatin Calcium 10 mg 03/21/19 22:00 03/22/19 22:26 Lipitor - PO 10 mg HS SAMMI Administration Collagenase 1 applic 03/22/19 10:00 03/22/19 10:51 Santyl - TP 1 applic DAILY SAMMI Administration Protocol Furosemide 40 mg 03/22/19 10:00 03/22/19 10:50 Lasix - PO 40 mg DAILY SAMMI Administration Glipizide 10 mg 03/21/19 16:30 03/23/19 07:06 Glucotrol - PO 10 mg BIDAC SAMMI Administration Heparin Sodium (Porcine) 5,000 unit 03/21/19 22:00 03/22/19 22:24 Heparin - SQ 5,000 unit BID SAMMI Administration Ceftriaxone Sodium 2 gm/ 100 mls @ 100 mls/hr 03/22/19 10:00 03/22/19 10:50 Dextrose IVPB 100 mls/hr DAILY SAMMI Administration Protocol Clindamycin Phosphate 900 mg in 50 mls @ 100 mls/hr 03/21/19 18:00 03/23/19 01:42 Cleocin 900 Mg Premix Ivpb - IVPB 100 mls/hr Q8H-IV SAMMI Administration Protocol Insulin Aspart 1 vial 03/21/19 22:00 03/22/19 22:35 Novolog Vial Sliding Scale - SQ 4 units HS SAMMI Administration Protocol Insulin Aspart 1 vial 03/22/19 16:30 03/23/19 07:09 Novolog Vial Sliding Scale - SQ 10 units TIDAC SAMMI Administration Protocol Insulin Detemir 15 units 03/22/19 22:00 03/23/19 07:07 Levemir Vial SQ 15 units BID@0700,2200 SAMMI Administration Levothyroxine Sodium 50 mcg 03/22/19 07:00 03/23/19 07:05 Synthroid - PO 50 mcg DAILY@0700 SAMMI Administration Lisinopril 20 mg 03/22/19 10:00 03/22/19 10:56 Prinivil PO 20 mg DAILY SAMMI Administration Pantoprazole Sodium 40 mg 03/22/19 10:00 03/22/19 10:50 Protonix - PO 40 mg DAILY SAMMI Administration Potassium Chloride 40 meq 03/22/19 10:00 03/22/19 10:49 K-Dur - PO 40 meq DAILY SAMMI Administration Zinc Sulfate 220 mg 03/22/19 10:00 03/22/19 10:50 Orazinc - PO 220 mg DAILY SAMMI Administration AP: Rt foot infection/ulcer Rt leg cellulitis Sepsis Diarrhoea T2DM: Last A1c 9.0 in office, 9.6 now HLD: Hypothyroidism: LT4 50 mcg QD Retinopathy: s/p Laser RX left eye on 01/04/17, Injection to Rt eye on 12/10/16 HTN. Abx as per ID Local wound care Increase Levemir 18 units BID Increase Novolog SS coverage Glip 10 BID Nutrition consult Will f/u
[2019-03-23] MEDS: PANTOPRAZOLE 40 MG TABLET (FP) PO SCH (11:15)
[2019-03-23] MEDS: ASCORBIC ACID 500 MG TABLET (FP) PO SCH ×2 (11:15→22:03)
[2019-03-23] MEDS: LISINOPRIL 20 MG TABLET (FP) PO SCH (11:15)
[2019-03-23] MEDS: ZINC SULFATE 220 MG CAPSULE (FP) PO SCH (11:15)
[2019-03-23] MEDS: HEPARIN NA (PORCINE) 5,000 UNITS/ML 1ML VIAL SQ SCH ×2 (11:15→22:02)
[2019-03-23] MEDS: POTASSIUM CHLORIDE TABS 20 MEQ TABLET.ER (FP) PO SCH (11:15)
[2019-03-23] MEDS: FUROSEMIDE 40 MG TABLET (FP) PO SCH (11:15)
[2019-03-23] MEDS: COLLAGENASE CLOSTRIDIUM HIST. 30 GRAMS TUBE TP SCH (14:36)
[2019-03-23] MEDS: CEFTRIAXONE 2 GM in DEXTROSE 5%-WATER 100 ML IVPB SCH (14:36)
[2019-03-23] MEDS ORDERED: INSULIN (NOVOLOG) ASPART 100 UNITS/ML 10ML VIAL ONE (19:12)
[2019-03-23] MEDS: ATORVASTATIN CA 10 MG TABLET (FP) PO SCH (22:03)
[2019-03-24] MEDS ORDERED: glipiZIDE 5 MG TABLET (FP) ONE ×2 (05:44→16:26)
[2019-03-24] MEDS: glipiZIDE 10 MG TABLET (FP) PO SCH ×2 (06:13→16:47)
[2019-03-24] MEDS: INSULIN SLIDING SCALE (NOVOLOG) 1 VIAL SQ SCH ×4 (06:14→21:38)
[2019-03-24] MEDS: INSULIN (LEVEMIR) 100 UNITS/ML UNITS SQ SCH ×2 (06:15→21:50)
[2019-03-24] MEDS: LEVOTHYROXINE NA 50 MCG TABLET (FP) PO SCH (06:15)
[2019-03-24] MEDS ORDERED: INSULIN (NOVOLOG) ASPART 100 UNITS/ML 10ML VIAL ONE (06:49)
[2019-03-24] MEDS ORDERED: PT OWN MED DRAWER 7, Y5N ONE (09:39)
[2019-03-24] MEDS ORDERED: DEXTROSE 5%-WATER 100 ML IVPB ONE (09:40)
[2019-03-24] MEDS: FUROSEMIDE 40 MG TABLET (FP) PO SCH (10:14)
[2019-03-24] MEDS: HEPARIN NA (PORCINE) 5,000 UNITS/ML 1ML VIAL SQ SCH ×2 (10:14→21:37)
[2019-03-24] MEDS: PANTOPRAZOLE 40 MG TABLET (FP) PO SCH (10:14)
[2019-03-24] MEDS: ZINC SULFATE 220 MG CAPSULE (FP) PO SCH (10:14)
[2019-03-24] MEDS: LISINOPRIL 20 MG TABLET (FP) PO SCH (10:14)
[2019-03-24] MEDS: ASCORBIC ACID 500 MG TABLET (FP) PO SCH ×2 (10:14→21:37)
[2019-03-24] MEDS: POTASSIUM CHLORIDE TABS 20 MEQ TABLET.ER (FP) PO SCH (10:14)
[2019-03-24] MEDS: CEFTRIAXONE 2 GM in DEXTROSE 5%-WATER 100 ML IVPB SCH (10:15)
[2019-03-24] MEDS: COLLAGENASE CLOSTRIDIUM HIST. 30 GRAMS TUBE TP SCH (10:15)
--- NOTE | 2019-03-24 10:20 | PN ---
Progress Note (short form) - Note Progress Note: Blood sugar 200s No hypos c/o Rt foot pain Vital Signs Period Temp Pulse Resp BP Sys/Arthur Pulse Ox Last 24 Hr 98.2 F-99 F 81-106 18-20 118-153/67-92 98 PE: AOx3 Neck: Supple, No JVD HEENT: EOMI Lungs:CTA CVS: S1S2 Abd: Benign Ext: Rt foot dressing, Rt leg edema Neuro: No focal deficit CMP Sodium 137 mmol/L (136-145) 03/23/19 07:00 Potassium 4.2 mmol/L (3.5-5.1) 03/23/19 07:00 Chloride 102 mmol/L (98-107) 03/23/19 07:00 Carbon Dioxide 25 mmol/L (21-32) 03/23/19 07:00 Anion Gap 10 MMOL/L (8-16) 03/23/19 07:00 BUN 14.6 mg/dL (7-18) 03/23/19 07:00 Creatinine 1.1 mg/dL (0.55-1.3) 03/23/19 07:00 Est GFR (CKD-EPI)AfAm 67.32 03/23/19 07:00 Est GFR (CKD-EPI)NonAf 58.08 03/23/19 07:00 POC Glucometer 243 UNITS (80-120) 03/24/19 06:10 Random Glucose 220 mg/dL (74-106) H 03/23/19 07:00 Hemoglobin A1c % 9.6 % (4.2-6.3) H 03/19/19 05:45 Lactic Acid 1.8 mmol/L (0.4-2.0) 03/18/19 06:15 Calcium 8.8 mg/dL (8.5-10.1) 03/23/19 07:00 Iron Cancelled 03/22/19 07:14 Ferritin Cancelled 03/22/19 07:14 Total Bilirubin 0.3 mg/dL (0.2-1) 03/23/19 07:00 AST 23 U/L (15-37) 03/23/19 07:00 ALT 42 U/L (13-61) 03/23/19 07:00 Alkaline Phosphatase 103 U/L (45-117) 03/23/19 07:00 Creatine Kinase > 1000 U/L (26-192) H 03/19/19 05:45 Creatine Kinase Index No Result Required. 03/19/19 05:45 CK-MB (CK-2) < 1.0 ng/mL (0.5-3.6) 03/19/19 05:45 Troponin I 0.07 ng/ml (0.00-0.05) H 03/19/19 05:45 C-Reactive Protein 39.7 MG/DL (0.00-0.3) H 03/18/19 06:15 Total Protein 7.6 g/dl (6.4-8.2) 03/23/19 07:00 Albumin 2.5 g/dl (3.4-5.0) L 03/23/19 07:00 TSH 2.47 uIU/ml (0.358-3.74) 03/19/19 05:45 Current Medications Generic Name Dose Route Start Last Admin Trade Name Freq PRN Reason Stop Dose Admin Acetaminophen 650 mg 03/21/19 14:54 Tylenol - PO Q6H PRN PAIN LEVEL 1-5 Ascorbic Acid 500 mg 03/21/19 22:00 03/24/19 10:14 Vitamin C - PO 500 mg BID SAMMI Administration Atorvastatin Calcium 10 mg 03/21/19 22:00 03/23/19 22:03 Lipitor - PO 10 mg HS SAMMI Administration Collagenase 1 applic 03/22/19 10:00 03/24/19 10:15 Santyl - TP Not Given DAILY SAMMI Protocol Furosemide 40 mg 03/22/19 10:00 03/24/19 10:14 Lasix - PO 40 mg DAILY SAMMI Administration Glipizide 10 mg 03/21/19 16:30 03/24/19 06:13 Glucotrol - PO 10 mg BIDAC SAMMI Administration Heparin Sodium (Porcine) 5,000 unit 03/21/19 22:00 03/24/19 10:14 Heparin - SQ 5,000 unit BID SAMMI Administration Ceftriaxone Sodium 2 gm/ 100 mls @ 100 mls/hr 03/22/19 10:00 03/24/19 10:15 Dextrose IVPB 100 mls/hr DAILY SAMMI Administration Protocol Insulin Aspart 1 vial 03/21/19 22:00 03/23/19 22:02 Novolog Vial Sliding Scale - SQ 6 units HS SAMMI Administration Protocol Insulin Aspart 1 vial 03/23/19 10:40 03/24/19 06:14 Novolog Vial Sliding Scale - SQ 12 units TIDAC SAMMI Administration Protocol Insulin Detemir 18 units 03/23/19 22:00 03/24/19 06:15 Levemir Vial SQ 18 units BID@0700,2200 SAMMI Administration Levothyroxine Sodium 50 mcg 03/22/19 07:00 03/24/19 06:15 Synthroid - PO 50 mcg DAILY@0700 SAMMI Administration Lisinopril 20 mg 03/22/19 10:00 03/24/19 10:14 Prinivil PO 20 mg DAILY SAMMI Administration Pantoprazole Sodium 40 mg 03/22/19 10:00 03/24/19 10:14 Protonix - PO 40 mg DAILY SAMMI Administration Potassium Chloride 40 meq 03/22/19 10:00 03/24/19 10:14 K-Dur - PO 40 meq DAILY SAMMI Administration Zinc Sulfate 220 mg 03/22/19 10:00 03/24/19 10:14 Orazinc - PO 220 mg DAILY SAMMI Administration AP: Rt foot infection/ulcer Rt leg cellulitis Sepsis Diarrhoea T2DM: Last A1c 9.0 in office, 9.6 now HLD: Hypothyroidism: LT4 50 mcg QD Retinopathy: s/p Laser RX left eye on 01/04/17, Injection to Rt eye on 12/10/16 HTN. Abx as per ID Local wound care Increase Levemir 22 units BID Increase Novolog SS coverage Glip 10 BID Nutrition consult Will f/u
--- NOTE | 2019-03-24 13:08 | PN ---
Progress Note (short form) - Note Progress Note: FUV right foot. vss +improved appearance of right leg, +warm, -drainage right foot, -mal odor, + granulating wound cellulitis improving Will follow. Betadine dressing daily. IVABX as per ID.
--- NOTE | 2019-03-24 13:32 | PN ---
Progress Note (short form) - Note Progress Note: no complaints participating in PT CBC, BMP 03/23/19 07:00 03/23/19 07:00 Vital Signs Period Temp Pulse Resp BP Sys/Arthur Pulse Ox Last 24 Hr 98.2 F-99 F 81-106 18-20 118-153/67-92 98 S1S2 RRR lungs cta abd soft non tender morbidly obese right leg erythema/ warmth better, foot is swollen, dressed aaox3 echo ok no DVT on RLE US Strep.Pyogenes bacteremia right leg cellulitis ? osteomyelitis of foot sepsis increased cardiac enzymes likely demand ischemia HTN IDDM morbid obesity anemia-likely, chr ds, iv fluids, abx related, better today, no need to transfuse iv abx sugar control consults appreciated dc planning with PICC in am awaiting id and podiatry input regarding discharge physical therapy
[2019-03-24] MEDS: ATORVASTATIN CA 10 MG TABLET (FP) PO SCH (21:38)
[2019-03-25] MEDS ORDERED: glipiZIDE 5 MG TABLET (FP) ONE (05:31)
[2019-03-25] MEDS: LEVOTHYROXINE NA 50 MCG TABLET (FP) PO SCH (06:04)
[2019-03-25] MEDS: glipiZIDE 10 MG TABLET (FP) PO SCH ×2 (06:04→17:36)
[2019-03-25] MEDS: INSULIN (LEVEMIR) 100 UNITS/ML UNITS SQ SCH (06:06)
[2019-03-25] MEDS: INSULIN SLIDING SCALE (NOVOLOG) 1 VIAL SQ SCH ×2 (06:13→12:49)
[2019-03-25 07:36] LABS: BASO % 0.6 % (0-2.0); EOS % 1.9 % (0-4.5); HEMATOCRIT 22.8 % (32.4-45.2); HEMOGLOBIN 7.6 GM/dL (10.7-15.3); LYMPH % 13.1 % (8-40); MCH 23.9 pg (25.7-33.7); MCHC 33.1 g/dl (32.0-36.0); MEAN CELL VOLUME 72.3 fl (80-96); MEAN PLT VOLUME 7.1 fl (7.5-11.1); MONO % 6.6 % (3.8-10.2); NEUT % 77.8 % (42.8-82.8); PLATELET COUNT 638 K/MM3 (134-434); RBC 3.16 M/mm3 (3.60-5.2); WHITE BLOOD COUNT 14.5 K/mm3 (4.0-10.0)
[2019-03-25 08:06] LABS: ALBUMIN 2.3 g/dl (3.4-5.0); BILIRUBIN,TOTAL 0.3 mg/dL (0.2-1); BLOOD UREA NITROGEN 14.7 mg/dL (7-18); CALCIUM 8.8 mg/dL (8.5-10.1); POTASSIUM 4.4 mmol/L (3.5-5.1); TOT PROT 7.1 g/dl (6.4-8.2)
[2019-03-25 08:58] LABS: ANISOCYTOSIS 2+; PLATELET ESTIMATE INCREASED
[2019-03-25] MEDS ORDERED: DEXTROSE 5%-WATER 100 ML IVPB ONE (09:20)
--- NOTE | 2019-03-25 09:25 | PN ---
Progress Note (short form) - Note Progress Note: no complaints CBC, BMP 03/25/19 06:40 03/25/19 06:40 Vital Signs Period Temp Pulse Resp BP Sys/Arthur Pulse Ox Last 24 Hr 98 F-98.4 F 88-102 18-20 120-163/64-89 96 repeat bcx are negative S1S2 RRR lungs cta abd soft non tender morbidly obese right leg erythema/ warmth better, foot is swollen, dressed aaox3 echo ok no DVT on RLE US Strep.Pyogenes bacteremia right leg cellulitis ? osteomyelitis of foot sepsis increased cardiac enzymes likely demand ischemia HTN IDDM morbid obesity anemia-likely, chr ds, iv fluids, abx related, better today, no need to transfuse iv abx sugar control consults appreciated dc planning with PICC for 4 more weeks of iv ceftriaxone? awaiting id and podiatry input regarding discharge physical therapy
[2019-03-25] MEDS: HEPARIN NA (PORCINE) 5,000 UNITS/ML 1ML VIAL SQ SCH (09:34)
[2019-03-25] MEDS: CEFTRIAXONE 2 GM in DEXTROSE 5%-WATER 100 ML IVPB SCH (09:35)
[2019-03-25] MEDS: FUROSEMIDE 40 MG TABLET (FP) PO SCH (09:35)
[2019-03-25] MEDS: LISINOPRIL 20 MG TABLET (FP) PO SCH (09:35)
[2019-03-25] MEDS: ASCORBIC ACID 500 MG TABLET (FP) PO SCH (09:35)
[2019-03-25] MEDS: PANTOPRAZOLE 40 MG TABLET (FP) PO SCH (09:35)
[2019-03-25] MEDS: POTASSIUM CHLORIDE TABS 20 MEQ TABLET.ER (FP) PO SCH (09:35)
[2019-03-25] MEDS: ZINC SULFATE 220 MG CAPSULE (FP) PO SCH (09:36)
[2019-03-25] MEDS: COLLAGENASE CLOSTRIDIUM HIST. 30 GRAMS TUBE TP SCH (09:55)
[2019-03-25 13:48] VITALS: BP 128/73; PULSE 92; TEMP 97.7
--- NOTE | 2019-03-25 14:42 | PN ---
Progress Note (short form) - Note Progress Note: Blood sugar 200s Feels better No hypos c/o Rt foot pain intermittent Vital Signs Period Temp Pulse Resp BP Sys/Arthur Pulse Ox Last 24 Hr 97.7 F-98.2 F 87-102 18-20 128-163/70-89 96-97 PE: AOx3 Neck: Supple, No JVD HEENT: EOMI Lungs:CTA CVS: S1S2 Abd: Benign Ext: Rt foot dressing, Rt leg edema Neuro: No focal deficit CMP Sodium 136 mmol/L (136-145) 03/25/19 06:40 Potassium 4.4 mmol/L (3.5-5.1) 03/25/19 06:40 Chloride 100 mmol/L (98-107) 03/25/19 06:40 Carbon Dioxide 28 mmol/L (21-32) 03/25/19 06:40 Anion Gap 8 MMOL/L (8-16) 03/25/19 06:40 BUN 14.7 mg/dL (7-18) 03/25/19 06:40 Creatinine 1.0 mg/dL (0.55-1.3) 03/25/19 06:40 Est GFR (CKD-EPI)AfAm 75.54 03/25/19 06:40 Est GFR (CKD-EPI)NonAf 65.18 03/25/19 06:40 POC Glucometer 205 UNITS (80-120) 03/25/19 12:46 Random Glucose 214 mg/dL (74-106) H 03/25/19 06:40 Hemoglobin A1c % 9.6 % (4.2-6.3) H 03/19/19 05:45 Lactic Acid 1.8 mmol/L (0.4-2.0) 03/18/19 06:15 Calcium 8.8 mg/dL (8.5-10.1) 03/25/19 06:40 Iron Cancelled 03/22/19 07:14 Ferritin Cancelled 03/22/19 07:14 Total Bilirubin 0.3 mg/dL (0.2-1) 03/25/19 06:40 AST 12 U/L (15-37) L 03/25/19 06:40 ALT 28 U/L (13-61) 03/25/19 06:40 Alkaline Phosphatase 94 U/L (45-117) 03/25/19 06:40 Creatine Kinase > 1000 U/L (26-192) H 03/19/19 05:45 Creatine Kinase Index No Result Required. 03/19/19 05:45 CK-MB (CK-2) < 1.0 ng/mL (0.5-3.6) 03/19/19 05:45 Troponin I 0.07 ng/ml (0.00-0.05) H 03/19/19 05:45 C-Reactive Protein 39.7 MG/DL (0.00-0.3) H 03/18/19 06:15 Total Protein 7.1 g/dl (6.4-8.2) 03/25/19 06:40 Albumin 2.3 g/dl (3.4-5.0) L 03/25/19 06:40 TSH 2.47 uIU/ml (0.358-3.74) 03/19/19 05:45 Current Medications Generic Name Dose Route Start Last Admin Trade Name Freq PRN Reason Stop Dose Admin Acetaminophen 650 mg 03/21/19 14:54 Tylenol - PO Q6H PRN PAIN LEVEL 1-5 Ascorbic Acid 500 mg 03/21/19 22:00 03/25/19 09:35 Vitamin C - PO 500 mg BID SAMMI Administration Atorvastatin Calcium 10 mg 03/21/19 22:00 03/24/19 21:38 Lipitor - PO 10 mg HS SAMMI Administration Collagenase 1 applic 03/22/19 10:00 03/25/19 09:55 Santyl - TP Not Given DAILY SAMMI Protocol Furosemide 40 mg 03/22/19 10:00 03/25/19 09:35 Lasix - PO 40 mg DAILY SAMMI Administration Glipizide 10 mg 03/21/19 16:30 03/25/19 06:04 Glucotrol - PO 10 mg BIDAC SAMMI Administration Heparin Sodium (Porcine) 5,000 unit 03/21/19 22:00 03/25/19 09:34 Heparin - SQ Not Given BID SAMMI Ceftriaxone Sodium 2 gm/ 100 mls @ 100 mls/hr 03/22/19 10:00 03/25/19 09:35 Dextrose IVPB 100 mls/hr DAILY SAMMI Administration Protocol Insulin Aspart 1 vial 03/21/19 22:00 03/24/19 21:38 Novolog Vial Sliding Scale - SQ 4 units HS SAMMI Administration Protocol Insulin Aspart 1 vial 03/25/19 14:40 Novolog Vial Sliding Scale - SQ TIDAC SAMMI Protocol Insulin Detemir 25 units 03/25/19 22:00 Levemir Vial SQ BID@0700,2200 SAMMI Levothyroxine Sodium 50 mcg 03/22/19 07:00 03/25/19 06:04 Synthroid - PO 50 mcg DAILY@0700 SAMMI Administration Lisinopril 20 mg 03/22/19 10:00 03/25/19 09:35 Prinivil PO 20 mg DAILY SAMMI Administration Pantoprazole Sodium 40 mg 03/22/19 10:00 03/25/19 09:35 Protonix - PO 40 mg DAILY SAMMI Administration Potassium Chloride 40 meq 03/22/19 10:00 03/25/19 09:35 K-Dur - PO 40 meq DAILY SAMMI Administration Zinc Sulfate 220 mg 03/22/19 10:00 03/25/19 09:36 Orazinc - PO 220 mg DAILY SAMMI Administration AP: Rt foot infection/ulcer Rt leg cellulitis Sepsis Diarrhoea T2DM: Last A1c 9.0 in office, 9.6 now HLD: Hypothyroidism: LT4 50 mcg QD Retinopathy: s/p Laser RX left eye on 01/04/17, Injection to Rt eye on 12/10/16 HTN. S/P PICC line insertion Abx as per ID Local wound care Increase Levemir 25 units BID Increase Novolog SS coverage Glip 10 BID Nutrition consult Will f/u
--- NOTE | 2019-03-25 15:10 | PN ---
Progress Note, Physician History of Present Illness: AWAKE, ALERT NO C/O LEG PAIN REPORTS FORMED STOOL BLOOD C/S GRP A STREP URINE C/S VRE C/W CONTAMINATION FOOT ULCER C/S POLYMICROBIAL LIKELY COLONIZATION AFEBRILE WBC SL ELEVATED - Current Medication List Current Medications: Active Medications Acetaminophen (Tylenol -) 650 mg PO Q6H PRN PRN Reason: PAIN LEVEL 1-5 Ascorbic Acid (Vitamin C -) 500 mg PO BID [facility] Last Admin: 03/25/19 09:35 Dose: 500 mg Atorvastatin Calcium (Lipitor -) 10 mg PO HS [facility] Last Admin: 03/24/19 21:38 Dose: 10 mg Collagenase (Santyl -) 1 applic TP DAILY [facility]; Protocol Last Admin: 03/25/19 09:55 Dose: Not Given Furosemide (Lasix -) 40 mg PO DAILY [facility] Last Admin: 03/25/19 09:35 Dose: 40 mg Glipizide (Glucotrol -) 10 mg PO BIDAC [facility] Last Admin: 03/25/19 06:04 Dose: 10 mg Heparin Sodium (Porcine) (Heparin -) 5,000 unit SQ BID [facility] Last Admin: 03/25/19 09:34 Dose: Not Given Ceftriaxone Sodium 2 gm/ (Dextrose) 100 mls @ 100 mls/hr IVPB DAILY [facility]; Protocol Last Admin: 03/25/19 09:35 Dose: 100 mls/hr Insulin Aspart (Novolog Vial Sliding Scale -) 1 vial SQ [facility]; Protocol Last Admin: 03/24/19 21:38 Dose: 4 units Insulin Aspart (Novolog Vial Sliding Scale -) 1 vial SQ TIDAC [facility]; Protocol Insulin Detemir (Levemir Vial) 25 units SQ BID@0700,2200 [facility] Levothyroxine Sodium (Synthroid -) 50 mcg PO DAILY@0700 [facility] Last Admin: 03/25/19 06:04 Dose: 50 mcg Lisinopril (Prinivil) 20 mg PO DAILY [facility] Last Admin: 03/25/19 09:35 Dose: 20 mg Pantoprazole Sodium (Protonix -) 40 mg PO DAILY [facility] Last Admin: 03/25/19 09:35 Dose: 40 mg Potassium Chloride (K-Dur -) 40 meq PO DAILY [facility] Last Admin: 03/25/19 09:35 Dose: 40 meq Zinc Sulfate (Orazinc -) 220 mg PO DAILY [facility] Last Admin: 03/25/19 09:36 Dose: 220 mg - Objective Vital Signs: Vital Signs Temperature 97.7 F 03/25/19 13:47 Pulse Rate 92 H 03/25/19 13:47 Respiratory Rate 20 03/25/19 13:47 Blood Pressure 128/73 03/25/19 13:47 O2 Sat by Pulse Oximetry (%) 97 03/25/19 09:00 Constitutional: Yes: No Distress, Obese Cardiovascular: Yes: Regular Rate and Rhythm, S1, S2 Respiratory: Yes: CTA Bilaterally Gastrointestinal: Yes: Normal Bowel Sounds, Soft, Abdomen, Obese. No: Tenderness Extremities: Yes: Other (+ R LE SWELLING/ WARMTH ERYTHEMA RESOLVED) Labs: CBC, BMP 03/25/19 06:40 03/25/19 06:40 INR, PTT INR 1.22 (0.83-1.09) H 03/17/19 00:00 Assessment/Plan GRP A STREP BACTEREMIA/ SEPSIS SECONDARY TO SKIN SOURCE CELLULITIS R LE IMPROVED NON HEALING PLANTAR ULCER ZOSYN ALLERGY CONTINUE CEFTRIAXONE 2GM QD PICC FOR OUTPATIENT ANTIBIOTIC THERAPY
--- NOTE | 2019-03-25 16:17 | DS ---
Physical Examination Vital Signs: Vital Signs Temperature 97.7 F 03/25/19 13:47 Pulse Rate 92 H 03/25/19 13:47 Respiratory Rate 20 03/25/19 13:47 Blood Pressure 128/73 03/25/19 13:47 O2 Sat by Pulse Oximetry (%) 97 03/25/19 09:00 Constitutional: Yes: No Distress, Obese Eyes: Yes: EOM Intact HENT: Yes: Normocephalic Neck: Yes: Trachea Midline Cardiovascular: Yes: Regular Rate and Rhythm Respiratory: Yes: CTA Bilaterally Gastrointestinal: Yes: Normal Bowel Sounds, Soft, Abdomen, Obese Musculoskeletal: Yes: WNL Edema: Yes Edema: RLE: 1+ Peripheral Pulses WNL: Yes Integumentary: Yes: Other (right foot plantar ulcer without discharge) Neurological: Yes: WNL ...Motor Strength: WNL Labs: CBC, BMP 03/25/19 06:40 03/25/19 06:40 Discharge Summary Problems reviewed: Yes Reason For Visit: CELLULITIS AND ABSCESS OF FOOT, SEPSIS Current Active Problems Anemia (Acute) Cellulitis (Acute) Elevated CK (Acute) Elevated troponin (Acute) HLD (hyperlipidemia) (Acute) Sepsis (Acute) Hospital Course: 49 yo lady with PMH of chronic plantar wound, h/o right foot osteomyelitis, Obesity, IDDM adnmitted for sepsis Strep.Pyogenes bacteremia right leg cellulitis increased cardiac enzymes likely demand ischemia HTN IDDM morbid obesity anemia-likely, chr ds cellulitis better on iv clindamycina and ceftriaxone, blood cultures cleared sugar control is better dc planning with PICC for 4 more weeks of iv ceftriaxoneneeds close follow up with wound care as oupt Condition: Stable - Instructions Diet, Activity, Other Instructions: follow up with wound care Betadine dressing daily to right foot wound avoid weight bearing on right foot follow up with within one week Referrals: Harvinder Bledsoe MD [Primary Care Provider] - Disposition: [facility]/HOME HEALTH CARE - Home Medications Comprehensive Discharge Medication List: Ambulatory Orders Furosemide 40 mg PO DAILY 04/03/16 Atorvastatin Ca [Lipitor] 10 mg PO HS 07/16/18 Lisinopril 20 mg PO DAILY 07/16/18 Pantoprazole Sodium [Protonix] 40 mg PO DAILY 07/16/18 Levothyroxine [Synthroid -] 50 mcg PO DAILY@0700 tablet 07/23/18 Ascorbic Acid [Vitamin C] 500 mg PO BID 01/06/19 Insulin Glargine,Hum.rec.anlog [Lantus] 16 unit SQ BID 01/06/19 Insulin Sliding Scale [Novolog Vial Sliding Scale -] 0 units SQ TIDAC 01/06/19 Metformin HCl [Glucophage] 1,000 mg PO BID 01/06/19 Zinc 50 mg PO DAILY 01/06/19 Ceftriaxone [Rocephin -] 2 gm IVPB DAILY vial 03/25/19 Glipizide [Glucotrol -] 10 mg PO BIDAC #60 tablet 03/25/19
[2019-03-25] MEDS ORDERED: INSULIN SLIDING SCALE (NOVOLOG) 1 VIAL SQ SCH (16:30)
--- NOTE | 2019-03-25 16:32 | PN ---
Progress Note (short form) - Note Progress Note: FUV right foot. Pt being dc today after PICC placement. vss +improved appearance of right leg, +warm, -drainage right foot, -mal odor, + granulating wound cellulitis improving Will follow in wcc. Betadine dressing daily. IVABX as per ID. Pt advised to maintain non weight bearing status.
[2019-03-25] MEDS ORDERED: INSULIN (LEVEMIR) 100 UNITS/ML UNITS SQ SCH (22:00)
== END 2019-03-25 17:26 | disposition home health service (06) | DRG 872 ==
LOC: JER 21:45 → JERBED 03-18 01:59 → J2W 03-18 15:33 → J7W 03-21 14:47
PROVIDERS: ADMIT Internal Medicine; ATTEND Internal Medicine
PROC: 02HV33Z Insertion of Infusion Device into Superior Vena Cava, Percutaneous Approach (ICD-10-PCS; principal; 2019-03-25)
PROC: B518ZZA Fluoroscopy of Superior Vena Cava, Guidance (ICD-10-PCS; 2019-03-25)
DX: A40.0 Sepsis due to streptococcus, group A (principal); L97.508 Non-pressure chronic ulcer of other part of unspecified foot with other specified severity; Z68.41 Body mass index [BMI] 40.0-44.9, adult; A52.16 Charcot's arthropathy (tabetic); L03.115 Cellulitis of right lower limb; M86.8X7 Other osteomyelitis, ankle and foot; I24.8 Other forms of acute ischemic heart disease; I10 Essential (primary) hypertension; E78.5 Hyperlipidemia, unspecified; J45.909 Unspecified asthma, uncomplicated; E03.9 Hypothyroidism, unspecified; E11.40 Type 2 diabetes mellitus with diabetic neuropathy, unspecified; E11.621 Type 2 diabetes mellitus with foot ulcer; E11.65 Type 2 diabetes mellitus with hyperglycemia; D63.8 Anemia in other chronic diseases classified elsewhere; E66.01 Morbid (severe) obesity due to excess calories; E11.319 Type 2 diabetes mellitus with unspecified diabetic retinopathy without macular edema; E11.69 Type 2 diabetes mellitus with other specified complication; R79.89 Other specified abnormal findings of blood chemistry; D72.829 Elevated white blood cell count, unspecified; Z79.4 Long term (current) use of insulin
CPT/HCPCS: 36415; 36569; 71045-TC-FY; 73630-TC-RT-FY; 76937; 77001-TC-FY; 80048; 80053; 81003; 82550; 82553; 82962; 83036; 83605; 84443; 84484; 85025; 85027; 85610; 85651; 85730; 86140; 86850; 86900; 86901; 87040; 87070; 87077; 87086; 87186; 87205; 87324; 87449; 93005; 93010; 93306-TC; 93971-TC; 97116-GP; 97161-GP; 99285-25; C1751; J1644; J7030

== ENCOUNTER 2019-10-04 17:24 | Inpatient (IN) | payer BC, OTHER ==
--- NOTE | 2019-10-04 17:38 | PDOC ---
Rapid Medical Evaluation Chief Complaint: SIRS, Suspected/Possible Time Seen by Provider: 10/04/19 17:36 Medical Evaluation: Allergies Allergy/AdvReac Type Severity Reaction Status Date / Time piperacillin sodium AdvReac "itchiness,rash Verified 10/04/19 17:28 [From Zosyn] on face" tazobactam sodium AdvReac "itchiness,rash Verified 10/04/19 17:28 [From Zosyn] on face" Vital Signs Temp Pulse Resp BP Pulse Ox 99.2 F 102 H 18 152/64 100 10/04/19 17:28 10/04/19 17:28 10/04/19 17:28 10/04/19 17:28 10/04/19 17:28 10/04/19 17:36 CC: sent here for worsening wound from hyperbarics . Pt currently on vanco. denies fever + chills Exam: low grade temp and tachy, foot wound wrapped Plan: septic w/u ordered Discharge Disposition - Diagnosis Foot ulcer, right - Referrals - Patient Instructions - Post Discharge Activity
--- NOTE | 2019-10-04 18:06 | PDOC ---
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 Also endorses 1mo dry cough. Pt takes vanc daily through R PICC line, had R foot wound vac placed few weeks ago. Denies n/v, chest pain, SOB, ABD pain, urinary/bowel mvmt changes. Past History - Medical History Allergies/Adverse Reactions: Allergies Allergy/AdvReac Type Severity Reaction Status Date / Time piperacillin sodium AdvReac "itchiness,rash Verified 10/04/19 17:28 [From Zosyn] on face" tazobactam sodium AdvReac "itchiness,rash Verified 10/04/19 17:28 [From Zosyn] on face" Home Medications: Ambulatory Orders Atorvastatin Ca [Lipitor] 10 mg PO HS 07/16/18 Metformin HCl [Glucophage] 1,000 mg PO BID 01/06/19 Albuterol Sulfate [Albuterol Sulfate Hfa] 18 gm IH DAILY PRN 09/16/19 Ferrous Sulfate 325 mg PO DAILY 09/16/19 Insulin Sliding Scale [Novolog Vial Sliding Scale -] 6 units SQ TIDAC 09/17/19 Insulin Glargine,Hum.rec.anlog [Lantus Solostar] 22 unit SQ BID #1 pack 09/22/19 Lisinopril [Prinivil] 10 mg PO DAILY #30 tablet 09/22/19 Nystatin Powder [Nystop Powder -] 1 applic TP BID applic 09/22/19 Vancomycin 1,250 mg IVPB Q12H vial 09/22/19 Anemia: No Asthma: Yes Cancer: No Cardiac Disorders: No CVA: No COPD: No CHF: No Dementia: No Diabetes: Yes GI Disorders: No Disorders: No HTN: Yes Hypercholesterolemia: Yes Liver Disease: No Seizures: No Thyroid Disease: Yes (HYPOTHYROIDISM) - Immunization History Immunization Up to Date: No - Psycho-Social/Smoking History Smoking History: Never smoked Have you smoked in the past 12 months: No - Substance Abuse Hx (Audit-C & DAST Scrn) How often the patient has a drink containing alcohol: Never Score: In Men: 4 or > Positive; In Women: 3 or > Positive: 0 Screen Result (Pos requires Nsg. Audit-10AR): Negative In the last yr the pt used illegal drug/Rx for NonMed reason: No Score: Yes response is considered Positive: 0 Screen Result (Positive result requires Nsg. DAST-10): Negative Review of Systems - Review of Systems Constitutional: No: Chills, Fever HEENTM: No: Eye Pain, Nose Pain Respiratory: Yes: Cough. No: Shortness of Breath Cardiac (ROS): No: Chest Pain, Palpitations ABD/GI: No: Abdominal Distended, Constipated, Diarrhea, Nausea, Vomiting : No: Burning, Dysuria Musculoskeletal: No: Back Pain, Joint Pain Integumentary: No: Bruising, Flushing Neurological: No: Headache, Seizure Psychiatric: No: Anxiety, Depression Endocrine: No: Intolerance to Cold, Intolerance to Heat Hematologic/Lymphatic: No: Anemia, Blood Clots *Physical Exam - Vital Signs Last Vital Signs Temp Pulse Resp BP Pulse Ox 99.2 F 102 H 18 152/64 100 10/04/19 17:28 10/04/19 17:28 10/04/19 17:28 10/04/19 17:28 10/04/19 17:28 - Physical Exam General Appearance: Yes: Nourished, Appropriately Dressed, Mild Distress, Obese HEENT: positive: EOMI, NELLIE, Normal Voice, Hearing Grossly Normal. negative: Scleral Icterus (R), Scleral Icterus (L) Respiratory/Chest: positive: Lungs Clear, Normal Breath Sounds. negative: Chest Tender, Respiratory Distress, Crackles, Rales, Rhonchi, Stridor, Wheezing Cardiovascular: positive: Regular Rhythm, S1, S2, Tachycardia. negative: Edema, Murmur Gastrointestinal/Abdominal: positive: Normal Bowel Sounds, Flat, Soft. negative: Tender, Organomegaly Extremity: positive: Pedal Edema (RLE 3+ edema, LLE 1+ edema and numbness plantar surface of foot), Other (R foot : wound vac in placed, numbness up to ankle, limited toe mvmt, DP pulse hard to palpate d/t gross edema, warm to touch) Integumentary: positive: Normal Color, Warm Neurologic: positive: Fully Oriented, Alert, Normal Response, Responsive ED Treatment Course - LABORATORY CBC & Chemistry Diagram: 10/04/19 18:00 10/04/19 18:00 Medical Decision Making - Medical Decision Making 10/04/19 18:48 EKG - sinus tachycardia, HR 109, Qtc 398, no ST changes CXR - no consolidation/effusion/infiltrates lactate 1.8 --- 49 y/o F with hx of obesity, HTN, T2-IDDM, HLD, hypothyroidism, diabetic neuropathy, asthma, 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 Low concern for ACS (neg trop) vs PNA (clear lungs) vs arterial occlusion (toes not discolored, warm). Afebrile (rectal 99) Given tylenol, 2g vanc, 2g cefepime, 1L NS Not given 3.7L/30mL/kg NS bc pt has BLE edema, not hypotensive Admit m/s hospitalist for sepsis, R foot wound - pending RLE duplex US r/o DVT Discharge - Discharge Information Problems reviewed: Yes Clinical Impression/Diagnosis: Foot ulcer, right Qualifiers: Non-pressure ulcer stage: unspecified non-pressure ulcer stage Qualified Code(s): L97.519 - Non-pressure chronic ulcer of other part of right foot with unspecified severity Condition: Stable - Follow up/Referral Referrals: Harvinder Bledsoe MD [Primary Care Provider] - - Patient Discharge Instructions - Post Discharge Activity
[2019-10-04 18:12] LABS: BASO % 1.1 % (0-2.0); EOS % 1.8 % (0-4.5); HEMATOCRIT 24.2 % (32.4-45.2); HEMOGLOBIN 7.5 GM/dL (10.7-15.3); LYMPH % 7.9 % (8-40); MCH 22.7 pg (25.7-33.7); MCHC 30.9 g/dl (32.0-36.0); MEAN CELL VOLUME 73.5 fl (80-96); MEAN PLT VOLUME 6.3 fl (7.5-11.1); NEUT % 84.2 % (42.8-82.8); PLATELET COUNT 484 K/MM3 (134-434); RBC 3.29 M/mm3 (3.60-5.2); RDW 20.7 % (11.6-15.6); VENOUS BASE EXCESS 2.6 mmol/L (-2-2); VENOUS O2 SATURATION 23.5 % (70-80); VENOUS PCO2 43.3 mmHg (38-52); VENOUS PH 7.419 (7.310-7.410); WHITE BLOOD COUNT 14.5 K/mm3 (4.0-10.0)
[2019-10-04 18:25] LABS: INR 1.18 (0.83-1.09); PROTHROMBIN TIME (PATIENT) 13.9 SEC (9.7-13.0)
[2019-10-04 18:28] LABS: ACTIVATED PTT 33.6 SECONDS (25.2-36.5)
[2019-10-04] MEDS ORDERED: VANCOMYCIN HCL 2,000 MG in DEXTROSE 5%-WATER - 500 ML IVPB ONE (18:37)
[2019-10-04] MEDS ORDERED: CEFEPIME HCL/D5W 2 GM/50 ML BAG IVPB ONE (18:37)
[2019-10-04 18:42] LABS: ALBUMIN 2.2 g/dl (3.4-5.0); BILIRUBIN,TOTAL 0.3 mg/dL (0.2-1); BLOOD UREA NITROGEN 9.4 mg/dL (7-18); CALCIUM 8.7 mg/dL (8.5-10.1); CREATININE 0.9 mg/dL (0.55-1.3); POTASSIUM 3.8 mmol/L (3.5-5.1); TOT PROT 7.6 g/dl (6.4-8.2)
[2019-10-04] MEDS ORDERED: ACETAMINOPHEN 1000 MG/100 ML VIAL (NON FORMULARY) IVPB ONE (18:47)
[2019-10-04] MEDS ORDERED: SODIUM CHLORIDE 0.9% 500 ML INFUS.BAG IV ONE (18:48)
[2019-10-04] MEDS ORDERED: VANCOMYCIN 1 GRAM (PRE-DOCKED) 2,000 MG/500 ML BAG IVPB ONE (18:49)
[2019-10-04] MEDS ORDERED: CEFEPIME 2 GM/100 ML BAG IVPB ONE (18:51)
[2019-10-04] MEDS: SODIUM CHLORIDE 3,729 ML IV ONE ×2 (19:04→19:05)
[2019-10-04 19:18] LABS: ANISOCYTOSIS 1+; PLATELET ESTIMATE SLT INCREASE
--- NOTE | 2019-10-04 19:22 | PDOC ---
Documentation entered by Jeana Ballesteros SCRIBE, acting as scribe for Yaa Gandara MD. Yaa Gandara MD: This documentation has been prepared by the lingibe, Jeana Sue SCRIBE, under my direction and personally reviewed by me in its entirety. I confirm that the documentation accurately reflects all work, treatment, procedures, and medical decision making performed by me. Attending Attestation - Resident Resident Name: Stephen Kumar - ED Attending Attestation I have performed the following: I have examined & evaluated the patient, The case was reviewed & discussed with the resident, I agree w/resident's findings & plan, Exceptions are as noted - HPI HPI: 10/04/19 18:43 The patient is a 49 year old female with a significant past medical history of obesity, HTN, T2-IDDM, HLD, hypothyroidism, diabetic neuropathy, asthma, right foot charcot disease c/b diabetic ulcer/abscess, chronic MRSA who presents to the emergency department for further evaluation of a worsening wound from hyperbarics. She denies recent fevers or chills. - Physicial Exam PE: 10/04/19 19:19 49 yo female was at hyperbarics and developed chills head ncat neck supple lungs cta b/l cvs [id number] abd protuberant, nontender skin warm and dry extremities right leg swollen > than left leg , there is a wound vac on the bottom of her right foot neuro [id number] 10/04/19 19:22 - Medical Decision Making 10/05/19 02:01 this 49 yo female is admitted for nonhealing rt foot wound Discharge - Discharge Information Problems reviewed: Yes Clinical Impression/Diagnosis: Foot ulcer, right Condition: Stable - Follow up/Referral - Patient Discharge Instructions - Post Discharge Activity
[2019-10-04] MEDS ORDERED: ACETAMINOPHEN INJECTION 100 ML IVPB ONE (20:22)
[2019-10-04] MEDS ORDERED: FAMOTIDINE 20 MG/50 ML IVPB 20 MG/50 ML MG IVPB ONE ×2 (20:24→21:37)
--- NOTE | 2019-10-04 20:42 | PN ---
Teaching Attending Note Name of Resident: Josr Ferreira ATTENDING PHYSICIAN STATEMENT I saw and evaluated the patient. I reviewed the resident's note and discussed the case with the resident. I agree with the resident's findings and plan as documented. SUBJECTIVE: Patient is a 49 year old woman with a PMH of Morbid obesity, Zosyn allergy, HTN, Insulin-treated DM, HLD, Hypothyroidism, Diabetic neuropathy, Asthma, Right foot charcot disease/diabetic ulcer/cellulitis/osteomyelitis, Right PICC line and Chronic MRSA infection presenting from Hyperbarics unit with bilateral hand tremors and worsening right foot wound swelling. Also has 1 month of nonproductive cough. Patient has been on Vancomycin daily through right PICC line and had right foot wound vac placed few weeks ago. Reportedly Vancomycin dose was recently increased from once to twice a day. Unclear if blood Vancomycin levels were done. Patient denies nausea, vomiting, chest pain, SOB, abdominal pain, dysuria, frequency or diarrhea. Denies alcohol, tobacco or illicit drug use. No recent travels. Family history is unremarkable. OBJECTIVE: Alert and obese Vital Signs Period Temp Pulse Resp BP Sys/Arthur Pulse Ox Last 24 Hr 99.2 F 102 18 152/64 100-100 HEENT: No Jaundice, eye redness or discharge, PERRLA, EOMI. Normocephalic, atraumatic. External ears are normal and hearing is grossly intact. No nasal discharge. Neck: Supple, nontender. No palpable adenopathy or thyromegaly. No JVD Chest: Good effort. Clear to auscultation and percussion. Heart: Regular. No S3, rub or murmur Abdomen: Not distended, soft, nontender and no HSM. No rebound or guarding. Normal bowel sounds. Ext: Peripheral pulses intact. Right leg edema. Wound vac attached to wound on plantar surface of right foot. Skin: Warm and dry. No petechiae, rash or ecchymosis. Neuro: Alert. Oriented x3. CN 2-12 grossly intact. Sensation grossly intact in all four extremities and DTR are symmetric. Psych: Appropriate mood and affect. Good insight. Current Medications Generic Name Dose Route Start Last Admin Trade Name Freq PRN Reason Stop Dose Admin Acetaminophen 650 mg 10/04/19 21:52 Tylenol - PO Q4H PRN PAIN Heparin Sodium (Porcine) 5 ml 10/04/19 21:52 Hep-Lock - IVPUSH PRN PRN PICC line patency Heparin Sodium (Porcine) 5,000 unit 10/04/19 22:00 Heparin - SQ BID [facility] Iron Sucrose 200 mg/ Sodium 100 mls @ 100 mls/hr 10/04/19 22:00 Chloride IVPB 10/04/19 22:59 ONCE ONE Insulin Aspart 0 vial 10/04/19 22:00 Novolog Vial Sliding Scale - SQ ACHS [facility] Protocol Home Medications Medication Instructions Recorded Atorvastatin Ca [Lipitor] 10 mg PO HS 07/16/18 Metformin HCl [Glucophage] 1,000 mg PO BID 01/06/19 Albuterol Sulfate [Albuterol 18 gm IH DAILY PRN 09/16/19 Sulfate Hfa] Ferrous Sulfate 325 mg PO DAILY 09/16/19 Insulin Sliding Scale [Novolog 6 units SQ TIDAC 09/17/19 Vial Sliding Scale -] Insulin Glargine,Hum.rec.anlog 22 unit SQ BID #1 pack 09/22/19 [Lantus Solostar] Lisinopril [Prinivil] 10 mg PO DAILY #30 tablet 09/22/19 Nystatin Powder [Nystop Powder -] 1 applic TP BID applic 09/22/19 Vancomycin 1,250 mg IVPB Q12H vial 09/22/19 Abnormal Lab Results 10/04/19 10/04/19 10/04/19 18:00 18:00 18:00 WBC 14.5 H RBC 3.29 L Hgb 7.5 L Hct 24.2 L MCV 73.5 L MCH 22.7 L MCHC 30.9 L RDW 20.7 H Plt Count 484 H D MPV 6.3 L Absolute Neuts (auto) 12.2 H Neutrophils % 84.2 H Lymphocytes % 7.9 L D PT with INR 13.90 H INR 1.18 H VBG pH VBG O2 Sat (Fran) VBG Base Excess Sodium 135 L Random Glucose 228 H AST 11 L ALT 12 L Albumin 2.2 L 10/04/19 18:00 WBC RBC Hgb Hct MCV MCH MCHC RDW Plt Count MPV Absolute Neuts (auto) Neutrophils % Lymphocytes % PT with INR INR VBG pH 7.419 H VBG O2 Sat (Fran) 23.5 L VBG Base Excess 2.6 H Sodium Random Glucose AST ALT Albumin ASSESSMENT AND PLAN: 1. Sepsis due to infected diabetic foot wound/Rule out osteomyelitis - Persistent "infection" despite outpatient Vancomycin therapy may be due to subtherapeutic Vancomycin level, coinfection with another organism not sensitive to Vancomycin and/or infected bone that may need debridement. Will get Wound culture, MRI to rule out osteomyelitis, treat with IV Vancomycin and Cefepime, monitor Vancomycin levels, consult ID and Podiatry. Sepsis workup being done. Vascular study didnot show DVT. CXR shows cardiomegaly and right PICC line without evidence of acute lung disease. Viral testing for COVID-19 ordered and patient placed on airborne, droplet and contact isolation. EKG pending. Will continue comprehensive care for all of patients comorbid conditions. 2. Hypoalbuminemia - Possibly due to combined effects of malnutrition and inflammation associated with comorbid conditions. Will ensure adequate dietary protein intake and also consult business center attendant. Urinalysis pending. 3. DM For now, we will hold the home diabetes drugs and implement sliding scale insulin regimen. Provide comprehensive diabetes care with patient teaching and counseling about the importance of adherence to prescribed diabetes regimen, euglycemia, eye care and foot care. 4. Low MCV Anemia - Likely multifactorial including iron deficiency. Transferrin saturtion was 10% on 09/16/2019. Needs GI consult for colonoscopy. Once bacteremia is excluded, will treat with IV Venofer and then Procrit therapy once iron replete. 5. Morbid obesity Counseled on the risks associated with morbid obesity. Will provide patient all the necessary assistance, counseling and positive reinforcement to facilitate weight loss. Consult business center attendant. 6. Hypertension Will restart suitable outpatient antihypertensive drugs when clinically appropriate. Subsequently, will revise regimen to ensure [id number] excellent BP control. Patient counseled on the injurious effects of uncontrolled hypertension. Nonpharmacologic measures to control hypertension like weight loss, salt restriction and exercise stressed. Importance of adherence to treatment regimen and attainment of normotension emphasized. 7. DVT prophylaxis - Lovenox 40 mg SQ q 12 hours. 8. Advance directives - Full code
[2019-10-04] MEDS ORDERED: IRON SUCROSE INJECTION 200 MG in SODIUM CHLORIDE 90 ML IVPB ONE (22:00)
[2019-10-04 22:10] LABS: PH,URINE 7.5 (5.0-8.0); URINE APPEARANCE CLEAR; URINE BILIRUBIN NEGATIVE (NEGATIVE); URINE COLOR YELLOW; URINE GLUCOSE (UA) TRACE (NEGATIVE); URINE KETONE NEGATIVE (NEGATIVE); URINE LEUK ESTERASE NEGATIVE (NEGATIVE); URINE NITRITE NEGATIVE (NEGATIVE); URINE PROTEIN NEGATIVE (NEGATIVE)
[2019-10-04] MEDS ORDERED: HEPARIN NA (PORCINE) 5,000 UNITS/ML 1ML VIAL ONE (22:39)
[2019-10-04] MEDS: HEPARIN NA (PORCINE) 5,000 UNITS/ML 1ML VIAL SQ SCH (22:43)
--- NOTE | 2019-10-04 22:43 | HP ---
CHIEF COMPLAINT: foot infection PCP: Dr. 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 She says she was recently discharged on Vancomycin via picc line and a Right ft wound vac on the and noticed that her R foot was not improving. She says her foot is more painful and swollen. When she went to wound care today she felt chills and was told to get evaluated in the ER. She denies fevers, nausea, vomiting, sob, chest pain, diarrhea, urinary symptoms. She said she's had a lingering cough for 1 month without sputum production. In the ER she had a low grade 99.2 temp. HR 102. She was given Vanc and Cefepime and 1 Liter IV fluids. Recent Travel: none PAST MEDICAL HISTORY: per HPI Social History: Smoking: denies Alcohol: denies Drugs: denies Allergies piperacillin sodium [From Zosyn] Adverse Reaction (Verified 10/04/19 17:28) "itchiness,rash on face" tazobactam sodium [From Zosyn] Adverse Reaction (Verified 10/04/19 17:28) "itchiness,rash on face" HOME MEDICATIONS: Home Medications Medication Instructions Recorded Atorvastatin Ca [Lipitor] 10 mg PO HS 07/16/18 Metformin HCl [Glucophage] 1,000 mg PO BID 01/06/19 Albuterol Sulfate [Albuterol 18 gm IH DAILY PRN 09/16/19 Sulfate Hfa] Ferrous Sulfate 325 mg PO DAILY 09/16/19 Insulin Sliding Scale [Novolog 6 units SQ TIDAC 09/17/19 Vial Sliding Scale -] Insulin Glargine,Hum.rec.anlog 22 unit SQ BID #1 pack 09/22/19 [Lantus Solostar] Lisinopril [Prinivil] 10 mg PO DAILY #30 tablet 09/22/19 Nystatin Powder [Nystop Powder -] 1 applic TP BID applic 09/22/19 Vancomycin 1,250 mg IVPB Q12H vial 09/22/19 REVIEW OF SYSTEMS CONSTITUTIONAL: chills Absent: fever, diaphoresis, generalized weakness, malaise, loss of appetite, weight change HEENT: Absent: rhinorrhea, nasal congestion, throat pain, throat swelling, difficulty swallowing, mouth swelling, ear pain, eye pain, visual changes CARDIOVASCULAR: Absent: chest pain, syncope, palpitations, irregular heart rate, lightheadedness, peripheral edema RESPIRATORY: cough Absent: shortness of breath, dyspnea with exertion, orthopnea, wheezing, stridor, hemoptysis GASTROINTESTINAL: Absent: abdominal pain, abdominal distension, nausea, vomiting, diarrhea, constipation, melena, hematochezia GENITOURINARY: Absent: dysuria, frequency, urgency, hesitancy, hematuria, flank pain, genital pain SKIN: Absent: rash, itching, pallor PHYSICAL EXAMINATION Vital Signs - 24 hr 10/04/19 10/04/19 17:28 18:20 Temperature 99.2 F Pulse Rate 102 H Respiratory 18 Rate Blood Pressure 152/64 O2 Sat by Pulse 100 100 Oximetry (%) GENERAL: a/o x 3, in NAD HEAD: Normal with no signs of trauma. EYES: Pupils equal, round and reactive to light, extraocular movements intact EARS, NOSE, THROAT: oropharynx clear without exudates. Moist mucous membranes. NECK: supple without lymphadenopathy, JVD, or masses. LUNGS: Lungs cta b/l HEART: RRR, no MGR ABDOMEN: Obese, Soft, nontender, not distended, normoactive bowel sounds Upper Ext: +Picc line RLE clean LOWER EXTREMITIES: 2+ pulses, R foot warm up to the shins, +edema, +wound vac. NEUROLOGICAL: Cranial nerves II-XII intact. Laboratory Results - last 24 hr 10/04/19 10/04/19 10/04/19 18:00 18:00 18:00 WBC 14.5 H RBC 3.29 L Hgb 7.5 L Hct 24.2 L MCV 73.5 L MCH 22.7 L MCHC 30.9 L RDW 20.7 H Plt Count 484 H D MPV 6.3 L Absolute Neuts (auto) 12.2 H Neutrophils % 84.2 H Lymphocytes % 7.9 L D Monocytes % 5.0 Eosinophils % 1.8 Basophils % 1.1 Nucleated RBC % 0 Hypochromia 1+ Platelet Estimate Slt increase Anisocytosis 1+ PT with INR 13.90 H INR 1.18 H PTT (Actin FS) 33.6 VBG pH POC VBG pCO2 POC VBG pO2 VBG HCO3 VBG O2 Sat (Fran) VBG Base Excess Sodium Potassium Chloride Carbon Dioxide Anion Gap BUN Creatinine Est GFR (CKD-EPI)AfAm Est GFR (CKD-EPI)NonAf Random Glucose Lactic Acid Calcium Total Bilirubin AST ALT Alkaline Phosphatase Troponin I < 0.02 Total Protein Albumin Urine Color Urine Appearance Urine pH Ur Specific Calion Urine Protein Urine Glucose (UA) Urine Ketones Urine Blood Urine Nitrite Urine Bilirubin Urine Urobilinogen Ur Leukocyte Esterase Blood Type Antibody Screen 10/04/19 10/04/19 10/04/19 18:00 18:00 18:00 WBC RBC Hgb Hct MCV MCH MCHC RDW Plt Count MPV Absolute Neuts (auto) Neutrophils % Lymphocytes % Monocytes % Eosinophils % Basophils % Nucleated RBC % Hypochromia Platelet Estimate Anisocytosis PT with INR INR PTT (Actin FS) VBG pH POC VBG pCO2 POC VBG pO2 VBG HCO3 VBG O2 Sat (Fran) VBG Base Excess Sodium 135 L Potassium 3.8 Chloride 100 Carbon Dioxide 28 Anion Gap 8 BUN 9.4 Creatinine 0.9 Est GFR (CKD-EPI)AfAm 85.80 Est GFR (CKD-EPI)NonAf 74.03 Random Glucose 228 H Lactic Acid 1.8 Calcium 8.7 Total Bilirubin 0.3 AST 11 L ALT 12 L Alkaline Phosphatase 104 Troponin I Total Protein 7.6 Albumin 2.2 L Urine Color Urine Appearance Urine pH Ur Specific Calion Urine Protein Urine Glucose (UA) Urine Ketones Urine Blood Urine Nitrite Urine Bilirubin Urine Urobilinogen Ur Leukocyte Esterase Blood Type B POSITIVE Antibody Screen Negative 10/04/19 10/04/19 18:00 21:45 WBC RBC Hgb Hct MCV MCH MCHC RDW Plt Count MPV Absolute Neuts (auto) Neutrophils % Lymphocytes % Monocytes % Eosinophils % Basophils % Nucleated RBC % Hypochromia Platelet Estimate Anisocytosis PT with INR INR PTT (Actin FS) VBG pH 7.419 H POC VBG pCO2 43.3 POC VBG pO2 < 46.9 VBG HCO3 27.4 VBG O2 Sat (Fran) 23.5 L VBG Base Excess 2.6 H Sodium Potassium Chloride Carbon Dioxide Anion Gap BUN Creatinine Est GFR (CKD-EPI)AfAm Est GFR (CKD-EPI)NonAf Random Glucose Lactic Acid Calcium Total Bilirubin AST ALT Alkaline Phosphatase Troponin I Total Protein Albumin Urine Color Yellow Urine Appearance Clear Urine pH 7.5 D Ur Specific Calion 1.010 Urine Protein Negative Urine Glucose (UA) Trace Urine Ketones Negative Urine Blood Negative Urine Nitrite Negative Urine Bilirubin Negative Urine Urobilinogen 1.0 Ur Leukocyte Esterase Negative Blood Type Antibody Screen ASSESSMENT/PLAN: 49 y/o F with hx of obesity, HTN, T2-IDDM, HLD, hypothyroidism, diabetic neuropathy, asthma, 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 #R Ft Osteomyelitis -due to subtherapeutic Vancomycin level, coinfection with another organism not sensitive to Vancomycin and/or infected bone that may need debridement. -Cont. IV abx. has been on taking vancomycin since last admission -also 1x cefepime given in ED. -wound culture -fu Bcx,ucx -WBC 14.5 -ID consult: Dr. Soto -Podiatry consult: Dr. Olvera -wound care, with wound vac -contact precautions #Anemia -hx of heavy menses. pcp aware -1x venofer -monitor cbc #DM -hold home meds -BGMs -SSI #Hypothyroidism -cont home meds #HTn -cont home meds #dvt ppx -hep sq #FEN -no iv fluids -monitor -diabetic diet Visit type - Emergency Visit Emergency Visit: Yes ED Registration Date: 10/04/19 Care time: The patient presented to the Emergency Department on the above date and was hospitalized for further evaluation of their emergent condition. - New Patient This patient is new to me today: Yes Date on this admission: 10/05/19 - Critical Care Critical Care patient: No ATTENDING PHYSICIAN STATEMENT I saw and evaluated the patient. I reviewed the resident's note and discussed the case with the resident. I agree with the resident's findings and plan as documented. SUBJECTIVE: OBJECTIVE: ASSESSMENT AND PLAN:
[2019-10-04] MEDS: INSULIN SLIDING SCALE (NOVOLOG) 1 VIAL SQ SCH (22:44)
[2019-10-05] MEDS: INSULIN SLIDING SCALE (NOVOLOG) 1 VIAL SQ SCH ×4 (07:09→21:52)
--- NOTE | 2019-10-05 07:14 | CONSULT ---
Consult Consult Specialty:: Podiatry Reason for Consultation:: Chronic wound right foot - Past Medical History Cardio/Vascular: Yes: HTN, Hyperlipdemia Pulmonary: Yes: Asthma ...LMP: 01/26/19 ...LMP Comment: august 2019 ...: No Infectious Disease: Yes: Other (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, chronic MRSA with osteomyelitis) Musculoskeletal: Yes: Other Rheumatology: Yes: Other (right foot charcot disease) Endocrine: Yes: Diabetes Mellitus (uncontrolled), Hypothyroidism, Other (Obesity, DM neuropathy) Dermatology: Yes: Cellulitis - Past Surgical History Past Surgical History: Yes: None - Alcohol/Substance Use Hx Alcohol Use: No History of Substance Use: reports: None - Smoking History Smoking history: Never smoked Have you smoked in the past 12 months: No - Social History Usual Living Arrangement: With Spouse ADL: Independent 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 History of Recent Travel: No Home Medications - Allergies Allergies/Adverse Reactions: Allergies Allergy/AdvReac Type Severity Reaction Status Date / Time piperacillin sodium AdvReac "itchiness,rash Verified 10/04/19 17:28 [From Zosyn] on face" tazobactam sodium AdvReac "itchiness,rash Verified 10/04/19 17:28 [From Zosyn] on face" - Home Medications Home Medications: Ambulatory Orders Atorvastatin Ca [Lipitor] 10 mg PO HS 07/16/18 Metformin HCl [Glucophage] 1,000 mg PO BID 01/06/19 Albuterol Sulfate [Albuterol Sulfate Hfa] 18 gm IH DAILY PRN 09/16/19 Ferrous Sulfate 325 mg PO DAILY 09/16/19 Insulin Sliding Scale [Novolog Vial Sliding Scale -] 6 units SQ TIDAC 09/17/19 Insulin Glargine,Hum.rec.anlog [Lantus Solostar] 22 unit SQ BID #1 pack 09/22/19 Lisinopril [Prinivil] 10 mg PO DAILY #30 tablet 09/22/19 Nystatin Powder [Nystop Powder -] 1 applic TP BID applic 09/22/19 Vancomycin 1,250 mg IVPB Q12H vial 09/22/19 Physical Exam Vital Signs: Vital Signs Temperature 98.4 F 10/05/19 06:00 Pulse Rate 85 10/05/19 06:00 Respiratory Rate 20 10/05/19 06:00 Blood Pressure 144/71 10/05/19 06:00 O2 Sat by Pulse Oximetry (%) 95 10/05/19 01:55 Wound/Incision: Yes: Other (+grade 3 wound right plantar foot, +macerated periphery, -drainage noted, -mal odor,) Labs: CBC, BMP 10/04/19 18:00 10/04/19 18:00 Assessment/Plan om chronic grade 3 wound right Betadine dressing to peripheral wound to alleviate maceration. Apply wound vac in PM once all supplies are available. Will follow. Read and appreciated vascular study. Vascular and on Id on case. Non weight bearing right foot can use knee roller to go to bathroom.
[2019-10-05 08:21] LABS: BASO % 0.6 % (0-2.0); EOS % 3.9 % (0-4.5); HEMATOCRIT 19.9 % (32.4-45.2); LYMPH % 14.1 % (8-40); MCH 23.3 pg (25.7-33.7); MCHC 31.8 g/dl (32.0-36.0); MEAN CELL VOLUME 73.4 fl (80-96); MEAN PLT VOLUME 6.3 fl (7.5-11.1); MONO % 7.4 % (3.8-10.2); PLATELET COUNT 426 K/MM3 (134-434); RBC 2.72 M/mm3 (3.60-5.2); RDW 20.5 % (11.6-15.6); WHITE BLOOD COUNT 9.2 K/mm3 (4.0-10.0)
[2019-10-05 08:28] LABS: HEMOGLOBIN 6.3 GM/dL (10.7-15.3)
[2019-10-05 09:03] LABS: ALBUMIN 1.8 g/dl (3.4-5.0); BILIRUBIN,TOTAL 0.3 mg/dL (0.2-1); BLOOD UREA NITROGEN 7.8 mg/dL (7-18); CREATININE 0.8 mg/dL (0.55-1.3); MAGNESIUM 1.8 mg/dL (1.8-2.4); POTASSIUM 3.3 mmol/L (3.5-5.1); TOT PROT 6.3 g/dl (6.4-8.2)
[2019-10-05] MEDS: HEPARIN NA (PORCINE) 5,000 UNITS/ML 1ML VIAL SQ SCH ×2 (09:40→21:45)
[2019-10-05] MEDS: LISINOPRIL 10 MG TABLET (FP) PO SCH (09:41)
[2019-10-05] MEDS ORDERED: FLU VACC QS2019-20(6MOS UP)/PF 60 MCG/0.5 ML SYRINGE IM ONE (10:00)
[2019-10-05] MEDS ORDERED: FLU VACCINE QUAD 60 MCG/0.5 ML (MDV 19-20) IM ONE (10:00)
--- NOTE | 2019-10-05 11:31 | EKG ---
Test Reason : Blood Pressure : / mmHG Vent. Rate : 109 BPM Atrial Rate : 109 BPM P-R Int : 150 ms QRS Dur : 094 ms QT Int : 296 ms P-R-T Axes : 053 029 037 degrees QTc Int : 398 ms SINUS TACHYCARDIA NONSPECIFIC T WAVE ABNORMALITY ABNORMAL ECG WHEN COMPARED WITH ECG OF 16-SEP-2019 19:36, ST NO LONGER ELEVATED IN LATERAL LEADS NONSPECIFIC T WAVE ABNORMALITY, WORSE IN INFERIOR LEADS NONSPECIFIC T WAVE ABNORMALITY NOW EVIDENT IN LATERAL LEADS Confirmed by MD Amelie, Dequan ([id number]) on 10/05/2019 11:31:31 AM Referred By: Confirmed By:Dequan Kinsey MD
[2019-10-05] MEDS ORDERED: INSULIN (NOVOLOG) ASPART 100 UNITS/ML 10ML VIAL ONE ×2 (12:09→16:27)
[2019-10-05] MEDS: FUROSEMIDE 40 MG/4 ML INJECTABLE VIAL IVPUSH SCH (15:21)
--- NOTE | 2019-10-05 19:20 | PN ---
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 #R Ft Osteomyelitis -Cont. IV abx. has been on taking vancomycin since last admission -also 1x cefepime -wound culture -fu Bcx,ucx -WBC 14.5 -ID consult: Dr. Soto -Podiatry consult: Dr. Olvera -wound care, with wound vac -contact precautions #Anemia -hx of heavy menses. pcp aware -1x venofer -will give 2 units of blood today and pelvic sono r/o cause of heavy bleeding. #DM -hold home meds -BGMs -SSI #Hypothyroidism -cont home meds #HTn -cont home meds #dvt ppx -hep sq #FEN -no iv fluids -monitor -diabetic diet
[2019-10-05] MEDS: ATORVASTATIN CA 10 MG TABLET (FP) PO SCH (21:45)
[2019-10-05] MEDS ORDERED: CEFEPIME HCL/D5W 2 GM/50 ML BAG IVPB SCH (22:00)
--- NOTE | 2019-10-05 23:40 | PN ---
Progress Note, Physician History of Present Illness: AWAKE, ALERT IN BED C/O LE PAIN NO C/O F/C - Current Medication List Current Medications: Active Medications Acetaminophen (Tylenol -) 650 mg PO Q4H PRN PRN Reason: PAIN Albuterol Sulfate (Ventolin Hfa Inhaler -) 1 puff IH Q6H PRN PRN Reason: SHORTNESS OF BREATH Atorvastatin Calcium (Lipitor -) 10 mg PO HS [facility] Last Admin: 10/05/19 21:45 Dose: 10 mg Documented by: Furosemide (Lasix Injection -) 40 mg IVPUSH BID@0600,1400 [facility] Last Admin: 10/05/19 15:21 Dose: 40 mg Documented by: Heparin Sodium (Porcine) (Hep-Lock -) 5 ml IVPUSH PRN PRN PRN Reason: PICC line patency Heparin Sodium (Porcine) (Heparin -) 5,000 unit SQ BID [facility] Last Admin: 10/05/19 21:45 Dose: 5,000 unit Documented by: Cefepime HCl (Maxipime 2gm Ivpb (Premix)) 2 gm in 50 mls @ 100 mls/hr IVPB BID [facility]; Protocol Cefepime HCl 2 gm/ Dextrose 100 mls @ 200 mls/hr IVPB Q12H [facility]; Protocol Stop: 10/06/19 19:29 Insulin Aspart (Novolog Vial Sliding Scale -) 0 vial SQ ACHS [facility]; Protocol Last Admin: 10/05/19 21:52 Dose: 8 units Documented by: Lisinopril (Prinivil) 10 mg PO DAILY [facility] Last Admin: 10/05/19 09:41 Dose: 10 mg Documented by: - Objective Vital Signs: Vital Signs Temperature 98.5 F 10/05/19 20:00 Pulse Rate 89 10/05/19 20:00 Respiratory Rate 18 10/05/19 20:00 Blood Pressure 131/70 10/05/19 20:00 O2 Sat by Pulse Oximetry (%) 97 10/05/19 22:59 Constitutional: Yes: No Distress Cardiovascular: Yes: Regular Rate and Rhythm, S1, S2 Respiratory: Yes: CTA Bilaterally Gastrointestinal: Yes: Normal Bowel Sounds, Soft Labs: CBC, BMP 10/05/19 07:30 10/05/19 07:30 INR, PTT INR 1.18 (0.83-1.09) H 10/04/19 18:00 Assessment/Plan OSTEOMYELITIS NON HEALING WOUND CONTINUE CEFEPIME
[2019-10-06] MEDS: FUROSEMIDE 40 MG/4 ML INJECTABLE VIAL IVPUSH SCH ×2 (05:25→15:09)
[2019-10-06] MEDS ORDERED: PT OWN MED DRAWER 7, Y5N ONE ×2 (05:43→17:52)
[2019-10-06] MEDS: INSULIN SLIDING SCALE (NOVOLOG) 1 VIAL SQ SCH ×4 (06:02→21:32)
[2019-10-06] MEDS ORDERED: CEFEPIME 2 GM in DEXTROSE 5%-WATER 100 ML IVPB SCH (07:00)
--- NOTE | 2019-10-06 09:25 | PN ---
Progress Note (short form) - Note Progress Note: she is better and has no sob but c/o leg sweling on both sides she is afibrile Vital Signs Period Temp Pulse Resp BP Sys/Arthur Pulse Ox Last 24 Hr 97.9 F-98.6 F 84-93 18-20 117-143/62-90 96-97 heent paler positive neck supple lungs clear heart no change ext edema trace today Lab work is ordered 49 y/o F with hx of obesity, HTN, T2-IDDM, HLD, hypothyroidism, diabetic neuropathy, asthma, right foot charcot disease/diabetic ulcer/cellulitis/os teomyelitis, chronic MRSA presenting from hyperbarics with worsening R foot wound swelling. #R Ft Osteomyelitis -Cont. IV abx. has been on taking vancomycin since last admission -also 1x cefepime -wound culture -fu Bcx,ucx -WBC 14.5 -ID consult: Dr. Soto -Podiatry consult: Dr. Olvera thank you very much read the consult -wound care, with wound vac -contact precautions #Anemia -hx of heavy menses. 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 And she is saying that she get heavy bleeding when she had menstrual.. Also order stool for guaiac test patient never had a colonoscopy will do an outpatient colonoscopy. #DM -hold home meds -BGMs -SSI #Hypothyroidism -cont home meds #HTn -cont home meds #dvt ppx -hep sq #FEN -no iv fluids -monitor -diabetic diet
[2019-10-06] MEDS ORDERED: MAGNESIUM HYDROX 2400MG/30ML ORAL SUSPENSION 30 ML CUP PO ONE (09:30)
[2019-10-06] MEDS: POLYETHYLENE GLYCOL 3350 119 GM BTL PO SCH (09:56)
[2019-10-06] MEDS: HEPARIN NA (PORCINE) 5,000 UNITS/ML 1ML VIAL SQ SCH ×2 (09:57→21:33)
[2019-10-06] MEDS: LISINOPRIL 10 MG TABLET (FP) PO SCH (09:57)
[2019-10-06 10:40] LABS: BASO % 1.2 % (0-2.0); EOS % 5.1 % (0-4.5); HEMOGLOBIN 8.7 GM/dL (10.7-15.3); LYMPH % 12.2 % (8-40); MCH 24.1 pg (25.7-33.7); MCHC 32.2 g/dl (32.0-36.0); MEAN CELL VOLUME 74.9 fl (80-96); MEAN PLT VOLUME 6.6 fl (7.5-11.1); MONO % 5.4 % (3.8-10.2); NEUT % 76.1 % (42.8-82.8); PLATELET COUNT 465 K/MM3 (134-434); RDW 21.7 % (11.6-15.6); WHITE BLOOD COUNT 9.8 K/mm3 (4.0-10.0)
[2019-10-06] MEDS ORDERED: CEFEPIME HCL 1 GM VIAL (RESTRICTED TO ID) ONE ×2 (11:09→17:52)
[2019-10-06] MEDS ORDERED: DEXTROSE 5%-WATER 100 ML IVPB ONE ×2 (11:10→17:52)
--- NOTE | 2019-10-06 11:13 | CONSULT ---
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: Alzheimer's, CVA, Dementia, Migraine, Multiple Sclerosis, Peripheral Neuropathy, Parkinson's, Seizure, Syncope, TIA, Vertigo, Other Cardio/Vascular: Yes: HTN, Hyperlipdemia Pulmonary: Yes: Asthma Gastrointestinal: No: Ascites, Cancer, Constipation, Crohn's Disease, Diverticulitis, Diverticulosis, Esophageal Varices, Gastritis, GERD, GI Bleed, Hemorrhoids, Hiatal Hernia, Inflamatory Bowel Disease, Irritable Bowel Disease, Pancreatitis, Peptic Ulcer Disease, Ulcerative Colitis, Other Hepatobiliary: No: Cirrhosis, Cholelithiasis, Cholecystitis, Estrella docholithiasis, Hepatitis A, Hepatitis B, Hepatitis C, Other Renal/: No: Renal Failure, Renal Inusuff, BPH, Cancer, Hematuria, Hemodialysis, Neurogenic Bladder, Renal Calculi, UTI, Other Reproductive: No: Ectopic , Endometriosis, Fibroids, PID, Polycystic Ovary Syndrome, Postmenopausal, Other ...LMP: 01/26/19 ...LMP Comment: august 2019 ...: No Heme/Onc: Yes: Anemia Infectious Disease: Yes: Other (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, chronic MRSA with osteomyelitis) Musculoskeletal: Yes: Other Rheumatology: Yes: Other (right foot charcot disease) Endocrine: Yes: Diabetes Mellitus (uncontrolled), Hypothyroidism, Other (Obesity, DM neuropathy) Dermatology: Yes: Cellulitis - Past Surgical History Past Surgical History: Yes: None - Alcohol/Substance Use Hx Alcohol Use: No History of Substance Use: reports: None - Smoking History Smoking history: Never smoked Have you smoked in the past 12 months: No - Social History Usual Living Arrangement: With Spouse ADL: Independent 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 History of Recent Travel: No Home Medications - Allergies Allergies/Adverse Reactions: Allergies Allergy/AdvReac Type Severity Reaction Status Date / Time piperacillin sodium AdvReac "itchiness,rash Verified 10/04/19 17:28 [From Zosyn] on face" tazobactam sodium AdvReac "itchiness,rash Verified 10/04/19 17:28 [From Zosyn] on face" - Home Medications Home Medications: Ambulatory Orders Atorvastatin Ca [Lipitor] 10 mg PO HS 07/16/18 Metformin HCl [Glucophage] 1,000 mg PO BID 01/06/19 Albuterol Sulfate [Albuterol Sulfate Hfa] 18 gm IH DAILY PRN 09/16/19 Ferrous Sulfate 325 mg PO DAILY 09/16/19 Insulin Sliding Scale [Novolog Vial Sliding Scale -] 6 units SQ TIDAC 09/17/19 Insulin Glargine,Hum.rec.anlog [Lantus Solostar] 22 unit SQ BID #1 pack 09/22/19 Lisinopril [Prinivil] 10 mg PO DAILY #30 tablet 09/22/19 Nystatin Powder [Nystop Powder -] 1 applic TP BID applic 09/22/19 Vancomycin 1,250 mg IVPB Q12H vial 09/22/19 Family Medical History Family History: Unable to Obtain Review of Systems Findings/Remarks: Patient denies VB currently - Review of Systems Constitutional: reports: No Symptoms Eyes: reports: No Symptoms HENT: reports: No Symptoms Neck: reports: No Symptoms Respiratory: reports: No Symptoms Gastrointestinal: reports: No Symptoms Genitourinary: reports: Other (LMP ~3 weeks ago, menses irregular and heavy, she denies knowing about fibroids previously, G0, no INTERNATIONAL MARKETING COORDINATOR provider and last pap `6years ago) Musculoskeletal: reports: Other (right foot ulcer) Integumentary: reports: No Symptoms Neurological: reports: No Symptoms Endocrine: reports: No Symptoms Hematology/Lymphatic: reports: No Symptoms Psychiatric: reports: No Symptoms Physical Exam Vital Signs: Vital Signs Temperature 98.3 F 10/06/19 06:00 Pulse Rate 90 10/06/19 06:00 Respiratory Rate 20 10/06/19 06:00 Blood Pressure 138/70 10/06/19 06:00 O2 Sat by Pulse Oximetry (%) 97 10/06/19 06:00 Constitutional: Yes: No Distress HENT: Yes: Atraumatic Neck: Yes: Supple Respiratory: Yes: Regular Gastrointestinal: Yes: Normal Bowel Sounds, Soft (obese, no plapable masses) ...Rectal Exam: Yes: Other Renal/: Yes: Other (declined) Breast(s): Yes: Other Musculoskeletal: Yes: WNL Extremities: Yes: Other (right foot ulcer) Edema: Yes Edema: LLE: 1+, RLE: 1+ Integumentary: Yes: WNL Wound/Incision: Yes: Other Neurological: Yes: Alert, Oriented Psychiatric: Yes: Alert, Oriented Labs: CBC, BMP 10/06/19 09:46 10/05/19 07:30 Imaging - Results Ultrasound: Report Reviewed Assessment/Plan 49 y/o G0 female admitted for symptomatic anemia S/P blood transfusion, medica history significant for multiple co-morbidities, sono report reviewed and consistent with leiomyoma and h/o menorrhagia, no active vaginal bleeding. Tien ramirez reports poor INTERNATIONAL MARKETING COORDINATOR care. Patient was counseled regarding fibroids and all questions answered. She was encouraged to follow up outpatient for INTERNATIONAL MARKETING COORDINATOR care at [facility] Alvaro emerson. Patient is cleared for a gynecological point and outpatient follow up prior to onset of next menses instructed. - Continue care as per primary team - Outpatient follow up for INTERNATIONAL MARKETING COORDINATOR care (information provided) - No INTERNATIONAL MARKETING COORDINATOR intervention required - Please contact INTERNATIONAL MARKETING COORDINATOR team with any additional questions or concerns
[2019-10-06] MEDS: CEFEPIME 1 GM in DEXTROSE 5%-WATER 100 ML IVPB SCH ×2 (11:20→17:56)
[2019-10-06] MEDS ORDERED: INSULIN (NOVOLOG) ASPART 100 UNITS/ML 10ML VIAL ONE ×2 (11:56→21:01)
--- NOTE | 2019-10-06 12:20 | PN ---
Progress Note, Physician Chief Complaint: FU right foot - Current Medication List Current Medications: Active Medications Acetaminophen (Tylenol -) 650 mg PO Q4H PRN PRN Reason: PAIN Albuterol Sulfate (Ventolin Hfa Inhaler -) 1 puff IH Q6H PRN PRN Reason: SHORTNESS OF BREATH Atorvastatin Calcium (Lipitor -) 10 mg PO HS [facility] Last Admin: 10/05/19 21:45 Dose: 10 mg Documented by: Furosemide (Lasix Injection -) 40 mg IVPUSH BID@0600,1400 [facility] Last Admin: 10/06/19 05:25 Dose: 40 mg Documented by: Heparin Sodium (Porcine) (Hep-Lock -) 5 ml IVPUSH PRN PRN PRN Reason: PICC line patency Heparin Sodium (Porcine) (Heparin -) 5,000 unit SQ BID [facility] Last Admin: 10/06/19 09:57 Dose: 5,000 unit Documented by: Cefepime HCl 1 gm/ Dextrose 100 mls @ 200 mls/hr IVPB Q8H-IV [facility]; Protocol Last Admin: 10/06/19 11:20 Dose: 200 mls/hr Documented by: Insulin Aspart (Novolog Vial Sliding Scale -) 0 vial SQ ACHS [facility]; Protocol Last Admin: 10/06/19 11:59 Dose: 6 units Documented by: Lisinopril (Prinivil) 10 mg PO DAILY [facility] Last Admin: 10/06/19 09:57 Dose: 10 mg Documented by: Polyethylene Glycol (Miralax (For Daily Use) -) 17 gm PO DAILY [facility] Last Admin: 10/06/19 09:56 Dose: 17 gm Documented by: - Objective Vital Signs: Vital Signs Temperature 98.3 F 10/06/19 06:00 Pulse Rate 90 10/06/19 06:00 Respiratory Rate 20 10/06/19 06:00 Blood Pressure 138/70 10/06/19 06:00 O2 Sat by Pulse Oximetry (%) 97 10/06/19 06:00 Extremities: Yes: Other (+vac in place minimal drainage right) Labs: CBC, BMP 10/06/19 09:46 10/05/19 07:30 INR, PTT INR 1.18 (0.83-1.09) H 10/04/19 18:00 Assessment/Plan om chronic grade 3 wound right IVABX as per ID. Return to [facility] upon dc. Continue vac. Wll follow.
--- NOTE | 2019-10-06 20:33 | PN ---
Progress Note, Physician - Current Medication List Current Medications: Active Medications Acetaminophen (Tylenol -) 650 mg PO Q4H PRN PRN Reason: PAIN Albuterol Sulfate (Ventolin Hfa Inhaler -) 1 puff IH Q6H PRN PRN Reason: SHORTNESS OF BREATH Atorvastatin Calcium (Lipitor -) 10 mg PO HS [facility] Last Admin: 10/05/19 21:45 Dose: 10 mg Documented by: Furosemide (Lasix Injection -) 40 mg IVPUSH BID@0600,1400 [facility] Last Admin: 10/06/19 15:09 Dose: 40 mg Documented by: Heparin Sodium (Porcine) (Hep-Lock -) 5 ml IVPUSH PRN PRN PRN Reason: PICC line patency Heparin Sodium (Porcine) (Heparin -) 5,000 unit SQ BID [facility] Last Admin: 10/06/19 09:57 Dose: 5,000 unit Documented by: Cefepime HCl 1 gm/ Dextrose 100 mls @ 200 mls/hr IVPB Q8H-IV [facility]; Protocol Last Admin: 10/06/19 17:56 Dose: 200 mls/hr Documented by: Insulin Aspart (Novolog Vial Sliding Scale -) 0 vial SQ ACHS [facility]; Protocol Last Admin: 10/06/19 18:02 Dose: 10 units Documented by: Lisinopril (Prinivil) 10 mg PO DAILY [facility] Last Admin: 10/06/19 09:57 Dose: 10 mg Documented by: Polyethylene Glycol (Miralax (For Daily Use) -) 17 gm PO DAILY [facility] Last Admin: 10/06/19 09:56 Dose: 17 gm Documented by: - Objective Vital Signs: Vital Signs Temperature 98.2 F 10/06/19 20:25 Pulse Rate 89 10/06/19 20:25 Respiratory Rate 20 10/06/19 20:25 Blood Pressure 157/80 10/06/19 20:25 O2 Sat by Pulse Oximetry (%) 97 10/06/19 20:31 Labs: CBC, BMP 10/06/19 09:46 10/05/19 07:30 INR, PTT INR 1.18 (0.83-1.09) H 10/04/19 18:00
[2019-10-06] MEDS: ATORVASTATIN CA 10 MG TABLET (FP) PO SCH (21:33)
[2019-10-06] MEDS: ACETAMINOPHEN 325 MG TABLET (FP) PO PRN (21:43)
[2019-10-07] MEDS ORDERED: DEXTROSE 5%-WATER 100 ML IVPB ONE ×3 (02:22→17:00)
[2019-10-07] MEDS ORDERED: CEFEPIME HCL 1 GM VIAL (RESTRICTED TO ID) ONE ×3 (02:22→17:00)
[2019-10-07] MEDS: CEFEPIME 1 GM in DEXTROSE 5%-WATER 100 ML IVPB SCH ×3 (02:28→17:05)
[2019-10-07] MEDS: FUROSEMIDE 40 MG/4 ML INJECTABLE VIAL IVPUSH SCH ×2 (05:36→14:21)
[2019-10-07] MEDS ORDERED: INSULIN (NOVOLOG) ASPART 100 UNITS/ML 10ML VIAL ONE ×2 (05:50→17:14)
[2019-10-07] MEDS: INSULIN SLIDING SCALE (NOVOLOG) 1 VIAL SQ SCH ×4 (06:05→21:21)
--- NOTE | 2019-10-07 09:45 | PN ---
Progress Note (short form) - Note Progress Note: Patient is comfortable seen by CABLE WORKER HELPER yesterday. She has no active bleeding she had a bowel movement yesterday there was no active melena. No fever no chills seen by ID and wound care Patient is comfortable and has no shortness of breath or any other symptoms. Vital Signs Period Temp Pulse Resp BP Sys/Arthur Pulse Ox Last 24 Hr 98.1 F-98.2 F 81-100 20-20 112-157/64-80 96-97 Patient is comfortable HEENT normal Neck supple no JVD Lungs clear no wheezing Abdomen nontender no organomegaly bowel sounds normal Extremities Wound VAC in place and no more edema Neurologically he is alert awake oriented, nonfocal Skin no rash noted CBC, BMP 10/06/19 09:46 10/05/19 07:30 Current Medications Generic Name Dose Route Start Last Admin Trade Name Freq PRN Reason Stop Dose Admin Acetaminophen 650 mg 10/04/19 21:52 10/06/19 21:43 Tylenol - PO 650 mg Q4H PRN Administration PAIN Albuterol Sulfate 1 puff 10/04/19 22:49 Ventolin Hfa Inhaler - IH Q6H PRN SHORTNESS OF BREATH Atorvastatin Calcium 10 mg 10/05/19 22:00 10/06/19 21:33 Lipitor - PO 10 mg HS [facility] Administration Furosemide 40 mg 10/05/19 14:00 10/07/19 05:36 Lasix Injection - IVPUSH 40 mg BID@0600,1400 [facility] Administration Heparin Sodium (Porcine) 5 ml 10/04/19 21:52 10/06/19 21:42 Hep-Lock - IVPUSH 5 ml PRN PRN Administration PICC line patency Heparin Sodium (Porcine) 5,000 unit 10/04/19 22:00 10/06/19 21:33 Heparin - SQ 5,000 unit BID [facility] Administration Cefepime HCl 1 gm/ Dextrose 100 mls @ 200 mls/hr 10/06/19 12:00 10/07/19 02:28 IVPB 200 mls/hr Q8H-IV [facility] Administration Protocol Insulin Aspart 0 vial 10/04/19 22:00 10/07/19 06:05 Novolog Vial Sliding Scale - SQ 4 units ACHS [facility] Administration Protocol Lisinopril 10 mg 10/05/19 10:00 10/06/19 09:57 Prinivil PO 10 mg DAILY [facility] Administration Polyethylene Glycol 17 gm 10/06/19 10:00 10/06/19 09:56 Miralax (For Daily Use) - PO 17 gm DAILY [facility] Administration Discontinued Medications Generic Name Dose Route Start Last Admin Trade Name Rosa PRN Reason Stop Dose Admin Acetaminophen 1,000 mg 10/04/19 18:47 10/04/19 20:23 Ofirmev Injection - IVPB 10/04/19 18:48 1,000 mg ONCE ONE Administration Cefepime HCl 2 gm in 50 mls @ 100 mls/hr 10/04/19 18:37 10/04/19 19:04 Maxipime 2gm Ivpb (Premix) IVPB 10/04/19 19:06 100 mls/hr ONCE ONE Administration Vancomycin HCl 2,000 mg/ 500 mls @ 250 mls/hr 10/04/19 18:37 10/04/19 19:04 Dextrose IVPB 10/04/19 20:36 250 mls/hr ONCE ONE Administration Sodium Chloride 3,729 mls @ 1,864.5 mls/hr 10/04/19 18:45 10/04/19 19:05 Normal Saline - 30 ml/kg infuse over 2 hr (3729 ml) 10/04/19 20:44 Not Given IV ONCE ONE Famotidine/Sodium Chloride 20 mg in 50 mls @ 100 mls/hr 10/04/19 20:24 10/04/19 21:38 Pepcid 20 Mg Premixed Ivpb - IVPB 10/04/19 20:53 100 mls/hr ONCE ONE Administration Iron Sucrose 200 mg/ Sodium 100 mls @ 100 mls/hr 10/04/19 22:00 10/04/19 23:18 Chloride IVPB 10/04/19 22:59 100 mls/hr ONCE ONE Administration Cefepime HCl 2 gm in 50 mls @ 100 mls/hr 10/05/19 22:00 10/06/19 20:56 Maxipime 2gm Ivpb (Premix) IVPB Not Given BID [facility] Protocol Cefepime HCl 2 gm/ Dextrose 100 mls @ 200 mls/hr 10/06/19 07:00 10/06/19 06:00 IVPB 10/06/19 19:29 200 mls/hr Q12H [facility] Administration Protocol Influenza Virus Vaccine Quadrival 60 mcg 10/05/19 10:00 10/05/19 09:41 Fluarix Quad [id number] Syringe IM 10/05/19 10:01 60 mcg .ONCE ONE Administration Magnesium Hydroxide 30 ml 10/06/19 09:30 10/06/19 09:57 Milk Of Magnesia - PO 10/06/19 09:31 30 ml ONCE ONE Administration Sodium Chloride 1,000 ml 10/04/19 18:48 10/04/19 19:05 Normal Saline - IV 10/04/19 18:49 1,000 ml ONCE ONE Administration Assessment and plan 49 y/o F with hx of obesity, HTN, T2-IDDM, HLD, hypothyroidism, diabetic neuropathy, asthma, 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 #R Ft Osteomyelitis -Cont. IV abx. has been on taking vancomycin since last admission -also 1x cefepime -wound culture -fu Bcx,ucx -WBC 14.5 -ID consult: Dr. Soto -Podiatry consult: Dr. Olvera thank you very much read the consult -wound care, with wound vac -contact precautions #Anemia Status post transfusion will repeat labs in the morning Seen by CABLE WORKER HELPER. She will have follow-up outpatient Call GI evaluation by Dr. portillo #DM -hold home meds -BGMs -SSI #Hypothyroidism -cont home meds #HTn -cont home meds #dvt ppx -hep sq #FEN -no iv fluids -monitor -diabetic diet
[2019-10-07] MEDS: LISINOPRIL 10 MG TABLET (FP) PO SCH (09:53)
[2019-10-07] MEDS: HEPARIN NA (PORCINE) 5,000 UNITS/ML 1ML VIAL SQ SCH ×2 (09:53→21:07)
[2019-10-07] MEDS: POLYETHYLENE GLYCOL 3350 119 GM BTL PO SCH (09:54)
--- NOTE | 2019-10-07 11:20 | CON.GI ---
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: No: Alzheimer's, CVA, Dementia, Migraine, Multiple Sclerosis, Peripheral Neuropathy, Parkinson's, Seizure, Syncope, TIA, Vertigo, Other Cardio/Vascular: Yes: HTN, Hyperlipdemia Pulmonary: Yes: Asthma Gastrointestinal: No: Ascites, Cancer, Constipation, Crohn's Disease, Diverticulitis, Diverticulosis, Esophageal Varices, Gastritis, GERD, GI Bleed, Hemorrhoids, Hiatal Hernia, Inflamatory Bowel Disease, Irritable Bowel Disease, Pancreatitis, Peptic Ulcer Disease, Ulcerative Colitis, Other Hepatobiliary: No: Cirrhosis, Cholelithiasis, Cholecystitis, Choledocholithiasis, Hepatitis A, Hepatitis B, Hepatitis C, Other Renal/: No: Renal Failure, Renal Inusuff, BPH, Cancer, Hematuria, Hemodialysis, Neurogenic Bladder, Renal Calculi, UTI, Other ...LMP: 01/26/19 ...LMP Comment: august 2019 ...: No Infectious Disease: Yes: Other (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, chronic MRSA with osteomyelitis) Musculoskeletal: Yes: Other Rheumatology: Yes: Other (right foot charcot disease) Endocrine: Yes: Diabetes Mellitus (uncontrolled), Hypothyroidism, Other (Obesity, DM neuropathy) Dermatology: Yes: Cellulitis - Past Surgical History Past Surgical History: Yes: None - Alcohol/Substance Use Hx Alcohol Use: No History of Substance Use: reports: None - Smoking History Smoking history: Never smoked Have you smoked in the past 12 months: No - Social History Usual Living Arrangement: With Spouse ADL: Independent 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 History of Recent Travel: No Home Medications - Allergies Allergies/Adverse Reactions: Allergies Allergy/AdvReac Type Severity Reaction Status Date / Time piperacillin sodium AdvReac "itchiness,rash Verified 10/04/19 17:28 [From Zosyn] on face" tazobactam sodium AdvReac "itchiness,rash Verified 10/04/19 17:28 [From Zosyn] on face" - Home Medications Home Medications: Ambulatory Orders Atorvastatin Ca [Lipitor] 10 mg PO HS 07/16/18 Metformin HCl [Glucophage] 1,000 mg PO BID 01/06/19 Albuterol Sulfate [Albuterol Sulfate Hfa] 18 gm IH DAILY PRN 09/16/19 Ferrous Sulfate 325 mg PO DAILY 09/16/19 Insulin Sliding Scale [Novolog Vial Sliding Scale -] 6 units SQ TIDAC 09/17/19 Insulin Glargine,Hum.rec.anlog [Lantus Solostar] 22 unit SQ BID #1 pack 09/22/19 Lisinopril [Prinivil] 10 mg PO DAILY #30 tablet 09/22/19 Nystatin Powder [Nystop Powder -] 1 applic TP BID applic 09/22/19 Vancomycin 1,250 mg IVPB Q12H vial 09/22/19 Physical Exam-GI Vital Signs: Vital Signs Temperature 98.2 F 10/07/19 05:29 Pulse Rate 81 10/07/19 05:29 Respiratory Rate 20 10/07/19 05:29 Blood Pressure 128/71 10/07/19 05:29 O2 Sat by Pulse Oximetry (%) 96 10/07/19 03:00 Labs: CBC, BMP 10/06/19 09:46 10/05/19 07:30 INR, PTT INR 1.18 (0.83-1.09) H 10/04/19 18:00
[2019-10-07] MEDS: MAGNESIUM HYDROX 2400MG/30ML ORAL SUSPENSION 30 ML CUP PO PRN (14:28)
--- NOTE | 2019-10-07 14:37 | PN ---
Progress Note, Physician Chief Complaint: FU right foot - Current Medication List Current Medications: Active Medications Acetaminophen (Tylenol -) 650 mg PO Q4H PRN PRN Reason: PAIN Last Admin: 10/06/19 21:43 Dose: 650 mg Documented by: Albuterol Sulfate (Ventolin Hfa Inhaler -) 1 puff IH Q6H PRN PRN Reason: SHORTNESS OF BREATH Atorvastatin Calcium (Lipitor -) 10 mg PO HS [facility] Last Admin: 10/06/19 21:33 Dose: 10 mg Documented by: Furosemide (Lasix Injection -) 40 mg IVPUSH BID@0600,1400 [facility] Last Admin: 10/07/19 14:21 Dose: 40 mg Documented by: Heparin Sodium (Porcine) (Hep-Lock -) 5 ml IVPUSH PRN PRN PRN Reason: PICC line patency Last Admin: 10/06/19 21:42 Dose: 5 ml Documented by: Heparin Sodium (Porcine) (Heparin -) 5,000 unit SQ BID [facility] Last Admin: 10/07/19 09:53 Dose: 5,000 unit Documented by: Cefepime HCl 1 gm/ Dextrose 100 mls @ 200 mls/hr IVPB Q8H-IV [facility]; Protocol Last Admin: 10/07/19 09:48 Dose: 200 mls/hr Documented by: Insulin Aspart (Novolog Vial Sliding Scale -) 0 vial SQ ACHS [facility]; Protocol Last Admin: 10/07/19 11:38 Dose: 8 units Documented by: Lisinopril (Prinivil) 10 mg PO DAILY [facility] Last Admin: 10/07/19 09:53 Dose: 10 mg Documented by: Magnesium Hydroxide (Milk Of Magnesia -) 30 ml PO DAILY PRN PRN Reason: CONSTIPATION Last Admin: 10/07/19 14:28 Dose: 30 ml Documented by: Polyethylene Glycol (Miralax (For Daily Use) -) 17 gm PO DAILY [facility] Last Admin: 10/07/19 09:54 Dose: 17 gm Documented by: - Objective Vital Signs: Vital Signs Temperature 98.2 F 10/07/19 05:29 Pulse Rate 81 10/07/19 05:29 Respiratory Rate 20 10/07/19 05:29 Blood Pressure 128/71 10/07/19 05:29 O2 Sat by Pulse Oximetry (%) 96 10/07/19 03:00 Wound/Incision: Yes: Other (+drainage right foot wound into wound vac,) Labs: CBC, BMP 10/06/19 09:46 10/05/19 07:30 INR, PTT INR 1.18 (0.83-1.09) H 10/04/19 18:00 Assessment/Plan om chronic grade 3 wound right IVABX as per ID. Return to [facility] upon dc. Continue vac. Wll follow.
[2019-10-07 18:00] LABS: ALBUMIN 2.5 g/dl (3.4-5.0); BILIRUBIN,TOTAL 0.4 mg/dL (0.2-1); BLOOD UREA NITROGEN 17.8 mg/dL (7-18); CALCIUM 8.5 mg/dL (8.5-10.1); CREATININE 1.2 mg/dL (0.55-1.3); POTASSIUM 3.8 mmol/L (3.5-5.1)
[2019-10-07 18:04] LABS: TOT PROT 8.4 g/dl (6.4-8.2)
[2019-10-07] MEDS: ACETAMINOPHEN 325 MG TABLET (FP) PO PRN (21:07)
[2019-10-07] MEDS: ATORVASTATIN CA 10 MG TABLET (FP) PO SCH (21:08)
[2019-10-08] MEDS ORDERED: CEFEPIME HCL 1 GM VIAL (RESTRICTED TO ID) ONE ×3 (02:16→16:33)
[2019-10-08] MEDS ORDERED: DEXTROSE 5%-WATER 100 ML IVPB ONE ×3 (02:16→16:33)
[2019-10-08] MEDS: CEFEPIME 1 GM in DEXTROSE 5%-WATER 100 ML IVPB SCH ×3 (02:23→17:17)
[2019-10-08] MEDS: FUROSEMIDE 40 MG/4 ML INJECTABLE VIAL IVPUSH SCH ×2 (05:59→13:53)
[2019-10-08] MEDS: INSULIN SLIDING SCALE (NOVOLOG) 1 VIAL SQ SCH ×4 (06:00→21:10)
[2019-10-08] MEDS ORDERED: INSULIN (NOVOLOG) ASPART 100 UNITS/ML 10ML VIAL ONE ×2 (06:21→21:06)
[2019-10-08 07:45] LABS: BASO % 0.6 % (0-2.0); EOS % 4.8 % (0-4.5); HEMATOCRIT 28.3 % (32.4-45.2); LYMPH % 13.5 % (8-40); MCH 24.1 pg (25.7-33.7); MCHC 31.9 g/dl (32.0-36.0); MEAN CELL VOLUME 75.5 fl (80-96); MEAN PLT VOLUME 6.2 fl (7.5-11.1); NEUT % 73.1 % (42.8-82.8); PLATELET COUNT 488 K/MM3 (134-434); RBC 3.74 M/mm3 (3.60-5.2); RDW 22.5 % (11.6-15.6); WHITE BLOOD COUNT 11.2 K/mm3 (4.0-10.0)
[2019-10-08] MEDS: POLYETHYLENE GLYCOL 3350 119 GM BTL PO SCH (09:12)
[2019-10-08] MEDS: HEPARIN NA (PORCINE) 5,000 UNITS/ML 1ML VIAL SQ SCH ×2 (09:14→21:09)
[2019-10-08] MEDS: LISINOPRIL 10 MG TABLET (FP) PO SCH (09:14)
--- NOTE | 2019-10-08 09:14 | PN ---
Progress Note, Physician Chief Complaint: FU right foot - Current Medication List Current Medications: Active Medications Acetaminophen (Tylenol -) 650 mg PO Q4H PRN PRN Reason: PAIN Last Admin: 10/07/19 21:07 Dose: 650 mg Documented by: Albuterol Sulfate (Ventolin Hfa Inhaler -) 1 puff IH Q6H PRN PRN Reason: SHORTNESS OF BREATH Atorvastatin Calcium (Lipitor -) 10 mg PO HS [facility] Last Admin: 10/07/19 21:08 Dose: 10 mg Documented by: Furosemide (Lasix Injection -) 40 mg IVPUSH BID@0600,1400 [facility] Last Admin: 10/08/19 05:59 Dose: 40 mg Documented by: Heparin Sodium (Porcine) (Hep-Lock -) 5 ml IVPUSH PRN PRN PRN Reason: PICC line patency Last Admin: 10/06/19 21:42 Dose: 5 ml Documented by: Heparin Sodium (Porcine) (Heparin -) 5,000 unit SQ BID [facility] Last Admin: 10/07/19 21:07 Dose: 5,000 unit Documented by: Cefepime HCl 1 gm/ Dextrose 100 mls @ 200 mls/hr IVPB Q8H-IV [facility]; Protocol Last Admin: 10/08/19 02:23 Dose: 200 mls/hr Documented by: Insulin Aspart (Novolog Vial Sliding Scale -) 0 vial SQ ACHS [facility]; Protocol Last Admin: 10/08/19 06:00 Dose: 6 units Documented by: Lisinopril (Prinivil) 10 mg PO DAILY [facility] Last Admin: 10/07/19 09:53 Dose: 10 mg Documented by: Magnesium Hydroxide (Milk Of Magnesia -) 30 ml PO DAILY PRN PRN Reason: CONSTIPATION Last Admin: 10/07/19 14:28 Dose: 30 ml Documented by: Polyethylene Glycol (Miralax (For Daily Use) -) 17 gm PO DAILY [facility] Last Admin: 10/07/19 09:54 Dose: 17 gm Documented by: - Objective Vital Signs: Vital Signs Temperature 97.9 F 10/08/19 05:52 Pulse Rate 85 10/08/19 05:52 Respiratory Rate 20 10/08/19 05:52 Blood Pressure 138/78 10/08/19 05:52 O2 Sat by Pulse Oximetry (%) 99 10/08/19 03:00 Wound/Incision: Yes: Other (wounnd vac in place, +drainage in canister) Labs: CBC, BMP 10/08/19 07:22 10/07/19 17:03 INR, PTT INR 1.18 (0.83-1.09) H 10/04/19 18:00 Assessment/Plan om chronic grade 3 wound right IVABX as per ID. Return to [facility] upon dc. Continue vac. Wll follow. present on this visit. Discussed need for usp antibiotics.
[2019-10-08 10:37] LABS: ANISOCYTOSIS 1+; MACROCYTOSIS 0; OVALOCYTE 1+; PLATELET ESTIMATE INCREASED
--- NOTE | 2019-10-08 17:25 | PN ---
Progress Note, Physician History of Present Illness: AWAKE, OOB IN CHAIR NO C/O LE PAIN NO C/O F/C - Current Medication List Current Medications: Active Medications Acetaminophen (Tylenol -) 650 mg PO Q4H PRN PRN Reason: PAIN Last Admin: 10/07/19 21:07 Dose: 650 mg Documented by: Albuterol Sulfate (Ventolin Hfa Inhaler -) 1 puff IH Q6H PRN PRN Reason: SHORTNESS OF BREATH Atorvastatin Calcium (Lipitor -) 10 mg PO HS [facility] Last Admin: 10/07/19 21:08 Dose: 10 mg Documented by: Furosemide (Lasix Injection -) 40 mg IVPUSH BID@0600,1400 [facility] Last Admin: 10/08/19 13:53 Dose: 40 mg Documented by: Heparin Sodium (Porcine) (Hep-Lock -) 5 ml IVPUSH PRN PRN PRN Reason: PICC line patency Last Admin: 10/06/19 21:42 Dose: 5 ml Documented by: Heparin Sodium (Porcine) (Heparin -) 5,000 unit SQ BID [facility] Last Admin: 10/08/19 09:14 Dose: 5,000 unit Documented by: Cefepime HCl 1 gm/ Dextrose 100 mls @ 200 mls/hr IVPB Q8H-IV [facility]; Protocol Last Admin: 10/08/19 17:17 Dose: 200 mls/hr Documented by: Insulin Aspart (Novolog Vial Sliding Scale -) 0 vial SQ ACHS [facility]; Protocol Last Admin: 10/08/19 16:46 Dose: 6 units Documented by: Lisinopril (Prinivil) 10 mg PO DAILY [facility] Last Admin: 10/08/19 09:14 Dose: 10 mg Documented by: Magnesium Hydroxide (Milk Of Magnesia -) 30 ml PO DAILY PRN PRN Reason: CONSTIPATION Last Admin: 10/07/19 14:28 Dose: 30 ml Documented by: Polyethylene Glycol (Miralax (For Daily Use) -) 17 gm PO DAILY [facility] Last Admin: 10/08/19 09:12 Dose: 17 gm Documented by: - Objective Vital Signs: Vital Signs Temperature 98.3 F 10/08/19 13:39 Pulse Rate 92 H 10/08/19 13:39 Respiratory Rate 20 10/08/19 13:39 Blood Pressure 109/66 10/08/19 13:39 O2 Sat by Pulse Oximetry (%) 99 06/26/20 11:00 Constitutional: Yes: No Distress Eyes: Yes: Conjunctiva Clear Cardiovascular: Yes: Regular Rate and Rhythm, S1, S2 Respiratory: Yes: CTA Bilaterally Gastrointestinal: Yes: Normal Bowel Sounds, Soft Extremities: Yes: Other (DECREASED ERYTHEMA/ WARMTH /TENDERNESS LE) Labs: CBC, BMP 10/08/19 07:22 10/07/19 17:03 INR, PTT INR 1.18 (0.83-1.09) H 10/04/19 18:00 Assessment/Plan OSTEOMYELITIS CELLULITIS NON HEALING WOUND SUBSTITUTE VANCOMYCIN RESUME PRE-ADMISSION ORDERS
--- NOTE | 2019-10-08 18:03 | PN ---
Progress Note (short form) - Note Progress Note: Patient is comfortable seen by MAINTENANCE OF WAY CLERK yesterday. She has no active bleeding she had a bowel movement yesterday there was no active melena. No fever no chills seen by ID and wound care Patient is comfortable and has no shortness of breath or any other symptoms. Vital Signs Period Temp Pulse Resp BP Sys/Arthur Pulse Ox Last 24 Hr 98.1 F-98.2 F 81-100 20-20 112-157/64-80 96-97 Patient is comfortable HEENT normal Neck supple no JVD Lungs clear no wheezing Abdomen nontender no organomegaly bowel sounds normal Extremities Wound VAC in place and no more edema Neurologically he is alert awake oriented, nonfocal Skin no rash noted CBC, BMP 10/08/19 07:22 10/07/19 17:03 Current Medications Generic Name Dose Route Start Last Admin Trade Name Freq PRN Reason Stop Dose Admin Acetaminophen 650 mg 10/04/19 21:52 10/06/19 21:43 Tylenol - PO 650 mg Q4H PRN Administration PAIN Albuterol Sulfate 1 puff 10/04/19 22:49 Ventolin Hfa Inhaler - IH Q6H PRN SHORTNESS OF BREATH Atorvastatin Calcium 10 mg 10/05/19 22:00 10/06/19 21:33 Lipitor - PO 10 mg HS [facility] Administration Furosemide 40 mg 10/05/19 14:00 10/07/19 05:36 Lasix Injection - IVPUSH 40 mg BID@0600,1400 [facility] Administration Heparin Sodium (Porcine) 5 ml 10/04/19 21:52 10/06/19 21:42 Hep-Lock - IVPUSH 5 ml PRN PRN Administration PICC line patency Heparin Sodium (Porcine) 5,000 unit 10/04/19 22:00 10/06/19 21:33 Heparin - SQ 5,000 unit BID [facility] Administration Cefepime HCl 1 gm/ Dextrose 100 mls @ 200 mls/hr 10/06/19 12:00 10/07/19 02:28 IVPB 200 mls/hr Q8H-IV [facility] Administration Protocol Insulin Aspart 0 vial 10/04/19 22:00 10/07/19 06:05 Novolog Vial Sliding Scale - SQ 4 units ACHS [facility] Administration Protocol Lisinopril 10 mg 10/05/19 10:00 10/06/19 09:57 Prinivil PO 10 mg DAILY [facility] Administration Polyethylene Glycol 17 gm 10/06/19 10:00 10/06/19 09:56 Miralax (For Daily Use) - PO 17 gm DAILY [facility] Administration Discontinued Medications Generic Name Dose Route Start Last Admin Trade Name Rosa PRN Reason Stop Dose Admin Acetaminophen 1,000 mg 10/04/19 18:47 10/04/19 20:23 Ofirmev Injection - IVPB 10/04/19 18:48 1,000 mg ONCE ONE Administration Cefepime HCl 2 gm in 50 mls @ 100 mls/hr 10/04/19 18:37 10/04/19 19:04 Maxipime 2gm Ivpb (Premix) IVPB 10/04/19 19:06 100 mls/hr ONCE ONE Administration Vancomycin HCl 2,000 mg/ 500 mls @ 250 mls/hr 10/04/19 18:37 10/04/19 19:04 Dextrose IVPB 10/04/19 20:36 250 mls/hr ONCE ONE Administration Sodium Chloride 3,729 mls @ 1,864.5 mls/hr 10/04/19 18:45 10/04/19 19:05 Normal Saline - 30 ml/kg infuse over 2 hr (3729 ml) 10/04/19 20:44 Not Given IV ONCE ONE Famotidine/Sodium Chloride 20 mg in 50 mls @ 100 mls/hr 10/04/19 20:24 10/04/19 21:38 Pepcid 20 Mg Premixed Ivpb - IVPB 10/04/19 20:53 100 mls/hr ONCE ONE Administration Iron Sucrose 200 mg/ Sodium 100 mls @ 100 mls/hr 10/04/19 22:00 10/04/19 23:18 Chloride IVPB 10/04/19 22:59 100 mls/hr ONCE ONE Administration Cefepime HCl 2 gm in 50 mls @ 100 mls/hr 10/05/19 22:00 10/06/19 20:56 Maxipime 2gm Ivpb (Premix) IVPB Not Given BID [facility] Protocol Cefepime HCl 2 gm/ Dextrose 100 mls @ 200 mls/hr 10/06/19 07:00 10/06/19 06:00 IVPB 10/06/19 19:29 200 mls/hr Q12H [facility] Administration Protocol Influenza Virus Vaccine Quadrival 60 mcg 10/05/19 10:00 10/05/19 09:41 Fluarix Quad [id number] Syringe IM 10/05/19 10:01 60 mcg .ONCE ONE Administration Magnesium Hydroxide 30 ml 10/06/19 09:30 10/06/19 09:57 Milk Of Magnesia - PO 10/06/19 09:31 30 ml ONCE ONE Administration Sodium Chloride 1,000 ml 10/04/19 18:48 10/04/19 19:05 Normal Saline - IV 10/04/19 18:49 1,000 ml ONCE ONE Administration Assessment and plan 49 y/o F with hx of obesity, HTN, T2-IDDM, HLD, hypothyroidism, diabetic neuropathy, asthma, 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 #R Ft Osteomyelitis -Cont. IV abx. has been on taking vancomycin since last admission -also 1x cefepime -wound culture -fu Bcx,ucx -WBC 14.5 -ID consult: Dr. Soto -Podiatry consult: Dr. Olvera thank you very much read the consult -wound care, with wound vac -contact precautions #Anemia Status post transfusion will repeat labs in the morning Seen by MAINTENANCE OF WAY CLERK. She will have follow-up outpatient Call GI evaluation by Dr. portillo #DM -hold home meds -BGMs -SSI #Hypothyroidism -cont home meds #HTn -cont home meds #dvt ppx -hep sq #FEN -no iv fluids -monitor -diabetic diet
[2019-10-08] MEDS: ATORVASTATIN CA 10 MG TABLET (FP) PO SCH (21:10)
[2019-10-09] MEDS ORDERED: CEFEPIME HCL 1 GM VIAL (RESTRICTED TO ID) ONE ×3 (01:10→16:47)
[2019-10-09] MEDS ORDERED: DEXTROSE 5%-WATER 100 ML IVPB ONE ×3 (01:10→16:47)
[2019-10-09] MEDS: CEFEPIME 1 GM in DEXTROSE 5%-WATER 100 ML IVPB SCH ×3 (02:02→17:19)
[2019-10-09] MEDS: FUROSEMIDE 40 MG/4 ML INJECTABLE VIAL IVPUSH SCH ×2 (06:06→13:28)
[2019-10-09] MEDS: INSULIN SLIDING SCALE (NOVOLOG) 1 VIAL SQ SCH ×4 (06:07→21:31)
[2019-10-09] MEDS ORDERED: INSULIN (NOVOLOG) ASPART 100 UNITS/ML 10ML VIAL ONE ×3 (06:21→21:18)
[2019-10-09] MEDS ORDERED: INSULIN (LEVEMIR) 100 UNITS/ML UNITS SQ ONE (06:21)
[2019-10-09] MEDS: ALBUTEROL SO4 HFA INHALER IH PRN (08:20)
[2019-10-09] MEDS: LISINOPRIL 10 MG TABLET (FP) PO SCH (09:34)
[2019-10-09] MEDS: HEPARIN NA (PORCINE) 5,000 UNITS/ML 1ML VIAL SQ SCH ×2 (09:34→21:31)
[2019-10-09] MEDS: MAGNESIUM HYDROX 2400MG/30ML ORAL SUSPENSION 30 ML CUP PO PRN (09:34)
[2019-10-09] MEDS: POLYETHYLENE GLYCOL 3350 119 GM BTL PO SCH (09:34)
--- NOTE | 2019-10-09 17:17 | PN ---
Progress Note (short form) - Note Progress Note: Patient is comfortable seen by TOUCH UP WORKER yesterday. She has no active bleeding she had a bowel movement yesterday there was no active melena. No fever no chills seen by ID and wound care Patient is comfortable and has no shortness of breath or any other symptoms. Vital Signs Period Temp Pulse Resp BP Sys/Arthur Pulse Ox Last 24 Hr 98 F-98.4 F 83-95 18-22 101-129/58-73 94-95 Patient is comfortable HEENT normal Neck supple no JVD Lungs clear no wheezing Abdomen nontender no organomegaly bowel sounds normal Extremities Wound VAC in place and no more edema Neurologically he is alert awake oriented, nonfocal Skin no rash noted CBC, BMP 10/08/19 07:22 10/07/19 17:03 Current Medications Generic Name Dose Route Start Last Admin Trade Name Freq PRN Reason Stop Dose Admin Acetaminophen 650 mg 10/04/19 21:52 10/06/19 21:43 Tylenol - PO 650 mg Q4H PRN Administration PAIN Albuterol Sulfate 1 puff 10/04/19 22:49 Ventolin Hfa Inhaler - IH Q6H PRN SHORTNESS OF BREATH Atorvastatin Calcium 10 mg 10/05/19 22:00 10/06/19 21:33 Lipitor - PO 10 mg HS [facility] Administration Furosemide 40 mg 10/05/19 14:00 10/07/19 05:36 Lasix Injection - IVPUSH 40 mg BID@0600,1400 [facility] Administration Heparin Sodium (Porcine) 5 ml 10/04/19 21:52 10/06/19 21:42 Hep-Lock - IVPUSH 5 ml PRN PRN Administration PICC line patency Heparin Sodium (Porcine) 5,000 unit 10/04/19 22:00 10/06/19 21:33 Heparin - SQ 5,000 unit BID [facility] Administration Cefepime HCl 1 gm/ Dextrose 100 mls @ 200 mls/hr 10/06/19 12:00 10/07/19 02:28 IVPB 200 mls/hr Q8H-IV [facility] Administration Protocol Insulin Aspart 0 vial 10/04/19 22:00 10/07/19 06:05 Novolog Vial Sliding Scale - SQ 4 units ACHS [facility] Administration Protocol Lisinopril 10 mg 10/05/19 10:00 10/06/19 09:57 Prinivil PO 10 mg DAILY [facility] Administration Polyethylene Glycol 17 gm 10/06/19 10:00 10/06/19 09:56 Miralax (For Daily Use) - PO 17 gm DAILY [facility] Administration Discontinued Medications Generic Name Dose Route Start Last Admin Trade Name Rosa PRN Reason Stop Dose Admin Acetaminophen 1,000 mg 10/04/19 18:47 10/04/19 20:23 Ofirmev Injection - IVPB 10/04/19 18:48 1,000 mg ONCE ONE Administration Cefepime HCl 2 gm in 50 mls @ 100 mls/hr 10/04/19 18:37 10/04/19 19:04 Maxipime 2gm Ivpb (Premix) IVPB 10/04/19 19:06 100 mls/hr ONCE ONE Administration Vancomycin HCl 2,000 mg/ 500 mls @ 250 mls/hr 10/04/19 18:37 10/04/19 19:04 Dextrose IVPB 10/04/19 20:36 250 mls/hr ONCE ONE Administration Sodium Chloride 3,729 mls @ 1,864.5 mls/hr 10/04/19 18:45 10/04/19 19:05 Normal Saline - 30 ml/kg infuse over 2 hr (3729 ml) 10/04/19 20:44 Not Given IV ONCE ONE Famotidine/Sodium Chloride 20 mg in 50 mls @ 100 mls/hr 10/04/19 20:24 10/04/19 21:38 Pepcid 20 Mg Premixed Ivpb - IVPB 10/04/19 20:53 100 mls/hr ONCE ONE Administration Iron Sucrose 200 mg/ Sodium 100 mls @ 100 mls/hr 10/04/19 22:00 10/04/19 23:18 Chloride IVPB 10/04/19 22:59 100 mls/hr ONCE ONE Administration Cefepime HCl 2 gm in 50 mls @ 100 mls/hr 10/05/19 22:00 10/06/19 20:56 Maxipime 2gm Ivpb (Premix) IVPB Not Given BID [facility] Protocol Cefepime HCl 2 gm/ Dextrose 100 mls @ 200 mls/hr 10/06/19 07:00 10/06/19 06:00 IVPB 10/06/19 19:29 200 mls/hr Q12H [facility] Administration Protocol Influenza Virus Vaccine Quadrival 60 mcg 10/05/19 10:00 10/05/19 09:41 Fluarix Quad [id number] Syringe IM 10/05/19 10:01 60 mcg .ONCE ONE Administration Magnesium Hydroxide 30 ml 10/06/19 09:30 10/06/19 09:57 Milk Of Magnesia - PO 10/06/19 09:31 30 ml ONCE ONE Administration Sodium Chloride 1,000 ml 10/04/19 18:48 10/04/19 19:05 Normal Saline - IV 10/04/19 18:49 1,000 ml ONCE ONE Administration Assessment and plan 49 y/o F with hx of obesity, HTN, T2-IDDM, HLD, hypothyroidism, diabetic neuropathy, asthma, 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 #R Ft Osteomyelitis -Cont. IV abx. has been on taking vancomycin since last admission -also 1x cefepime -wound culture -fu Bcx,ucx -WBC 14.5 -ID consult: Dr. Soto -Podiatry consult: Dr. Olvera thank you very much read the consult -wound care, with wound vac -contact precautions #Anemia Status post transfusion will repeat labs in the morning Seen by TOUCH UP WORKER. She will have follow-up outpatient Call GI evaluation by Dr. portillo #DM -hold home meds -BGMs -SSI #Hypothyroidism -cont home meds #HTn -cont home meds #dvt ppx -hep sq #FEN -no iv fluids -monitor -diabetic diet
[2019-10-09] MEDS: ALBUTEROL SO4 0.083% IH SOL 2.5 MG/3 ML VIAL.NEB. NEB SCH (20:55)
[2019-10-09] MEDS: ATORVASTATIN CA 10 MG TABLET (FP) PO SCH (21:31)
[2019-10-09] MEDS: FLUTICASONE/SALMETEROL 100 MCG/50 MCG DISKUS IH SCH (21:31)
--- NOTE | 2019-10-09 21:43 | PN ---
Progress Note (short form) - Note Progress Note: called for Pt. hyperglycemic to 438. Pt. noted to be receiving Cefepime in Dextrose Q8H and had Ce Shante. Will restart home Levemir at 80% of home dose as recommended by the [place] [employer] and cover with sliding scale.
[2019-10-09] MEDS: INSULIN (LEVEMIR) 100 UNITS/ML UNITS SQ SCH (21:47)
[2019-10-09] MEDS: ACETAMINOPHEN 325 MG TABLET (FP) PO PRN (21:48)
[2019-10-10] MEDS ORDERED: DEXTROSE 5%-WATER 100 ML IVPB ONE ×2 (02:07→08:56)
[2019-10-10] MEDS ORDERED: CEFEPIME HCL 1 GM VIAL (RESTRICTED TO ID) ONE ×3 (02:07→17:23)
[2019-10-10] MEDS: CEFEPIME 1 GM in DEXTROSE 5%-WATER 100 ML IVPB SCH ×3 (02:13→17:28)
[2019-10-10] MEDS: ALBUTEROL SO4 HFA INHALER IH PRN ×2 (06:35→23:13)
[2019-10-10] MEDS: INSULIN SLIDING SCALE (NOVOLOG) 1 VIAL SQ SCH ×4 (06:40→21:47)
[2019-10-10] MEDS: FUROSEMIDE 40 MG/4 ML INJECTABLE VIAL IVPUSH SCH ×2 (06:40→13:29)
[2019-10-10] MEDS: INSULIN (LEVEMIR) 100 UNITS/ML UNITS SQ SCH ×2 (06:41→21:46)
[2019-10-10] MEDS ORDERED: INSULIN (NOVOLOG) ASPART 100 UNITS/ML 10ML VIAL ONE (06:45)
[2019-10-10] MEDS: ALBUTEROL SO4 0.083% IH SOL 2.5 MG/3 ML VIAL.NEB. NEB SCH ×4 (07:49→20:25)
[2019-10-10] MEDS: HEPARIN NA (PORCINE) 5,000 UNITS/ML 1ML VIAL SQ SCH ×2 (09:03→21:46)
[2019-10-10] MEDS: FLUTICASONE/SALMETEROL 100 MCG/50 MCG DISKUS IH SCH ×2 (09:03→21:45)
[2019-10-10] MEDS: LISINOPRIL 10 MG TABLET (FP) PO SCH (09:03)
[2019-10-10] MEDS: POLYETHYLENE GLYCOL 3350 119 GM BTL PO SCH (09:06)
--- NOTE | 2019-10-10 10:51 | PN ---
Progress Note (short form) - Note Progress Note: FU Right foot WOUND/ iNCISION- WOUND VAC IN PLACE- + DRAINAGE IN CANISTER OM- CHRONIC GRADE 3 WOUND RIGHT FOOT IVABX PER ID.RETURN TO [facility] UPON DC., CONTINUE VAC. DR RAMON WILL FOLLOW
--- NOTE | 2019-10-10 11:13 | PN ---
Progress Note (short form) - Note Progress Note: Patient is comfortable seen by VP ANALYSIS yesterday. She has no active bleeding she had a bowel movement yesterday there was no active melena. No fever no chills seen by ID and wound care Patient is comfortable and has no shortness of breath or any other symptoms. 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 #R Ft Osteomyelitis -Cont. IV abx. has been on taking vancomycin since last admission -also 1x cefepime -wound culture -fu Bcx,ucx -WBC 14.5 -ID consult: Dr. Soto -Podiatry consult: Dr. Olvera thank you very much read the consult -wound care, with wound vac -contact precautions #Anemia Status post transfusion will repeat labs in the morning Seen by VP ANALYSIS. She will have follow-up outpatient Call GI evaluation by Dr. portillo #DM -hold home meds -BGMs -SSI #Hypothyroidism -cont home meds #HTn -cont home meds #dvt ppx -hep sq #FEN -no iv fluids -monitor -diabetic diet
[2019-10-10] MEDS: ATORVASTATIN CA 10 MG TABLET (FP) PO SCH (21:47)
[2019-10-11] MEDS ORDERED: DEXTROSE 5%-WATER 100 ML IVPB ONE ×3 (02:33→10:18)
[2019-10-11] MEDS ORDERED: CEFEPIME HCL 1 GM VIAL (RESTRICTED TO ID) ONE ×3 (02:33→10:17)
[2019-10-11] MEDS: CEFEPIME 1 GM in DEXTROSE 5%-WATER 100 ML IVPB SCH ×2 (02:38→10:32)
[2019-10-11] MEDS: FUROSEMIDE 40 MG/4 ML INJECTABLE VIAL IVPUSH SCH ×2 (05:50→13:14)
[2019-10-11] MEDS: INSULIN SLIDING SCALE (NOVOLOG) 1 VIAL SQ SCH ×2 (06:32→12:09)
[2019-10-11] MEDS: INSULIN (LEVEMIR) 100 UNITS/ML UNITS SQ SCH (06:32)
[2019-10-11] MEDS: ALBUTEROL SO4 0.083% IH SOL 2.5 MG/3 ML VIAL.NEB. NEB SCH (07:40)
--- NOTE | 2019-10-11 08:46 | DS ---
Physical Examination Vital Signs: Vital Signs Temperature 98.1 F 10/11/19 06:00 Pulse Rate 89 10/11/19 06:00 Respiratory Rate 18 10/11/19 06:00 Blood Pressure 111/53 L 10/11/19 06:00 O2 Sat by Pulse Oximetry (%) 97 10/11/19 03:00 Constitutional: Yes: Well Nourished HENT: Yes: Atraumatic Cardiovascular: Yes: Regular Rate and Rhythm Respiratory: Yes: CTA Bilaterally Edema: No Neurological: Yes: WNL Labs: CBC, BMP 10/08/19 07:22 10/07/19 17:03 Discharge Summary Problems reviewed: Yes Reason For Visit: SEPSIS,OSTEOMYELITIS Current Active Problems Foot ulcer, right (Acute) Condition: Stable - Instructions Diet, Activity, Other Instructions: Activity as tolerated she is going to get home IV antibiotics vancomycin for total of 6 weeks. All arrangements has been done. Also advised patient to work from the home until she finishes the antibiotics. Will do her list of medication updated. Referrals: Harvinder Bledsoe MD [Primary Care Provider] - Disposition: HOME - Home Medications Comprehensive Discharge Medication List: Ambulatory Orders This is a 49-year-old female who has history of diabetes hypertension hyperlipidemia she also has a right foot osteomyelitis and she was at [facility]. She was transferred because her foot was getting worse and also swollen. In the hospital she was started on IV Lasix and she improved but later on her hemoglobin showed much lower numbers 6.8 so she was given 2 blood transfusion and at discharge she is 9.0 hemoglobin. She is going to need IV antibiotic vancomycin 1 g twice a day all arrangements have done for the home infusion. Also add diuretic Lasix 40 mg once a day. Atorvastatin Ca [Lipitor] 10 mg PO HS 07/16/18 Metformin HCl [Glucophage] 1,000 mg PO BID 01/06/19 Albuterol Sulfate [Albuterol Sulfate Hfa] 18 gm IH DAILY PRN 09/16/19 Ferrous Sulfate 325 mg PO DAILY 09/16/19 Insulin Sliding Scale [Novolog Vial Sliding Scale -] 6 units SQ TIDAC 09/17/19 Insulin Glargine,Hum.rec.anlog [Lantus Solostar] 22 unit SQ BID #1 pack 09/22/19 Lisinopril [Prinivil] 10 mg PO DAILY #30 tablet 09/22/19 Nystatin Powder [Nystop Powder -] 1 applic TP BID applic 09/22/19 Vancomycin 1,250 mg IVPB Q12H vial 09/22/19 Discharge Summary - Instructions Condition: Stable Disposition: HOME Referrals: Harvinder Bledsoe MD [Primary Care Provider] - Diet, Activity, Other Instructions: Activity as tolerated she is going to get home IV antibiotics vancomycin for total of 6 weeks. All arrangements has been done. Also advised patient to work from the home until she finishes the antibiotics. Will do her list of medication updated. - Medication Reconciliation Prescriptions: Salmeterol/Fluticasone [Advair 100Mcg/50Mcg -] 1 puff IH BID #1 inhaler Furosemide [Lasix] 40 mg PO DAILY #30 tablet Polyethylene Glycol 3350 [Miralax 119 gm Btl -] 17 gm PO DAILY #30 bottle Albuterol Sulfate Inhaler - [Ventolin HFA Inhaler -] 1 puff IH Q6H PRN #1 inhaler PRN Reason: Shortness Of Breath
[2019-10-11] MEDS: HEPARIN NA (PORCINE) 5,000 UNITS/ML 1ML VIAL SQ SCH (10:32)
[2019-10-11] MEDS: LISINOPRIL 10 MG TABLET (FP) PO SCH (10:32)
[2019-10-11] MEDS: POLYETHYLENE GLYCOL 3350 119 GM BTL PO SCH (10:33)
[2019-10-11] MEDS: FLUTICASONE/SALMETEROL 100 MCG/50 MCG DISKUS IH SCH (10:33)
[2019-10-11 10:53] VITALS: BP 135/82; PULSE 70; TEMP 98
[2019-10-11 12:40] VITALS: BMI 43.5
[2019-10-11] MEDS ORDERED: AMINO ACIDS/PROTEIN HYDROLYS 30 ML LIQUID.PKT PO SCH (17:30)
== END 2019-10-11 14:39 | disposition home or self-care (01) | DRG 638 ==
LOC: JER 17:24 → JERBED 21:10 → J8W 23:48
PROVIDERS: ADMIT Internal Medicine; ATTEND Internal Medicine
PROC: 30233N1 Transfusion of Nonautologous Red Blood Cells into Peripheral Vein, Percutaneous Approach (ICD-10-PCS; principal; 2019-10-05)
PROC: 2W1SX6Z Compression of Right Foot using Pressure Dressing (ICD-10-PCS; 2019-10-05)
DX: E11.621 Type 2 diabetes mellitus with foot ulcer (principal); Z68.41 Body mass index [BMI] 40.0-44.9, adult; E46 Unspecified protein-calorie malnutrition; L97.918 Non-pressure chronic ulcer of unspecified part of right lower leg with other specified severity; L03.115 Cellulitis of right lower limb; M86.9 Osteomyelitis, unspecified; E11.69 Type 2 diabetes mellitus with other specified complication; E11.610 Type 2 diabetes mellitus with diabetic neuropathic arthropathy; E11.40 Type 2 diabetes mellitus with diabetic neuropathy, unspecified; E66.01 Morbid (severe) obesity due to excess calories; I51.7 Cardiomegaly; E88.09 Other disorders of plasma-protein metabolism, not elsewhere classified; D63.8 Anemia in other chronic diseases classified elsewhere; I10 Essential (primary) hypertension; N92.0 Excessive and frequent menstruation with regular cycle; D25.9 Leiomyoma of uterus, unspecified; E03.9 Hypothyroidism, unspecified; E11.65 Type 2 diabetes mellitus with hyperglycemia; E78.5 Hyperlipidemia, unspecified
CPT/HCPCS: 36415; 36430; 36511; 71045-TC-FY; 73630-TC-RT-FY; 76856-TC; 80053; 81003; 82272; 82728; 82803; 82962; 83540; 83550; 83605; 83735; 84100; 84484; 84703; 85025; 85610; 85730; 86850; 86900; 86901; 86922; 87040; 87070; 87086; 87186; 87205; 90686; 93005; 93010; 93971-TC; 94640; 99285-25; G0008; G0277; J0131; J1644; J1756; P9038; P9058; U0003

== ENCOUNTER 2019-10-14 14:42 | Inpatient (IN) | payer BC ==
--- NOTE | 2019-10-14 14:50 | PDOC ---
Rapid Medical Evaluation Time Seen by Provider: 10/14/19 14:46 Medical Evaluation: Allergies Allergy/AdvReac Type Severity Reaction Status Date / Time piperacillin sodium AdvReac "itchiness,rash Verified 10/04/19 17:28 [From Zosyn] on face" tazobactam sodium AdvReac "itchiness,rash Verified 10/04/19 17:28 [From Zosyn] on face" 10/14/19 14:47 CC: sent by dr bazan, wound care for worsening rt foot wound along with diarrhea x 3 days Exam: vss, rt foot covered with dsg, in NAD Plan: labs, iv, wound cx Discharge Disposition - Diagnosis Wound of right foot - Referrals - Patient Instructions - Post Discharge Activity
[2019-10-14] MEDS ORDERED: MEROPENEM 1 GM in DEXTROSE 5%-WATER 100 ML IVPB ONE ×2 (17:34→17:51)
[2019-10-14 17:42] LABS: ALBUMIN 2.5 g/dl (3.4-5.0); BILIRUBIN,TOTAL 0.5 mg/dL (0.2-1); BLOOD UREA NITROGEN 22.5 mg/dL (7-18); CALCIUM 9.3 mg/dL (8.5-10.1); CREATININE 1.5 mg/dL (0.55-1.3); POTASSIUM 3.8 mmol/L (3.5-5.1); TOT PROT 8.2 g/dl (6.4-8.2)
[2019-10-14 18:05] LABS: EPI CELLS >36 /uL (0-25.1); HYALINE CASTS 8 /uL (0-3.1); URINE APPEARANCE TURBID; URINE BILIRUBIN NEGATIVE (NEGATIVE); URINE COLOR YELLOW; URINE GLUCOSE (UA) TRACE (NEGATIVE); URINE KETONE NEGATIVE (NEGATIVE); URINE LEUK ESTERASE NEGATIVE (NEGATIVE); URINE NITRITE NEGATIVE (NEGATIVE); URINE PROTEIN 1+ (NEGATIVE); URINE RBC 9 /uL (0-23.9); URINE UROBILINOGEN 0.2 mg/dL (0.2-1.0); URINE WBC 38 /uL (0-25.8)
[2019-10-14 18:10] LABS: BASO % 0.3 % (0-2.0); EOS % 1.1 % (0-4.5); HEMOGLOBIN 8.5 GM/dL (10.7-15.3); LYMPH % 8.1 % (8-40); MCHC 31.4 g/dl (32.0-36.0); MEAN CELL VOLUME 76.5 fl (80-96); MEAN PLT VOLUME 6.9 fl (7.5-11.1); MONO % 6.4 % (3.8-10.2); NEUT % 84.1 % (42.8-82.8); PLATELET COUNT 601 K/MM3 (134-434); RBC 3.52 M/mm3 (3.60-5.2); RDW 23.1 % (11.6-15.6); WHITE BLOOD COUNT 15.7 K/mm3 (4.0-10.0)
[2019-10-14 18:18] LABS: INR 1.14 (0.83-1.09); PROTHROMBIN TIME (PATIENT) 13.5 SEC (9.7-13.0)
[2019-10-14 18:28] LABS: ANISOCYTOSIS 3+
[2019-10-14 18:29] LABS: TARGET CELLS 1+
[2019-10-14 18:33] LABS: URINE BACTERIA 14.3 /uL (0-1359)
--- NOTE | 2019-10-14 18:39 | PDOC ---
*Physical Exam - Vital Signs Last Vital Signs Temp Pulse Resp BP Pulse Ox 98.3 F 83 18 122/57 L 98 10/14/19 14:47 10/14/19 14:47 10/14/19 14:47 10/14/19 14:47 10/14/19 17:59 ED Treatment Course - LABORATORY CBC & Chemistry Diagram: 10/14/19 16:00 10/14/19 16:54 - ADDITIONAL ORDERS Additional order review: Laboratory Results 10/14/19 10/14/19 10/14/19 17:20 16:54 16:54 PT with INR INR Sodium 135 L Potassium 3.8 Chloride 99 Carbon Dioxide 24 Anion Gap 13 BUN 22.5 H Creatinine 1.5 H Est GFR (CKD-EPI)AfAm 46.27 Est GFR (CKD-EPI)NonAf 39.92 Random Glucose 168 H Lactic Acid 1.4 Calcium 9.3 Magnesium 2.0 Total Bilirubin 0.5 AST 14 L ALT 13 Alkaline Phosphatase 121 H C-Reactive Protein Total Protein 8.2 Albumin 2.5 L Urine Color Yellow Urine Appearance Turbid Urine pH 5.0 D Ur Specific [place] 1.012 Urine Protein 1+ H Urine Glucose (UA) Trace Urine Ketones Negative Urine Blood Trace Urine Nitrite Negative Urine Bilirubin Negative Urine Urobilinogen 0.2 Ur Leukocyte Esterase Negative Urine WBC (Auto) 38 Urine RBC (Auto) 9 Urine Casts (Auto) 8 U Pathogenic Cast Auto U Epithel Cells (Auto) >36 Urine Bacteria (Auto) 14.3 10/14/19 10/14/19 16:30 16:00 PT with INR 13.50 H INR 1.14 H Sodium Potassium Chloride Carbon Dioxide Anion Gap BUN Creatinine Est GFR (CKD-EPI)AfAm Est GFR (CKD-EPI)NonAf Random Glucose Lactic Acid Calcium Magnesium Total Bilirubin AST ALT Alkaline Phosphatase C-Reactive Protein 23.5 H Total Protein Albumin Urine Color Urine Appearance Urine pH Ur Specific [place] Urine Protein Urine Glucose (UA) Urine Ketones Urine Blood Urine Nitrite Urine Bilirubin Urine Urobilinogen Ur Leukocyte Esterase Urine WBC (Auto) Urine RBC (Auto) Urine Casts (Auto) U Pathogenic Cast Auto U Epithel Cells (Auto) Urine Bacteria (Auto) 10/14/19 16:00 RBC 3.52 L MCV 76.5 L MCHC 31.4 L RDW 23.1 H MPV 6.9 L D Neutrophils % 84.1 H Lymphocytes % 8.1 D Monocytes % 6.4 Eosinophils % 1.1 Basophils % 0.3 - Medications Given in the ED: ED Medications Discontinued Medications Generic Name Dose Route Start Last Admin Trade Name Rosa PRN Reason Stop Dose Admin Meropenem 1 gm/ Dextrose 100 mls @ 200 mls/hr 10/14/19 17:51 10/14/19 18:20 IVPB 10/14/19 18:20 200 mls/hr ONCE ONE Administration Medical Decision Making - Medical Decision Making Discussed case with [facility] team Patient accepted for admission under Dr. Bledsoe 10/14/19 18:38 Discharge - Discharge Information Problems reviewed: Yes Clinical Impression/Diagnosis: Wound of right foot Condition: Guarded - Admission Yes - Follow up/Referral Referrals: Harvinder Bledsoe MD [Primary Care Provider] - - Patient Discharge Instructions - Post Discharge Activity
[2019-10-14] MEDS ORDERED: ALBUTEROL SO4 HFA INHALER IH PRN (19:16)
--- NOTE | 2019-10-14 19:19 | HP ---
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 Olvera at which time she was advised to report to the ED for further evaluation and admission. pt denies sob, chest pain, headache, fever, chills, abd pain, n/v. c/o indigestion. 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), chronic MRSA, PAST SURGICAL HISTORY: Social History: Smoking:denies Alcohol:denies Drugs: denies Allergies piperacillin sodium [From Zosyn] Adverse Reaction (Verified 10/14/19 14:49) "itchiness,rash on face" tazobactam sodium [From Zosyn] Adverse Reaction (Verified 10/14/19 14:49) "itchiness,rash on face" HOME MEDICATIONS: Home Medications Medication Instructions Recorded Atorvastatin Ca [Lipitor] 10 mg PO HS 07/16/18 Metformin HCl [Glucophage] 1,000 mg PO BID 01/06/19 Ferrous Sulfate 325 mg PO DAILY 09/16/19 Insulin Sliding Scale [Novolog See Protocol SQ TIDAC 09/17/19 Vial Sliding Scale -] Insulin Glargine,Hum.rec.anlog 22 unit SQ BID #1 pack 09/22/19 [Lantus Solostar] Lisinopril [Prinivil] 10 mg PO DAILY #30 tablet 09/22/19 Vancomycin 1,250 mg IVPB Q12H vial 09/22/19 Albuterol Sulfate Inhaler - 1 puff IH Q6H PRN #1 inhaler 10/11/19 [Ventolin HFA Inhaler -] Furosemide [Lasix] 40 mg PO DAILY #30 tablet 10/11/19 Polyethylene Glycol 3350 [Miralax 17 gm PO DAILY #30 bottle 10/11/19 119 gm Btl -] Salmeterol/Fluticasone [Advair 1 puff IH BID #1 inhaler 10/11/19 100Mcg/50Mcg -] REVIEW OF SYSTEMS CONSTITUTIONAL: Absent: fever, chills, diaphoresis, generalized weakness, malaise, loss of appetite, weight change HEENT: Absent: rhinorrhea, nasal congestion, throat pain, throat swelling, difficulty swallowing, mouth swelling, ear pain, eye pain, visual changes CARDIOVASCULAR: Absent: chest pain, syncope, palpitations, irregular heart rate, lightheadedness, peripheral edema RESPIRATORY: Absent: cough, shortness of breath, dyspnea with exertion, orthopnea, wheezing, stridor, hemoptysis GASTROINTESTINAL: Absent: abdominal pain, abdominal distension, nausea, vomiting, diarrhea, constipation, melena, hematochezia GENITOURINARY: Absent: dysuria, frequency, urgency, hesitancy, hematuria, flank pain, genital pain MUSCULOSKELETAL: Absent: myalgia, arthralgia, joint swelling, back pain, neck pain SKIN: RUE, PICC line no redness, dressing intact. Absent: rash, itching, pallor HEMATOLOGIC/IMMUNOLOGIC: Absent: easy bleeding, easy bruising, lymphadenopathy, frequent infections ENDOCRINE: Absent: unexplained weight gain, unexplained weight loss, heat intolerance, cold intolerance NEUROLOGIC: Absent: headache, focal weakness or paresthesias, dizziness, unsteady gait, seizure, mental status changes, bladder or bowel incontinence PSYCHIATRIC: Absent: anxiety, depression, suicidal or homicidal ideation, hallucinations. PHYSICAL EXAMINATION Vital Signs - 24 hr 10/14/19 10/14/19 10/14/19 14:47 17:59 18:30 Temperature 98.3 F 99.4 F Pulse Rate 83 Pulse Rate [ 94 H Left Radial] Respiratory 18 16 Rate Blood Pressure 122/57 L Blood Pressure 115/49 L [Left Arm] O2 Sat by Pulse 98 98 99 Oximetry (%) GENERAL: Awake, alert, and fully oriented, in no acute distress. HEAD: Normal with no signs of trauma. EYES: Pupils equal, round and reactive to light, extraocular movements intact, sclera anicteric, conjunctiva clear. No lid lag. EARS, NOSE, THROAT: Ears normal, nares patent, oropharynx clear without exudates. Moist mucous membranes. NECK: Normal range of motion, supple without lymphadenopathy, JVD, or masses. LUNGS: Breath sounds equal, clear to auscultation bilaterally. No wheezes, and no crackles. No accessory muscle use. HEART: Regular rate and rhythm, normal S1 and S2 without murmur, rub or gallop. ABDOMEN: Soft, nontender, not distended, normoactive bowel sounds, no guarding, no rebound, no masses. No hepatomegaly or splenomegaly. MUSCULOSKELETAL: Normal range of motion at all joints. No bony deformities or tenderness. No CVA tenderness. UPPER EXTREMITIES: 2+ pulses, warm, well-perfused. No cyanosis. No clubbing. No peripheral edema. LOWER EXTREMITIES: 2+ pulses, warm, well-perfused. No calf tenderness. Right leg edema, dressing on foot, dry intact. NEUROLOGICAL: Cranial nerves II-XII intact. Normal speech. Normal gait. PSYCHIATRIC: Cooperative. Good eye contact. Appropriate mood and affect. SKIN: Warm, dry, normal turgor, no rashes or lesions noted, normal capillary refill. Laboratory Results - last 24 hr 10/14/19 10/14/19 10/14/19 16:00 16:00 16:30 WBC 15.7 H RBC 3.52 L Hgb 8.5 L Hct 27.0 L MCV 76.5 L MCH 24.0 L MCHC 31.4 L RDW 23.1 H Plt Count 601 H D MPV 6.9 L D Absolute Neuts (auto) 13.2 H Neutrophils % 84.1 H Lymphocytes % 8.1 D Monocytes % 6.4 Eosinophils % 1.1 Basophils % 0.3 Nucleated RBC % 0 Hypochromia 1+ Polychromasia 1+ Anisocytosis 3+ Microcytosis 2+ Target Cells 1+ PT with INR 13.50 H INR 1.14 H Sodium Potassium Chloride Carbon Dioxide Anion Gap BUN Creatinine Est GFR (CKD-EPI)AfAm Est GFR (CKD-EPI)NonAf Random Glucose Lactic Acid Calcium Magnesium Total Bilirubin AST ALT Alkaline Phosphatase C-Reactive Protein Total Protein Albumin Urine Color Urine Appearance Urine pH Ur Specific [place] Urine Protein Urine Glucose (UA) Urine Ketones Urine Blood Urine Nitrite Urine Bilirubin Urine Urobilinogen Ur Leukocyte Esterase Urine WBC (Auto) Urine RBC (Auto) Urine Casts (Auto) U Pathogenic Cast Auto U Epithel Cells (Auto) Urine Bacteria (Auto) Random Vancomycin Blood Type B POSITIVE Antibody Screen Negative 10/14/19 10/14/19 10/14/19 16:30 16:30 16:54 WBC RBC Hgb Hct MCV MCH MCHC RDW Plt Count MPV Absolute Neuts (auto) Neutrophils % Lymphocytes % Monocytes % Eosinophils % Basophils % Nucleated RBC % Hypochromia Polychromasia Anisocytosis Microcytosis Target Cells PT with INR INR Sodium 135 L Potassium 3.8 Chloride 99 Carbon Dioxide 24 Anion Gap 13 BUN 22.5 H Creatinine 1.5 H Est GFR (CKD-EPI)AfAm 46.27 Est GFR (CKD-EPI)NonAf 39.92 Random Glucose 168 H Lactic Acid Calcium 9.3 Magnesium 2.0 Total Bilirubin 0.5 AST 14 L ALT 13 Alkaline Phosphatase 121 H C-Reactive Protein 23.5 H Total Protein 8.2 Albumin 2.5 L Urine Color Urine Appearance Urine pH Ur Specific [place] Urine Protein Urine Glucose (UA) Urine Ketones Urine Blood Urine Nitrite Urine Bilirubin Urine Urobilinogen Ur Leukocyte Esterase Urine WBC (Auto) Urine RBC (Auto) Urine Casts (Auto) U Pathogenic Cast Auto U Epithel Cells (Auto) Urine Bacteria (Auto) Random Vancomycin 22.2 Blood Type Antibody Screen 10/14/19 10/14/19 16:54 17:20 WBC RBC Hgb Hct MCV MCH MCHC RDW Plt Count MPV Absolute Neuts (auto) Neutrophils % Lymphocytes % Monocytes % Eosinophils % Basophils % Nucleated RBC % Hypochromia Polychromasia Anisocytosis Microcytosis Target Cells PT with INR INR Sodium Potassium Chloride Carbon Dioxide Anion Gap BUN Creatinine Est GFR (CKD-EPI)AfAm Est GFR (CKD-EPI)NonAf Random Glucose Lactic Acid 1.4 Calcium Magnesium Total Bilirubin AST ALT Alkaline Phosphatase C-Reactive Protein Total Protein Albumin Urine Color Yellow Urine Appearance Turbid Urine pH 5.0 D Ur Specific [place] 1.012 Urine Protein 1+ H Urine Glucose (UA) Trace Urine Ketones Negative Urine Blood Trace Urine Nitrite Negative Urine Bilirubin Negative Urine Urobilinogen 0.2 Ur Leukocyte Esterase Negative Urine WBC (Auto) 38 Urine RBC (Auto) 9 Urine Casts (Auto) 8 U Pathogenic Cast Auto U Epithel Cells (Auto) >36 Urine Bacteria (Auto) 14.3 Random Vancomycin Blood Type Antibody Screen ASSESSMENT/PLAN: 49 y/o F with hx of obesity, HTN, T2-IDDM, HLD, hypothyroidism, diabetic neuropathy, asthma, 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 #R Ft infection -WBC 15.7, lactic wnl -IV Meropenum -fu Bcx,ucx -ID consult: Dr. Cast -Podiatry consult: Dr. Olvera -wound care -contact precautions #Diarrhea -IVF -collect for cdiff if cont #Anemia,chronic -hg stable, 8.5 -monitor cbc -c/w ferrous sulfate #DM -hold home meds -BGMs -SSI, Levemir BID -diabetic diet #Hypothyroidism -cont home meds #HTN -cont home meds #Asthma,mild intermittent -c/w advair, albuterol prn Visit type - Emergency Visit Emergency Visit: Yes ED Registration Date: 10/14/19 Care time: The patient presented to the Emergency Department on the above date and was hospitalized for further evaluation of their emergent condition. - New Patient This patient is new to me today: Yes Date on this admission: 10/14/19 - Critical Care Critical Care patient: No
[2019-10-14 19:23] LABS: ERYTHROCYTE SEDIMENTATION RATE 111 mm/hr (0-30)
[2019-10-14] MEDS ORDERED: MAG HYDROX/AL HYDROX/SIMETH 30 ML UNIT-DOSE CUP PO ONE (20:45)
[2019-10-14] MEDS ORDERED: HEPARIN NA (PORCINE) 5,000 UNITS/ML 1ML VIAL ONE (21:12)
[2019-10-14] MEDS ORDERED: MAG HYDROX/AL HYDROX/SIMETH 30 ML UNIT-DOSE CUP ONE (21:12)
[2019-10-14] MEDS ORDERED: ATORVASTATIN CA 10 MG TABLET (FP) ONE (21:12)
[2019-10-14] MEDS: INSULIN (LEVEMIR) 100 UNITS/ML UNITS SQ SCH (21:36)
[2019-10-14] MEDS: HEPARIN NA (PORCINE) 5,000 UNITS/ML 1ML VIAL SQ SCH (21:36)
[2019-10-14] MEDS: ATORVASTATIN CA 10 MG TABLET (FP) PO SCH (21:36)
[2019-10-14] MEDS: FLUTICASONE/SALMETEROL 100 MCG/50 MCG DISKUS IH SCH (21:36)
[2019-10-14] MEDS: INSULIN SLIDING SCALE (NOVOLOG) 1 VIAL SQ SCH (21:37)
--- NOTE | 2019-10-14 22:19 | PDOC ---
History of Present Illness - General Chief Complaint: Wound Stated Complaint: RT FOOT SWOLLEN Time Seen by Provider: 10/14/19 14:46 History Source: Patient Exam Limitations: No Limitations - History of Present Illness Initial Comments: 10/14/19 22:19 Pili Cat is a 49F with PMH PAD s/p pop/fem bypass, chronic foot ulcer c/b poor wound healing and multiple admissions to [facility] for IV ABx now on vancomycin via PICC, sent to ED per Dr. Olvera from podiatry clinic for admission for further IV Abx. Patient reports she was seen at [facility] twice in September 2019 for foot pain and i nfection, discharged home 3 weeks ago with wound vacc, [employer] and PICC line for self-administration of vancomycin. Has had severe PAD and femoral bypass, in 2018 found to have area of necrosis/severe infection to sole of R foot, s/p multiple debridements, was counseled that she should have her foot amputated several times by podiatry but refused. Evaluated in podiatry clinic today, wound vac removed and wound appears worse despite vancomycin. Ambulates with leg scooter, unable to balance on two feet. Has shooting pain intermittently from R foot to thigh. LLE no issues. Denies any chest pain, SOB, fever, chills, N/V, poor PO, urinary sx, but does have diarrhea recently. Zosyn allergy is hives. Denies tobacco/drug/alcohol use. Past History - Medical History Allergies/Adverse Reactions: Allergies Allergy/AdvReac Type Severity Reaction Status Date / Time piperacillin sodium AdvReac "itchiness,rash Verified 10/14/19 14:49 [From Zosyn] on face" tazobactam sodium AdvReac "itchiness,rash Verified 10/14/19 14:49 [From Zosyn] on face" Home Medications: Ambulatory Orders Atorvastatin Ca [Lipitor] 10 mg PO HS 07/16/18 Metformin HCl [Glucophage] 1,000 mg PO BID 01/06/19 Ferrous Sulfate 325 mg PO DAILY 09/16/19 Insulin Sliding Scale [Novolog Vial Sliding Scale -] See Protocol SQ TIDAC 09/17/19 Insulin Glargine,Hum.rec.anlog [Lantus Solostar] 22 unit SQ BID #1 pack 06/10/20 Lisinopril [Prinivil] 10 mg PO DAILY #30 tablet 09/22/19 Vancomycin 1,250 mg IVPB Q12H vial 09/22/19 Albuterol Sulfate Inhaler - [Ventolin HFA Inhaler -] 1 puff IH Q6H PRN #1 inhaler 10/11/19 Furosemide [Lasix] 40 mg PO DAILY #30 tablet 10/11/19 Polyethylene Glycol 3350 [Miralax 119 gm Btl -] 17 gm PO DAILY #30 bottle 10/11/19 Salmeterol/Fluticasone [Advair 100Mcg/50Mcg -] 1 puff IH BID #1 inhaler 10/11/19 Anemia: Yes Asthma: Yes Cancer: No Cardiac Disorders: No CVA: No COPD: No CHF: No Dementia: No Diabetes: Yes GI Disorders: No Disorders: No HTN: Yes Hypercholesterolemia: Yes Liver Disease: No Seizures: No Thyroid Disease: Yes (HYPOTHYROIDISM) - Surgical History Orthopedic Surgery: Yes (R foot surgery x3) - Immunization History Immunization Up to Date: No - Psycho-Social/Smoking History Smoking History: Never smoked Have you smoked in the past 12 months: No Review of Systems - Review of Systems Able to Perform ROS?: Yes Constitutional: No: Chills, Fever, Loss of Appetite HEENTM: No: Symptoms Reported Respiratory: No: Cough, Orthopnea, Shortness of Breath Cardiac (ROS): No: Chest Pain, Edema, Irregular Heart Rate ABD/GI: Yes: Diarrhea. No: Difficulty Swallowing, Nausea, Poor Appetite, Poor Fluid Intake, Vomiting : No: Symptoms Reported Musculoskeletal: No: Symptoms Reported Integumentary: No: Symptoms Reported Neurological: No: Symptoms reported Endocrine: No: Symptoms Reported Hematologic/Lymphatic: No: Symptoms Reported All Other Systems: Reviewed and Negative *Physical Exam - Vital Signs Last Vital Signs Temp Pulse Resp BP Pulse Ox 99.4 F 94 H 16 115/49 L 99 10/14/19 18:30 10/14/19 18:30 10/14/19 18:30 10/14/19 18:30 10/14/19 18:30 - Physical Exam General Appearance: Yes: Nourished, Appropriately Dressed, Obese. No: Apparent Distress HEENT: positive: EOMI, NELLIE, Normal Voice, Symmetrical, Hearing Grossly Normal. negative: Pale Conjunctivae, Photophobia, Scleral Icterus (R), Scleral Icterus (L), Tonsillar Exudate, Tonsillar Erythema Neck: positive: Trachea midline, Normal Thyroid, Supple. negative: Tender, Rigid, Carotid bruit, Decreased range of motion, Stridor, Lymphadenopathy (R), Tender lateral, Tender midline Respiratory/Chest: positive: Lungs Clear, Normal Breath Sounds. negative: Chest Tender, Respiratory Distress, Accessory Muscle Use, Crackles, Rhonchi, Stridor, Wheezing Cardiovascular: positive: Regular Rhythm, Regular Rate. negative: Edema, Murmur Gastrointestinal/Abdominal: positive: Normal Bowel Sounds, Soft, Protuberent. negative: Tender, Organomegaly, Pulsatile Mass, Guarding, Rebound, Hernia Musculoskeletal: positive: Normal Inspection. negative: CVA Tenderness, Decreased Range of Motion, Vertebral Tenderness Extremity: positive: Normal Capillary Refill, Normal Range of Motion, Pelvis Stable, Swelling (RLE significant edema and swelling from foot to knee, no calor or rash to lower leg), Calf Tenderness, Other (8unc5vd ulcer to middle of sole of R foot, clear margins, no pus or bleeding, non-tender, no necrotic tissue noted, no bone on probe. PICC line RUE.). negative: Normal Inspection, Tender, Inflammation Integumentary: positive: Normal Color, Dry, Warm Neurologic: positive: Fully Oriented, Alert, Normal Mood/Affect, Normal Response . negative: Sensory Deficit ED Treatment Course - LABORATORY CBC & Chemistry Diagram: 10/14/19 16:00 10/14/19 16:54 - ADDITIONAL ORDERS Additional order review: Laboratory Results 10/14/19 10/14/19 10/14/19 17:20 16:54 16:54 PT with INR INR Sodium 135 L Potassium 3.8 Chloride 99 Carbon Dioxide 24 Anion Gap 13 BUN 22.5 H Creatinine 1.5 H Est GFR (CKD-EPI)AfAm 46.27 Est GFR (CKD-EPI)NonAf 39.92 Random Glucose 168 H Lactic Acid 1.4 Calcium 9.3 Magnesium 2.0 Total Bilirubin 0.5 AST 14 L ALT 13 Alkaline Phosphatase 121 H C-Reactive Protein Total Protein 8.2 Albumin 2.5 L Urine Color Yellow Urine Appearance Turbid Urine pH 5.0 D Ur Specific [place] 1.012 Urine Protein 1+ H Urine Glucose (UA) Trace Urine Ketones Negative Urine Blood Trace Urine Nitrite Negative Urine Bilirubin Negative Urine Urobilinogen 0.2 Ur Leukocyte Esterase Negative Urine WBC (Auto) 38 Urine RBC (Auto) 9 Urine Casts (Auto) 8 U Pathogenic Cast Auto U Epithel Cells (Auto) >36 Urine Bacteria (Auto) 14.3 Random Vancomycin Blood Type Antibody Screen 10/14/19 10/14/19 10/14/19 16:30 16:30 16:30 PT with INR INR Sodium Potassium Chloride Carbon Dioxide Anion Gap BUN Creatinine Est GFR (CKD-EPI)AfAm Est GFR (CKD-EPI)NonAf Random Glucose Lactic Acid Calcium Magnesium Total Bilirubin AST ALT Alkaline Phosphatase C-Reactive Protein 23.5 H Total Protein Albumin Urine Color Urine Appearance Urine pH Ur Specific [place] Urine Protein Urine Glucose (UA) Urine Ketones Urine Blood Urine Nitrite Urine Bilirubin Urine Urobilinogen Ur Leukocyte Esterase Urine WBC (Auto) Urine RBC (Auto) Urine Casts (Auto) U Pathogenic Cast Auto U Epithel Cells (Auto) Urine Bacteria (Auto) Random Vancomycin 22.2 Blood Type B POSITIVE Antibody Screen Negative 10/14/19 16:00 PT with INR 13.50 H INR 1.14 H Sodium Potassium Chloride Carbon Dioxide Anion Gap BUN Creatinine Est GFR (CKD-EPI)AfAm Est GFR (CKD-EPI)NonAf Random Glucose Lactic Acid Calcium Magnesium Total Bilirubin AST ALT Alkaline Phosphatase C-Reactive Protein Total Protein Albumin Urine Color Urine Appearance Urine pH Ur Specific [place] Urine Protein Urine Glucose (UA) Urine Ketones Urine Blood Urine Nitrite Urine Bilirubin Urine Urobilinogen Ur Leukocyte Esterase Urine WBC (Auto) Urine RBC (Auto) Urine Casts (Auto) U Pathogenic Cast Auto U Epithel Cells (Auto) Urine Bacteria (Auto) Random Vancomycin Blood Type Antibody Screen 10/14/19 16:00 RBC 3.52 L MCV 76.5 L MCHC 31.4 L RDW 23.1 H MPV 6.9 L D Neutrophils % 84.1 H Lymphocytes % 8.1 D Monocytes % 6.4 Eosinophils % 1.1 Basophils % 0.3 - RADIOLOGY Radiology Studies Ordered: Category Date Time Status ANKLE & FOOT-RIGHT* [RAD] Stat Radiology 10/14/19 16:05 Taken - Medications Given in the ED: ED Medications Discontinued Medications Generic Name Dose Route Start Last Admin Trade Name Freq PRN Reason Stop Dose Admin Al Hydroxide/Mg Hydroxide 30 ml 10/14/19 20:45 10/14/19 21:36 Mylanta Oral Suspension - PO 10/14/19 20:46 30 ml ONCE ONE Administration Meropenem 1 gm/ Dextrose 100 mls @ 200 mls/hr 10/14/19 17:34 10/14/19 18:42 IVPB 10/14/19 18:03 Not Given ONCE ONE Meropenem 1 gm/ Dextrose 100 mls @ 200 mls/hr 10/14/19 17:51 10/14/19 18:20 IVPB 10/14/19 18:20 200 mls/hr ONCE ONE Administration Medical Decision Making - Medical Decision Making 10/15/19 12:00 Patient has known history of PAD and chronic RLE ulcer, sent to ED for failure of outpatient treatment with vancomycin and wound vacc. Patient has pain and swelling to RLE without significant cellulitis, but has deep ulcer to foot. Getting CBC, CMP, ESR, CRP, CXR, ECG, UA/UC, blood cultures, and RLE X-ray for evaluation of wound and possible osteomyelitis. VSS, afebrile, no notable neuro deficits to affected extremities. 10/15/19 12:00 Labs notable for: - WBC 15.7 - Hgb 8.5 - Cr 1.5 - CRP 235 - ESR 111 - UA unremarkable CXR bedside read appears to have no gross change from prior 2 weeks ago. Patient given Ofirmev for pain control. ID consult with Dr. Cast, recommends stopping vancomycin. Patient cannot start Zosyn 2/2 allergy, started on meropenem given prior culture sensitivities for wound treatment. Senior resident Dr. Valencia admitted patient to Med-Surg. Discharge - Discharge Information Problems reviewed: Yes Clinical Impression/Diagnosis: Wound of right foot Condition: Stable - Follow up/Referral - Patient Discharge Instructions - Post Discharge Activity
[2019-10-14] MEDS ORDERED: ACETAMINOPHEN 1000 MG/100 ML VIAL (NON FORMULARY) IVPB ONE (22:49)
[2019-10-14] MEDS ORDERED: ACETAMINOPHEN INJECTION 100 ML IVPB ONE (22:49)
[2019-10-15] MEDS: INSULIN SLIDING SCALE (NOVOLOG) 1 VIAL SQ SCH ×4 (07:03→21:45)
[2019-10-15 08:16] LABS: BASO % 0.9 % (0-2.0); HEMATOCRIT 26.2 % (32.4-45.2); HEMOGLOBIN 8.3 GM/dL (10.7-15.3); LYMPH % 10.7 % (8-40); MCH 23.8 pg (25.7-33.7); MCHC 31.7 g/dl (32.0-36.0); MEAN CELL VOLUME 75.2 fl (80-96); MEAN PLT VOLUME 6.8 fl (7.5-11.1); MONO % 9.9 % (3.8-10.2); NEUT % 75.5 % (42.8-82.8); PLATELET COUNT 586 K/MM3 (134-434); RBC 3.48 M/mm3 (3.60-5.2); RDW 22.7 % (11.6-15.6); WHITE BLOOD COUNT 10.9 K/mm3 (4.0-10.0)
[2019-10-15 08:44] LABS: ALBUMIN 2.1 g/dl (3.4-5.0); BILIRUBIN,TOTAL 0.4 mg/dL (0.2-1); CALCIUM 8.6 mg/dL (8.5-10.1); CREATININE 1.3 mg/dL (0.55-1.3); MAGNESIUM 2.2 mg/dL (1.8-2.4); POTASSIUM 3.2 mmol/L (3.5-5.1); TOT PROT 7.1 g/dl (6.4-8.2)
[2019-10-15] MEDS: FLUTICASONE/SALMETEROL 100 MCG/50 MCG DISKUS IH SCH ×2 (10:47→21:44)
[2019-10-15] MEDS: LISINOPRIL 10 MG TABLET (FP) PO SCH (10:48)
[2019-10-15] MEDS: FUROSEMIDE 40 MG TABLET (FP) PO SCH (10:48)
[2019-10-15] MEDS: FERROUS SO4 325 MG TABLET (FP) PO SCH (10:48)
[2019-10-15] MEDS: POLYETHYLENE GLYCOL 3350 119 GM BTL PO SCH (10:51)
[2019-10-15] MEDS: INSULIN (LEVEMIR) 100 UNITS/ML UNITS SQ SCH ×2 (10:54→21:43)
[2019-10-15] MEDS: HEPARIN NA (PORCINE) 5,000 UNITS/ML 1ML VIAL SQ SCH ×2 (10:57→21:43)
--- NOTE | 2019-10-15 12:45 | PN ---
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 #R Ft Osteomyelitis -Cont. IV abx. has been on taking vancomycin since last admission -also 1x cefepime - #Anemia Stable #DM -hold home meds -BGMs -SSI #Hypothyroidism -cont home meds #HTn -cont home meds #dvt ppx -hep sq #FEN -no iv fluids -monitor -diabetic diet
[2019-10-15] MEDS ORDERED: VANCOMYCIN 1 GM in D5W (PRE-DOCKED) 1,000 MG/250 ML IVPB SCH (13:00)
[2019-10-15] MEDS: MORPHINE SULFATE 2 MG/ML VIAL IM PRN (13:30)
[2019-10-15] MEDS: VANCOMYCIN 1 GM in D5W (PRE-DOCKED) 1,000 MG/250 ML IVPB SCH (13:54)
--- NOTE | 2019-10-15 16:31 | CONSULT ---
Consult Consult Specialty:: Podiatry Reason for Consultation:: Chronic wound right foot non healing - History of Present Illness Chief Complaint: Lethargic not eating leg swollen - History Source History Provided By: Patient - Past Medical History Cardio/Vascular: Yes: HTN, Hyperlipdemia Pulmonary: Yes: Asthma ...LMP: 01/26/19 Infectious Disease: Yes: Other (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, chronic MRSA with osteomyelitis) Musculoskeletal: Yes: Other Rheumatology: Yes: Other (right foot charcot disease) Endocrine: Yes: Diabetes Mellitus (uncontrolled), Hypothyroidism, Other (Obesity, DM neuropathy) Dermatology: Yes: Cellulitis - Past Surgical History Past Surgical History: Yes: None - Alcohol/Substance Use Hx Alcohol Use: No History of Substance Use: reports: None - Smoking History Smoking history: Never smoked Have you smoked in the past 12 months: No - Social History Usual Living Arrangement: With Spouse ADL: Independent 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 History of Recent Travel: No Home Medications - Allergies Allergies/Adverse Reactions: Allergies Allergy/AdvReac Type Severity Reaction Status Date / Time piperacillin sodium AdvReac "itchiness,rash Verified 10/14/19 14:49 [From Zosyn] on face" tazobactam sodium AdvReac "itchiness,rash Verified 10/14/19 14:49 [From Zosyn] on face" - Home Medications Home Medications: Ambulatory Orders Atorvastatin Ca [Lipitor] 10 mg PO HS 07/16/18 Metformin HCl [Glucophage] 1,000 mg PO BID 01/06/19 Ferrous Sulfate 325 mg PO DAILY 09/16/19 Insulin Sliding Scale [Novolog Vial Sliding Scale -] See Protocol SQ TIDAC 09/17/19 Insulin Glargine,Hum.rec.anlog [Lantus Solostar] 22 unit SQ BID #1 pack 09/22/19 Lisinopril [Prinivil] 10 mg PO DAILY #30 tablet 09/22/19 Vancomycin 1,250 mg IVPB Q12H vial 09/22/19 Albuterol Sulfate Inhaler - [Ventolin HFA Inhaler -] 1 puff IH Q6H PRN #1 inhaler 10/11/19 Furosemide [Lasix] 40 mg PO DAILY #30 tablet 10/11/19 Polyethylene Glycol 3350 [Miralax 119 gm Btl -] 17 gm PO DAILY #30 bottle 10/11/19 Salmeterol/Fluticasone [Advair 100Mcg/50Mcg -] 1 puff IH BID #1 inhaler 10/11/19 Physical Exam Vital Signs: Vital Signs Temperature 98.4 F 10/15/19 14:29 Pulse Rate 92 H 10/15/19 14:29 Respiratory Rate 18 10/15/19 14:29 Blood Pressure 123/62 10/15/19 14:29 O2 Sat by Pulse Oximetry (%) 98 10/15/19 09:00 Wound/Incision: Yes: Other (chronic om with draining wound right foot plantar aspect with serosanguinous drainage) Labs: CBC, BMP 10/15/19 07:15 10/15/19 07:15 Imaging - Results X-ray: Image Reviewed (ankle mortise is completely malaligned and unstable, possible OM of tibia and fibula as destruction seems to be spreading proximally.) Assessment/Plan om charcot foot non healing foot wound Had a long discussion with patient. Is agreeable to BKA as her wound management and current tx is taking a negative toll on her. Vascular has been consulted. Pt has failed all conservative wound care and prior surgical intervention that she allowed for. Dr. Bledsoe came in while I was talking to patient about the bka and seems to agree that a BKA is most likely her best choice at this time, Will not do well with amputation at ankle joint. Will follow till dc. Betadine dressing change daily to wound. Awaiting vascular recommendations. Discussed her left leg and foot and importance of taking care of her diabetes, weight and podiatric visits. Pt aske d if I could be there for here procedure. I will discuss with vascular if my scheduling permits. xray reviewed and destruction extends into ankle joint.
[2019-10-15] MEDS ORDERED: DEXTROSE 5%-WATER - 50 ML IVPB ONE (17:13)
[2019-10-15] MEDS ORDERED: CEFEPIME HCL 1 GM VIAL (RESTRICTED TO ID) ONE (17:13)
[2019-10-15] MEDS: CEFEPIME 1 GM in DEXTROSE 5%-WATER - 50 ML IVPB SCH (17:25)
[2019-10-15] MEDS ORDERED: CEFEPIME 1 GM in DEXTROSE 5%-WATER - 50 ML IVPB SCH (18:00)
[2019-10-15] MEDS: ATORVASTATIN CA 10 MG TABLET (FP) PO SCH (21:43)
--- NOTE | 2019-10-15 23:50 | PN ---
Progress Note (short form) - Note Progress Note: ID CONSULT DICTATED
[2019-10-16] MEDS: VANCOMYCIN 1 GM in D5W (PRE-DOCKED) 1,000 MG/250 ML IVPB SCH ×2 (00:54→13:34)
[2019-10-16] MEDS ORDERED: CEFEPIME HCL 1 GM VIAL (RESTRICTED TO ID) ONE ×2 (02:30→09:38)
[2019-10-16] MEDS ORDERED: DEXTROSE 5%-WATER - 50 ML IVPB ONE ×2 (02:31→09:38)
[2019-10-16] MEDS: CEFEPIME 1 GM in DEXTROSE 5%-WATER - 50 ML IVPB SCH ×4 (02:40→13:34)
[2019-10-16] MEDS: INSULIN SLIDING SCALE (NOVOLOG) 1 VIAL SQ SCH ×4 (06:30→22:40)
--- NOTE | 2019-10-16 10:38 | PN ---
Progress Note, Physician History of Present Illness: AWAKE, ALERT IN BED C/O R ANKLE SWELLING AND TIGHTNESS NO C/O FEVER/CHILLS AGREES TO R BKA - Current Medication List Current Medications: Active Medications Albuterol Sulfate (Ventolin Hfa Inhaler -) 1 puff IH Q6H PRN PRN Reason: SHORTNESS OF BREATH Atorvastatin Calcium (Lipitor -) 10 mg PO HS [facility] Last Admin: 10/15/19 21:43 Dose: 10 mg Documented by: Ferrous Sulfate (Feosol -) 325 mg PO DAILY [facility] Last Admin: 10/15/19 10:48 Dose: 325 mg Documented by: Furosemide (Lasix -) 40 mg PO DAILY [facility] Last Admin: 10/15/19 10:48 Dose: 40 mg Documented by: Heparin Sodium (Porcine) (Heparin -) 5,000 unit SQ BID [facility] Last Admin: 10/15/19 21:43 Dose: 5,000 unit Documented by: Cefepime HCl 1 gm/ Dextrose 50 mls @ 100 mls/hr IVPB Q8H-IV [facility]; Protocol Insulin Aspart (Novolog Vial Sliding Scale -) 1 vial SQ ACHS [facility]; Protocol Last Admin: 10/16/19 06:30 Dose: Not Given Documented by: Insulin Detemir (Levemir Vial) 22 units SQ BID [facility] Last Admin: 10/15/19 21:43 Dose: 22 unit Documented by: Lisinopril (Prinivil) 10 mg PO DAILY [facility] Last Admin: 10/15/19 10:48 Dose: 10 mg Documented by: Morphine Sulfate (Morphine Sulfate) 2 mg IM Q6H PRN PRN Reason: PAIN LEVEL 6-10 Last Admin: 10/15/19 13:30 Dose: 2 mg Documented by: Polyethylene Glycol (Miralax (For Daily Use) -) 17 gm PO DAILY [facility] Last Admin: 10/15/19 10:51 Dose: 17 gm Documented by: Fluticasone/Salmeterol (Advair 100mcg/50mcg -) 1 puff IH BID [facility] Last Admin: 10/15/19 21:44 Dose: 1 puff Documented by: Vancomycin HCl (Vancomycin (Pre-Docked)) 1,000 mg IVPB Q12H [facility]; Protocol - Objective Vital Signs: Vital Signs Temperature 98.4 F 10/16/19 06:11 Pulse Rate 87 10/16/19 06:11 Respiratory Rate 18 07/04/20 06:11 Blood Pressure 130/74 10/16/19 06:11 O2 Sat by Pulse Oximetry (%) 98 10/15/19 21:00 Constitutional: Yes: No Distress, Obese Eyes: Yes: Conjunctiva Clear Cardiovascular: Yes: Regular Rate and Rhythm, S1, S2 Respiratory: Yes: CTA Bilaterally Gastrointestinal: Yes: Normal Bowel Sounds, Soft, Abdomen, Obese. No: Tenderness Extremities: Yes: Other (+ R LE SWELLING/ WARMTH. MARKED SWELLING R FOOT. PLANTAR ULCER NO DRAINAGE) Labs: CBC, BMP 10/15/19 07:15 10/15/19 07:15 INR, PTT INR 1.14 (0.83-1.09) H 10/14/19 16:00 Assessment/Plan NON HEALING R DIABETIC FOOT ULCER OSTEOMYELITIS R FOOT CONTINUE VANCOMYCIN BASED ON LEVEL MEROPENEM PENDING C/S FOR BKA NEXT WEEK
--- NOTE | 2019-10-16 11:21 | CONS ---
DATE OF CONSULTATION: DATE OF DICTATION: 10/16/2019 CHIEF COMPLAINT/HISTORY OF PRESENT ILLNESS: The patient is a 49-year-old diabetic female evaluated for infected right diabetic foot wound. She had had a longstanding history of nonhealing right plantar diabetic foot wound. She had been treated in the past with antibiotics for chronic osteomyelitis. She was hospitalized in September of this year with worsening right lower extremity erythema and swelling. She had been followed in the wound care center where she was treated as an outpatient, and she also had a PICC line and was receiving vancomycin via the PICC line. A VAC device was in place at one point. The plan was to complete a 6- to 8-week course of IV antibiotic therapy for osteomyelitis. She was seen in the wound care center where she was found to have worsening of her diabetic foot ulcer. She was referred for admission. At the present time she complains of right foot pain, right lower extremity erythema and warmth. She denies any associated fever or chills. PAST MEDICAL HISTORY: Positive for recurrent infected diabetic foot wounds, osteomyelitis, Charcot joint of the right foot, history of group A strep bacteremia secondary to skin source in 2019. Past medical history also includes morbid obesity, hypertension, insulin-dependent diabetes mellitus, hyperlipidemia, asthma, peripheral neuropathy. ALLERGIES: ZOSYN. She reports pruritus and facial rash. She has tolerated cephalosporins in the past. SOCIAL HISTORY: She lives in the community. She is employed. She is a nonsmoker, nondrinker. She is independent in activities of daily living. MEDICATIONS: Medications at the present time include cefepime, vancomycin, albuterol, Lipitor, lisinopril, morphine, Lasix. REVIEW OF SYSTEMS: Neurologic: No loss of consciousness, seizure activity, focal weakness. Cardiac: Negative chest pain or palpitations. Respiratory: Negative cough or sputum production. Gastrointestinal: Negative vomiting or diarrhea. Genitourinary: Negative for urinary tract infection. LABORATORY DATA: White count 10.9, hematocrit 26.2, platelets 586. Creatinine 1.3. Liver enzymes normal. Urinalysis: White cells 38. Vancomycin trough 22. COVID-19 PCR pending. Previous cultures positive for group B strep and diphtheroids. Most recent positive culture for pseudomonas, enterobacter, VRE. Blood cultures are pending. PHYSICAL EXAMINATION: General: She is awake and alert, morbidly obese. She is in no acute distress. Vital Signs: Temperature 98.4, blood pressure 123/62, pulse 92, regular. Respirations 18 per minute. HEENT: Sclerae are anicteric. Cardiovascular: Heart sounds S1, S2. Lungs: Clear. Abdomen: Soft and nontender. Extremities: Positive for right lower extremity swelling and erythema and warmth. The right foot is diffusely swollen. There is a plantar ulcer approximately 2.5 cm in diameter. It is clean. There is no purulent drainage noted. Will continue IV antibiotic therapy. Repeat vancomycin trough level and resume for trough less than 15. Will additionally add meropenem for coverage of recent wound isolates, the significance of which is not clear. Obtain sedimentation rate, C-reactive protein. Monitor the CBC. Vascular followup for BKA. Thank you for the kind referral. ISAIAS KOHLI M.D. GUNJAN/[id number]
[2019-10-16] MEDS: FLUTICASONE/SALMETEROL 100 MCG/50 MCG DISKUS IH SCH ×2 (11:58→22:38)
[2019-10-16] MEDS: INSULIN (LEVEMIR) 100 UNITS/ML UNITS SQ SCH ×2 (12:03→22:40)
[2019-10-16] MEDS: LISINOPRIL 10 MG TABLET (FP) PO SCH (12:04)
[2019-10-16] MEDS: FUROSEMIDE 40 MG TABLET (FP) PO SCH (12:05)
[2019-10-16] MEDS: FERROUS SO4 325 MG TABLET (FP) PO SCH (12:05)
[2019-10-16] MEDS: HEPARIN NA (PORCINE) 5,000 UNITS/ML 1ML VIAL SQ SCH ×2 (12:07→22:39)
[2019-10-16] MEDS ORDERED: DEXTROSE 5%-WATER 100 ML IVPB ONE ×2 (12:10→17:32)
[2019-10-16] MEDS ORDERED: MEROPENEM 1 GM VIAL (RESTRICTED TO ID) IVPB ONE ×2 (12:10→17:32)
[2019-10-16] MEDS: POLYETHYLENE GLYCOL 3350 119 GM BTL PO SCH (12:11)
[2019-10-16] MEDS: MEROPENEM 1 GM in DEXTROSE 5%-WATER 100 ML IVPB SCH ×2 (13:16→17:40)
--- NOTE | 2019-10-16 15:24 | CONSULT ---
Consult - text type - Consultation Consultation Note: HISTORY OF PRESENT ILLNESS: This is a 49 year old female diabetes with non-healing wound of right foot since 2018. She has had multiple debridements, long-term antibiotics for MRSA without healing. She has been advised to have BKA by several of her doctors. She does not smoke. There is no history of peripheral arterial disease. She is on Vancomycin by PICC line. Last surgery 04/01. PMH: Morbid obesity, HTN, HLD, hypothyroidism, diabetic neuropathy, asthma ROS/Meds/All reviewed. PE: Obese, NAD Abd soft Ext 2+ edema. Right plantar wound probes to bone. Left foot warm, no wounds Palp DP bilaterally. Imp: Chronic right foot osteomyelitis with destruction of ankle joint. BKA indicated. Surgery will be scheduled after 10/24. Interim plans as per Medicine.
[2019-10-16] MEDS: MORPHINE SULFATE 2 MG/ML VIAL IM PRN (17:44)
[2019-10-16] MEDS ORDERED: PT OWN MED DRAWER 7, Y5N ONE (19:29)
[2019-10-16] MEDS: ATORVASTATIN CA 10 MG TABLET (FP) PO SCH (22:39)
--- NOTE | 2019-10-16 23:27 | PN ---
Progress Note (short form) - Note Progress Note: co pain in her foot vs Vital Signs Period Temp Pulse Resp BP Sys/Arthur Pulse Ox Last 24 Hr 98.1 F-98.8 F 85-96 16-18 106-128/59-68 98 HEENT normal Neck supple no JVD Lungs clear no wheezing Abdomen nontender no organomegaly bowel sounds normal Extremities Swelling and cellulitis right leg Neurologically he is alert awake oriented, nonfocal Skin Right leg cellulitis 49 y/o F with hx of obesity, HTN, T2-IDDM, HLD, hypothyroidism, diabetic n europathy, asthma, 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 #R Ft Osteomyelitis -Cont. IV abx. has been on taking vancomycin since last admission -also 1x cefepime she is seen by vascular and will continue iv abx for one more week before surgery - #Anemia Stable #DM -hold home meds -BGMs -SSI #Hypothyroidism -cont home meds #HTn -cont home meds #dvt ppx -hep sq #FEN -no iv fluids -monitor -diabetic diet
[2019-10-17] MEDS: VANCOMYCIN 1 GRAM (PRE-DOCKED) 1,000 MG/250 ML BAG IVPB SCH (00:23)
[2019-10-17] MEDS ORDERED: MEROPENEM 1 GM VIAL (RESTRICTED TO ID) IVPB ONE ×3 (02:51→17:14)
[2019-10-17] MEDS ORDERED: DEXTROSE 5%-WATER 100 ML IVPB ONE ×3 (02:52→17:15)
[2019-10-17] MEDS: MEROPENEM 1 GM in DEXTROSE 5%-WATER 100 ML IVPB SCH ×3 (02:53→17:23)
[2019-10-17] MEDS: INSULIN SLIDING SCALE (NOVOLOG) 1 VIAL SQ SCH ×4 (06:26→22:36)
[2019-10-17] MEDS: HEPARIN NA (PORCINE) 5,000 UNITS/ML 1ML VIAL SQ SCH ×2 (09:32→22:35)
[2019-10-17] MEDS: FUROSEMIDE 40 MG TABLET (FP) PO SCH (09:32)
[2019-10-17] MEDS: FERROUS SO4 325 MG TABLET (FP) PO SCH (09:32)
[2019-10-17] MEDS: LISINOPRIL 10 MG TABLET (FP) PO SCH (09:33)
[2019-10-17] MEDS: FLUTICASONE/SALMETEROL 100 MCG/50 MCG DISKUS IH SCH ×2 (09:33→22:35)
[2019-10-17] MEDS: INSULIN (LEVEMIR) 100 UNITS/ML UNITS SQ SCH ×2 (09:35→22:35)
[2019-10-17] MEDS: POLYETHYLENE GLYCOL 3350 119 GM BTL PO SCH (09:35)
--- NOTE | 2019-10-17 12:01 | PN ---
Progress Note (short form) - Note Progress Note: co pain in her foot vs Vital Signs Period Temp Pulse Resp BP Sys/Arthur Pulse Ox Last 24 Hr 98.1 F-98.8 F 85-96 16-18 106-128/59-68 98 HEENT normal Neck supple no JVD Lungs clear no wheezing Abdomen nontender no organomegaly bowel sounds normal Extremities Swelling and cellulitis right leg Neurologically he is alert awake oriented, nonfocal Skin Right leg cellulitis CBC, BMP 10/15/19 07:15 10/15/19 07:15 49 y/o F with hx of obesity, HTN, T2-IDDM, HLD, hypothyroidism, diabetic neuropathy, asthma, 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 #R Ft Osteomyelitis -Cont. IV abx. has been on taking vancomycin since last admission -also 1x cefepime she is seen by vascular and will continue iv abx for one more week before surgery - #Anemia Stable #DM -hold home meds -BGMs -SSI #Hypothyroidism -cont home meds #HTn -cont home meds #dvt ppx -hep sq #FEN -no iv fluids -monitor -diabetic diet
[2019-10-17 14:59] VITALS: BMI 42.3
--- NOTE | 2019-10-17 19:40 | PN ---
Progress Note, Physician Chief Complaint: non ealing wound right - Current Medication List Current Medications: Active Medications Albuterol Sulfate (Ventolin Hfa Inhaler -) 1 puff IH Q6H PRN PRN Reason: SHORTNESS OF BREATH Atorvastatin Calcium (Lipitor -) 10 mg PO HS [facility] Last Admin: 10/16/19 22:39 Dose: 10 mg Documented by: Ferrous Sulfate (Feosol -) 325 mg PO DAILY [facility] Last Admin: 10/17/19 09:32 Dose: 325 mg Documented by: Furosemide (Lasix -) 40 mg PO DAILY [facility] Last Admin: 10/17/19 09:32 Dose: 40 mg Documented by: Heparin Sodium (Porcine) (Heparin -) 5,000 unit SQ BID [facility] Last Admin: 10/17/19 09:32 Dose: 5,000 unit Documented by: Vancomycin HCl (Vancomycin (Pre-Docked)) 1,000 mg in 250 mls @ 200 mls/hr IVPB Q24H [facility]; Protocol Last Admin: 10/17/19 00:23 Dose: 200 mls/hr Documented by: Meropenem 1 gm/ Dextrose 100 mls @ 200 mls/hr IVPB Q8H-IV [facility] Last Admin: 10/17/19 17:23 Dose: 200 mls/hr Documented by: Insulin Aspart (Novolog Vial Sliding Scale -) 1 vial SQ ACHS [facility]; Protocol Last Admin: 10/17/19 17:23 Dose: 2 unit Documented by: Insulin Detemir (Levemir Vial) 22 units SQ BID [facility] Last Admin: 10/17/19 09:35 Dose: 22 unit Documented by: Lisinopril (Prinivil) 10 mg PO DAILY [facility] Last Admin: 10/17/19 09:33 Dose: Not Given Documented by: Morphine Sulfate (Morphine Sulfate) 2 mg IM Q6H PRN PRN Reason: PAIN LEVEL 6-10 Last Admin: 10/16/19 17:44 Dose: 2 mg Documented by: Polyethylene Glycol (Miralax (For Daily Use) -) 17 gm PO DAILY [facility] Last Admin: 10/17/19 09:35 Dose: 17 gm Documented by: Fluticasone/Salmeterol (Advair 100mcg/50mcg -) 1 puff IH BID [facility] Last Admin: 10/17/19 09:33 Dose: 1 puff Documented by: - Objective Vital Signs: Vital Signs Temperature 99.1 F 10/17/19 14:00 Pulse Rate 99 H 10/17/19 14:00 Respiratory Rate 18 10/17/19 14:00 Blood Pressure 102/66 10/17/19 14:00 O2 Sat by Pulse Oximetry (%) 93 L 10/17/19 09:00 Wound/Incision: Yes: Other (+chronic non healing wound right) Labs: CBC, BMP 10/15/19 07:15 10/15/19 07:15 INR, PTT INR 1.14 (0.83-1.09) H 10/14/19 16:00 Assessment/Plan om charcot foot non healing foot wound Had a long discussion with patient again today and adressed her concerns about the future. Read and appreciated vascular note. Procedure after 10/25/2019 by vascular. Continue palliative wound care with betadine dressing changes. IVABX as per ID. Will follow.
[2019-10-17] MEDS: ATORVASTATIN CA 10 MG TABLET (FP) PO SCH (22:35)
[2019-10-18] MEDS: VANCOMYCIN 1 GRAM (PRE-DOCKED) 1,000 MG/250 ML BAG IVPB SCH (00:43)
[2019-10-18] MEDS ORDERED: DEXTROSE 5%-WATER 100 ML IVPB ONE ×3 (02:52→16:37)
[2019-10-18] MEDS ORDERED: MEROPENEM 1 GM VIAL (RESTRICTED TO ID) IVPB ONE ×3 (02:52→16:37)
[2019-10-18] MEDS: MEROPENEM 1 GM in DEXTROSE 5%-WATER 100 ML IVPB SCH ×3 (02:54→17:26)
[2019-10-18] MEDS ORDERED: MAGNESIUM HYDROX 2400MG/30ML ORAL SUSPENSION 30 ML CUP PO ONE (03:53)
[2019-10-18] MEDS: INSULIN SLIDING SCALE (NOVOLOG) 1 VIAL SQ SCH ×4 (06:24→21:22)
[2019-10-18] MEDS: FLUTICASONE/SALMETEROL 100 MCG/50 MCG DISKUS IH SCH ×2 (09:43→21:21)
[2019-10-18] MEDS: HEPARIN NA (PORCINE) 5,000 UNITS/ML 1ML VIAL SQ SCH ×2 (09:44→21:21)
[2019-10-18] MEDS: LISINOPRIL 10 MG TABLET (FP) PO SCH (09:44)
[2019-10-18] MEDS: FUROSEMIDE 40 MG TABLET (FP) PO SCH (09:44)
[2019-10-18] MEDS: POLYETHYLENE GLYCOL 3350 119 GM BTL PO SCH (09:44)
[2019-10-18] MEDS: FERROUS SO4 325 MG TABLET (FP) PO SCH (09:44)
[2019-10-18 10:26] LABS: BASO % 0.7 % (0-2.0); EOS % 3.6 % (0-4.5); HEMATOCRIT 25.9 % (32.4-45.2); HEMOGLOBIN 8.4 GM/dL (10.7-15.3); LYMPH % 12.5 % (8-40); MCH 24.4 pg (25.7-33.7); MCHC 32.2 g/dl (32.0-36.0); MEAN CELL VOLUME 75.8 fl (80-96); MEAN PLT VOLUME 6.5 fl (7.5-11.1); MONO % 7.1 % (3.8-10.2); NEUT % 76.1 % (42.8-82.8); PLATELET COUNT 598 K/MM3 (134-434); RBC 3.42 M/mm3 (3.60-5.2); RDW 22.8 % (11.6-15.6); WHITE BLOOD COUNT 10.7 K/mm3 (4.0-10.0)
[2019-10-18] MEDS: INSULIN (LEVEMIR) 100 UNITS/ML UNITS SQ SCH ×2 (10:34→21:22)
[2019-10-18] MEDS ORDERED: INSULIN (NOVOLOG) ASPART 100 UNITS/ML 10ML VIAL ONE ×2 (10:37→21:06)
[2019-10-18 11:04] LABS: BLOOD UREA NITROGEN 19.3 mg/dL (7-18); CALCIUM 8.3 mg/dL (8.5-10.1); CREATININE 1.2 mg/dL (0.55-1.3); POTASSIUM 4.1 mmol/L (3.5-5.1)
[2019-10-18 11:40] LABS: ANISOCYTOSIS 2+; MACROCYTOSIS 1+; PLATELET ESTIMATE INCREASED
[2019-10-18] MEDS ORDERED: PT OWN MED DRAWER 7, Y5N ONE (16:38)
--- NOTE | 2019-10-18 17:07 | PN ---
Progress Note (short form) - Note Progress Note: CBC, BMP 10/18/19 08:40 10/18/19 08:40 Vital Signs Period Temp Pulse Resp BP Sys/Arthur Pulse Ox Last 24 Hr 98 F-98.4 F 85-99 16-18 109-128/51-65 96-99 s1s2 rrr lungs cta abd soft right lower ext chr edema, foot is dressed 49 yo morbidly obese lady with poorly controlled DM and chr right foot osteo myelitis, failed conservative therapy several times MRI showed hussain destruction awaiting BKA cont iv antibiotics in the meantime
[2019-10-18] MEDS: ATORVASTATIN CA 10 MG TABLET (FP) PO SCH (21:16)
[2019-10-19] MEDS: VANCOMYCIN 1 GRAM (PRE-DOCKED) 1,000 MG/250 ML BAG IVPB SCH
[2019-10-19] MEDS ORDERED: MORPHINE SULFATE 2 MG/ML VIAL IVPUSH ONE (00:46)
[2019-10-19] MEDS ORDERED: MEROPENEM 1 GM VIAL (RESTRICTED TO ID) IVPB ONE ×3 (01:38→17:22)
[2019-10-19] MEDS ORDERED: DEXTROSE 5%-WATER 100 ML IVPB ONE ×3 (01:38→17:22)
[2019-10-19] MEDS: MEROPENEM 1 GM in DEXTROSE 5%-WATER 100 ML IVPB SCH ×3 (02:00→18:27)
[2019-10-19] MEDS: INSULIN SLIDING SCALE (NOVOLOG) 1 VIAL SQ SCH ×4 (06:17→22:46)
[2019-10-19] MEDS ORDERED: INSULIN (NOVOLOG) ASPART 100 UNITS/ML 10ML VIAL ONE (11:01)
[2019-10-19] MEDS: HEPARIN NA (PORCINE) 5,000 UNITS/ML 1ML VIAL SQ SCH ×2 (11:16→22:46)
[2019-10-19] MEDS: INSULIN (LEVEMIR) 100 UNITS/ML UNITS SQ SCH ×3 (11:16→22:46)
[2019-10-19] MEDS: FERROUS SO4 325 MG TABLET (FP) PO SCH (11:17)
[2019-10-19] MEDS: LISINOPRIL 10 MG TABLET (FP) PO SCH (11:17)
[2019-10-19] MEDS: POLYETHYLENE GLYCOL 3350 119 GM BTL PO SCH (11:17)
[2019-10-19] MEDS: FUROSEMIDE 40 MG TABLET (FP) PO SCH (11:17)
[2019-10-19] MEDS: FLUTICASONE/SALMETEROL 100 MCG/50 MCG DISKUS IH SCH ×2 (11:31→22:45)
--- NOTE | 2019-10-19 11:35 | PN ---
Progress Note (short form) - Note Progress Note: Vital Signs Period Temp Pulse Resp BP Sys/Arthur Pulse Ox Last 24 Hr 97.9 F-98.8 F 79-96 16-20 107-135/61-66 99 s1s2 rrr lungs cta abd soft right lower ext chr edema, chronic footwound with edema and scant serous discharge 49 yo morbidly obese lady with poorly controlled DM and chr right foot osteomyelitis, failed conservative therapy several times MRI showed hussain destruction awaiting BKA cont iv antibiotics in the meantime labs in 1-2 days diabetes care DVT prophylaxis
[2019-10-19] MEDS: ATORVASTATIN CA 10 MG TABLET (FP) PO SCH (22:47)
[2019-10-20] MEDS: VANCOMYCIN 1 GRAM (PRE-DOCKED) 1,000 MG/250 ML BAG IVPB SCH (01:03)
[2019-10-20] MEDS ORDERED: MEROPENEM 1 GM VIAL (RESTRICTED TO ID) IVPB ONE ×3 (03:11→17:15)
[2019-10-20] MEDS ORDERED: DEXTROSE 5%-WATER 100 ML IVPB ONE ×3 (03:11→17:15)
[2019-10-20] MEDS: MEROPENEM 1 GM in DEXTROSE 5%-WATER 100 ML IVPB SCH ×3 (03:30→18:18)
[2019-10-20] MEDS ORDERED: ACETAMINOPHEN 500 MG TABLET (FP) PO ONE (03:41)
[2019-10-20] MEDS: INSULIN SLIDING SCALE (NOVOLOG) 1 VIAL SQ SCH ×4 (07:07→21:31)
[2019-10-20] MEDS: INSULIN (LEVEMIR) 100 UNITS/ML UNITS SQ SCH ×3 (07:11→21:31)
[2019-10-20] MEDS ORDERED: INSULIN (LEVEMIR) 100 UNITS/ML UNITS SQ ONE (07:31)
[2019-10-20] MEDS: POLYETHYLENE GLYCOL 3350 119 GM BTL PO SCH (10:37)
[2019-10-20] MEDS: LISINOPRIL 10 MG TABLET (FP) PO SCH (10:37)
[2019-10-20] MEDS: FUROSEMIDE 40 MG TABLET (FP) PO SCH (10:37)
[2019-10-20] MEDS: FERROUS SO4 325 MG TABLET (FP) PO SCH (10:37)
[2019-10-20] MEDS: HEPARIN NA (PORCINE) 5,000 UNITS/ML 1ML VIAL SQ SCH ×2 (10:37→21:31)
[2019-10-20] MEDS: FLUTICASONE/SALMETEROL 100 MCG/50 MCG DISKUS IH SCH ×2 (10:38→21:32)
--- NOTE | 2019-10-20 11:11 | PN ---
Progress Note (short form) - Note Progress Note: Vital Signs Period Temp Pulse Resp BP Sys/Arthur Pulse Ox Last 24 Hr 97.9 F-98.6 F 71-89 18-19 105-133/68-76 99 s1s2 rrr lungs cta abd soft right lower ext chr edema, foot dressed 49 yo morbidly obese lady with poorly controlled DM and chr right foot osteomyelitis, failed conservative therapy several times MRI showed hussain destruction awaiting BKA cont iv antibiotics in the meantime labs tomorrow diabetes care DVT prophylaxis
[2019-10-20] MEDS: ATORVASTATIN CA 10 MG TABLET (FP) PO SCH (21:30)
[2019-10-20] MEDS ORDERED: ACETAMINOPHEN 325 MG TABLET (FP) PO ONE (23:13)
[2019-10-21] MEDS: VANCOMYCIN 1 GRAM (PRE-DOCKED) 1,000 MG/250 ML BAG IVPB SCH (00:43)
[2019-10-21] MEDS ORDERED: MEROPENEM 1 GM VIAL (RESTRICTED TO ID) IVPB ONE ×3 (02:15→17:55)
[2019-10-21] MEDS ORDERED: DEXTROSE 5%-WATER 100 ML IVPB ONE ×3 (02:15→17:55)
[2019-10-21] MEDS: MEROPENEM 1 GM in DEXTROSE 5%-WATER 100 ML IVPB SCH ×3 (02:29→17:58)
[2019-10-21] MEDS: INSULIN (LEVEMIR) 100 UNITS/ML UNITS SQ SCH ×2 (06:30→21:49)
[2019-10-21] MEDS: INSULIN SLIDING SCALE (NOVOLOG) 1 VIAL SQ SCH ×4 (06:30→21:47)
[2019-10-21 08:45] LABS: BASO % 0.6 % (0-2.0); EOS % 3.6 % (0-4.5); HEMOGLOBIN 8.5 GM/dL (10.7-15.3); LYMPH % 13.4 % (8-40); MCH 23.9 pg (25.7-33.7); MCHC 31.3 g/dl (32.0-36.0); MEAN CELL VOLUME 76.2 fl (80-96); MEAN PLT VOLUME 6.7 fl (7.5-11.1); MONO % 6.3 % (3.8-10.2); NEUT % 76.1 % (42.8-82.8); PLATELET COUNT 650 K/MM3 (134-434); RBC 3.55 M/mm3 (3.60-5.2); RDW 23.2 % (11.6-15.6); WHITE BLOOD COUNT 10.1 K/mm3 (4.0-10.0)
[2019-10-21 09:18] LABS: ALBUMIN 2.2 g/dl (3.4-5.0); BILIRUBIN,TOTAL 0.3 mg/dL (0.2-1); BLOOD UREA NITROGEN 23.2 mg/dL (7-18); CALCIUM 8.5 mg/dL (8.5-10.1); CREATININE 1.3 mg/dL (0.55-1.3); TOT PROT 7.4 g/dl (6.4-8.2)
[2019-10-21] MEDS: HEPARIN NA (PORCINE) 5,000 UNITS/ML 1ML VIAL SQ SCH (09:28)
[2019-10-21] MEDS: FLUTICASONE/SALMETEROL 100 MCG/50 MCG DISKUS IH SCH ×2 (09:28→21:49)
[2019-10-21] MEDS: FERROUS SO4 325 MG TABLET (FP) PO SCH (09:28)
[2019-10-21] MEDS: FUROSEMIDE 40 MG TABLET (FP) PO SCH (09:28)
[2019-10-21] MEDS: LISINOPRIL 10 MG TABLET (FP) PO SCH (09:29)
[2019-10-21] MEDS: POLYETHYLENE GLYCOL 3350 119 GM BTL PO SCH (09:29)
--- NOTE | 2019-10-21 11:04 | PN ---
Progress Note (short form) - Note Progress Note: CBC, BMP 10/21/19 07:06 10/21/19 07:06 Vital Signs Period Temp Pulse Resp BP Sys/Arthur Pulse Ox Last 24 Hr 97.9 F-98.4 F 75-86 18-18 103-144/57-79 99 s1s2 rrr lungs cta abd soft right lower ext chr edema, foot dressed 49 yo morbidly obese lady with poorly controlled DM and chr right foot osteomyel itis, failed conservative therapy several times MRI showed hussain destruction awaiting BKA-no medical contraindication to procedure cont iv antibiotics in the meantime labs reviewed diabetes care DVT prophylaxis
--- NOTE | 2019-10-21 12:03 | PN ---
Progress Note, Physician Chief Complaint: non ealing wound right - Current Medication List Current Medications: Active Medications Albuterol Sulfate (Ventolin Hfa Inhaler -) 1 puff IH Q6H PRN PRN Reason: SHORTNESS OF BREATH Atorvastatin Calcium (Lipitor -) 10 mg PO HS [facility] Last Admin: 10/20/19 21:30 Dose: 10 mg Documented by: Ferrous Sulfate (Feosol -) 325 mg PO DAILY [facility] Last Admin: 10/21/19 09:28 Dose: 325 mg Documented by: Furosemide (Lasix -) 40 mg PO DAILY [facility] Last Admin: 10/21/19 09:28 Dose: 40 mg Documented by: Heparin Sodium (Porcine) (Heparin -) 5,000 unit SQ BID [facility] Last Admin: 10/21/19 09:28 Dose: 5,000 unit Documented by: Vancomycin HCl (Vancomycin (Pre-Docked)) 1,000 mg in 250 mls @ 200 mls/hr IVPB Q24H [facility]; Protocol Last Admin: 10/21/19 00:43 Dose: 200 mls/hr Documented by: Meropenem 1 gm/ Dextrose 100 mls @ 200 mls/hr IVPB Q8H-IV [facility] Last Admin: 10/21/19 09:29 Dose: 200 mls/hr Documented by: Insulin Aspart (Novolog Vial Sliding Scale -) 1 vial SQ ACHS [facility]; Protocol Last Admin: 10/21/19 11:14 Dose: 2 units Documented by: Insulin Detemir (Levemir Vial) 24 units SQ BID@0700,2200 [facility] Last Admin: 10/21/19 06:30 Dose: 24 units Documented by: Lisinopril (Prinivil) 10 mg PO DAILY [facility] Last Admin: 10/21/19 09:29 Dose: 10 mg Documented by: Polyethylene Glycol (Miralax (For Daily Use) -) 17 gm PO DAILY [facility] Last Admin: 10/21/19 09:29 Dose: 17 grams Documented by: Fluticasone/Salmeterol (Advair 100mcg/50mcg -) 1 puff IH BID [facility] Last Admin: 10/21/19 09:28 Dose: 1 puff Documented by: - Objective Vital Signs: Vital Signs Temperature 97.9 F 10/21/19 08:18 Pulse Rate 83 10/21/19 08:18 Respiratory Rate 18 10/21/19 08:18 Blood Pressure 103/68 10/21/19 08:18 O2 Sat by Pulse Oximetry (%) 99 10/20/19 21:00 Wound/Incision: Yes: Other (chronic non healing but stable wound) Labs: CBC, BMP 10/21/19 07:06 10/21/19 07:06 INR, PTT INR 1.14 (0.83-1.09) H 10/14/19 16:00 Assessment/Plan om charcot foot non healing foot wound Pt is scheduled for 10/25/[address] Hillman according to note. Will follow till dc. Continue dressing changes daily.
[2019-10-21] MEDS: ATORVASTATIN CA 10 MG TABLET (FP) PO SCH (21:49)
[2019-10-22] MEDS ORDERED: DEXTROSE 5%-WATER 100 ML IVPB ONE ×2 (01:22→09:50)
[2019-10-22] MEDS ORDERED: MEROPENEM 1 GM VIAL (RESTRICTED TO ID) IVPB ONE ×2 (01:22→09:50)
[2019-10-22] MEDS: MEROPENEM 1 GM in DEXTROSE 5%-WATER 100 ML IVPB SCH ×2 (01:28→09:55)
[2019-10-22] MEDS: INSULIN (LEVEMIR) 100 UNITS/ML UNITS SQ SCH (06:02)
[2019-10-22] MEDS: INSULIN SLIDING SCALE (NOVOLOG) 1 VIAL SQ SCH ×2 (06:02→11:26)
--- NOTE | 2019-10-22 09:22 | PN ---
Progress Note (short form) - Note Progress Note: CBC, BMP 10/21/19 07:06 10/21/19 07:06 Vital Signs Period Temp Pulse Resp BP Sys/Arthur Pulse Ox Last 24 Hr 97.7 F-98.9 F 85-89 18-18 106-130/52-70 99 s1s2 rrr lungs cta abd soft right lower ext chr edema, foot dressed 49 yo morbidly obese lady with poorly controlled DM and chr right foot osteomye litis, failed conservative therapy several times MRI showed hussain destruction awaiting BKA-no medical contraindication to procedure cont iv antibiotics in the meantime labs reviewed diabetes care DVT prophylaxis currently on vanco daily and meropenem q8h
[2019-10-22] MEDS: FERROUS SO4 325 MG TABLET (FP) PO SCH (09:55)
[2019-10-22] MEDS: POLYETHYLENE GLYCOL 3350 119 GM BTL PO SCH (09:55)
[2019-10-22] MEDS: FUROSEMIDE 40 MG TABLET (FP) PO SCH (09:55)
[2019-10-22] MEDS: FLUTICASONE/SALMETEROL 100 MCG/50 MCG DISKUS IH SCH (09:55)
[2019-10-22] MEDS: LISINOPRIL 10 MG TABLET (FP) PO SCH (09:56)
--- NOTE | 2019-10-22 11:41 | DS ---
Physical Examination Vital Signs: Vital Signs Temperature 97.7 F 10/22/19 08:32 Pulse Rate 85 10/22/19 08:32 Respiratory Rate 18 10/22/19 08:32 Blood Pressure 124/70 10/22/19 08:32 O2 Sat by Pulse Oximetry (%) 96 10/22/19 09:00 Constitutional: Yes: Calm, Obese Eyes: Yes: Conjunctiva Clear, EOM Intact HENT: Yes: Normocephalic Neck: Yes: Trachea Midline Cardiovascular: Yes: Regular Rate and Rhythm Respiratory: Yes: CTA Bilaterally Gastrointestinal: Yes: Normal Bowel Sounds, Soft, Abdomen, Obese Edema: Yes Edema: LLE: Trace, RLE: 1+ Peripheral Pulses WNL: Yes Wound/Incision: Yes: Clean/Dry Neurological: Yes: WNL ...Motor Strength: WNL Psychiatric: Yes: WNL Labs: CBC, BMP 10/21/19 07:06 10/21/19 07:06 Discharge Summary Problems reviewed: Yes Reason For Visit: WOUND OF R FOOT Current Active Problems Wound of right foot (Acute) Hospital Course: 49 yo morbidly obese lady with poorly controlled DM and chr right foot osteomyelitis, failed conservative therapy several times MRI showed hussain destruction awaiting BKA-no medical contraindication to procedure cont iv antibiotics in the meantime labs reviewed diabetes care DVT prophylaxis currently on vanco daily and meropenem q8h Condition: Stable - Instructions Referrals: Harvinder Bledsoe MD [Primary Care Provider] - Disposition: VNS/HOME HEALTH CARE
[2019-10-22 13:57] VITALS: BP 128/67; PULSE 88; TEMP 97.9
--- NOTE | 2019-10-28 07:21 | PDOC ---
Documentation entered by Meri Camarillo SCRIBE, acting as scribe for Dana Calzada MD. Dana Calzada MD: This documentation has been prepared by the Damaris ashley Nirvannie, SCRIBE, under my direction and personally reviewed by me in its entirety. I confirm that the documentation accurately reflects all work, treatment, procedures, and medical decision making performed by me. 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 Per patient, she was evaluated by her civil rights attorney Dr. Olvera at which time she was advised to report to the ED for further evaluation and admission. - Physicial Exam PE: 10/14/19 16:36 Agree with resident exam. patient is alert and oriented x 3 and in no acute distress. RLE + erythema to mid calf. - Medical Decision Making 10/14/19 16:54 Pt presents to the ED after sent in from home for wound to the foot that is worsening and not healing with IV vancomycin at home. Will check labs and admit to medicine for continued management. Will discuss antibiotic management with ID. Discharge - Discharge Information Problems reviewed: Yes Clinical Impression/Diagnosis: Wound of right foot Condition: Stable Disposition: VNS/HOME HEALTH CARE - Follow up/Referral - Patient Discharge Instructions - Post Discharge Activity
== END 2019-10-22 16:30 | disposition home health service (06) | DRG 540 ==
LOC: JER 14:42 → JERBED 19:02 → J6S 10-15 01:53
PROVIDERS: ADMIT Internal Medicine; ATTEND Internal Medicine
DX: M86.8X7 Other osteomyelitis, ankle and foot (principal); L97.516 Non-pressure chronic ulcer of other part of right foot with bone involvement without evidence of necrosis; E11.610 Type 2 diabetes mellitus with diabetic neuropathic arthropathy; E11.621 Type 2 diabetes mellitus with foot ulcer; E11.65 Type 2 diabetes mellitus with hyperglycemia; E66.01 Morbid (severe) obesity due to excess calories; Z68.41 Body mass index [BMI] 40.0-44.9, adult; Z71.3 Dietary counseling and surveillance; I10 Essential (primary) hypertension; E03.9 Hypothyroidism, unspecified; R19.7 Diarrhea, unspecified; D64.9 Anemia, unspecified; J45.20 Mild intermittent asthma, uncomplicated; M79.671 Pain in right foot; Z95.828 Presence of other vascular implants and grafts; Z86.79 Personal history of other diseases of the circulatory system
CPT/HCPCS: 36415; 36430; 36511; 73610-TC-RT-FY; 73630-TC-RT-FY; 80048; 80053; 81003; 82962; 83605; 83735; 85025; 85610; 85651; 86140; 86850; 86900; 86901; 86922; 87040; 99285-25; G0463-25; G0480; J0131; J1644; P9038; P9058; U0003

== ENCOUNTER 2019-10-24 14:10 | Inpatient (IN) | payer BC ==
--- NOTE | 2019-10-24 14:16 | PDOC ---
Rapid Medical Evaluation Chief Complaint: Wound Time Seen by Provider: 10/24/19 14:11 Medical Evaluation: Allergies Allergy/AdvReac Type Severity Reaction Status Date / Time piperacillin sodium AdvReac "itchiness,rash Verified 10/14/19 14:49 [From Zosyn] on face" tazobactam sodium AdvReac "itchiness,rash Verified 10/14/19 14:49 [From Zosyn] on face" 10/24/19 14:12 I performed a brief in-person evaluation of this patient. Pt is a 49 y/o female with Charcot foot on the R and states her foot pain got so bad last night that she was unable to sleep. She admits to taking Tylenol without any relief. She states she just changed her bandage because it was drainage more than typical. She is treated by a Dr. Olvera. She denies any fevers. Pt was discharged 2 days and was supposed to have a foot amputated tomorrow here at [facility]. Pertinent physical exam findings: Large boot in place on the R with dressing in place. Toes with chronic changes appreciated. I have ordered the following: labs, saline lock, ekg Patient to proceed to ED for further evaluation. Discharge Disposition - Diagnosis Right foot pain - Referrals - Patient Instructions - Post Discharge Activity
[2019-10-24 15:04] LABS: BASO % 1.4 % (0-2.0); EOS % 2.2 % (0-4.5); HEMATOCRIT 23.1 % (32.4-45.2); HEMOGLOBIN 7.4 GM/dL (10.7-15.3); LYMPH % 8.9 % (8-40); MCH 24.6 pg (25.7-33.7); MCHC 31.9 g/dl (32.0-36.0); MEAN PLT VOLUME 6.6 fl (7.5-11.1); MONO % 5.6 % (3.8-10.2); NEUT % 81.9 % (42.8-82.8); PLATELET COUNT 466 K/MM3 (134-434); RBC 3.01 M/mm3 (3.60-5.2); RDW 22.7 % (11.6-15.6)
--- NOTE | 2019-10-24 15:10 | PDOC ---
History of Present Illness - General Chief Complaint: Wound Stated Complaint: WOUND Time Seen by Provider: 10/24/19 14:11 History Source: Patient - History of Present Illness Occurred: reports: other Lower Extremity Pain Location: right: foot Past History - Medical History Allergies/Adverse Reactions: Allergies Allergy/AdvReac Type Severity Reaction Status Date / Time piperacillin sodium AdvReac "itchiness,rash Verified 10/24/19 14:16 [From Zosyn] on face" tazobactam sodium AdvReac "itchiness,rash Verified 10/24/19 14:16 [From Zosyn] on face" Home Medications: Ambulatory Orders Atorvastatin Ca [Lipitor] 10 mg PO HS 07/16/18 Metformin HCl [Glucophage] 1,000 mg PO BID 01/06/19 Ferrous Sulfate 325 mg PO DAILY 09/16/19 Insulin Sliding Scale [Novolog Vial Sliding Scale -] See Protocol SQ TIDAC 09/17/19 Insulin Glargine,Hum.rec.anlog [Lantus Solostar] 22 unit SQ BID #1 pack 09/22/19 Lisinopril [Prinivil] 10 mg PO DAILY #30 tablet 09/22/19 Albuterol Sulfate Inhaler - [Ventolin HFA Inhaler -] 1 puff IH Q6H PRN #1 inhaler 10/11/19 Furosemide [Lasix] 40 mg PO DAILY #30 tablet 10/11/19 Polyethylene Glycol 3350 [Miralax 119 gm Btl -] 17 gm PO DAILY #30 bottle 10/11/19 Salmeterol/Fluticasone [Advair 100Mcg/50Mcg -] 1 puff IH BID #1 inhaler 10/11/19 Meropenem [Merrem (Restricted To Id) -] 1 gm IVPB Q8H-IV vial 10/22/19 Vancomycin 1,000 mg IVPB Q24H #0 vial 10/22/19 Anemia: Yes Asthma: Yes Cancer: No Cardiac Disorders: No CVA: No COPD: No CHF: No Dementia: No Diabetes: Yes GI Disorders: No Disorders: No HTN: Yes Hypercholesterolemia: Yes Liver Disease: No Seizures: No Thyroid Disease: Yes (HYPOTHYROIDISM) - Surgical History Orthopedic Surgery: Yes (R foot surgery x3) - Immunization History Immunization Up to Date: No - Psycho-Social/Smoking History Smoking History: Never smoked Have you smoked in the past 12 months: No - Substance Abuse Hx (Audit-C & DAST Scrn) How often the patient has a drink containing alcohol: Never Score: In Men: 4 or > Positive; In Women: 3 or > Positive: 0 Screen Result (Pos requires Nsg. Audit-10AR): Negative Review of Systems - Review of Systems Constitutional: No: Chills, Fever *Physical Exam - Vital Signs Last Vital Signs Temp Pulse Resp BP Pulse Ox 98.3 F 103 H 18 131/64 98 10/24/19 14:12 10/24/19 14:12 10/24/19 14:12 10/24/19 14:12 10/24/19 14:12 - Physical Exam General Appearance: Yes: Appropriately Dressed. No: Apparent Distress HEENT: positive: Normal Voice Neck: positive: Supple Respiratory/Chest: negative: Respiratory Distress Extremity: positive: Other (dressing in place to an obviously edematous RLE) Integumentary: positive: Dry, Warm Neurologic: positive: Fully Oriented, Alert, Normal Mood/Affect ED Treatment Course - LABORATORY CBC & Chemistry Diagram: 10/24/19 14:45 10/24/19 14:45 - ADDITIONAL ORDERS Additional order review: 10/24/19 14:45 RBC 3.01 L MCV 77.0 L MCHC 31.9 L RDW 22.7 H MPV 6.6 L Neutrophils % 81.9 Lymphocytes % 8.9 D Monocytes % 5.6 Eosinophils % 2.2 Basophils % 1.4 Medical Decision Making - Medical Decision Making 10/24/19 16:08 49 yo morbidly obesed female, HTN, HLD, DM, neuropathy charcots foot to RLE, MRI w/ e/o oseto during recent admission and discharged 2 days ago to continue vancomycin and meropenem via PICC, scheduled for R BKA in am w/ DR guallpa, here w/ ongoing unbearable pain to right foot and ankle. No nausea vomiting fever or chills see exam DM, charcots foot w/ oseto on recent MRI, on vanc/penem via PICC, here w/ unbearable RLE pain, no n/v/f/c Scheduled for R BKA in am w/ vasc per Dr Olvera -pain control -pre-op labs -NPO after MN -covid swab sent (neg on 10/21) -Admit 10/24/19 16:15 Multiple lab derangements including hemoglobin of 7.4 which is near patient's baseline (7-8). Patient was worked up for anemia 1 month ago and per records has history of menorrhagia secondary to fibroids. Was transfused then. Creatinine 1.5 which is new for patient, potassium within normal limits. Blood sugar 388 with no gap. Acetone and UA pending. Will give IV fluids and insulin at this time. Regarding anemia, m/l will need transfusion prior to surgery, will d/w admitting team and Dr Guallpa 10/24/19 16:[address] Guallpa, no need to transfuse at this time as Hgb at pt's baseline and asx from anemic standpoint. Wants pt's foot DARRIN wrapped up to knee and elevated while in ER. Pt to be NPO past MN. Covid swab neg on 10/21 per . MD are we re- swab today 10/24/19 17:03 Case d/w hospitalist and pt admitted Discharge - Discharge Information Problems reviewed: Yes Clinical Impression/Diagnosis: Right foot pain, Charcot foot due to diabetes mellitus Osteomyelitis Qualifiers: Osteomyelitis type: unspecified type Osteomyelitis location: foot Laterality: right Qualified Code(s): M86.9 - Osteomyelitis, unspecified Condition: Stable - Admission Yes - Follow up/Referral Referrals: Harvinder Bledsoe MD [Primary Care Provider] - - Patient Discharge Instructions - Post Discharge Activity
[2019-10-24 15:14] LABS: INR 1.18 (0.83-1.09); PROTHROMBIN TIME (PATIENT) 13.9 SEC (9.7-13.0)
[2019-10-24 15:29] LABS: ALBUMIN 2.1 g/dl (3.4-5.0); BILIRUBIN,TOTAL 0.2 mg/dL (0.2-1); CALCIUM 8.5 mg/dL (8.5-10.1); CREATININE 1.5 mg/dL (0.55-1.3); POTASSIUM 4.1 mmol/L (3.5-5.1); TOT PROT 6.9 g/dl (6.4-8.2)
[2019-10-24 15:38] LABS: ANISOCYTOSIS 2+
[2019-10-24] MEDS ORDERED: morphine CARPU-JECT 4 MG/1 ML DISP.SYRIN IVPUSH ONE (16:13)
[2019-10-24] MEDS ORDERED: SODIUM CHLORIDE 1,000 ML IV STA (16:18)
[2019-10-24] MEDS ORDERED: INSULIN REGULAR HUMAN 100 UNITS/ML *VIAL SQ ONE (16:18)
[2019-10-24] MEDS ORDERED: morphine SULFATE 4 MG/ML VIAL ONE (16:39)
[2019-10-24] MEDS ORDERED: ALBUTEROL SO4 HFA INHALER IH PRN (17:04)
[2019-10-24] MEDS ORDERED: ONDANSETRON 4 MG/2 ML VIAL IVPUSH PRN (17:06)
[2019-10-24] MEDS ORDERED: MORPHINE SULFATE 2 MG/ML VIAL IVPUSH PRN (17:06)
[2019-10-24] MEDS ORDERED: PATIENT'S OWN MEDICATION (NON-FORMULARY) (Vancomycin 1,000 MG) IVPB SCH (17:15)
--- NOTE | 2019-10-24 17:17 | HP ---
Admitting History and Physical - Primary Care Physician PCP: Harvinder Bledsoe - Admission Chief Complaint: Worsening pain right foot History of Present Illness: 49-year-old male morbidly obese multiple medical comorbidities recently discharged from [facility] on October 22, 2019, with PICC line on IV antibiotic meropenem/vancomycin since 10/04/2023 nonhealing right foot ulcer grew Pseudomonas and MRSA, patient is scheduled for right foot BKA on October 25, 2019, patient was discharged on Friday per the presumed worsening pain, denies any fever chills nausea vomiting diarrhea patient also has history of hypertension, type 2 diabetes mellitus, dyslipidemia, PAD, CKD stage III, Chronic iron deficiency anemia secondary to menorrhagia at baseline hemoglobin between 7-8, today hemoglobin reported 7.4, patient received IV morphine in the ED is being admitted for further management, at the time of examination patient complained of right foot pain improved after getting morphine denies any chest pain, shortness with, palpitation at baseline 2 pillows orthopnea - Past Medical History Cardiovascular: Yes: HTN, Hyperlipdemia Pulmonary: Yes: Asthma ...LMP: 01/26/19 Infectious Disease: Yes: Other (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, chronic MRSA with osteomyelitis) Musculoskeletal: Yes: Other Rheumatology: Yes: Other (right foot charcot disease) Endocrine: Yes: Diabetes Mellitus (uncontrolled), Hypothyroidism, Other (Obesity, DM neuropathy) Dermatology: Yes: Cellulitis - Past Surgical History Past Surgical History: Yes: None - Smoking History Smoking history: Never smoked Have you smoked in the past 12 months: No - Alcohol/Substance Use Hx Alcohol Use: No History of Substance Use: reports: None - Social History ADL: Independent 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 History of Recent Travel: No Home Medications - Allergies Allergies/Adverse Reactions: Allergies Allergy/AdvReac Type Severity Reaction Status Date / Time piperacillin sodium AdvReac "itchiness,rash Verified 10/24/19 14:16 [From Zosyn] on face" tazobactam sodium AdvReac "itchiness,rash Verified 10/24/19 14:16 [From Zosyn] on face" - Home Medications Home Medications: Ambulatory Orders Atorvastatin Ca [Lipitor] 10 mg PO HS 07/16/18 Metformin HCl [Glucophage] 1,000 mg PO BID 01/06/19 Ferrous Sulfate 325 mg PO DAILY 09/16/19 Insulin Sliding Scale [Novolog Vial Sliding Scale -] See Protocol SQ TIDAC 09/17/19 Insulin Glargine,Hum.rec.anlog [Lantus Solostar] 22 unit SQ BID #1 pack 09/22/19 Lisinopril [Prinivil] 10 mg PO DAILY #30 tablet 09/22/19 Albuterol Sulfate Inhaler - [Ventolin HFA Inhaler -] 1 puff IH Q6H PRN #1 inhaler 10/11/19 Furosemide [Lasix] 40 mg PO DAILY #30 tablet 10/11/19 Polyethylene Glycol 3350 [Miralax 119 gm Btl -] 17 gm PO DAILY #30 bottle 10/11/19 Salmeterol/Fluticasone [Advair 100Mcg/50Mcg -] 1 puff IH BID #1 inhaler 10/11/19 Meropenem [Merrem (Restricted To Id) -] 1 gm IVPB Q8H-IV vial 10/22/19 Vancomycin 1,000 mg IVPB Q24H #0 vial 10/22/19 Family Medical History Family Hx Diabetes: Mother Family Hx Respiratory Disorders: Mother Review of Systems - Review of Systems Constitutional: denies: Chills, Fever Eyes: denies: Blind Spots, Blurred Vision HENT: denies: Difficult Swallowing, Ear Discharge Cardiovascular: denies: Chest Pain, Edema, Palpitations, Shortness of Breath Respiratory: denies: Cough, Exercise Intolerance Gastrointestinal: denies: Abdominal Pain, Bloating Genitourinary: denies: Discharge, Dysuria Musculoskeletal: reports: Other (Right foot pain). denies: Back Pain, Crepitus Integumentary: denies: Blister, Bruising Endocrine: denies: Excessive Sweating, Flushing Hematology/Lymphatic: denies: Easily Bruised, Excessive Bleeding Pain Intensity: 6 Physical Examination Vital Signs: Vital Signs Temperature 98.3 F 10/24/19 14:12 Pulse Rate 103 H 10/24/19 14:12 Respiratory Rate 18 10/24/19 14:12 Blood Pressure 131/64 10/24/19 14:12 O2 Sat by Pulse Oximetry (%) 98 10/24/19 14:12 General: Obese Pleasant female, comfortable, not in distress HEENT mucous membranes moist, + anemia, no jaundice, PERRLA, no nystagmus Neck: No JVD, supple, no bruit, thyroid palpably normal, normal carotid pulsations. Chest: Non-tender, clear to auscultation bilaterally CVS: S1-S2 regular no murmur/gallop/rub Abdomen: Non-distended, soft, bowel sounds present. Extremities: Right lower extremity swelling, right foot in bandage, bilateral edema, nailbed circulation intact RECEIVING TANK OPERATOR: AO X3 , no gross motor sensory deficit Labs: CBC,CMP WBC 12.0 K/mm3 (4.0-10.0) H 10/24/19 14:45 RBC 3.01 M/mm3 (3.60-5.2) L 10/24/19 14:45 Hgb 7.4 GM/dL (10.7-15.3) L 10/24/19 14:45 Hct 23.1 % (32.4-45.2) L 10/24/19 14:45 MCV 77.0 fl (80-96) L 10/24/19 14:45 MCH 24.6 pg (25.7-33.7) L 10/24/19 14:45 MCHC 31.9 g/dl (32.0-36.0) L 10/24/19 14:45 RDW 22.7 % (11.6-15.6) H 10/24/19 14:45 Plt Count 466 K/MM3 (134-434) H D 10/24/19 14:45 MPV 6.6 fl (7.5-11.1) L 10/24/19 14:45 Absolute Neuts (auto) 9.8 K/mm3 (1.5-8.0) H 10/24/19 14:45 Neutrophils % 81.9 % (42.8-82.8) 10/24/19 14:45 Lymphocytes % 8.9 % (8-40) D 10/24/19 14:45 Monocytes % 5.6 % (3.8-10.2) 10/24/19 14:45 Eosinophils % 2.2 % (0-4.5) 10/24/19 14:45 Basophils % 1.4 % (0-2.0) 10/24/19 14:45 Nucleated RBC % 0 % (0-0) 10/24/19 14:45 Hypochromia 1+ 10/24/19 14:45 Anisocytosis 2+ 10/24/19 14:45 Sodium 137 mmol/L (136-145) 10/24/19 14:45 Potassium 4.1 mmol/L (3.5-5.1) 10/24/19 14:45 Chloride 104 mmol/L (98-107) 10/24/19 14:45 Carbon Dioxide 25 mmol/L (21-32) 10/24/19 14:45 Anion Gap 8 MMOL/L (8-16) 10/24/19 14:45 BUN 30.0 mg/dL (7-18) H 10/24/19 14:45 Creatinine 1.5 mg/dL (0.55-1.3) H 10/24/19 14:45 Est GFR (CKD-EPI)AfAm 46.27 10/24/19 14:45 Est GFR (CKD-EPI)NonAf 39.92 10/24/19 14:45 Random Glucose 388 mg/dL (74-106) H 10/24/19 14:45 Calcium 8.5 mg/dL (8.5-10.1) 10/24/19 14:45 Total Bilirubin 0.2 mg/dL (0.2-1) 10/24/19 14:45 AST 6 U/L (15-37) L 10/24/19 14:45 ALT 9 U/L (13-61) L 10/24/19 14:45 Alkaline Phosphatase 112 U/L (45-117) 10/24/19 14:45 Total Protein 6.9 g/dl (6.4-8.2) 10/24/19 14:45 Albumin 2.1 g/dl (3.4-5.0) L 10/24/19 14:45 Beta-Hydroxybutyrate 0.6 mg/dL (0.2-2.8) 10/24/19 14:45 Imaging - Results Chest X-ray: Pending (Heart rate 81 normal sinus rhythm, QTc 436, heart rate 63, no acute ST-T changes Impression: Normal sinus rhythm), Report Reviewed (No significant interval change) EKG: Report Reviewed (Pending) Problem List - Problems (1) Cellulitis and abscess of lower extremity Assessment/Plan: Patient has right foot cellulitis, nonhealing ulcer, wound grew Pseudomonas and MRSA on IV vancomycin and meropenem, since October 04, 2019, patient is scheduled for below-knee amputation tomorrow by Dr. Hillman, preop labs reviewed, n.p.o. after midnight, continue current antibiotic via PICC line, Problems reviewed: Yes Code(s): L03.119 - CELLULITIS OF UNSPECIFIED PART OF LIMB; L02.419 - CUTANEOUS ABSCESS OF LIMB, UNSPECIFIED (2) Charcot foot due to diabetes mellitus Assessment/Plan: Right Charcot foot, nonhealing wound scheduled for BKA, continue pain management morphine 4 mg IV every 6 hourly, Zofran every 6 hourly as needed for nausea and vomiting Problems reviewed: Yes Code(s): E11.610 - TYPE 2 DIABETES MELLITUS W DIABETIC NEUROPATHIC ARTHROPATHY (3) CKD stage 3 due to type 2 diabetes mellitus Assessment/Plan: Patient has chronic kidney disease stage III due to diabetic nephropathy renal functions are at baseline. Follow-up BMP Problems reviewed: Yes Code(s): E11.22 - TYPE 2 DIABETES MELLITUS W DIABETIC CHRONIC KIDNEY DISEASE; N18.3 - CHRONIC KIDNEY DISEASE, STAGE 3 (MODERATE) (4) Hypertension Assessment/Plan: Well-controlled continue and resume all home medications. Problems reviewed: Yes Code(s): I10 - ESSENTIAL (PRIMARY) HYPERTENSION Qualifiers: Hypertension type: essential hypertension Qualified Code(s): I10 - E ssential (primary) hypertension (5) HLD (hyperlipidemia) Assessment/Plan: Continue statin Problems reviewed: Yes Code(s): E78.5 - HYPERLIPIDEMIA, UNSPECIFIED (6) Hypothyroidism Assessment/Plan: Continue current dose of levothyroxine Problems reviewed: Yes Code(s): E03.9 - HYPOTHYROIDISM, UNSPECIFIED Qualifiers: Hypothyroidism type: unspecified Qualified Code(s): E03.9 - Hypothyroidism, unspecified (7) Iron deficiency anemia Assessment/Plan: Patient is chronic iron deficiency anemia due to menorrhagia baseline hemoglobin between 7-8 today hemoglobin 7.4, type and screen sent will infuse evaluate for PRBC preoperatively. Continue p.o. iron Problems reviewed: Yes Code(s): D50.9 - IRON DEFICIENCY ANEMIA, UNSPECIFIED (8) MRSA (methicillin resistant staph aureus) culture positive Assessment/Plan: On IV vancomycin will follow-up Vanco trough tomorrow morning list Problems reviewed: Yes Code(s): Z22.322 - CARRIER OR SUSPECTED CARRIER OF METHICILLIN RESIS STAPH (9) Morbid obesity Assessment/Plan: Nutrition consult and weight management as an outpatient Problems reviewed: Yes Code(s): E66.01 - MORBID (SEVERE) OBESITY DUE TO EXCESS CALORIES (10) Asthma Assessment/Plan: Patient is a known case of moderate persistent asthma on Advair and Ventolin as needed, at present asymptomatic resume home medications. Problems reviewed: Yes Code(s): J45.909 - UNSPECIFIED ASTHMA, UNCOMPLICATED Qualifiers: Asthma severity: mild Asthma persistence: intermittent
[2019-10-24] MEDS ORDERED: VANCOMYCIN 1 GRAM (PRE-DOCKED) 1,000 MG/250 ML BAG IVPB ONE ×2 (17:21→17:30)
[2019-10-24] MEDS ORDERED: ACETAMINOPHEN 325 MG TABLET (FP) PO PRN (18:09)
[2019-10-24] MEDS: MEROPENEM 1 GM in SODIUM CHLORIDE 100 ML IVPB SCH (20:48)
[2019-10-24] MEDS: ATORVASTATIN CA 10 MG TABLET (FP) PO SCH (21:57)
[2019-10-24 22:13] LABS: EPI CELLS 26 /uL (0-25.1); HYALINE CASTS 3 /uL (0-3.1); URINE APPEARANCE CLOUDY; URINE BACTERIA 65 /uL (0-1359); URINE BILIRUBIN NEGATIVE (NEGATIVE); URINE COLOR YELLOW; URINE GLUCOSE (UA) 3+ (NEGATIVE); URINE KETONE NEGATIVE (NEGATIVE); URINE LEUK ESTERASE 1+ (NEGATIVE); URINE NITRITE NEGATIVE (NEGATIVE); URINE PROTEIN 1+ (NEGATIVE); URINE RBC 44 /uL (0-23.9); URINE UROBILINOGEN 0.2 mg/dL (0.2-1.0); URINE WBC 60 /uL (0-25.8)
[2019-10-24] MEDS: FLUTICASONE/SALMETEROL 100 MCG/50 MCG DISKUS IH SCH (22:17)
[2019-10-24] MEDS: INSULIN (LEVEMIR) 100 UNITS/ML UNITS SQ SCH (22:17)
[2019-10-25] MEDS ORDERED: MEROPENEM 1 GM VIAL (RESTRICTED TO ID) IVPB ONE ×3 (00:36→22:17)
[2019-10-25] MEDS ORDERED: SODIUM CHLORIDE 100 ML IVPB ONE ×2 (00:37→09:15)
[2019-10-25] MEDS: MEROPENEM 1 GM in SODIUM CHLORIDE 100 ML IVPB SCH ×2 (01:12→09:20)
[2019-10-25] MEDS: INSULIN SLIDING SCALE (NOVOLOG) 1 VIAL SQ SCH ×3 (06:29→19:03)
[2019-10-25] MEDS: INSULIN (LEVEMIR) 100 UNITS/ML UNITS SQ SCH ×2 (06:29→22:32)
[2019-10-25 07:35] LABS: BASO % 0.5 % (0-2.0); EOS % 4.4 % (0-4.5); HEMATOCRIT 23.3 % (32.4-45.2); HEMOGLOBIN 7.5 GM/dL (10.7-15.3); LYMPH % 12.9 % (8-40); MCH 24.1 pg (25.7-33.7); MCHC 32.1 g/dl (32.0-36.0); MEAN CELL VOLUME 75.1 fl (80-96); MEAN PLT VOLUME 6.7 fl (7.5-11.1); MONO % 8.4 % (3.8-10.2); NEUT % 73.8 % (42.8-82.8); PLATELET COUNT 481 K/MM3 (134-434); WHITE BLOOD COUNT 9.6 K/mm3 (4.0-10.0)
[2019-10-25 07:59] LABS: BLOOD UREA NITROGEN 22.7 mg/dL (7-18); CALCIUM 8.1 mg/dL (8.5-10.1); CREATININE 1.3 mg/dL (0.55-1.3)
--- NOTE | 2019-10-25 08:20 | PN ---
Progress Note (short form) - Note Progress Note: 49 yo lady awaiting right below knee amputation for chronic diabetic foot osteomyelitis PMH IDDM, morbid obesity, HTN CXR reviewed EKG normal sinus rhythm CBC, BMP 10/25/19 06:35 10/25/19 06:35 Vital Signs Period Temp Pulse Resp BP Sys/Arthur Pulse Ox Last 24 Hr 98 F-98.4 F 82-103 18-20 111-131/55-68 97-98 s1s2 rrr lungs cta abd soft obese non tender right foot dressed with serosanguineous discharge aa0x3 anxious no medical contraindication to surgery tranfuse 1 unit packed red blood cells after surgery
[2019-10-25] MEDS ORDERED: ALPRAZolam 0.25 MG TABLET PO ONE (08:45)
[2019-10-25] MEDS ORDERED: VANCOMYCIN 1,000 MG VIAL (RESTRICTED TO ID ONLY) IVPB SCH (08:50)
--- NOTE | 2019-10-25 09:36 | EKG ---
Test Reason : Blood Pressure : / mmHG Vent. Rate : 081 BPM Atrial Rate : 081 BPM P-R Int : 138 ms QRS Dur : 098 ms QT Int : 376 ms P-R-T Axes : 053 053 058 degrees QTc Int : 436 ms NORMAL SINUS RHYTHM NORMAL ECG WHEN COMPARED WITH ECG OF 04-OCT-2019 18:11, NONSPECIFIC T WAVE ABNORMALITY NO LONGER EVIDENT IN INFERIOR LEADS NONSPECIFIC T WAVE ABNORMALITY, IMPROVED IN ANTEROLATERAL LEADS Confirmed by Jessica Vick ([id number]) on 10/25/2019 9:36:45 AM Referred By: Confirmed By:Jessica Vick
[2019-10-25] MEDS ORDERED: LISINOPRIL 10 MG TABLET (FP) PO SCH (10:00)
[2019-10-25] MEDS ORDERED: POLYETHYLENE GLYCOL 3350 119 GM BTL PO SCH (10:00)
[2019-10-25] MEDS ORDERED: ENOXAPARIN NA (PORCINE) 40 MG/0.4 ML DISP.SYRIN SQ SCH (10:00)
[2019-10-25] MEDS ORDERED: FUROSEMIDE 40 MG TABLET (FP) PO SCH (10:00)
[2019-10-25] MEDS ORDERED: FERROUS SO4 325 MG TABLET (FP) PO SCH (10:00)
--- NOTE | 2019-10-25 10:18 | CONSULT ---
Consult - text type - Consultation Consultation Note: 49 yo diabetic with chronic osteomyelitis right foot with Pseudomonas, Enterobacter and VRE. She has not healed in > 1 year of IV antibiotics and debridements and now has involvement of ankle joint. Amputation needed to control infection and allow rehab to proceed. Below knee amputation planned. Procedure explained to patient who agrees to proceed.
[2019-10-25] MEDS ORDERED: ROCURONIUM BROMIDE 100 MG/10 ML VIAL ONE (10:47)
[2019-10-25] MEDS ORDERED: fentaNYL CITRATE 250 MCG/5 ML VIAL ONE (10:47)
[2019-10-25] MEDS ORDERED: PROPOFOL 20 ML ONE ×2 (10:47→11:04)
[2019-10-25] MEDS ORDERED: SUCCINYLCHOLINE CHLORIDE 200 MG/10 ML SYRINGE ONE (10:47)
[2019-10-25] MEDS ORDERED: MIDAZOLAM HCL 2 MG/2 ML SINGLE DOSE VIAL ONE ×2 (10:48)
[2019-10-25] MEDS ORDERED: ceFAZolin SODIUM 1 GM VIAL IVPB ONE (11:15)
[2019-10-25] MEDS ORDERED: VANCOMYCIN 1,000 MG VIAL (RESTRICTED TO ID ONLY) IVPB ONE (11:15)
[2019-10-25] MEDS ORDERED: NEOSTIGMINE METHYLSULFATE 0.5 MG/ML - 10 ML MDV ONE ×2 (12:44→12:53)
--- NOTE | 2019-10-25 12:52 | OP ---
Operative Note - Note: Operative Date: 10/25/19 Pre-Operative Diagnosis: Osteomyelitis right foot Operation: Right below knee amputation Findings: No evidence for infection right calf. Post-Operative Diagnosis: Same as Pre-op Surgeon: Sumit Hillman Naval Aircrewman Mechanical: Douglas Howell Anesthesiologist/PACKER DENTURE: Bran Herrera Anesthesia: General Specimens Removed: Right leg below knee Estimated Blood Loss (mls): 200 Blood Volume Replaced (mls): 250 Operative Report Dictated: Yes
[2019-10-25] MEDS ORDERED: HYDROmorphone HCl 2 MG/ML VIAL ONE (13:05)
[2019-10-25] MEDS ORDERED: HYDROmorphone *PCA* 10MG/50ML DISP.SYRIN ONE (13:07)
[2019-10-25] MEDS ORDERED: LACTATED RINGERS SOLUTION 1,000 ML IV SCH (13:15)
[2019-10-25] MEDS ORDERED: HYDROmorphone HCl 2 MG/ML VIAL IVPUSH ONE (13:18)
[2019-10-25] MEDS: HYDROmorphone *PCA* 10MG/50ML DISP.SYRIN PCA SCH (13:26)
--- NOTE | 2019-10-25 13:35 | SURG ---
Surgery Bandoleer Straightener Stamper Note Bandoleer Straightener Stamper: Douglas Howell PA-C Date of Service: 10/25/19 Diagnosis: Osteomyelitis right foot Procedure: Right below knee amputation I was present for the entirety of the operative procedure. For further detail, please refer to operative report. Visit type - Case Type Case Type: Scheduled - New patient This patient is new to me today: Yes Date on this admission: 10/25/19
[2019-10-25] MEDS ORDERED: HYDROmorphone HCL CARPU-JECT 2 MG/1 ML DISP.SYRIN IVPB PRN (13:52)
[2019-10-25] MEDS ORDERED: HYDROmorphone HCl 2 MG/ML VIAL IVPB PRN (14:18)
[2019-10-25] MEDS: FLUTICASONE/SALMETEROL 100 MCG/50 MCG DISKUS IH SCH ×2 (15:08→22:23)
--- NOTE | 2019-10-25 20:02 | OP ---
DATE OF OPERATION: 10/25/2019 SURGEON: Sumit Saenz MD. PROCEDURE: Right below-knee amputation. PREOPERATIVE DIAGNOSIS: Chronic osteomyelitis, right foot. POSTOPERATIVE DIAGNOSIS: Chronic osteomyelitis, right foot. APPLICATION TECHNICIAN: PATTIE Owens. ANESTHESIA: General anesthesia. ANESTHESIOLOGIST: Bran Herrera MD. OPERATIVE FINDINGS: There was normal appearing skin muscle and bone at the level of amputation. OPERATIVE PROCEDURE: Following routine patient identification with side and site verification, general anesthesia was induced. The right leg was prepped with ChloraPrep. Timeout was performed. Incision was made in the right lower leg 4 fingerbreadths below the tibial tuberosity with a short anterior, long posterior flap. Subcutaneous tissues and muscle were divided with cautery. The neurovascular bundle of all 3 tibial arteries were ligated with silk ties. The tibia was transected approximately 2 cm above the level of the skin incision with an oscillating saw, and the anterior edge of the tibia was beveled smooth with a rasp. The fibula was transected 2 cm higher. Remaining soft tissue attachments were divided. The stump was irrigated and checked for hemostasis. The stump was closed with interrupted suture of 2-0 Vicryl on the muscle fascia. Skin was closed with cedrick. A sterile dressing consisting of Xeroform, gauze, fluff, combined Kerlix and Coban was applied. The leg was placed in a knee immobilizer, and the patient was taken to the recovery room in stable condition. SUMIT SAENZ M.D. [id number]
[2019-10-25] MEDS ORDERED: DEXTROSE 5%-WATER 100 ML IVPB ONE (22:18)
[2019-10-25] MEDS: MEROPENEM 1 GM in DEXTROSE 5%-WATER 100 ML IVPB SCH (22:23)
[2019-10-25] MEDS: VANCOMYCIN 1 GRAM (PRE-DOCKED) 1,000 MG/250 ML BAG IVPB SCH (22:24)
[2019-10-25] MEDS: ATORVASTATIN CA 10 MG TABLET (FP) PO SCH (22:31)
[2019-10-26] MEDS: MEROPENEM 1 GM VIAL (RESTRICTED TO ID) IVPB SCH ×3 (01:38→07:33)
[2019-10-26] MEDS ORDERED: ALBUTEROL SO4 HFA INHALER IH PRN (03:42)
[2019-10-26] MEDS ORDERED: ACETAMINOPHEN 325 MG TABLET (FP) PO PRN (03:42)
[2019-10-26] MEDS ORDERED: ONDANSETRON 4 MG/2 ML VIAL IVPUSH PRN (03:42)
[2019-10-26] MEDS ORDERED: MORPHINE SULFATE 2 MG/ML VIAL IVPUSH PRN (03:42)
[2019-10-26] MEDS ORDERED: MEROPENEM 1 GM VIAL (RESTRICTED TO ID) IVPB ONE ×3 (04:28→21:00)
[2019-10-26] MEDS ORDERED: DEXTROSE 5%-WATER 100 ML IVPB ONE ×3 (04:28→21:01)
[2019-10-26] MEDS: MEROPENEM 1 GM in DEXTROSE 5%-WATER 100 ML IVPB SCH ×3 (05:58→21:11)
[2019-10-26] MEDS: INSULIN (LEVEMIR) 100 UNITS/ML UNITS SQ SCH ×2 (06:00→21:13)
[2019-10-26] MEDS: INSULIN SLIDING SCALE (NOVOLOG) 1 VIAL SQ SCH ×3 (06:22→17:16)
[2019-10-26] MEDS: HYDROmorphone *PCA* 10MG/50ML DISP.SYRIN PCA SCH (07:12)
--- NOTE | 2019-10-26 08:08 | PN ---
Progress Note (short form) - Note Progress Note: Surgery POD #1 Right BKA. She has received 2 units PRBC. Patient reports lots of pain overnight despite the BILLET HEATER OPERATOR although she is feeling better this morning. She describes phantom pain below the level of the amputation. I explained that this can happen and should improve over time. She is tolerating her diet and voiding. She denies any CP, SOB, N/V, fever, chills dizziness or blurred vision. Vital Signs Temp 98.8 F 10/26/19 05:34 Pulse 90 10/26/19 05:34 Resp 18 10/26/19 05:34 BP 109/63 10/26/19 05:34 Pulse Ox 99 10/26/19 05:26 Intake & Output 10/25/19 10/25/19 10/26/19 11:59 23:59 11:59 Intake Total 1100 1790 865 Output Total 200 Balance 900 1790 865 Intake: IV 1000 550 525 Lactated Ringers Solution 300 525 1,000 ml @ 75 mls/hr IV ASDIR SAMMI Rx#:[id number] IVPB 100 300 100 Oral 240 240 Blood Product 0 Packed Cells 700 Output: Estimated Blood Loss 200 Other: Voiding Method Bedside Commode Incontinent # Unmeasured Voids Void 1 2 Bowel Movement No No CBC, BMP 10/26/19 08:40 10/26/19 08:40 PE: A&Ox3, NAD Unlabored resp on RA Left LE all compartments soft, supple and non-tender with +2DP pulses Right LE: thigh soft supple and non-tender, dressing C/D/I, knee immobilizer in place Problem List - Problems (1) Status post below knee amputation of right lower extremity Assessment/Plan: POD #1 with pain improving since overnight, s/p transfusion-2 units PRBC- currently stable 1) DVT prophylaxis with Lovenox and SCD on left leg 2) Knee immobilizer at all times 3) Keep dressing clean and dry, surgery team will change on POD#3 4) BILLET HEATER OPERATOR for pain managed my anesthesia 5) Bedrest 6) trend daily labs Evaluation and plan discussed with Dr Hillman Code(s): Z89.511 - ACQUIRED ABSENCE OF RIGHT LEG BELOW KNEE
[2019-10-26 09:04] LABS: HEMATOCRIT 25.2 % (32.4-45.2); HEMOGLOBIN 8.2 GM/dL (10.7-15.3); MCH 25.3 pg (25.7-33.7); MCHC 32.7 g/dl (32.0-36.0); MEAN CELL VOLUME 77.2 fl (80-96); MEAN PLT VOLUME 6.7 fl (7.5-11.1); PLATELET COUNT 382 K/MM3 (134-434); RBC 3.26 M/mm3 (3.60-5.2); RDW 20.5 % (11.6-15.6); WHITE BLOOD COUNT 14.5 K/mm3 (4.0-10.0)
[2019-10-26 09:37] LABS: ALBUMIN 1.8 g/dl (3.4-5.0); BILIRUBIN,TOTAL 0.4 mg/dL (0.2-1); BLOOD UREA NITROGEN 18.7 mg/dL (7-18); CALCIUM 8.1 mg/dL (8.5-10.1); CREATININE 1.3 mg/dL (0.55-1.3); POTASSIUM 4.1 mmol/L (3.5-5.1); TOT PROT 6.3 g/dl (6.4-8.2)
[2019-10-26] MEDS ORDERED: FUROSEMIDE 40 MG TABLET (FP) PO SCH (10:00)
--- NOTE | 2019-10-26 10:21 | PN ---
HC Provider Note Provider Note: Anesthesia Post Op Note Pt awake and alert NAD s/p GA for BKA pt denies n/v, no SOB, no urinary retention tolerating po will should convert to oral pain meds VSS no apparent anesthesia complications Leatha Chaidez.
[2019-10-26] MEDS ORDERED: INSULIN (NOVOLOG) ASPART 100 UNITS/ML 10ML VIAL ONE (10:38)
[2019-10-26] MEDS: ENOXAPARIN NA (PORCINE) 40 MG/0.4 ML DISP.SYRIN SQ SCH (10:46)
[2019-10-26] MEDS: MINERAL OIL/PET HY-PHL TOPICAL OINTMENT 454 GM JAR TP SCH (10:46)
[2019-10-26] MEDS: POLYETHYLENE GLYCOL 3350 119 GM BTL PO SCH (10:47)
[2019-10-26] MEDS: FLUTICASONE/SALMETEROL 100 MCG/50 MCG DISKUS IH SCH ×2 (10:47→22:09)
[2019-10-26] MEDS: FERROUS SO4 325 MG TABLET (FP) PO SCH (10:47)
[2019-10-26] MEDS: LISINOPRIL 10 MG TABLET (FP) PO SCH (10:47)
[2019-10-26] MEDS ORDERED: PCA PUMP NR ONE (11:08)
--- NOTE | 2019-10-26 12:14 | PN ---
Progress Note (short form) - Note Progress Note: CBC, BMP 10/26/19 08:40 10/26/19 08:40 Vital Signs Period Temp Pulse Resp BP Sys/Arthur Pulse Ox Last 24 Hr 98 F-98.8 F 7- 2-18 100-164/59-85 96-100 s1s2 rrr lungs cta abd soft obese non tender right BKA dressed aa0x3 calm 49 yo lady s/p right below knee amputation on 10.25.19 received 2 untis PRBC perioperatively poorly controlled DM, obesity POD#1 wound care as per surgery-greatly appreciated ID f/up regarding iv abx length dc planning to rehab
--- NOTE | 2019-10-26 14:44 | PN ---
Progress Note (short form) - Note Progress Note: ID CONSULT DICTATED POD #1 R BKA CONTINUE ANTIBIOTICS PERIOPERATIVELY
--- NOTE | 2019-10-26 15:58 | CONS ---
INFECTIOUS DISEASE CONSULTATION DATE OF CONSULTATION: DATE OF DICTATION: 10/26/2019 HISTORY: The patient is a 49-year-old female who is evaluated for antibiotic management. She has a longstanding history of a right diabetic foot infection. She had an infected diabetic foot ulcer which was complicated by chronic osteomyelitis. She had also developed a Charcot joint of that foot. She received a long-term course of IV antibiotic therapy. Despite the antibiotics, she had progression of her infection necessitating a right [id number] amputation. She was admitted to the hospital on October 25, 2019, where an elective BKA was performed. She is presently awake and alert. She complains of phantom limb pain. She denies any fever or chills. She has been maintained on the IV antibiotic therapy. PAST MEDICAL HISTORY: Positive for diabetes mellitus, history of recurrent diabetic foot infections with infected ulcers and chronic osteomyelitis, history of hypertension, chronic kidney disease. ALLERGIES: To ZOSYN. LABORATORY DATA: White count 14.5, hematocrit 25.2, platelet count 328, creatinine 1.3. Urine analysis 60 white cells. Previous cultures have been positive for MSSA, pseudomonas, group A strep and MRSA. PHYSICAL EXAMINATION: General: She is awake. She is in mild distress secondary to postoperative pain. Vital Signs: Her temperature is 98.4, blood pressure 122/73, pulse 96 regular, respirations 20 per minute. HEENT: Sclerae are anicteric. Heart: Sounds S1, S2. Lungs: Clear. Abdomen: Soft and nontender. Extremities: Postoperative dressing and splint in place right lower extremity. IMPRESSION: 1. Postoperative day number 1 right [id number] amputation. 2. Chronic kidney disease. 3. Diabetes mellitus. Will continue antibiotics perioperatively. Will not require long-term IV antibiotic therapy post hospital discharge. Thank you for the kind referral. ISAIAS KOHLI M.D. [id number]
[2019-10-26] MEDS: ATORVASTATIN CA 10 MG TABLET (FP) PO SCH (21:09)
[2019-10-26] MEDS: VANCOMYCIN 1 GRAM (PRE-DOCKED) 1,000 MG/250 ML BAG IVPB SCH (21:14)
[2019-10-27] MEDS ORDERED: DEXTROSE 5%-WATER 100 ML IVPB ONE ×3 (05:04→21:08)
[2019-10-27] MEDS ORDERED: MEROPENEM 1 GM VIAL (RESTRICTED TO ID) IVPB ONE ×3 (05:04→21:08)
[2019-10-27] MEDS: MEROPENEM 1 GM in DEXTROSE 5%-WATER 100 ML IVPB SCH ×3 (05:17→21:14)
[2019-10-27] MEDS: INSULIN SLIDING SCALE (NOVOLOG) 1 VIAL SQ SCH ×3 (06:24→17:22)
[2019-10-27] MEDS: INSULIN (LEVEMIR) 100 UNITS/ML UNITS SQ SCH ×2 (06:25→21:18)
[2019-10-27] MEDS ORDERED: INSULIN (NOVOLOG) ASPART 100 UNITS/ML 10ML VIAL ONE ×2 (06:28→12:10)
[2019-10-27 07:12] LABS: BASO % 0.5 % (0-2.0); EOS % 2.5 % (0-4.5); HEMATOCRIT 22.4 % (32.4-45.2); HEMOGLOBIN 7.3 GM/dL (10.7-15.3); LYMPH % 11.2 % (8-40); MCH 25.5 pg (25.7-33.7); MCHC 32.7 g/dl (32.0-36.0); MEAN CELL VOLUME 77.8 fl (80-96); MEAN PLT VOLUME 6.8 fl (7.5-11.1); MONO % 8.5 % (3.8-10.2); NEUT % 77.3 % (42.8-82.8); PLATELET COUNT 367 K/MM3 (134-434); RBC 2.88 M/mm3 (3.60-5.2); RDW 20.8 % (11.6-15.6); WHITE BLOOD COUNT 11.5 K/mm3 (4.0-10.0)
[2019-10-27 07:34] LABS: ALBUMIN 1.7 g/dl (3.4-5.0); BILIRUBIN,TOTAL 0.4 mg/dL (0.2-1); BLOOD UREA NITROGEN 16.6 mg/dL (7-18); CALCIUM 8.5 mg/dL (8.5-10.1); CREATININE 1.4 mg/dL (0.55-1.3); POTASSIUM 3.7 mmol/L (3.5-5.1); TOT PROT 5.9 g/dl (6.4-8.2)
--- NOTE | 2019-10-27 08:27 | PN ---
Progress Note (short form) - Note Progress Note: CBC, BMP 10/27/19 06:12 10/27/19 06:12 Vital Signs Period Temp Pulse Resp BP Sys/Arthur Pulse Ox Last 24 Hr 98.3 F-99.2 F 89-110 - 122-148/67-73 s1s2 rrr lungs cta abd soft obese non tender right BKA dressed dressing appears clean aa0x3 calm gluteal excoriation freya under abdominal skin folds 49 yo lady s/p right below knee amputation on 10.24. received 2 untis PRBC perioperatively poorly controlled DM, obesity POD#2 wound care as per surgery-tomorrow iv abx for now dc planning to rehab add colace for constipation silvadene to gluteal excoriation percocet for pain control covid 19 retest for tentative rehab dc dc lasix-urinates plenty, edema no longer an issue nystatin to skin candidiasis
--- NOTE | 2019-10-27 10:15 | PN ---
Progress Note (short form) - Note Progress Note: VASCULAR SURGERY POD #2 s/p Right BKA Alert. Doing well. Pain controlled well via OFFENDER EMPLOYMENT SPECIALIST Having phantom pains below level of amputation. Denies n/v/f/c, CP, palpitations, SOB or JOHNSON. Last Vital Signs Temp Pulse Resp BP Pulse Ox 98.3 F 89 20 136/67 99 10/27/19 05:37 10/27/19 05:37 10/27/19 05:37 10/27/19 05:37 10/26/19 09:26 H/H TREND 10/26/19 10/27/19 08:40 06:12 Hgb 8.2 L 7.3 L Hct 25.2 L 22.4 L PE Gen: alert. RLE: surgical dressing remains intact. No signs of staining to dressing. knee immobilizer A/P: 49 yo female POD #2 s/p Right BKA; 2 pRBC -- 1 intraop and 1 in pacu. H/o of chronic anemia and her h/h is back to her baseline (admit 10/24/19: h/h 7.4/23.1) - Cont to wear your knee immobilizer as instructed - OFFENDER EMPLOYMENT SPECIALIST pain management - SCD to LLE - Cont bedrest - Tight glycemic control; ISS - Surgery PAs to takedown dressing and change on rounds in AM. Above plan discussed with Dr. Hillman and agrees. Problem List - Problems (1) Status post below knee amputation of right lower extremity Code(s): Z89.511 - ACQUIRED ABSENCE OF RIGHT LEG BELOW KNEE (2) Chronic osteomyelitis Code(s): M86.60 - OTHER CHRONIC OSTEOMYELITIS, UNSPECIFIED SITE (3) HLD (hyperlipidemia) Code(s): E78.5 - HYPERLIPIDEMIA, UNSPECIFIED (4) Hypertension Code(s): I10 - ESSENTIAL (PRIMARY) HYPERTENSION Qualifiers: Hypertension type: essential hypertension Qualified Code(s): I10 - Essential (primary) hypertension (5) MRSA (methicillin resistant staph aureus) culture positive Code(s): Z22.322 - CARRIER OR SUSPECTED CARRIER OF METHICILLIN RESIS STAPH (6) Morbid obesity Code(s): E66.01 - MORBID (SEVERE) OBESITY DUE TO EXCESS CALORIES
[2019-10-27] MEDS: DOCUSATE SODIUM 100 MG CAPSULE (FP) PO SCH ×2 (10:16→21:14)
[2019-10-27] MEDS: oxyCODONE HCL 5 MG TABLET PO PRN ×2 (10:16→21:13)
[2019-10-27] MEDS: SILVER SULFADIAZINE 1% TOP CREAM 50 GM JAR TP SCH ×2 (10:16→21:29)
[2019-10-27] MEDS: FERROUS SO4 325 MG TABLET (FP) PO SCH (10:16)
[2019-10-27] MEDS: ENOXAPARIN NA (PORCINE) 40 MG/0.4 ML DISP.SYRIN SQ SCH (10:16)
[2019-10-27] MEDS: LISINOPRIL 10 MG TABLET (FP) PO SCH (10:16)
[2019-10-27] MEDS: POLYETHYLENE GLYCOL 3350 119 GM BTL PO SCH (10:17)
[2019-10-27] MEDS: FLUTICASONE/SALMETEROL 100 MCG/50 MCG DISKUS IH SCH ×2 (10:17→21:28)
[2019-10-27] MEDS: MINERAL OIL/PET HY-PHL TOPICAL OINTMENT 454 GM JAR TP SCH (10:17)
[2019-10-27] MEDS: NYSTATIN POWDER 100,000 UNITS/GM - 15 GM TOPICAL POWDER TP SCH ×2 (10:17→21:29)
--- NOTE | 2019-10-27 14:46 | PN ---
Progress Note, Physician History of Present Illness: AWAKE, ALERT IN BED OFFERS NO COMPLAINTS AFEBRILE - Current Medication List Current Medications: Active Medications Acetaminophen (Tylenol -) 650 mg PO Q6H PRN PRN Reason: pain 4-6 Last Admin: 10/26/19 21:09 Dose: 650 mg Documented by: Albuterol Sulfate (Ventolin Hfa Inhaler -) 1 puff IH Q6H PRN PRN Reason: SHORTNESS OF BREATH Atorvastatin Calcium (Lipitor -) 10 mg PO HS [facility] Last Admin: 10/26/19 21:09 Dose: 10 mg Documented by: Diphenhydramine HCl (Benadryl Injection -) 12.5 mg IVPUSH Q4H PRN PRN Reason: FOR ITCHING Last Admin: 10/26/19 17:51 Dose: 12.5 mg Documented by: Docusate Sodium (Colace -) 100 mg PO BID [facility] Last Admin: 10/27/19 10:16 Dose: 100 mg Documented by: Emollient Ointment (Aquaphor -) 1 applic TP DAILY [facility] Last Admin: 10/27/19 10:17 Dose: 1 applic Documented by: Enoxaparin Sodium (Lovenox -) 40 mg SQ DAILY [facility] Last Admin: 10/27/19 10:16 Dose: 40 mg Documented by: Ferrous Sulfate (Feosol -) 325 mg PO DAILY [facility] Last Admin: 10/27/19 10:16 Dose: 325 mg Documented by: Lactated Ringer's (Lactated Ringers Solution) 1,000 mls @ 75 mls/hr IV ASDIR [facility] Last Admin: 10/25/19 18:42 Dose: Not Given Documented by: Vancomycin HCl (Vancomycin (Pre-Docked)) 1,000 mg in 250 mls @ 166.667 mls/hr IVPB Q24H [facility]; Protocol Last Admin: 10/26/19 21:14 Dose: 166.667 mls/hr Documented by: Meropenem 1 gm/ Dextrose 100 mls @ 200 mls/hr IVPB Q8H [facility] Last Admin: 10/27/19 05:17 Dose: 200 mls/hr Documented by: Insulin Aspart (Novolog Vial Sliding Scale -) 1 vial SQ TIDAC [facility]; Protocol Last Admin: 10/27/19 11:54 Dose: 4 units Documented by: Insulin Detemir (Levemir Vial) 22 units SQ BID@0700,2200 [facility] Last Admin: 10/27/19 06:25 Dose: 22 unit Documented by: Lisinopril (Prinivil) 10 mg PO DAILY [facility] Last Admin: 10/27/19 10:16 Dose: 10 mg Documented by: Nystatin (Nystop Powder -) 1 applic TP BID [facility] Last Admin: 10/27/19 10:17 Dose: 1 applic Documented by: Ondansetron HCl (Zofran Injection) 4 mg IVPUSH Q6H PRN PRN Reason: NAUSEA Oxycodone HCl (Roxicodone -) 10 mg PO Q6H PRN PRN Reason: PAIN LEVEL 7 - 10 Last Admin: 10/27/19 10:16 Dose: 10 mg Documented by: Polyethylene Glycol (Miralax (For Daily Use) -) 17 gm PO DAILY [facility] Last Admin: 10/27/19 10:17 Dose: 17 grams Documented by: Fluticasone/Salmeterol (Advair 100mcg/50mcg -) 1 puff IH BID [facility] Last Admin: 10/27/19 10:17 Dose: 1 puff Documented by: Silver Sulfadiazine (Silvadene -) 1 applic TP BID [facility] Last Admin: 10/27/19 10:16 Dose: 1 applic Documented by: - Objective Vital Signs: Vital Signs Temperature 98.5 F 10/27/19 14:25 Pulse Rate 98 H 10/27/19 14:25 Respiratory Rate 20 10/27/19 14:25 Blood Pressure 123/67 10/27/19 14:25 O2 Sat by Pulse Oximetry (%) 97 10/27/19 10:00 Constitutional: Yes: No Distress Eyes: Yes: Conjunctiva Clear Cardiovascular: Yes: Regular Rate and Rhythm, S1, S2 Respiratory: Yes: CTA Bilaterally Gastrointestinal: Yes: Normal Bowel Sounds, Soft Extremities: Yes: Other (R LE DRESSING AND SPLINT IN PLACE) Labs: CBC, BMP 10/27/19 06:12 10/27/19 06:12 INR, PTT INR 1.18 (0.83-1.09) H 10/24/19 14:45 Assessment/Plan POD #2 R BKA CONTINUE ANTIBIOTICS PERIOPERATIVELY
[2019-10-27 14:57] VITALS: BMI 48.6
--- NOTE | 2019-10-27 17:14 | PATH ---
Surgical Pathology Report Patient Name: CHEN BARKSDALE Med. Rec. #: [id number] /Age/Gender: 1970 (Age: 49) / F Account: [id number] Location: [facility] MED/SURG Taken: 10/25/2019 Received: 10/25/2019 Reported: 10/27/2019 Physicians: Sumit Hillman M.D. Specimen(s) Received BELOW KNEE AMPUTEDED RIGHT LEG Clinical History Chronic osteomyelitis right foot with pseudomonas, Enterobacter and VRE Final Diagnosis BELOW KNEE AMPUTATION RIGHT LEG, AMPUTATION: AMPUTATED LEG SHOWING EXTENSIVE ULCERATION WITH ACUTE AND CHRONIC INFLAMMATION AND GRANULATION TISSUE FORMATION. BONE WITH ACUTE AND CHRONIC OSTEOMYELITIS. BONE MARROW MARGIN IS NEGATIVE FOR OSTEOMYELITIS. VIABLE SKIN AND SOFT TISSUE MARGIN. ARTERIES SHOWING FOCAL ATHEROSCLEROSIS WITH CALCIFIED VESSEL WALL. Electronically Signed Ang Campuzano M.D. Gross Description Received fresh labeled "below knee amputation right leg," is a 35 cm in length below the knee amputation. The foot measures 25 cm from heel to toe. There is a 3.5 cm in length exposed portion of tibia and a 9 cm in length exposed portion of fibula at the proximal aspect of the specimen. The foot and ankle appear edematous with darkening of the skin. The volar surface displays a 3.7 x 3.5 cm ulcerated lesion with pus. Sectioning of the vasculature reveals focal mild atherosclerosis. Cut In Worker sections are submitted in 8 cassettes as follows: 1-ulcerated lesion on volar surface; 2-bone underlying lesion, following decalcification; 3-skin and soft tissue from dark and edematous area of ankle; 4-bone margin, following decalcification; 5-skin and soft tissue margin; 6-anterior tibial artery; 7-posterior tibial artery; 8-dorsalis pedis. DL/10/26/2019 saudi/10/26/2019
[2019-10-27] MEDS: ATORVASTATIN CA 10 MG TABLET (FP) PO SCH (21:14)
[2019-10-27] MEDS: VANCOMYCIN 1 GRAM (PRE-DOCKED) 1,000 MG/250 ML BAG IVPB SCH (21:21)
[2019-10-28] MEDS ORDERED: DEXTROSE 5%-WATER 100 ML IVPB ONE (05:24)
[2019-10-28] MEDS ORDERED: MEROPENEM 1 GM VIAL (RESTRICTED TO ID) IVPB ONE (05:24)
[2019-10-28] MEDS: MEROPENEM 1 GM in DEXTROSE 5%-WATER 100 ML IVPB SCH ×2 (05:34→15:16)
[2019-10-28] MEDS: INSULIN SLIDING SCALE (NOVOLOG) 1 VIAL SQ SCH ×3 (06:42→17:25)
[2019-10-28] MEDS: INSULIN (LEVEMIR) 100 UNITS/ML UNITS SQ SCH ×2 (06:42→21:13)
[2019-10-28 06:58] LABS: BASO % 0.5 % (0-2.0); EOS % 3.9 % (0-4.5); HEMOGLOBIN 7.2 GM/dL (10.7-15.3); LYMPH % 13.1 % (8-40); MCH 25.4 pg (25.7-33.7); MCHC 32.5 g/dl (32.0-36.0); MEAN CELL VOLUME 77.9 fl (80-96); MEAN PLT VOLUME 6.7 fl (7.5-11.1); MONO % 6.7 % (3.8-10.2); NEUT % 75.8 % (42.8-82.8); PLATELET COUNT 369 K/MM3 (134-434); RBC 2.82 M/mm3 (3.60-5.2); RDW 20.6 % (11.6-15.6); WHITE BLOOD COUNT 11.3 K/mm3 (4.0-10.0)
[2019-10-28 07:20] LABS: ALBUMIN 1.7 g/dl (3.4-5.0); BILIRUBIN,TOTAL 0.2 mg/dL (0.2-1); BLOOD UREA NITROGEN 19.5 mg/dL (7-18); CALCIUM 8.4 mg/dL (8.5-10.1); CREATININE 1.3 mg/dL (0.55-1.3); POTASSIUM 3.8 mmol/L (3.5-5.1); TOT PROT 6.1 g/dl (6.4-8.2)
--- NOTE | 2019-10-28 08:07 | PN ---
Progress Note (short form) - Note Progress Note: VASCULAR SURGERY POD #3 s/p Right BKA Alert. Doing well. Having phantom pains below level of amputation. Denies n/v/f/c, CP, palpitations, SOB or JOHNSON. Last Vital Signs Temp Pulse Resp BP Pulse Ox 98.5 F 89 20 123/73 97 10/28/19 06:00 10/28/19 06:00 10/28/19 06:00 10/28/19 06:00 10/28/19 06:00 CBC, BMP 10/28/19 06:15 10/28/19 06:15 PE Gen: alert. RLE: (dressing taken down on rounds). Stella insitu. No evidence of infection. knee immobilizer A/P: 49 yo female POD #3 s/p Right BKA; 2 pRBC -- 1 intraop and 1 in pacu. H/o of chronic anemia and her h/h is back to her baseline (admit 10/24/19: h/h 7.4/23.1) - Cont to wear your knee immobilizer as instructed - pain management - SCD to LLE - Begin PT - Tight glycemic control; ISS Above plan discussed with Dr. Hillman and agrees. Problem List - Problems (1) Status post below knee amputation of right lower extremity Code(s): Z89.511 - ACQUIRED ABSENCE OF RIGHT LEG BELOW KNEE (2) Chronic osteomyelitis Code(s): M86.60 - OTHER CHRONIC OSTEOMYELITIS, UNSPECIFIED SITE (3) HLD (hyperlipidemia) Code(s): E78.5 - HYPERLIPIDEMIA, UNSPECIFIED (4) Hypertension Code(s): I10 - ESSENTIAL (PRIMARY) HYPERTENSION Qualifiers: Hypertension type: essential hypertension Qualified Code(s): I10 - Essential (primary) hypertension (5) MRSA (methicillin resistant staph aureus) culture positive Code(s): Z22.322 - CARRIER OR SUSPECTED CARRIER OF METHICILLIN RESIS STAPH (6) Morbid obesity Code(s): E66.01 - MORBID (SEVERE) OBESITY DUE TO EXCESS CALORIES
--- NOTE | 2019-10-28 08:48 | PN ---
Progress Note (short form) - Note Progress Note: CBC, BMP 10/28/19 06:15 10/28/19 06:15 Vital Signs Period Temp Pulse Resp BP Sys/Arthur Pulse Ox Last 24 Hr 98.1 F-99 F 88-98 - 123-131/63-75 96-97 s1s2 rrr lungs cta abd soft obese non tender right BKA dressed dressing appears clean aa0x3 calm, but gets tearful and upset gluteal excoriation freya under abdominal skin folds 49 yo lady s/p right below knee amputation on 10.25.19 received 2 untis PRBC perioperatively poorly controlled DM, obesity POD#3 start PT iv abx for now dc planning to rehab add neurontin for phantom pain anemia was seen by ems driver and gi last month-needs outpt f/up and colonoscopy also likely strong component of chr ds./osteo and likely also vanco/meropenem related expect to improve once off of abx
[2019-10-28 09:21] LABS: ANISOCYTOSIS 3+; MACROCYTOSIS 0; PLATELET ESTIMATE NORMAL
[2019-10-28] MEDS: LISINOPRIL 10 MG TABLET (FP) PO SCH (09:31)
[2019-10-28] MEDS: NYSTATIN POWDER 100,000 UNITS/GM - 15 GM TOPICAL POWDER TP SCH ×2 (09:31→21:14)
[2019-10-28] MEDS: ENOXAPARIN NA (PORCINE) 40 MG/0.4 ML DISP.SYRIN SQ SCH (09:32)
[2019-10-28] MEDS: POLYETHYLENE GLYCOL 3350 119 GM BTL PO SCH (09:33)
[2019-10-28] MEDS: DOCUSATE SODIUM 100 MG CAPSULE (FP) PO SCH ×2 (09:34→21:13)
[2019-10-28] MEDS: SILVER SULFADIAZINE 1% TOP CREAM 50 GM JAR TP SCH ×2 (09:35→21:15)
[2019-10-28] MEDS: FLUTICASONE/SALMETEROL 100 MCG/50 MCG DISKUS IH SCH ×2 (09:35→21:15)
[2019-10-28] MEDS: MINERAL OIL/PET HY-PHL TOPICAL OINTMENT 454 GM JAR TP SCH (09:35)
[2019-10-28] MEDS: FERROUS SO4 325 MG TABLET (FP) PO SCH (09:35)
--- NOTE | 2019-10-28 15:59 | PN ---
Progress Note, Physician History of Present Illness: S/P R BKA AWAKE, ALERT IN BED OFFERS NO COMPLAINTS AFEBRILE - Current Medication List Current Medications: Active Medications Acetaminophen (Tylenol -) 650 mg PO Q6H PRN PRN Reason: pain 4-6 Last Admin: 10/26/19 21:09 Dose: 650 mg Documented by: Albuterol Sulfate (Ventolin Hfa Inhaler -) 1 puff IH Q6H PRN PRN Reason: SHORTNESS OF BREATH Atorvastatin Calcium (Lipitor -) 10 mg PO HS [facility] Last Admin: 10/27/19 21:14 Dose: 10 mg Documented by: Diphenhydramine HCl (Benadryl Injection -) 12.5 mg IVPUSH Q4H PRN PRN Reason: FOR ITCHING Last Admin: 10/26/19 17:51 Dose: 12.5 mg Documented by: Docusate Sodium (Colace -) 100 mg PO BID [facility] Last Admin: 10/28/19 09:34 Dose: 100 mg Documented by: Emollient Ointment (Aquaphor -) 1 applic TP DAILY [facility] Last Admin: 10/28/19 09:35 Dose: Not Given Documented by: Enoxaparin Sodium (Lovenox -) 40 mg SQ DAILY [facility] Last Admin: 10/28/19 09:32 Dose: 40 mg Documented by: Ferrous Sulfate (Feosol -) 325 mg PO DAILY [facility] Last Admin: 10/28/19 09:35 Dose: 325 mg Documented by: Insulin Aspart (Novolog Vial Sliding Scale -) 1 vial SQ TIDAC [facility]; Protocol Last Admin: 10/28/19 13:16 Dose: Not Given Documented by: Insulin Detemir (Levemir Vial) 22 units SQ BID@0700,2200 [facility] Last Admin: 10/28/19 06:42 Dose: 22 unit Documented by: Lisinopril (Prinivil) 10 mg PO DAILY [facility] Last Admin: 10/28/19 09:31 Dose: 10 mg Documented by: Nystatin (Nystop Powder -) 1 applic TP BID [facility] Last Admin: 10/28/19 09:31 Dose: 1 applic Documented by: Ondansetron HCl (Zofran Injection) 4 mg IVPUSH Q6H PRN PRN Reason: NAUSEA Oxycodone HCl (Roxicodone -) 10 mg PO Q6H PRN PRN Reason: PAIN LEVEL 7 - 10 Last Admin: 10/27/19 21:13 Dose: 10 mg Documented by: Polyethylene Glycol (Miralax (For Daily Use) -) 17 gm PO DAILY [facility] Last Admin: 10/28/19 09:33 Dose: 17 grams Documented by: Fluticasone/Salmeterol (Advair 100mcg/50mcg -) 1 puff IH BID [facility] Last Admin: 10/28/19 09:35 Dose: 1 puff Documented by: Silver Sulfadiazine (Silvadene -) 1 applic TP BID [facility] Last Admin: 10/28/19 09:35 Dose: 1 applic Documented by: - Objective Vital Signs: Vital Signs Temperature 98.6 F 10/28/19 13:57 Pulse Rate 96 H 10/28/19 13:57 Respiratory Rate 20 10/28/19 13:57 Blood Pressure 145/70 10/28/19 13:57 O2 Sat by Pulse Oximetry (%) 98 10/28/19 13:57 Constitutional: Yes: No Distress Eyes: Yes: Conjunctiva Clear Cardiovascular: Yes: Regular Rate and Rhythm, S1 Respiratory: Yes: CTA Bilaterally Gastrointestinal: Yes: Normal Bowel Sounds. No: Tenderness Extremities: Yes: Other (POST OP DRESSING, SPLINT IN PLACE) Labs: CBC, BMP 10/28/19 06:15 10/28/19 06:15 INR, PTT INR 1.18 (0.83-1.09) H 10/24/19 14:45 Assessment/Plan POST OP R BKA DISCONTINUE ANTIBIOTICS
[2019-10-28] MEDS: oxyCODONE HCL 5 MG TABLET PO PRN (20:42)
[2019-10-28] MEDS: ATORVASTATIN CA 10 MG TABLET (FP) PO SCH (21:13)
[2019-10-29] MEDS ORDERED: INSULIN (NOVOLOG) ASPART 100 UNITS/ML 10ML VIAL ONE (05:12)
[2019-10-29] MEDS: INSULIN (LEVEMIR) 100 UNITS/ML UNITS SQ SCH (06:04)
[2019-10-29] MEDS: INSULIN SLIDING SCALE (NOVOLOG) 1 VIAL SQ SCH ×2 (06:05→12:21)
[2019-10-29 08:13] LABS: BASO % 0.4 % (0-2.0); EOS % 5.2 % (0-4.5); HEMATOCRIT 22.3 % (32.4-45.2); HEMOGLOBIN 7.3 GM/dL (10.7-15.3); LYMPH % 15.2 % (8-40); MCH 25.8 pg (25.7-33.7); MCHC 32.8 g/dl (32.0-36.0); MEAN CELL VOLUME 78.8 fl (80-96); MEAN PLT VOLUME 6.9 fl (7.5-11.1); MONO % 5.7 % (3.8-10.2); NEUT % 73.5 % (42.8-82.8); PLATELET COUNT 418 K/MM3 (134-434); RBC 2.82 M/mm3 (3.60-5.2); RDW 20.9 % (11.6-15.6); WHITE BLOOD COUNT 9.9 K/mm3 (4.0-10.0)
--- NOTE | 2019-10-29 08:35 | DS ---
Physical Examination Vital Signs: Vital Signs Temperature 99 F 10/28/19 22:00 Pulse Rate 89 10/28/19 22:00 Respiratory Rate 20 10/28/19 22:00 Blood Pressure 137/70 10/28/19 22:00 O2 Sat by Pulse Oximetry (%) 98 10/28/19 22:00 Constitutional: Yes: Well Nourished, Obese Eyes: Yes: EOM Intact HENT: Yes: Normocephalic Neck: Yes: Trachea Midline Cardiovascular: Yes: Regular Rate and Rhythm Respiratory: Yes: CTA Bilaterally Gastrointestinal: Yes: Normal Bowel Sounds, Soft, Abdomen, Obese Edema: No Peripheral Pulses WNL: Yes Wound/Incision: Yes: Dressing Dry and Intact, Other (Right below knee amputation) Neurological: Yes: WNL Psychiatric: Yes: WNL Labs: CBC, BMP 10/29/19 06:33 10/28/19 06:15 Discharge Summary Problems reviewed: Yes Reason For Visit: CHARCOT'S JOINT OF FOOT DUE TO DIABETES/ Current Active Problems CKD stage 3 due to type 2 diabetes mellitus (Acute) Charcot foot due to diabetes mellitus (Acute) Iron deficiency anemia (Acute) Osteomyelitis (Acute) Right foot pain (Acute) Status post below knee amputation of right lower extremity (Acute) Hospital Course: 49 yo lady s/p right below knee amputation on 10.25.19 received 2 untis PRBC perioperatively poorly controlled DM, obesity anemia was seen by ob/gyn and gi last month-needs outpt f/up and colonoscopy also likely strong component of chr ds./osteo and likely also vanco/meropenem related expect to improve once off of abx cleared by surgery for Dc-will need short term rehab for ambulation/mobility completed abx course needs good sugar control Condition: Stable - Instructions Diet, Activity, Other Instructions: please call for appointment for in 3 weeks monitor CBC every 1-2 weeks Referrals: Harvinder Bledsoe MD [Primary Care Provider] - Sumit Hillman MD [Staff Physician] - Disposition: [facility] - Home Medications Comprehensive Discharge Medication List: Ambulatory Orders Atorvastatin Ca [Lipitor] 10 mg PO HS 07/16/18 Metformin HCl [Glucophage] 1,000 mg PO BID 01/06/19 Ferrous Sulfate 325 mg PO DAILY 09/16/19 Insulin Glargine,Hum.rec.anlog [Lantus Solostar] 22 unit SQ BID #1 pack 09/22/19 Lisinopril [Prinivil] 10 mg PO DAILY #30 tablet 09/22/19 Albuterol Sulfate Inhaler - [Ventolin HFA Inhaler -] 1 puff IH Q6H PRN #1 inhaler 10/11/19 Polyethylene Glycol 3350 [Miralax 119 gm Btl -] 17 gm PO DAILY #30 bottle 10/11/19 Salmeterol/Fluticasone [Advair 100Mcg/50Mcg -] 1 puff IH BID #1 inhaler 10/11/19 Acetaminophen [Tylenol .Regular Strength -] 650 mg PO Q6H PRN tablet 10/29/19 Docusate Sodium [Colace -] 100 mg PO BID capsule 10/29/19 Enoxaparin [Lovenox -] 40 mg SQ DAILY disp.syrin 10/29/19 Gabapentin [Neurontin -] 100 mg PO TID capsule 10/29/19 Insulin Sliding Scale [Novolog Vial Sliding Scale -] 1 vial SQ TIDAC units 10/29/19 Mineral Oil/Pet Hy-Phl [Aquaphor -] 1 applic TP DAILY jar 10/29/19 Nystatin Cream [Mycostatin Cream -] 1 applic TP BID applic 10/29/19 Silver Sulfadiazine 1% Top Cr [Silvadene -] 1 applic TP BID jar 10/29/19 oxyCODONE HCL [Roxicodone -] 10 mg PO Q6H PRN tablet 10/29/19
[2019-10-29] MEDS ORDERED: NYSTATIN 100,000 UNIT/GM TOPICAL CREAM 15 GM TUBE TP SCH (10:00)
[2019-10-29] MEDS: FERROUS SO4 325 MG TABLET (FP) PO SCH (11:55)
[2019-10-29] MEDS: LISINOPRIL 10 MG TABLET (FP) PO SCH (11:55)
[2019-10-29] MEDS: ENOXAPARIN NA (PORCINE) 40 MG/0.4 ML DISP.SYRIN SQ SCH (11:56)
[2019-10-29] MEDS: DOCUSATE SODIUM 100 MG CAPSULE (FP) PO SCH (11:56)
[2019-10-29] MEDS: FLUTICASONE/SALMETEROL 100 MCG/50 MCG DISKUS IH SCH (11:56)
[2019-10-29] MEDS: MINERAL OIL/PET HY-PHL TOPICAL OINTMENT 454 GM JAR TP SCH (11:56)
[2019-10-29] MEDS: POLYETHYLENE GLYCOL 3350 119 GM BTL PO SCH (11:56)
[2019-10-29] MEDS: SILVER SULFADIAZINE 1% TOP CREAM 50 GM JAR TP SCH (11:57)
[2019-10-29 12:44] VITALS: BP 135/85; PULSE 90; TEMP 98
[2019-10-29] MEDS ORDERED: GABAPENTIN 100 MG CAPSULE PO SCH (14:00)
--- NOTE | 2019-10-29 15:55 | PN ---
Progress Note (short form) - Note Progress Note: Pt seen for dressing change. POD 4 s/p r bka Dressing removed, incision c/d/i with cedrick in place. No erythema, no drainage, no foul odor New dressing placed (xeroform, 4x4s, kerlix, nate wrap). Pt leaving to rehab shortly. D/c instructions reviewed with pt at length. Pt verbalized understanding.
== END 2019-10-29 15:50 | DRG 240 ==
LOC: JER 14:10 → JERBED 15:50 → J7W 18:42
PROVIDERS: ADMIT Internal Medicine; ATTEND Internal Medicine
PROC: 30233N1 Transfusion of Nonautologous Red Blood Cells into Peripheral Vein, Percutaneous Approach (ICD-10-PCS; 2019-10-25)
PROC: 0Y6F0ZZ Detachment at Right Knee Region, Open Approach (ICD-10-PCS; principal; 2019-10-25 10:00)
DX: E11.51 Type 2 diabetes mellitus with diabetic peripheral angiopathy without gangrene (principal); M86.171 Other acute osteomyelitis, right ankle and foot; M86.671 Other chronic osteomyelitis, right ankle and foot; Z68.42 Body mass index [BMI] 45.0-49.9, adult; E11.40 Type 2 diabetes mellitus with diabetic neuropathy, unspecified; E11.22 Type 2 diabetes mellitus with diabetic chronic kidney disease; E11.69 Type 2 diabetes mellitus with other specified complication; N18.3 Chronic kidney disease, stage 3 (moderate); E11.65 Type 2 diabetes mellitus with hyperglycemia; Z79.4 Long term (current) use of insulin; E78.5 Hyperlipidemia, unspecified; E66.01 Morbid (severe) obesity due to excess calories; I12.9 Hypertensive chronic kidney disease with stage 1 through stage 4 chronic kidney disease, or unspecified chronic kidney disease; D50.9 Iron deficiency anemia, unspecified
CPT/HCPCS: 36415; 36430; 71046-TC-FY; 80048; 80053; 81003; 82010; 82962; 85025; 85027; 85610; 86850; 86900; 86901; 86922; 88307-TC; 88311-TC; 93005; 93010; 94760; 97116-GP; 97162-GP; 99285-25; G0480; P9058; U0003

== ENCOUNTER 2021-06-20 10:54 | Inpatient (IN) | payer BC, OTHER ==
[2021-06-20 11:19] VITALS: BMI 50.5
[2021-06-20] MEDS ORDERED: VANCOMYCIN/WATER 1,250 MG/250 ML BAG IVPB ONE (12:30)
[2021-06-20] MEDS ORDERED: SODIUM CHLORIDE 0.9% 500 ML INFUS.BAG IV ONE (12:34)
[2021-06-20] MEDS ORDERED: ALBUTEROL SO4 HFA INHALER IH PRN (13:27)
[2021-06-20] MEDS ORDERED: DOCUSATE SODIUM 100 MG CAPSULE (FP) PO PRN (13:27)
[2021-06-20] MEDS ORDERED: VANCOMYCIN/WATER BAGS 1,250 MG/250 ML BAG IVPB SCH (15:45)
[2021-06-20] MEDS: INSULIN SLIDING SCALE (NOVOLOG) 1 VIAL SQ PRN (18:02)
[2021-06-20] MEDS: INSULIN (LEVEMIR) 100 UNITS/ML UNITS SQ SCH (21:22)
[2021-06-20] MEDS: ATORVASTATIN CA 10 MG TABLET (FP) PO SCH (21:22)
[2021-06-20] MEDS ORDERED: metFORMIN HCL 500 MG TABLET (FP) PO SCH (22:00)
[2021-06-21] MEDS: ACETAMINOPHEN 325 MG TABLET (FP) PO PRN (05:45)
[2021-06-21] MEDS: FUROSEMIDE 20 MG TABLET (FP) PO SCH ×2 (05:45→15:08)
[2021-06-21 09:18] LABS: HEMATOCRIT 31.1 % (32.4-45.2); HEMOGLOBIN 10.1 GM/dL (10.7-15.3); MCH 26.4 pg (25.7-33.7); MCHC 32.4 g/dl (32.0-36.0); MEAN CELL VOLUME 81.4 fl (80-96); MEAN PLT VOLUME 8.1 fl (7.5-11.1); PLATELET COUNT 355 10^3/uL (134-434); RBC 3.83 M/mm3 (3.60-5.2); RDW 15.9 % (11.6-15.6); WHITE BLOOD COUNT 9.9 K/mm3 (4.0-10.0)
[2021-06-21 09:38] LABS: ALBUMIN 3.2 g/dl (3.4-5.0); BLOOD UREA NITROGEN 34.6 mg/dL (7-18); CALCIUM 9.5 mg/dL (8.5-10.1)
[2021-06-21 09:41] LABS: CREATININE 1.5 mg/dL (0.55-1.3)
[2021-06-21 09:42] LABS: TOT PROT 7.3 g/dl (6.4-8.2)
[2021-06-21 09:43] LABS: BILIRUBIN,TOTAL 0.6 mg/dL (0.2-1)
[2021-06-21] MEDS: ZINC SULFATE 220 MG CAPSULE (FP) PO SCH (09:59)
[2021-06-21] MEDS: PANTOPRAZOLE 40 MG TABLET PO SCH (09:59)
[2021-06-21] MEDS: VALSARTAN 80 MG TABLET PO SCH (09:59)
[2021-06-21] MEDS: ASCORBIC ACID 500 MG TABLET (FP) PO SCH (09:59)
[2021-06-21] MEDS: FERROUS SO4 325 MG TABLET (FP) PO SCH ×2 (09:59→17:37)
[2021-06-21] MEDS: ENOXAPARIN NA (PORCINE) 40 MG/0.4 ML DISP.SYRIN SQ SCH (10:00)
[2021-06-21] MEDS ORDERED: FUROSEMIDE 20 MG TABLET (FP) PO SCH (10:00)
[2021-06-21] MEDS: BACITRACIN 15 GM TUBE TOPICAL OINTMENT TP SCH ×2 (11:53→22:14)
[2021-06-21] MEDS: INSULIN (LEVEMIR) 100 UNITS/ML UNITS SQ SCH ×2 (11:54→22:06)
[2021-06-21] MEDS: INSULIN SLIDING SCALE (NOVOLOG) 1 VIAL SQ PRN ×2 (11:55→17:36)
[2021-06-21] MEDS ORDERED: VANCOMYCIN/WATER BAGS 1,250 MG/250 ML BAG IVPB SCH (13:00)
[2021-06-21] MEDS: VANCOMYCIN/WATER BAGS 1,250 MG/250 ML BAG IVPB SCH (14:36)
[2021-06-21] MEDS: ATORVASTATIN CA 10 MG TABLET (FP) PO SCH (22:06)
[2021-06-22] MEDS: FUROSEMIDE 20 MG TABLET (FP) PO SCH ×2 (05:46→16:33)
[2021-06-22] MEDS ORDERED: INSULIN (NOVOLOG) ASPART 100 UNITS/ML 10ML VIAL ONE (05:50)
[2021-06-22] MEDS: INSULIN SLIDING SCALE (NOVOLOG) 1 VIAL SQ PRN ×3 (05:50→21:54)
[2021-06-22] MEDS: FERROUS SO4 325 MG TABLET (FP) PO SCH ×2 (08:49→17:38)
[2021-06-22 09:24] LABS: HEMATOCRIT 30.3 % (32.4-45.2); MCH 26.6 pg (25.7-33.7); MEAN CELL VOLUME 80.5 fl (80-96); MEAN PLT VOLUME 7.8 fl (7.5-11.1); PLATELET COUNT 326 10^3/uL (134-434); RBC 3.77 M/mm3 (3.60-5.2); RDW 15.6 % (11.6-15.6); WHITE BLOOD COUNT 8.5 K/mm3 (4.0-10.0)
[2021-06-22] MEDS: ENOXAPARIN NA (PORCINE) 40 MG/0.4 ML DISP.SYRIN SQ SCH (09:27)
[2021-06-22] MEDS: BACITRACIN 15 GM TUBE TOPICAL OINTMENT TP SCH ×2 (09:27→21:54)
[2021-06-22] MEDS: INSULIN (LEVEMIR) 100 UNITS/ML UNITS SQ SCH ×2 (09:27→21:53)
[2021-06-22] MEDS: ASCORBIC ACID 500 MG TABLET (FP) PO SCH (09:27)
[2021-06-22] MEDS: ZINC SULFATE 220 MG CAPSULE (FP) PO SCH (09:27)
[2021-06-22] MEDS: VALSARTAN 80 MG TABLET PO SCH (09:27)
[2021-06-22] MEDS: PANTOPRAZOLE 40 MG TABLET PO SCH (09:27)
[2021-06-22 09:32] LABS: CALCIUM 9.1 mg/dL (8.5-10.1)
[2021-06-22 09:36] LABS: CREATININE 1.5 mg/dL (0.55-1.3)
[2021-06-22 09:38] LABS: BILIRUBIN,TOTAL 0.3 mg/dL (0.2-1); TOT PROT 7.1 g/dl (6.4-8.2)
[2021-06-22 12:53] LABS: ERYTHROCYTE SEDIMENTATION RATE 18 mm/hr (0-30)
[2021-06-22] MEDS: VANCOMYCIN/WATER BAGS 1,250 MG/250 ML BAG IVPB SCH (16:34)
[2021-06-22] MEDS: ATORVASTATIN CA 10 MG TABLET (FP) PO SCH (21:54)
[2021-06-22] MEDS: ACETAMINOPHEN 325 MG TABLET (FP) PO PRN (21:55)
[2021-06-23] MEDS: INSULIN SLIDING SCALE (NOVOLOG) 1 VIAL SQ PRN (05:40)
[2021-06-23] MEDS: FUROSEMIDE 20 MG TABLET (FP) PO SCH (05:41)
[2021-06-23 07:45] VITALS: BP 153/82; PULSE 70; TEMP 97.5
[2021-06-23] MEDS: INSULIN (LEVEMIR) 100 UNITS/ML UNITS SQ SCH (09:18)
[2021-06-23] MEDS: VALSARTAN 80 MG TABLET PO SCH (09:18)
[2021-06-23] MEDS: FERROUS SO4 325 MG TABLET (FP) PO SCH (09:18)
[2021-06-23] MEDS: BACITRACIN 15 GM TUBE TOPICAL OINTMENT TP SCH (09:18)
[2021-06-23] MEDS: ASCORBIC ACID 500 MG TABLET (FP) PO SCH (09:18)
[2021-06-23] MEDS: PANTOPRAZOLE 40 MG TABLET PO SCH (09:18)
[2021-06-23] MEDS: ENOXAPARIN NA (PORCINE) 40 MG/0.4 ML DISP.SYRIN SQ SCH (09:19)
[2021-06-23] MEDS: ZINC SULFATE 220 MG CAPSULE (FP) PO SCH (09:25)
== END 2021-06-23 11:19 | disposition home or self-care (01) | DRG 565 ==
LOC: JER 10:54 → JERBED 13:12 → J8W 14:26
PROVIDERS: ADMIT Internal Medicine; ATTEND Internal Medicine
DX: T87.43 Infection of amputation stump, right lower extremity (principal); N17.9 Acute kidney failure, unspecified; Z68.43 Body mass index [BMI] 50.0-59.9, adult; L03.119 Cellulitis of unspecified part of limb; E66.01 Morbid (severe) obesity due to excess calories; E11.22 Type 2 diabetes mellitus with diabetic chronic kidney disease; I12.9 Hypertensive chronic kidney disease with stage 1 through stage 4 chronic kidney disease, or unspecified chronic kidney disease; N18.30 Chronic kidney disease, stage 3 unspecified; E11.65 Type 2 diabetes mellitus with hyperglycemia; Y83.5 Amputation of limb(s) as the cause of abnormal reaction of the patient, or of later complication, without mention of misadventure at the time of the procedure; E11.40 Type 2 diabetes mellitus with diabetic neuropathy, unspecified; J45.909 Unspecified asthma, uncomplicated; E03.9 Hypothyroidism, unspecified; E78.5 Hyperlipidemia, unspecified
CPT/HCPCS: 36415; 73590-TC-RT-FY; 73721-RT-TC; 76882-TC-RT-FY; 80053; 82962; 85025; 85027; 85651; 86140; 87040; 87081; 93005; 93010; 99285-25; C9803; G0463-25; G0480; U0003; U0005

== ENCOUNTER 2023-07-23 07:02 | Day surgery (SDC) | payer BC, OTHER ==
[2023-07-21 09:54] VITALS: BMI 53.2
[2023-07-23] MEDS ORDERED: TETRACAINE 0.5% OPHTH SOLN 2 ML BOTTLE ONE (08:13)
[2023-07-23] MEDS ORDERED: CARBACHOL 0.01% INTRA-OCULAR 1.5 ML VIAL ONE (08:13)
[2023-07-23] MEDS ORDERED: LIDOCAINE 1% P/F 10 MG/ML VIAL ONE (08:13)
[2023-07-23] MEDS ORDERED: BSS (NA/CA/MG/K) BALANCED SALT SOLUTION OPHTH SOLN 15 ML BOTTLE ONE (08:13)
[2023-07-23] MEDS ORDERED: NEO/POLYMYX B SULF/DEXAMETH OPHTHALMIC 5ML BOTTLE ONE (08:13)
[2023-07-23] MEDS: TROPICAMIDE 1% OPHTH SOLN 15 ML BOTTLE OS ONE ×3 (09:10→09:20)
[2023-07-23] MEDS: PHENYLEPHRINE 2.5% OPHTH SOLN 15 ML BOTTLE OS ONE ×3 (09:10→09:20)
[2023-07-23] MEDS: CYCLOPENTOLATE 2% OPHTH SOLN 2 ML BOTTLE OS ONE ×3 (09:10→09:20)
[2023-07-23] MEDS: CIPROFLOXACIN 0.3% EYE DROPS 5 ML BOTTLE OS ONE ×3 (09:10→09:20)
[2023-07-23] MEDS ORDERED: TROPICAMIDE 1% OPHTH SOLN 15 ML BOTTLE ONE (09:14)
[2023-07-23] MEDS ORDERED: CYCLOPENTOLATE 2% OPHTH SOLN 2 ML BOTTLE ONE (09:14)
[2023-07-23] MEDS ORDERED: CIPROFLOXACIN 0.3% EYE DROPS 5 ML BOTTLE ONE (09:15)
[2023-07-23] MEDS ORDERED: PHENYLEPHRINE 2.5% OPTHALMIC DROP 2ML BOTTLE ONE (09:15)
[2023-07-23] MEDS ORDERED: MIDAZOLAM HCL 2 MG/2 ML SINGLE DOSE VIAL ONE (10:06)
[2023-07-23 10:41] VITALS: RESP 20; TEMP 97.8
[2023-07-23 10:55] VITALS: BP 158/80; PULSE 84
== END 2023-07-23 11:09 | disposition home or self-care (01) ==
LOC: FASU 07:02
PROVIDERS: ATTEND Ophthalmology
PROC: 08RK3JZ Replacement of Left Lens with Synthetic Substitute, Percutaneous Approach (ICD-10-PCS; principal; 2023-07-23 10:12)
DX: H26.8 Other specified cataract (principal)
CPT/HCPCS: 66984; V2632; 36415; 82010; 82962

== ENCOUNTER 2023-09-10 08:58 | Day surgery (SDC) | payer BC ==
[2023-09-04 08:41] VITALS: BMI 52.4
[2023-09-10] MEDS ORDERED: NEO/POLYMYX B SULF/DEXAMETH OPHTHALMIC 5ML BOTTLE ONE (09:34)
[2023-09-10] MEDS ORDERED: CARBACHOL 0.01% INTRA-OCULAR 1.5 ML VIAL ONE (09:34)
[2023-09-10] MEDS ORDERED: BSS (NA/CA/MG/K) BALANCED SALT SOLUTION OPHTH SOLN 15 ML BOTTLE ONE (09:34)
[2023-09-10] MEDS ORDERED: LIDOCAINE 1% P/F 10 MG/ML VIAL ONE (09:34)
[2023-09-10] MEDS ORDERED: TETRACAINE 0.5% OPHTH SOLN 2 ML BOTTLE ONE (09:34)
[2023-09-10] MEDS ORDERED: EPINEPHrine/PF 1 MG/1 ML (1:1,000) AMPULE ONE (09:34)
[2023-09-10] MEDS: INSULIN (NOVOLOG) ASPART 100 UNITS/ML 10ML VIAL SQ ONE (09:55)
[2023-09-10] MEDS: TROPICAMIDE 1% OPHTH SOLN 15 ML BOTTLE ONE (10:00)
[2023-09-10] MEDS: CYCLOPENTOLATE 2% OPHTH SOLN 2 ML BOTTLE ONE (10:00)
[2023-09-10] MEDS: CIPROFLOXACIN 0.3% EYE DROPS 5 ML BOTTLE ONE (10:00)
[2023-09-10] MEDS: PHENYLEPHRINE 2.5% OPTHALMIC DROP 2ML BOTTLE ONE (10:00)
[2023-09-10] MEDS: INSULIN REGULAR HUMAN 100 UNITS/ML *VIAL IVPUSH ONE (11:15)
[2023-09-10] MEDS ORDERED: MIDAZOLAM HCL 2 MG/2 ML SINGLE DOSE VIAL ONE (11:34)
[2023-09-10] MEDS ORDERED: ceFAZolin SODIUM 1 GM VIAL ONE (11:36)
[2023-09-10 12:04] VITALS: TEMP 96.9
[2023-09-10 13:30] VITALS: BP 137/62; PULSE 77; RESP 18
== END 2023-09-10 13:00 | disposition home or self-care (01) ==
LOC: FASU 08:58
PROVIDERS: ATTEND Ophthalmology
PROC: 08RJ3JZ Replacement of Right Lens with Synthetic Substitute, Percutaneous Approach (ICD-10-PCS; principal; 2023-09-10 11:35)
DX: H26.8 Other specified cataract (principal)
CPT/HCPCS: 66984; V2632; 82962